=== PATIENT | female | born 1950 | race Caucasian/White ===

== ENCOUNTER 2019-05-18 07:56 | Outpatient (CLI) | payer BC, SELFPAY ==
--- NOTE | ~2019-05-18 | MM_ITS ---
EXAMINATION: MM screening [facility] BI w henrietta HISTORY: Screening mammogram TECHNIQUE: Craniocaudal and mediolateral oblique 3-D tomosynthesis images were obtained and synthetic 2-D images were generated. CAD analysis was submitted and interpreted. COMPARISON: 05/15/2018, 03/30/1917, 04/02/2016, 04/12/2015 BREAST PARENCHYMAL COMPOSITION: There are scattered areas of fibroglandular density. FINDINGS: There are stable changes of excisional biopsy in the middle third of the central left breas t. There is no evidence of suspicious mass, calcification, or architectural distortion to suggest mal ignancy in either breast. There has been no suspicious interval change. IMPRESSION: 1. No mammographic evidence of malignancy. 2. Recommend routine screening mammography in one year. BI-RADS Category 2: Benign finding(s). Reviewed, dictated and finalized at location A.
--- NOTE | ~2019-05-18 | DEXA_ITS ---
Bone Density Report Name: Mira Arguello Age: 68 Sex: Female Ethnicity: White Date of : 1950 Indication: postmenopausal; height loss; cancer; Referring Provider: Daksha Goldstein Study: Bone densitometry was performed. Exam Date: May 18, 2019 Accession number: [id number] Bone Density: Region BMD T-score Z-score Classification AP Spine (L1, L4) 1.222 1.7 3.8 Normal Femoral Neck (Left) 1.009 1.4 3.3 Normal Total Hip (Left) 1.140 1.6 3.1 Normal Total Hip Bilateral Avg 1.122 1.5 2.9 Normal Femoral Neck (Right) 1.022 1.6 3.4 Normal Total Hip (Right) 1.102 1.3 2.8 Normal World Health Organization criteria for BMD impression classify patients as: Normal (T-score at or above -1.0), Osteopenia (T-score between -1.0 and -2.5), or Osteoporosis (T-score at or below -2.5). 10-year Fracture Risk: FRAX not reported because: All T-scores for Spine Total, Hip Total, Femoral Neck at or above -1.0 Clinical Information Provided by Patient: Has the following medical conditions: Cancer Patient maximum height was 66 Menopause Age: 48 Drinks caffeinated beverages Onset of menses at age 12 Number of children 3 Impression: The patient has normal bone mass. Discussion: LOW RISK OF FRACTURE; BONE DENSITY IS WELL ABOVE THE MINIMUM DESIRABLE LEVEL AND ABOVE AVERAGE FOR AGE AND SEX AT ALL SKELETAL SITES TESTED. This person's bone density is above expected limits for age and sex. This is rarely clinically significant, but should be pursued if there are significant musculoskeletal complaints. The patient should follow a healthful lifestyle (good nutrition with adequate calcium and vitamin D, and appropriate weight-bearing exercise). Follow-Up: Consider repeating this study in 5 years or sooner if there is some new clinical indication. Reported by: [facility] on 05/18/2019 8:25:00 AM. Reviewed, dictated and finalized at location [facility]
== END 2019-05-18 07:57 | disposition home or self-care (01) ==
PROVIDERS: PCP Family Medicine; Visit Provider Family Medicine
DX: Z12.31 Encounter for screening mammogram for malignant neoplasm of breast (principal); Z78.0 Asymptomatic menopausal state
CPT/HCPCS: 77063; 77067; 77080

== ENCOUNTER 2020-05-01 15:13 | Emergency (ER) | payer MEDICARE, SELFPAY ==
--- NOTE | 2020-05-01 15:21 | ED.FEMALEGU ---
HPI - Female Genitourinary General Chief complaint: Urogenital-Female Stated complaint: uti Time Seen by Provider: 05/01/20 15:21 Source: patient, RN notes reviewed and old records reviewed History of Present Illness HPI Narrative: 69-year-old female presents to [facility] with complaints of I have a UTI. Suprapubic pressure, burning, frequency, urgency. Denies any back pain or abdominal pain. Denies fevers. No nausea vomiting or diarrhea. Related Data Home Medications Medication Instructions Recorded Confirmed aspirin 81 mg PO DAILY 02/16/19 05/01/20 Allergies Allergy/AdvReac Type Severity Reaction Status Date / Time No Known Allergies Allergy Verified 07/27/19 10:38 Review of Systems Review of Systems: Narrative: CONSTITUTIONAL: Denies fever, chills, or sweats. CARDIOVASCULAR: Denies chest pain, palpitations, or edema. RESPIRATORY: Denies cough or dyspnea. GASTROINTESTINAL: Denies abdominal pain, nausea, vomiting, or diarrhea. GENITOURINARY: Reports dysuria or hematuria. SKIN: Denies rash or itching. MUSCULOSKELETAL: Denies back pain, joint pain, or myalgia. NEUROLOGIC: Denies headache or weakness PSYCHIATRIC: Denies anxiety or depression. All other systems reviewed are negative, except as documented in HPI. [facility]LY [facility] Family History Family History Mother Family history of heart disease in male family member before age 55 Patient's mother is Social History Social History Smoking status: Never smoker Alcohol intake: current Gender identity (if verbalized by the patient): Female Comments At the time of my signature, I reviewed and agree with the nursing past medical, surgical, social, and family history. There is no relevant family history pertinent to the patient complaint. Exam Narrative: Exam Narrative: GENERAL: This is a well-nourished, well-developed patient, in no apparent distress. HEAD: normocephalic, atraumatic. EYES: PERRL. Sclera clear/white. NECK: Neck supple, non-tender without lymphadenopathy. CARDIOVASCULAR: Regular rate and rhythm without murmurs, gallops, or rubs. RESPIRATORY: Clear to auscultation. Breath sounds equal bilaterally. No wheezes, rales, or rhonchi. GASTROINTESTINAL: Abdomen soft, non-tender, nondistended. SKIN: warm, intact with no suspicious lesions or rash, good texture and turgor. NEURO: awake, alert, and oriented to person, place and time. There were no obvious focal neurologic abnormalities. EXTREMITIES: No clubbing, cyanosis, or edema. BACK: Nontender without deformity or crepitance. No flank tenderness. Course Vital Signs Vital signs: Vital Signs Temperature 98 F 05/01/20 15:25 Pulse Rate 81 05/01/20 15:25 Respiratory Rate 05/01/20 15:25 Blood Pressure 150/74 H 05/01/20 15:25 Temperature 98 F 05/01/20 15:25 Pulse Rate 81 05/01/20 15:25 Respiratory Rate 05/01/20 15:25 Blood Pressure 150/74 H 05/01/20 15:25 Reviewed, discussed blood pressure and the importance of following up with primary care for evaluation. MDM - Female Genitourinary MDM Narrative Medical decision making narrative: Discharge instructions reviewed with patient, as well as provided in writing per nursing staff. The instructions also include specific and strict return/GO TO THE ER as well as f/u information. All questions have been answered, and the patient deny any further questions with discharge and discharge plan. Differential Diagnosis Differential diagnosis: Likely urinary tract infection and bacterial vaginosis Lab Data Labs: Urine Glucose Negative Reference Range: Negative Urine Bilirubin Negative Reference Range: Negative Urine Ketone Negative
[2020-05-01 15:25] VITALS: BP 150/74; PULSE 81; RESP 20; TEMP 36.6
== END 2020-05-01 15:39 | disposition home or self-care (01) ==
PROVIDERS: Emergency Provider Nurse Practitioner; PCP Family Medicine
DX: N30.01 Acute cystitis with hematuria (principal); E78.00 Pure hypercholesterolemia, unspecified; Z85.038 Personal history of other malignant neoplasm of large intestine
CPT/HCPCS: 81003; 87086; 87088; 99213; G0463

== ENCOUNTER → 2020-06-27 13:11 | Outpatient (CLI) | payer MEDICARE, SELFPAY ==
--- NOTE | ~2020-06-27 | MM_ITS ---
EXAMINATION: MM screening [facility] BI w henrietta HISTORY: Screening mammogram TECHNIQUE: Craniocaudal and mediolateral oblique 3-D tomosynthesis images were obtained and synthetic 2-D images were generated. CAD analysis was submitted and interpreted. COMPARISON: 05/28/2019, 05/15/2018, 04/08/2017 BREAST PARENCHYMAL COMPOSITION: The breasts are heterogeneously dense, which may obscure small masses . FINDINGS: Again noted are stable changes of excisional biopsy in the middle third of the central left breast. There is no evidence of suspicious mass, calcification, or architectural distortion to sugge st malignancy in either breast. There has been no suspicious interval change. IMPRESSION: 1. No mammographic evidence of malignancy. 2. Recommend routine screening mammography in one year. BI-RADS Category 2: Benign finding(s). Reviewed, dictated and finalized at location A.
== END ==
PROVIDERS: PCP Family Medicine; Visit Provider Physician Assistant Medical
DX: Z12.31 Encounter for screening mammogram for malignant neoplasm of breast (principal)
CPT/HCPCS: 77063; 77067

== ENCOUNTER 2021-02-15 01:29 | Day surgery (SDC) | payer MEDICARE, SELFPAY ==
[2021-01-30 14:52] VITALS: BMI 29.4
--- NOTE | 2021-02-14 15:18 | PM.HPGS ---
History of Present Illness History of Present Illness Consent: Risks, benefits, and alternatives have been discussed and questions answered. Patient agrees to proceed with procedure. Chief complaint: hx of colon ca Narrative: Mira Magana is a 70 year old female with a history of colon cancer 7 years ago. Her last colonoscopy was 3 years ago Review of Systems Review of Systems: All systems reviewed & are unremarkable except as noted in HPI and below PMFSH Past Medical History Medical History BMI 30.0-30.9,adult Screening for malignant neoplasm of colon performed Family History Family History Mother Family history of heart disease in male family member before age 55 Patient's mother is Heart disease Tobacco abuse Father Alzheimer's disease Sibling No problems noted. 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 Gender identity (if verbalized by the patient): Female Sexual Orientation (if Verbalized by the Patient): Straight or Heterosexual Spiritual care concerns: No Agree to blood products: Yes Meds Home Medications and Allergies Home Medications Medication Instructions Recorded Confirmed Type aspirin 81 mg PO DAILY 02/16/19 02/15/21 History alprazolam 0.25 mg tablet 0.25 mg PO QHS PRN #30 tablet 11/15/20 02/15/21 Rx hydrocortisone 2.5 % topical cream 1 applic RECTAL DAILY PRN #30 g 12/13/20 02/15/21 Rx with perineal applicator rosuvastatin 10 mg PO DAILY 01/30/21 02/15/21 History vit C-vit V-zrzxut-vnli-lutein 1 cap PO DAILY 01/30/21 02/15/21 History [PreserVision Lutein] Allergies Allergy/AdvReac Type Severity Reaction Status Date / Time No Known Allergies Allergy Verified 02/15/21 10:15 Exam Resp: Auscultation: clear to auscultation bilaterally Cardio: Rate: regular rate Rhythm: regular rhythm GI: GI Palp: Yes Soft to palpation and No Tenderness to palpation present (GI) Assessment and Plan Assessment and plan (1) Colon cancer screening: Code(s): Z12.11 - Encounter for screening for malignant neoplasm of colon Status: Acute Assessment and Plan: Colonoscopy with possible biopsy or polypectomy or cautery or injection of substances.
[2021-02-15 10:05] VITALS: BP 168/74; PULSE 82; RESP 18; TEMP 37; O2SAT 100; BMI 29.5
[2021-02-15] MEDS: LACTATED RINGERS 1,000 ML 150 ML IV CONT (10:29)
--- NOTE | 2021-02-15 11:18 | P.PNAN_ITS ---
Anes - Initial Pre Proc Eval Procedure: Operation Date: 02/15/21 11:30 Proposed Procedures p Screening Colonoscopy - Jack Russell MD Date/Time: 02/15/21 11:18 Surgeon: Jack Russell MD Pre Op Diagnosis: hx of colon ca Patient Data Age: 70 Gender: F Height: 1.68 m Weight: 82.9 kg Last Vital Signs Temp 98.6 F 02/15/21 10:05 Pulse 82 02/15/21 10:05 Resp 18 02/15/21 10:05 BP 168/74 H 02/15/21 10:05 Pulse Ox 100 02/15/21 10:05 Allergies Allergy/AdvReac Type Severity Reaction Status Date / Time No Known Allergies Allergy Verified 02/15/21 10:15 Home Medications Medication Instructions Recorded Confirmed Type aspirin 81 mg PO DAILY 02/16/19 02/15/21 History alprazolam 0.25 mg tablet 0.25 mg PO QHS PRN #30 tablet 11/15/20 02/15/21 Rx hydrocortisone 2.5 % topical cream 1 applic RECTAL DAILY PRN #30 g 12/13/20 02/15/21 Rx with perineal applicator rosuvastatin 10 mg PO DAILY 01/30/21 02/15/21 History vit C-vit L-anogjo-cgcm-lutein 1 cap PO DAILY 01/30/21 02/15/21 History [PreserVision Lutein] Patient hx anesthesia problems: none Family hx anesthesia problems: none Results Review: All pre-operative results and documents have been reviewed as part of the pre-operative evaluation. [facility] Past Medical History Medical History BMI 30.0-30.9,adult Screening for malignant neoplasm of colon performed Family History Family History Mother Family history of heart disease in male family member before age 55 Patient's mother is Heart disease Tobacco abuse Father Alzheimer's disease Sibling No problems noted. 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 Gender identity (if verbalized by the patient): Female Sexual Orientation (if Verbalized by the Patient): Straight or Heterosexual Spiritual care concerns: No Agree to blood products: Yes Anes - Eval Final PreProcedure Day of Procedure 02/15/21 11:18 Patient weight: obese Heart: regular rate and rhythm Lungs: clear to auscultation Airway: Mallampati scale class II Neurological: alert and oriented Last oral intake: >/= 8 hours ASA classification: II Emergent: no Anesthetic plan: proceed Anesthesia type and monitoring: general GIVS and standard monitoring Results Review: All pre-operative results and documents have been reviewed as part of the pre-operative evaluation. Informed Consent: The patient's anesthetic plan and its attendant risks and benefits were discussed with the patient/family/POA. Questions were solicited and answers provided to the satisfaction of the patient/family/POA.
[2021-02-15] MEDS: SIMETHICONE ORAL SUSPENSION 20 MG/0.3 ML 30 ML BOTTLE 0.6 ML IRRIGATION (11:28)
[2021-02-15 11:38] VITALS: BP 101/60; PULSE 75; RESP 17; O2SAT 96
[2021-02-15 11:48] VITALS: BP 114/65; PULSE 68; RESP 20; O2SAT 99
[2021-02-15 11:58] VITALS: BP 113/63; PULSE 61; RESP 16; O2SAT 99
== END 2021-02-15 12:09 | disposition home or self-care (01) ==
PROVIDERS: PCP Family Medicine; Visit Provider Internal Medicine Gastroenterology
PROC: 0DJD8ZZ Inspection of Lower Intestinal Tract, Via Natural or Artificial Opening Endoscopic (ICD-10-PCS; CPT 45378; principal; 2021-02-15 11:30)
DX: Z12.11 Encounter for screening for malignant neoplasm of colon (principal); K64.8 Other hemorrhoids; K57.30 Diverticulosis of large intestine without perforation or abscess without bleeding; Z98.0 Intestinal bypass and anastomosis status; Z90.49 Acquired absence of other specified parts of digestive tract; Z85.038 Personal history of other malignant neoplasm of large intestine; Z79.82 Long term (current) use of aspirin; E66.9 Obesity, unspecified; Z68.29 Body mass index [BMI] 29.0-29.9, adult
CPT/HCPCS: G0105; J2704; J7120

== ENCOUNTER 2021-04-02 12:05 | Emergency (ER) | payer MEDICARE, SELFPAY ==
[2021-04-02 12:25] VITALS: BP 146/75; PULSE 83; RESP 18; TEMP 36.8; O2SAT 97
--- NOTE | 2021-04-02 12:27 | ED.FEMALEGU ---
HPI - Female Genitourinary General Chief complaint: Urogenital-Female Stated complaint: uti complaints Time Seen by Provider: 04/02/21 12:30 Source: patient Limitations: no limitations History of Present Illness HPI Narrative: 70-year-old female presented for complaint of dysuria, and cloudy urine with a foul odor, onset yesterday. She denies nausea, vomiting, diarrhea, constipation, flank pain, hematuria, fever or chills. Endorses approximately 3 UTIs last year. She has been drinking cranberry juice daily. Related Data Home Medications Medication Instructions Recorded Confirmed aspirin 81 mg PO DAILY 02/16/19 02/15/21 PreserVision Lutein 1 cap PO DAILY 01/30/21 02/15/21 rosuvastatin 10 mg PO DAILY 01/30/21 02/15/21 Allergies Allergy/AdvReac Type Severity Reaction Status Date / Time No Known Allergies Allergy Verified 04/02/21 12:25 Review of Systems Review of Systems: CONSTITUTIONAL: Denies body aches, fever, chills, or sweats. CARDIOVASCULAR: Denies chest pain, palpitations, or edema. RESPIRATORY: Denies cough or dyspnea. GASTROINTESTINAL: Denies abdominal pain, nausea, vomiting, or diarrhea. GENITOURINARY: Reports dysuria, frequency Denies urgency, hematuria, flank pain SKIN: Denies rash, itching, or wounds. MUSCULOSKELETAL: Denies back pain or myalgia. [facility] Past Medical History Medical History BMI 30.0-30.9,adult Screening for malignant neoplasm of colon performed Family History Family History Mother Family history of heart disease in male family member before age 55 Patient's mother is Heart disease Tobacco abuse Father Alzheimer's disease Sibling No problems noted. 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 Please see nursing chart for further information. There is no relevant family history pertinent to the presenting complaint Exam Narrative: GENERAL: Well-appearing and in no acute distress. HEAD: Normocephalic EYES: EOMI. No redness or drainage. ENT: Mucous membranes pink and moist. NECK: Normal AROM. Supple. CHEST: No respiratory distress. Clear to auscultation. HEART: Regular rate and rhythm. ABDOMEN: Soft, nontender, nondistended, normal active bowel sounds. No CVA tenderness MUSCULOSKELETAL: No bony tenderness. SKIN: Warm, dry, no rash. NEURO: No focal deficits. Alert and oriented x3. Gait steady. PSYCH: Normal affect. No signs of depression or anxiety. Course Course Emergency Course: urine Pos leuk, nitrite, blood pro; abx sent Patient is aware of diagnosis, understands and agrees to treatment plan. Anticipatory guidance given. Patient agrees to follow-up as directed and is aware of reasons to seek care at the emergency department. Portions of this record may have been created with voice recognition software Level of Care: Express Care Visit Vital Signs Vital signs: Vital Signs Temperature 98.2 F 04/02/21 12:25 Pulse Rate 83 04/02/21 12:25 Respiratory Rate 18 04/02/21 12:25 Blood Pressure 146/75 H 04/02/21 12:25 Pulse Oximetry 97 04/02/21 12:25 Temperature 98.2 F 04/02/21 12:25 Pulse Rate 83 04/02/21 12:25 Respiratory
== END 2021-04-02 12:51 | disposition home or self-care (01) ==
PROVIDERS: Emergency Provider Nurse Practitioner Family; PCP Family Medicine
DX: N39.0 Urinary tract infection, site not specified (principal); Z79.82 Long term (current) use of aspirin
CPT/HCPCS: 81003; 87077; 87086; 87186; 99213; G0463

== ENCOUNTER → 2021-09-14 10:14 | Outpatient (CLI) | payer MEDICARE, SELFPAY ==
--- NOTE | ~2021-09-14 | MM_ITS ---
EXAMINATION: MM screening [facility] BI w henrietta HISTORY: Screening TECHNIQUE: Craniocaudal and mediolateral oblique 3-D tomosynthesis images were obtained and synthetic 2-D images were generated. CAD analysis was submitted and interpreted. COMPARISON: Comparison to multiple prior studies sequentially, with oldest reviewed study dated 04/02. BREAST PARENCHYMAL COMPOSITION: Breast composed of scattered areas of fibroglandular density FINDINGS: Stable architectural distortion in the left breast from previous biopsies. There is no evid ence of suspicious mass, calcification, or architectural distortion to suggest malignancy in either b reast. There has been no suspicious interval change. IMPRESSION: 1. No mammographic evidence of malignancy. 2. Recommend routine screening mammography in one year. BI-RADS Category 1: Negative Reviewed, dictated and finalized at location A.
== END ==
PROVIDERS: PCP Family Medicine; Visit Provider Family Medicine
DX: Z12.31 Encounter for screening mammogram for malignant neoplasm of breast (principal)
CPT/HCPCS: 77063; 77067

== ENCOUNTER 2021-12-22 08:45 | Outpatient (CLI) | payer MEDICARE, SELFPAY ==
[2021-12-22 09:05] LABS: Basophils Percent Auto 0.3 % (0.2-1.2); Eosinophils Absolute Auto 0.1 K/mm3 (0-0.3); Eosinophils Percent Auto 2.5 % (0-4.4); Hematocrit 42.7 % (37.0-47.0); Hemoglobin 14.1 g/dL (12.0-15.0); Lymphocytes Absolute Auto 1.05 K/mm3 (0.9-3.2); Lymphocytes Percent Auto 33.1 % (18.3-44.2); Mean Corpuscular Hemoglobin 32.4 pg (26-34); Mean Corpuscular Volume 98.2 fl (80-100); Mean Platelet Volume 11.1 fl (7.4-10.4); Monocytes Absolute Auto 0.3 K/mm3 (0.1-0.6); Monocytes Percent Auto 8.8 % (2.6-8.5); Neutrophils Absolute Auto 1.8 K/mm3 (1.3-6.7); Neutrophils Percent Auto 55.3 % (45.5-73.1); Platelet Count Result 150 k/mm3 (150-375); Red Blood Count 4.35 M/mm3 (4.2-5.4); Red Cell Distribution Width 12.3 % (11.5-14.5); White Blood Count 3.2 K/mm3 (4.5-10.0)
[2021-12-22 14:18] LABS: Alanine Aminotransferase 30 U/L (6-35); Albumin Level 4.3 g/dL (3.5-5.1); Alkaline Phosphatase 51 U/L (38-126); Anion Gap 6 mmol/L (8-16); Aspartate Amino Transferase 36 U/L (14-36); Bilirubin,Total 0.7 mg/dL (0.2-1.3); Blood Urea Nitrogen 12 mg/dL (7-17); Calcium 9.6 mg/dL (8.4-10.2); Carbon Dioxide 29 mmol/L (22-30); Chloride 103 mmol/L (98-107); Estimated Glomerular Filt Rate > 60; Glucose 121 mg/dL (65-110); Potassium 4.3 mmol/L (3.4-5.0); Sodium 138 mmol/L (137-145)
[2021-12-22 14:41] LABS: Carcinoembryonic Antigen 7.9 ng/mL (0.0-3.0)
== END 2021-12-22 08:46 | disposition home or self-care (01) ==
PROVIDERS: PCP Family Medicine; Visit Provider Internal Medicine Hematology & Oncology
DX: C18.9 Malignant neoplasm of colon, unspecified (principal)
CPT/HCPCS: 36415; 80053; 82378; 85025

== ENCOUNTER 2022-01-04 00:53 | Day surgery (SDC) | payer MEDICARE, SELFPAY ==
[2021-12-19 13:38] VITALS: BMI 29.5
--- NOTE | 2022-01-04 06:54 | PM.HPGS ---
History of Present Illness History of Present Illness Consent: Risks, benefits, and alternatives have been discussed and questions answered. Patient agrees to proceed with procedure. Chief complaint: dysphagia Narrative: Mira Magana is a 71 year old female With difficulty swallowing for the past year. Solid food is difficult to get down. He will feel as though the food is hitting an air pocket and does not want to pass until she burps. Review of Systems Review of Systems: All systems reviewed & are unremarkable except as noted in HPI and below PMFSH Past Medical History Medical History BMI 29.0-29.9,adult BMI 30.0-30.9,adult Screening for malignant neoplasm of colon performed Family History Family History Mother Family history of heart disease in male family member before age 55 Patient's mother is Heart disease Tobacco abuse CHF (congestive heart failure) Father Alzheimer's disease Sibling No problems noted. 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 Gender identity (if verbalized by the patient): Female Sexual Orientation (if Verbalized by the Patient): Straight or Heterosexual Spiritual care concerns: No Agree to blood products: Yes Meds Home Medications and Allergies Home Medications Medication Instructions Recorded Confirmed Type aspirin 81 mg chewable tablet 81 mg PO DAILY 02/16/19 12/19/21 History vit C 226 mg-vit E 90 mg-copper 1 cap PO DAILY 01/30/21 12/19/21 History 0.8 mg-zinc oxide-lutein 5 mg capsule (PreserVision Lutein) alprazolam 0.25 mg tablet 0.25 mg PO QHS PRN sleep #30 tabs 10/02/21 12/19/21 Rx rosuvastatin 10 mg tablet 10 mg PO DAILY #90 tabs 11/27/21 12/19/21 Rx omeprazole 40 mg capsule,delayed See Rx Instructions .Route 10/10/22 10/11/22 Rx release .COMPLEX #90 caps Allergies Allergy/AdvReac Type Severity Reaction Status Date / Time No Known Allergies Allergy Verified 01/04/22 08:49 Exam Const: General: alert Orientation/consciousness: patient oriented x3 Resp: Auscultation: clear to auscultation bilaterally Cardio: Rhythm: regular rhythm GI: GI Palp: Yes Soft to palpation and No Tenderness to palpation present (GI) Neuro: General: patient oriented x3 Assessment and Plan Assessment and plan (1) Dysphagia: Qualifiers: Dysphagia type: pharyngoesophageal phase Qualified Code(s): R13.14 - Dysphagia, pharyngoesophageal phase Code(s): R13.10 - Dysphagia, unspecified Status: Acute Assessment and Plan: EGD with possible biopsy or dilatation or cautery.
[2022-01-04 08:50] VITALS: BP 152/77; PULSE 69; RESP 18; TEMP 35.9; O2SAT 99
[2022-01-04] MEDS: LACTATED RINGERS 1,000 ML 150 ML IV CONT (08:57)
--- NOTE | 2022-01-04 09:06 | WPDANESEPPF ---
Anes - Initial Pre Proc Eval Procedure: Operation Date: 01/04/22 10:00 Proposed Procedures p Esophagogastroduodenoscopy - Jack Russell MD Date/Time: 01/04/22 09:06 Surgeon: Jack Russell MD Pre Op Diagnosis: dysphagia Patient Data Age: 71 Gender: F Height: 1.68 m Weight: 84.4 kg Last Vital Signs Temp 96.7 F L 01/04/22 08:50 Pulse 69 01/04/22 08:50 Resp 18 01/04/22 08:50 BP 152/77 H 01/04/22 08:50 Pulse Ox 99 01/04/22 08:50 O2 Del Method Room Air 01/04/22 08:50 Allergies Allergy/AdvReac Type Severity Reaction Status Date / Time No Known Allergies Allergy Verified 01/04/22 08:49 Home Medications Medication Instructions Recorded Confirmed Type aspirin 81 mg chewable tablet 81 mg PO DAILY 02/16/19 12/19/21 History vit C 226 mg-vit E 90 mg-copper 1 cap PO DAILY 01/30/21 12/19/21 History 0.8 mg-zinc oxide-lutein 5 mg capsule (PreserVision Lutein) alprazolam 0.25 mg tablet 0.25 mg PO QHS PRN sleep #30 tabs 10/02/21 12/19/21 Rx rosuvastatin 10 mg tablet 10 mg PO DAILY #90 tabs 11/27/21 12/19/21 Rx omeprazole 40 mg capsule,delayed See Rx Instructions .Route 12/18/21 12/19/21 Rx release .COMPLEX #90 caps Patient hx anesthesia problems: none Family hx anesthesia problems: none Results Review: All pre-operative results and documents have been reviewed as part of the pre-operative evaluation. [facility] Past Medical History Medical History BMI 29.0-29.9,adult BMI 30.0-30.9,adult Screening for malignant neoplasm of colon performed Family History Family History Mother Family history of heart disease in male family member before age 55 Patient's mother is Heart disease Tobacco abuse CHF (congestive heart failure) Father Alzheimer's disease Sibling No problems noted. 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 Gender identity (if verbalized by the patient): Female Sexual Orientation (if Verbalized by the Patient): Straight or Heterosexual Spiritual care concerns: No Agree to blood products: Yes Anes - Eval Final PreProcedure Day of Procedure 01/04/22 09:06 Patient weight: obese Heart: regular rate and rhythm Lungs: clear to auscultation Airway: Mallampati scale class II Neurological: alert and oriented Last oral intake: >/= 8 hours ASA classification: III Emergent: no Anesthetic plan: proceed Anesthesia type and monitoring: general GIVS and standard monitoring Results Review: All pre-operative results and documents have been reviewed as part of the pre-operative evaluation. Informed Consent: The patient's anesthetic plan and its attendant risks and benefits were discussed with the patient/family/POA. Questions were solicited and answers provided to the satisfaction of the patient/family/POA.
[2022-01-04 09:51] VITALS: BP 115/64; PULSE 74; RESP 25; O2SAT 99
[2022-01-04 10:01] VITALS: BP 105/63; PULSE 59; RESP 18; O2SAT 98
[2022-01-04 10:11] VITALS: BP 113/64; PULSE 60; RESP 21; O2SAT 99
== END 2022-01-04 10:19 | disposition home or self-care (01) ==
PROVIDERS: PCP Family Medicine; Visit Provider Internal Medicine Gastroenterology
PROC: 0DJ08ZZ Inspection of Upper Intestinal Tract, Via Natural or Artificial Opening Endoscopic (ICD-10-PCS; CPT 43235; principal; 2022-01-04 10:00)
DX: K22.2 Esophageal obstruction (principal); Z79.82 Long term (current) use of aspirin; E66.9 Obesity, unspecified; Z68.30 Body mass index [BMI] 30.0-30.9, adult
CPT/HCPCS: 43249; 88305; C1726; J2704; J7120

== ENCOUNTER 2022-05-11 10:44 | Outpatient (CLI) | payer MEDICARE, SELFPAY ==
[2022-05-11 11:53] LABS: Carcinoembryonic Antigen 7.5 ng/mL (0.0-3.0)
== END 2022-05-11 10:45 | disposition home or self-care (01) ==
LOC: ANHLAB 10:50
PROVIDERS: PCP Family Medicine; Visit Provider Internal Medicine Hematology & Oncology
DX: C18.9 Malignant neoplasm of colon, unspecified (principal)
CPT/HCPCS: 36415; 82378

== ENCOUNTER 2022-06-26 08:39 | Outpatient (CLI) | payer MEDICARE, SELFPAY ==
--- NOTE | ~2022-06-26 | XR_ITS ---
Supine and upright views of the abdomen Clinical history: Left renal stone Findings: Bowel gas pattern is nonspecific. No evidence for obstruction or free air. Multiple scatter ed surgical clips are present in the abdomen/pelvis. No abnormal mass lesion or calcification is seen . Osseous structures are intact. Impression: No definite renal stone identified. Consider CT to better evaluate for stones. Reviewed, dictated and finalized at [facility]. Impression: No definite renal stone identified. Consider CT to better evaluate for stones.
== END 2022-06-26 08:40 | disposition home or self-care (01) ==
LOC: ANHIMG 08:43
PROVIDERS: PCP Family Medicine; Visit Provider Urology
DX: N20.0 Calculus of kidney (principal)
CPT/HCPCS: 74018

== ENCOUNTER → 2022-12-11 12:33 | Outpatient (CLI) | payer MEDICARE, SELFPAY ==
--- NOTE | ~2022-12-11 | MM_ITS ---
EXAMINATION: MM screening daniel BI w henrietta HISTORY: Screening mammogram, history of left breast excisional biopsy TECHNIQUE: Craniocaudal and mediolateral oblique 3-D tomosynthesis images were obtained and synthetic 2-D images were generated. CAD analysis was submitted and interpreted. COMPARISON: 09/14/2021, 06/27/2020, 05/18/2019 BREAST PARENCHYMAL COMPOSITION: The breasts are heterogeneously dense, which may obscure small masses . FINDINGS: There are stable changes of excisional biopsy in the middle third of the central left breas t. No suspicious mass, calcification, or architectural distortion are identified in either breast to suggest malignancy. There has been no suspicious interval change. IMPRESSION: 1. No mammographic evidence of malignancy. 2. Recommend routine screening mammography in one year. BI-RADS Category 2: Benign finding(s). Reviewed, dictated and finalized at location A.
== END ==
PROVIDERS: PCP Physician Assistant Medical; Visit Provider Physician Assistant Medical
DX: Z12.31 Encounter for screening mammogram for malignant neoplasm of breast (principal)
CPT/HCPCS: 77063; 77067

== ENCOUNTER 2022-12-27 11:32 | Outpatient (CLI) | payer MEDICARE, SELFPAY ==
[2022-12-27 11:48] LABS: Basophils Percent Auto 0.3 % (0.2-1.2); Eosinophils Percent Auto 1.2 % (0-4.4); Hemoglobin 13.2 g/dL (12.0-15.0); Immature Granulocyte Absolute 0.02 K/mm3 (0.00-0.031); Immature Granulocyte Percent A 0.6 % (0-0.5); Lymphocytes Absolute Auto 1.13 K/mm3 (0.9-3.2); Mean Corpuscular Hemoglobin 32.9 pg (26-34); Mean Corpuscular Volume 99.8 fl (80-100); Mean Platelet Volume 10.9 fl (7.4-10.4); Monocytes Absolute Auto 0.3 K/mm3 (0.1-0.6); Monocytes Percent Auto 9.9 % (2.6-8.5); Neutrophils Absolute Auto 1.9 K/mm3 (1.3-6.7); Platelet Count Result 138 k/mm3 (150-375); Red Blood Count 4.01 M/mm3 (4.2-5.4); Red Cell Distribution Width 13.5 % (11.5-14.5); White Blood Count 3.4 K/mm3 (4.5-10.0)
[2022-12-27 12:25] LABS: Alanine Aminotransferase 42 U/L (6-35); Albumin Level 4.2 g/dL (3.5-5.1); Alkaline Phosphatase 54 U/L (38-126); Anion Gap 2 mmol/L (8-16); Aspartate Amino Transferase 56 U/L (14-36); Bilirubin,Total 0.8 mg/dL (0.2-1.3); Blood Urea Nitrogen 10 mg/dL (7-17); Calcium 8.6 mg/dL (8.4-10.2); Carbon Dioxide 29 mmol/L (22-30); Chloride 105 mmol/L (98-107); Estimated Glomerular Filt Rate > 60; Glucose 131 mg/dL (65-110); Potassium 4.1 mmol/L (3.4-5.0); Sodium 136 mmol/L (137-145)
== END 2022-12-27 11:33 | disposition home or self-care (01) ==
LOC: ANHLAB 11:34
PROVIDERS: PCP Physician Assistant Medical; Visit Provider Internal Medicine Hematology & Oncology
DX: C18.9 Malignant neoplasm of colon, unspecified (principal)
CPT/HCPCS: 36415; 80053; 82378; 85025

== ENCOUNTER → 2023-01-01 10:15 | Outpatient (CLI) | payer MEDICARE, SELFPAY ==
--- NOTE | ~2023-01-01 | CT_ITS ---
Clinical Indication: Colon cancer CT Scan of the Chest, Abdomen, and Pelvis with Contrast: Technique: Contiguous sections were acquired throughout the chest, abdomen, and pelvis after intraven ous administration of 100 cc of Omnipaque 350. Dose reduction technique was used on this scan by uti lizing automated exposure control and iterative reconstruction technique. The dose-length product (DL P) was 1293.15 mGy-cm. Findings: There is no evidence of any significant mediastinal, hilar or axillary lymphadenopathy. The mediastin al soft tissues and vascular structures appear normal. There is no evidence of pleural or pericardial effusion. 5 mm right lower lobe pulmonary nodule noted the right lung base (axial image 78). 3 mm left lower lo be pulmonary nodule noted peripherally (axial image 59). Probable diffuse fatty infiltration of the liver noted. Gallbladder is absent. The spleen, pancreas, adrenals and kidneys are within normal limits. There are atherosclerotic calcifications of the aorta. No lymphadenopathy. No bowel obstruction or bowel wall thickening. Prior partial right colectomy noted. Urinary bladder is unremarkable. No adnexal mass seen. No ascites. Impression: 2 subcentimeter pulmonary nodules, as noted above, indeterminate. Comparison with any prior outside c hest CTs would be useful to assess for chronicity of these nodules. Otherwise, small metastatic lesio ns cannot be completely excluded given history. Follow-up exam in 3 months recommended to reassess th lyndsey nodules. No evidence for active malignancy or metastatic disease in the abdomen/pelvis. Prior partial right co lectomy. Diffuse fatty infiltration of liver. Reviewed, dictated and finalized at location . Impression: 2 subcentimeter pulmonary nodules, as noted above, indeterminate. Comparison wi th any prior outside chest CTs would be useful to assess for chronicity of thes e nodules. Otherwise, small metastatic lesions cannot be completely excluded gi jayce history. Follow-up exam in 3 months recommended to reassess these nodules. No evidence for active malignancy or metastatic disease in the abdomen/pelvis. Prior partial right colectomy. Diffuse fatty infiltration of liver.
== END ==
PROVIDERS: PCP Internal Medicine Hematology & Oncology; Visit Provider Internal Medicine Hematology & Oncology
DX: C18.9 Malignant neoplasm of colon, unspecified (principal); R91.8 Other nonspecific abnormal finding of lung field; K76.0 Fatty (change of) liver, not elsewhere classified
CPT/HCPCS: 71260; 74177; Q9967

== ENCOUNTER 2023-04-11 08:54 | Outpatient (CLI) | payer MEDICARE, SELFPAY ==
--- NOTE | ~2023-04-11 | CT_ITS ---
Clinical Indication: Colon cancer CT Scan of the Chest with Contrast: Technique: Contiguous sections were acquired throughout the chest after intravenous administration of 75 cc of Omnipaque 350. Dose reduction technique was used on this scan by utilizing automated exposu re control and iterative reconstruction technique. The dose-length product (DLP) was 164.97 mGy-cm. COMPARISON: 01/01/2023 Findings: There is no evidence of any significant mediastinal, hilar or axillary lymphadenopathy. There is no f illing defect in the pulmonary arterial tree to suggest pulmonary embolus. There is no evidence of ao rtic dissection or aneurysm. There is no evidence of pleural or pericardial effusion. Stable 5 mm right basilar pulmonary nodule. Stable 3 mm left lower lobe pulmonary nodule peripherally . Images through the upper abdomen reveal no abnormalities. Impression: Stable subcentimeter pulmonary nodules, as above. Reviewed, dictated and finalized at [facility]. [facility] [employer] Impression: Stable subcentimeter pulmonary nodules, as above.
[2023-04-11 09:22] LABS: Estimated Glomerular Filt Rate > 60
== END 2023-04-11 08:55 | disposition home or self-care (01) ==
LOC: ANHIMG 08:56
PROVIDERS: PCP Family Medicine; Visit Provider Internal Medicine Hematology & Oncology
DX: C18.9 Malignant neoplasm of colon, unspecified (principal); R91.8 Other nonspecific abnormal finding of lung field
CPT/HCPCS: 71260; Q9967

== ENCOUNTER 2023-05-11 08:03 | Emergency (ER) | payer MEDICARE, SELFPAY ==
--- NOTE | 2023-05-11 08:17 | ED.FEMALEGU ---
HPI - Female Genitourinary General Chief complaint: Urogenital-Female Stated complaint: uti symptoms Time Seen by Provider: 05/11/23 08:17 Source: patient Mode of arrival: ambulatory Limitations: no limitations History of Present Illness HPI Narrative: Mira is a 72-year-old female patient presenting to the clinic today with complaints of possible urinary tract infection x1 day. She reports she started having some bladder discomfort and urinary frequency yesterday. Does have history of recurrent UTIs. Related Data Home Medications Medication Instructions Recorded Confirmed aspirin 81 mg chewable tablet 81 mg PO DAILY 02/16/19 05/11/23 vit C 226 mg-vit E 90 mg-copper 1 cap PO DAILY 01/30/21 05/11/23 0.8 mg-zinc oxide-lutein 5 mg capsule (PreserVision Lutein) alprazolam 0.25 mg tablet 0.25 mg PO QHS sleep 05/11/23 05/11/23 Allergies Allergy/AdvReac Type Severity Reaction Status Date / Time No Known Allergies Allergy Verified 05/11/23 08:33 Review of Systems Review of Systems: Pertinent positives per HPI. Patient denies any fever, chills, rash, headache, visual changes, dizziness, cough, runny nose, sore throat, shortness of breath, chest pain, palpitations, nausea, vomiting, diarrhea, constipation, abdominal pain. [facility] Past Medical History Medical History BMI 29.0-29.9,adult BMI 30.0-30.9,adult BMI 32.0-32.9,adult Screening for malignant neoplasm of colon performed Family History Family History Mother Family history of heart disease in male family member before age 55 Patient's mother is Heart disease Tobacco abuse CHF (congestive heart failure) Father Alzheimer's disease Sibling No problems noted. 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 There is no relevant family history pertinent to the patient complaint. Exam Narrative: General: Well-developed, well nourished, in no apparent distress. Head: Normocephalic, atraumatic. Cardio: Regular rate and rhythm, s1 and s2 normal, no murmur appreciated. Resp: Clear to auscultation bilaterally, no rhonchi, rales, wheezing or rubs. Abdomen: Soft, pliable, bowel sounds present in all quadrants, mild suprapubic tender to palpation, no organomegly, no CVAT tenderness. Course Course Emergency Course: Portions of this record may have been created with voice recognition software. Level of Care: Express Care Visit Vital Signs Vital signs: Vital signs reviewed MDM - Female Genitourinary MDM Narrative Medical decision making narrative: At the time of visit patient is resting comfortably on the exam table. Patient appears to be nontoxic. Labs: UA positive for 3+ leukocytes 1+ blood. We will send urine for culture. Plan: I reviewed patient's lab
[2023-05-11 08:28] VITALS: BP 136/70; PULSE 86; RESP 18; TEMP 36.4; O2SAT 99
== END 2023-05-11 08:49 | disposition home or self-care (01) ==
PROVIDERS: Emergency Provider Nurse Practitioner Family; PCP Family Medicine
DX: N30.01 Acute cystitis with hematuria (principal); B96.20 Unspecified Escherichia coli [E. coli] as the cause of diseases classified elsewhere; B96.1 Klebsiella pneumoniae [K. pneumoniae] as the cause of diseases classified elsewhere; Z79.82 Long term (current) use of aspirin
CPT/HCPCS: 81003; 87077; 87086; 87088; 87186; 99213; G0463

== ENCOUNTER 2023-07-09 09:02 | Outpatient (CLI) | payer MEDICARE, SELFPAY ==
[2023-07-09 09:16] LABS: Basophils Percent Auto 0.3 % (0.2-1.2); Eosinophils Percent Auto 0.9 % (0-4.4); Hematocrit 43.2 % (37.0-47.0); Hemoglobin 13.9 g/dL (12.0-15.0); Immature Granulocyte Absolute 0.01 K/mm3 (0.00-0.031); Immature Granulocyte Percent A 0.3 % (0-0.5); Lymphocytes Percent Auto 34.2 % (18.3-44.2); Mean Corpuscular HGB Conc 32.2 g/dl (32-36); Mean Corpuscular Hemoglobin 31.8 pg (26-34); Mean Corpuscular Volume 98.9 fl (80-100); Mean Platelet Volume 10.7 fl (7.4-10.4); Monocytes Absolute Auto 0.4 K/mm3 (0.1-0.6); Monocytes Percent Auto 10.8 % (2.6-8.5); Neutrophils Absolute Auto 1.9 K/mm3 (1.3-6.7); Neutrophils Percent Auto 53.5 % (45.5-73.1); Platelet Count Result 162 k/mm3 (150-375); Red Blood Count 4.37 M/mm3 (4.2-5.4); Red Cell Distribution Width 13.5 % (11.5-14.5); White Blood Count 3.5 K/mm3 (4.5-10.0)
[2023-07-09 10:39] LABS: Alanine Aminotransferase 27 U/L (6-35); Albumin Level 4.4 g/dL (3.5-5.1); Alkaline Phosphatase 54 U/L (38-126); Anion Gap 6 mmol/L (4-12); Aspartate Amino Transferase 29 U/L (14-36); Bilirubin,Total 0.9 mg/dL (0.2-1.3); Blood Urea Nitrogen 10 mg/dL (7-17); Calcium 9.3 mg/dL (8.4-10.2); Carbon Dioxide 27 mmol/L (22-30); Chloride 106 mmol/L (98-107); Estimated Glomerular Filt Rate > 60; Glucose 115 mg/dL (65-110); Potassium 4.3 mmol/L (3.4-5.0); Sodium 139 mmol/L (137-145)
[2023-07-09 11:07] LABS: Carcinoembryonic Antigen 9.5 ng/mL (0.0-3.0)
== END 2023-07-09 09:03 | disposition home or self-care (01) ==
LOC: ANHLAB 09:04
PROVIDERS: PCP Family Medicine; Visit Provider Internal Medicine Hematology & Oncology
DX: C18.9 Malignant neoplasm of colon, unspecified (principal)
CPT/HCPCS: 36415; 80053; 82378; 85025

== ENCOUNTER 2023-07-23 13:24 | Outpatient (CLI) | payer MEDICARE, SELFPAY ==
--- NOTE | ~2023-07-23 | PE_ITS ---
EXAMINATION: PET skull to mid thigh DATE: 07/23/2023 15:24 INDICATION: Malignant neoplasm of colon. TECHNIQUE: Blood glucose level was 103 mg/dL. 11.534 mCi of 18-fluorodeoxyglucose (18-FDG) was admini stered i.v. Low dose computed tomography (CT) images were acquired from the base of the brain to the proximal thighs for attenuation correction and anatomic localization. Automated exposure control was employed. Dose-length product (DLP) was 1090 mGy-cm. Positron emission tomography (PET) images were a cquired in the same distribution. COMPARISON: Chest CT 04/11/2023, CT chest, abdomen, and pelvis 01/01/2023 FINDINGS: Head/neck: There are no pathologically enlarged lymph nodes. Chest: There is mild scarring at the lung apices. No pleural effusion. Calcified left hilar and media stinal lymph nodes are consistent with old granulomatous disease. The heart size is normal. No perica rdial effusion. There is a 14 x 12 mm left paraspinal mass at T7-T8 with maximum SUV of 4.3. Abdomen/pelvis/proximal thighs: There is diffuse hepatic steatosis. Calcifications in the spleen are consistent with old granulomatous disease. The gallbladder is absent. The pancreas, adrenal glands, a nd right kidney are normal. There is a 4 mm stone in left kidney. There is an anastomosis in the sigm oid colon. There are changes of right hemicolectomy. There are no dilated loops of bowel. There are n o pathologically enlarged lymph nodes. There is no free intraperitoneal fluid. There is no osseous ma lignancy. IMPRESSION: 1. 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 Reviewed, dictated and finalized at location A. IMPRESSION: 1. 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
[2023-07-23 13:53] LABS: Glucose Point of Care 103 mg/dl (65-105)
== END 2023-07-23 13:25 | disposition home or self-care (01) ==
PROVIDERS: PCP Family Medicine; Visit Provider Internal Medicine Hematology & Oncology
DX: C18.9 Malignant neoplasm of colon, unspecified (principal)
CPT/HCPCS: 78815; A9552

== ENCOUNTER 2023-09-02 09:47 | Outpatient (CLI) | payer MEDICARE, SELFPAY ==
--- NOTE | 2023-09-02 10:34 | ECG_ITS ---
Test Date: 2023-09-02 10:57:32 Measurements Intervals Crozier Rate: 71 P: 30 NJ: 183 QRS: -14 QRSD: 83 T: 35 QT: 376 QTc: 409 Interpretive Statements POOR QUALITY ECG WITH BASELINE ARTIFACT SINUS RHYTHM LOW QRS VOLTAGE IN PRECORDIAL LEADS [QRS DEFLECTION < 1.0 mV IN CHEST LEADS] POOR R-WAVE PROGRESSION ABNORMAL ECG WARNING: DATA QUALITY MAY AFFECT INTERPRETATION No previous ECG available for comparison Electronically Signed On 09-02-2023 15:57:59 CDT by Dainele Cabezas M.D.
[2023-09-02 11:12] LABS: Basophils Percent Auto 0.3 % (0.2-1.2); Hematocrit 41.4 % (37.0-47.0); Hemoglobin 13.5 g/dL (12.0-15.0); Immature Granulocyte Absolute 0.02 K/mm3 (0.00-0.031); Immature Granulocyte Percent A 0.6 % (0-0.5); Lymphocytes Percent Auto 32.3 % (18.3-44.2); Mean Corpuscular HGB Conc 32.6 g/dl (32-36); Mean Corpuscular Hemoglobin 32.5 pg (26-34); Mean Corpuscular Volume 99.5 fl (80-100); Mean Platelet Volume 11.2 fl (7.4-10.4); Monocytes Absolute Auto 0.4 K/mm3 (0.1-0.6); Monocytes Percent Auto 11.9 % (2.6-8.5); Neutrophils Absolute Auto 1.7 K/mm3 (1.3-6.7); Neutrophils Percent Auto 53.9 % (45.5-73.1); Platelet Count Result 138 k/mm3 (150-375); Red Blood Count 4.16 M/mm3 (4.2-5.4); Red Cell Distribution Width 13.7 % (11.5-14.5); White Blood Count 3.1 K/mm3 (4.5-10.0)
[2023-09-02 11:23] LABS: Hemoglobin A1C 5.5 % (<5.7); Urine Cotinine NEGATIVE
== END 2023-09-02 09:48 | disposition home or self-care (01) ==
LOC: ANHSURGERY 09:51
PROVIDERS: PCP Family Medicine; Visit Provider Orthopaedic Surgery
DX: M17.11 Unilateral primary osteoarthritis, right knee (principal); E78.5 Hyperlipidemia, unspecified; Z01.818 Encounter for other preprocedural examination
CPT/HCPCS: 80307; 83036; 85025; 85055; 86850; 86900; 86901; 93005

== ENCOUNTER 2023-09-09 01:06 | Day surgery (SDC) | payer MEDICARE, SELFPAY ==
[2023-09-02 09:57] VITALS: BMI 33.3
--- NOTE | 2023-09-02 10:19 | PC.NURSE ---
Report to the Outpatient Waiting Room, entrance under the green pavilion located off [facility], at time __6:00 AM on date ___09/09/23____. Planned Procedure Time: _7:30 AM . Time changes happen often and if your time is changed the preop area will call you the afternoon before. - You and your visitor will be asked to self-screen and do not enter if you have any COVID symptoms. - A mask is optional within the hospital at this time. Patients may have clear liquids (water, carbonated beverages, clear teas, apple juice) until 3 hours prior to surgery ( 4:30 AM)with a maximum of 20 ounces. - No food from midnight until time of surgery - Infants may have breast milk until 4 hours before surgery, infant formula 6 hours prior to surgery. - Children will be allowed to drink immediately following surgery. If applicable, please bring a bottle or sippy cup to assist with drinking. Juice, water, soda, and popsicles are readily available. For infants on formula, please bring formula the day of surgery. Pacifiers are allowed. Take the following medications with a SIP of water the morning of surgery: ___NONE DO NOT STOP ANY OF YOUR OTHER PRESCRIPTION MEDICATIONS PRIOR TO SURGERY ?EXCEPT THE FOLLOWING Medications to discontinue per physician __ASPIRIN AND IBUPROFEN PER DR GRANT. HOLD ALL VITAMINS AND SUPPLEMENTS 3 DAYS PRE OP .LAST DOSE 09/05/23 Please no make-up, nail sinhala, hairspray, perfume, deodorant, or body powder the day of surgery. No jewelry (including any body piercings) or valuables the day of surgery, leave them at home. Please take a shower or bath the night before, or the morning of, surgery with an antibacterial soap. Wear comfortable, loose fitting clothing. Children are encouraged to wear pajamas. - Jewelry must be removed prior to entering the operating room. Rings and piercings that are not removed may be cut off. - The hospital will not accept responsibility for valuables. - Please leave all valuables, including medications, at home the day of surgery. If you are going home after surgery, a licensed sprinkler truck driver must drive you home. - NO public transportation without another adult if you receive anesthesia. - We recommend that an adult stay with you for 24 hours following discharge. - We also recommend that you do not drive, make important decision, drink alcoholic beverages, or take any drugs that were not prescribed by your health care provider for at least 24 hours after your discharge time. Follow any additional instructions given to you from your surgeon. If you or anyone in your household have experienced Covid symptoms in the past week, please notify your surgeon or the nurse liaison at the phone number below for possible testing. VERBAL AND WRITTEN instructions given to __PATIENT AND SPOUSE DAN and asked if any additional questions and then verbalized understanding. Patient advised to call surgeon office or pre surgery nurse liaison [phone] if any additional questions.
[2023-09-02 10:32] VITALS: BP 135/76; PULSE 73; RESP 18; TEMP 36.6; O2SAT 97
--- NOTE | 2023-09-04 06:13 | PM.IMHP ---
H&P: HPI History of Present Illness Date/Time: 09/04/23 06:13 Chief Complaint: Right knee Osteoarthritis Review of Systems Musculoskeletal: Musculoskeletal: Reports arthralgias, Reports joint swelling and Reports stiffness PMFSH Past Medical History Medical History Elevated cholesterol Hx of malignant neoplasm of colon Screening for malignant neoplasm of colon performed Surgical History Surgical History H/O partial resection of colon History of cholecystectomy Family History Family History Mother Family history of heart disease in male family member before age 55 Patient's mother is Heart disease Tobacco abuse CHF (congestive heart failure) Father Alzheimer's disease Sibling No problems noted. Social History Social History Smoking status: Never smoker Second hand tobacco smoke exposure: Yes Additional smoking assessment comments: DENIES ANY FORM OF TOBACCO USE Alcohol intake: current Drinks per week: 10 Substance use: never Substance use type: does not use Do You Feel Safe in your Home?: Yes Lack of Transportation: No Lack of Food: Never True Current Housing: I Have Housing Concerned About Future Housing: No Difficulty Paying Gas/Electric Bills: No Difficulty Paying for Meds: No Currently Unemployed: No Education: Bachelor's Degree Difficulty w/ Childcare or Family Care: No Living arrangements: with family Additional living arrangements comments: Occupation/Education: retired Additional occupation/education comments: [employer] Gender identity (if verbalized by the patient): Female Sexual Orientation (if Verbalized by the Patient): Straight or Heterosexual Spiritual care concerns: No Agree to blood products: Yes Meds Home Medications and Allergies Home Medications Medication Instructions Recorded Confirmed Type aspirin 81 mg chewable tablet 81 mg PO DAILY 02/16/19 09/02/23 History vit C 226 mg-vit E 90 mg-copper 1 cap PO DAILY 01/30/21 09/02/23 History 0.8 mg-zinc oxide-lutein 5 mg capsule (PreserVision Lutein) alprazolam 0.25 mg tablet 0.25 mg PO QHS PRN sleep #30 tabs 06/03/23 09/02/23 Rx omeprazole 40 mg capsule,delayed See Rx Instructions .Route 08/26/23 09/02/23 Rx release .COMPLEX #90 caps rosuvastatin 10 mg tablet 10 mg PO DAILY #90 tabs 08/26/23 09/02/23 Rx acetaminophen 650 mg 1,300 mg PO Q12H PRN Pain 09/02/23 09/02/23 History tablet,extended release (Tylenol Arthritis Pain) ibuprofen 400 mg tablet 400 mg PO Q6H PRN Pain 09/02/23 09/02/23 History Allergies Allergy/AdvReac Type Severity Reaction Status Date / Time hydromorphone [From Dilaudid] AdvReac Hallucinating Verified 09/02/23 10:06 AND NAUSEA AND VOMITING Exam Narrative: Patient has painful Right knee motion from 5-100. She has varus deformity. She walks with an antalgiic gait. Eyes: General: appearance normal, both eyes and all related structures Neck: Neck: supple Resp: Effort & Inspection: normal respiratory effort Cardio: Rate: regular rate Rhythm: regular rhythm Assessment and Plan Assessment and plan (1) Osteoarthritis of right knee: Code(s): M17.11 - Unilateral primary osteoarthritis, right knee Status: Acute Assessment and Plan: Patient has painful RIGHT knee osteoarthritis. She has failed conservative treatment. She would like to proceed with Total Knee Arthroplasty. Discussed risks,benefits, limitations and alternatives is detail. Will proceed per her request.
[2023-09-09] VITALS (15 sets, daily range): BP systolic 108–153; BP diastolic 58–76; PULSE 75–86; RESP 12–20; TEMP 35.6–36.6; O2SAT 94–100; BMI 33.0
--- NOTE | ~2023-09-09 | XR_ITS ---
EXAMINATION: [id number] DATE: 09/09/2023 09:56 INDICATION: Total right knee arthroplasty. Postop. TECHNIQUE: 2 views of right knee were obtained. COMPARISON: None. FINDINGS: There is a total right knee arthroplasty with patellar resurfacing in near-anatomic alignme nt. No fracture. No periprosthetic lucency to suggest loosening or infection. There is gas in the kne e joint and soft tissues, consistent with recent surgery. Anterior skin nan are noted. IMPRESSION: 1. Total right knee arthroplasty in near-anatomic alignment. Reviewed, dictated and finalized at location A.
[2023-09-09] MEDS: ACETAMINOPHEN 500 MG TABLET 1000 MG PO (06:34)
[2023-09-09] MEDS: VANCOMYCIN 1,250 MG/NS 250 ML BAG 166.67 MG IVPB (06:36)
--- NOTE | 2023-09-09 06:53 | WPDHPUPDATE1 ---
History and Physical Update Update Date/Time: 09/09/23 06:53 History and Physical has been reviewed, including an updated exam of the patient. There are NO changes in the patient's condition. Risks, benefits, and alternatives have been discussed and questions answered. Patient agrees to proceed with procedure.
--- NOTE | 2023-09-09 07:02 | WPDANESEPPF ---
Anes - Initial Pre Proc Eval Procedure: Operation Date: 09/09/23 07:30 Proposed Procedures p Right Total Knee Arthroplasty - Kole Carlos MD Date/Time: 09/09/23 07:02 Surgeon: Kole Carlos MD Pre Op Diagnosis: oa right knee Patient Data Age: 72 Gender: F Height: 1.65 m Weight: 90.15 kg Last Vital Signs Temp 36.6 C 09/09/23 06:53 Pulse 79 09/09/23 06:53 Resp 16 09/09/23 06:53 BP 152/76 H 09/09/23 06:53 Pulse Ox 97 09/09/23 06:53 O2 Del Method Room Air 09/02/23 10:32 Allergies Allergy/AdvReac Type Severity Reaction Status Date / Time hydromorphone [From Dilaudid] AdvReac Hallucinating Verified 09/09/23 06:07 AND NAUSEA AND VOMITING Home Medications Medication Instructions Recorded Confirmed Type aspirin 81 mg chewable tablet 81 mg PO DAILY 02/16/19 09/09/23 History vit C 226 mg-vit E 90 mg-copper 1 cap PO DAILY 01/30/21 09/02/23 History 0.8 mg-zinc oxide-lutein 5 mg capsule (PreserVision Lutein) alprazolam 0.25 mg tablet 0.25 mg PO QHS PRN sleep #30 tabs 06/03/23 09/02/23 Rx omeprazole 40 mg capsule,delayed See Rx Instructions .Route 08/26/23 09/02/23 Rx release .COMPLEX #90 caps rosuvastatin 10 mg tablet 10 mg PO DAILY #90 tabs 08/26/23 09/02/23 Rx acetaminophen 650 mg 1,300 mg PO Q12H PRN Pain 09/02/23 09/02/23 History tablet,extended release (Tylenol Arthritis Pain) ibuprofen 400 mg tablet 400 mg PO Q6H PRN Pain 09/02/23 09/02/23 History rivaroxaban 10 mg tablet (Xarelto) 10 mg PO DAILY PE prophylaxis s/p 09/05/23 Rx joint replacement 10 days #10 tabs Patient hx anesthesia problems: none Family hx anesthesia problems: none Results Review: All pre-operative results and documents have been reviewed as part of the pre-operative evaluation. [facility] Past Medical History Medical History Elevated cholesterol Hx of malignant neoplasm of colon Screening for malignant neoplasm of colon performed Surgical History Surgical History H/O partial resection of colon History of cholecystectomy Family History Family History Mother Family history of heart disease in male family member before age 55 Patient's mother is Heart disease Tobacco abuse CHF (congestive heart failure) Father Alzheimer's disease Sibling No problems noted. Social History Social History Smoking status: Never smoker Second hand tobacco smoke exposure: Yes Additional smoking assessment comments: DENIES ANY FORM OF TOBACCO USE Alcohol intake: current Drinks per week: 10 Substance use: never Substance use type: does not use Do You Feel Safe in your Home?: Yes Lack of Transportation: No Lack of Food: Never True Current Housing: I Have Housing Concerned About Future Housing: No Difficulty Paying Gas/Electric Bills: No Difficulty Paying for Meds: No Currently Unemployed: No Education: Bachelor's Degree Difficulty w/ Childcare or Family Care: No Living arrangements: with family Additional living arrangements comments: 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/Education: 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
[2023-09-09] MEDS: TRANEXAMIC ACID 1,000MG/ISO100 1,000 MG/100 ML BAG 200 MG IVPB (07:03)
[2023-09-09] MEDS: LACTATED RINGERS 1,000 ML 30 ML IV CONT ×2 (07:06→09:40)
[2023-09-09] MEDS: ceFAZolin 2 GM/D5W 50 ML 2 GM/50 ML BAG IVPB ×3 (07:30→23:00)
[2023-09-09] MEDS: SODIUM CHLORIDE 0.9% IV 38.7 ML, ROPivacaine HCL 1% 200 MG, KETOROLAC INJ (*BKC) 15 MG,... INFILTRATE (08:06)
--- NOTE | 2023-09-09 09:04 | P.OP_ITS ---
Procedure Note - Detailed Date of Procedure 09/09/23 Pre-op Diagnosis Osteoarthritis Right knee Post-op Diagnosis Same Procedure Performed RIGHT total knee arthroplasty Surgeon Kole Carlos MD Anesthesia General Indications Pain and Arthritis Findings Arthritis, deformity Description of Procedure The patient was brought to operating room #8. A general anesthetic was administered. Placed on the operating table and sterilely prepped and draped in usual manner. A longitudinal incision was made. Tourniquet inflated to 300 mmHg for a total of 45 minutes. Dissection was carried down to the fascia. Medial parapatellar incision was made and the patella subluxated laterally. Patella cut from 23 to 15 mm and sized for a 34 mm button. The tibia was cut perpendicular to the long axis and femur cut in 6 degrees of valgus. A 62.6 femur trialed. 63 tibia was felt to fit the best. The soft tissues balanced, hemostasis obtained. All [address], 63 tibia, 62.5 femur, 34 mm patella, and 10 mm poly. Motion was 0-125 degrees with good stability in both flexion and extension. The wound was closed with #2 Vicryl, 2- 0 Vicryl and nan. Implants [employer] Estimated Blood Loss 200 Drains No Packing No Pathology None sent Complications No immediate complications Condition Stable Disposition PACU [facility] Billing Surgery - Charge Forward: Surgery Billing (Total Knee [id number])
[2023-09-09] MEDS: ONDANSETRON INJ 4 MG/2 ML VIAL IV PUSH (10:11)
[2023-09-09] MEDS: fentaNYL CITRATE INJ (*CRX) 100 MCG/2 ML VIAL 25 MCG IV PUSH ×2 (10:42→10:55)
--- NOTE | 2023-09-09 11:37 | ADMGEN ---
This patient, Mira Magana, was admitted to 3 [facility] Surg Room 312-01. Patient/family oriented to hospital policies and general routines including ID bracelet, bed and alarms, visiting hours, pain management, procedures, bathroom and other care routines, personal items, smoking policy, room service/diet, and visiting hours. Information on how to activate the Rapid Response Team has been discussed. Patient/Family are encouraged to report perceived risks to care and to ask questions if they do not understand what they are told or what they should do.
[2023-09-09] MEDS: IBUPROFEN IV 800 MG/200 ML 800 MG/200 ML BAG 400 MG IVPB (11:47)
--- NOTE | 2023-09-09 12:38 | WPDCN ---
Assessment and Plan Assessment and plan (1) Osteoarthritis of right knee: Code(s): M17.11 - Unilateral primary osteoarthritis, right knee Status: Acute Assessment and Plan: Postoperative day 0 status post right total knee arthroplasty. Wound care, pain control, and DVT prophylaxis deferred to Dr. Carlos. (2) Hyperlipidemia: Qualifiers: Hyperlipidemia type: unspecified Qualified Code(s): E78.5 - Hyperlipidemia, unspecified Code(s): E78.5 - Hyperlipidemia, unspecified Status: Acute Assessment and Plan: Continue rosuvastatin and check LFTs. (3) Gastroesophageal reflux: Code(s): K21.9 - Gastro-esophageal reflux disease without esophagitis Status: Acute Assessment and Plan: Continue omeprazole. Plan Thank you for allowing us to participate in this patient's care. Please do not hesitate to contact us with any questions. HPI Data of Consult Date/Time: 09/09/23 12:45 Requesting Physician: Kole Carlos MD Consult Narrative Reason for consult: Medical management. Narrative: This is a pleasant 72-year-old female with osteoarthritis, hyperlipidemia, gastroesophageal reflux disease, and colon cancer status post partial colectomy whom the hospitalist service has been consulted for help managing her medical conditions postoperatively. She presented today for elective right total knee arthroplasty due to ongoing pain despite conservative outpatient treatment. Her surgery was performed under general anesthesia with no immediate complications documented an estimated blood loss of 200 mL. Postoperatively she has done quite well and her pain is well controlled, currently rated 4/10. She did have an episode where she felt nauseated and a bit lightheaded after receiving tramadol but that has passed. She had not yet had anything to eat and thinks it may have caused her nausea as she took it on an empty stomach. She is now eating without issue. She denies fever, chills, sweats, vomiting, chest pain, and shortness of breath. She also denies paresthesias, skin color, and temperature changes distal to the surgical site. Regarding her chronic conditions, she quite healthy and is treated for hyperlipidemia and GERD. These are well controlled on medication per patient report. No personal or family history of venous thromboembolism. Review of Systems Review of Systems: 12 systems were reviewed and are negative except for as per HPI. [facility] Past Medical History Medical History Basal cell carcinoma of skin Colon cancer Diverticulitis Gastroesophageal reflux Hyperlipidemia Osteoarthritis Surgical History Surgical History History of arthroplasty of right knee (09/09/23) History of arthroscopy of right knee (2010) History of basal cell carcinoma excision Nose. History of bilateral cataract extraction History of cholecystectomy History of partial colectomy For colon cancer. Family History Family History Mother Family history of heart disease in male family member before age 55 Patient's mother is Heart disease Tobacco abuse CHF (congestive heart failure) Father Alzheimer's disease Sibling No problems noted. Social History Social History Social History: Surrogate medical decision maker: Jay Magana, spouse. Code status: Full code. Smoking status: Never smoker Second hand tobacco smoke exposure: Yes Alcohol intake: current Drinks per week: 5 Substance use: never Substance use type: does not use Do You Feel Safe in your Home?: Yes Lack of Transportation: No Lack of Food: Never True Current Housing: I Have Housing Concerned About Future Housin
[2023-09-09] MEDS: traMADol HCL (*CRX) 50 MG TABLET PO (15:20)
[2023-09-09] MEDS: CELECOXIB 200 MG CAPSULE PO (17:15)
[2023-09-10 04:00] VITALS: BP 142/69; PULSE 81; RESP 17; TEMP 36.2; O2SAT 100
[2023-09-10] MEDS: traMADol HCL (*CRX) 50 MG TABLET PO ×2 (04:15→09:27)
[2023-09-10] MEDS: ONDANSETRON INJ 4 MG/2 ML VIAL IV PUSH ×3 (04:16→14:40)
[2023-09-10 06:37] LABS: Hematocrit 32.6 % (37.0-47.0); Hemoglobin 10.5 g/dL (12.0-15.0); Immature Granulocyte Absolute 0.02 K/mm3 (0.00-0.031); Immature Granulocyte Percent A 0.3 % (0-0.5); Immature Platelet Fraction Pct 8.6 % (0.9-11.2); Lymphocytes Absolute Auto 0.68 K/mm3 (0.9-3.2); Lymphocytes Percent Auto 10.9 % (18.3-44.2); Mean Corpuscular HGB Conc 32.2 g/dl (32-36); Mean Corpuscular Hemoglobin 32.4 pg (26-34); Mean Corpuscular Volume 100.6 fl (80-100); Mean Platelet Volume 11.5 fl (7.4-10.4); Monocytes Absolute Auto 0.9 K/mm3 (0.1-0.6); Monocytes Percent Auto 14.1 % (2.6-8.5); Neutrophils Absolute Auto 4.7 K/mm3 (1.3-6.7); Neutrophils Percent Auto 74.7 % (45.5-73.1); Platelet Count Result 107 k/mm3 (150-375); Red Blood Count 3.24 M/mm3 (4.2-5.4); Red Cell Distribution Width 13.8 % (11.5-14.5); White Blood Count 6.3 K/mm3 (4.5-10.0)
--- NOTE | 2023-09-10 06:43 | PM.PNORT ---
Progress Note: A&P Assessment and Plan (1) Osteoarthritis of right knee: Code(s): M17.11 - Unilateral primary osteoarthritis, right knee Status: Acute Assessment and Plan: Patient underwent total knee arthroplasty for osteoarthritis of the right knee. She is following a typical course doing well. Will see we can ambulate her today and hopefully discharge her this afternoon discussed. (2) History of knee replacement procedure of right knee: Code(s): Z96.651 - Presence of right artificial knee joint Status: Acute Subjective Subjective Date/Time Seen: 09/10/23 06:43 Post Op day: 1 Principal diagnosis: Status post of right total knee arthroplasty Review of Systems Review of Systems: 12 systems were reviewed and are negative except for as per HPI. Exam Narrative: Dressing is intact. Patient wiggles toes. Complaining of moderate pain. Objective Data Vital Signs Vital Signs: Vital Signs - 24 hr 09/09/23 06:53 09/09/23 09:40 09/09/23 09:55 Temperature 97.9 F 97.1 F L Pulse Rate 79 77 76 Respiratory Rate 16 14 12 Blood Pressure 152/76 H 153/75 H 133/62 Pulse Oximetry 97 100 100 Oxygen Delivery Simple Face Mask Simple Face Mask Oxygen Flow Rate 8 8 09/09/23 10:10 09/09/23 10:25 09/09/23 10:40 Temperature Pulse Rate 79 79 80 Respiratory Rate 12 16 12 Blood Pressure 149/72 H 149/70 H 141/72 H Pulse Oximetry 94 94 96 Oxygen Delivery Room Air Room Air Room Air Oxygen Flow Rate 09/09/23 10:55 09/09/23 11:05 09/09/23 11:30 Temperature 96.1 F L Pulse Rate 80 83 75 Respiratory Rate 16 12 20 Blood Pressure 152/70 H 130/73 145/63 H Pulse Oximetry 94 95 97 Oxygen Delivery Room Air Room Air Oxygen Flow Rate 09/09/23 11:45 09/09/23 12:15 09/09/23 13:31 Temperature 96.1 F L 96.5 F L Pulse Rate 85 75 Respiratory Rate 20 18 Blood Pressure 135/67 133/58 L Pulse Oximetry 96 98 Oxygen Delivery Room Air Oxygen Flow Rate 09/09/23 13:15 09/09/23 16:15 09/09/23 20:00 Temperature 96.4 F L 96.5 F L 97.6 F Pulse Rate 82 86 83 Respiratory Rate 16 16 15 Blood Pressure 129/59 L 134/64 108/60 Pulse Oximetry 97 98 95 Oxygen Delivery Oxygen Flow Rate 09/09/23 20:00 09/09/23 23:58 09/10/23 04:00 Temperature 97.1 F L 97.2 F L Pulse Rate 78 81 Respiratory Rate 16 17 Blood Pressure 115/59 L 142/69 H Pulse Oximetry 96 100 Oxygen Delivery Room Air Oxygen Flow Rate Intake/Output Intake/Output: Intake & Output 09/07/23 09/08/23 09/09/23 09/10/23 23:59 23:59 23:59 23:59 Intake Total 2160 100 Balance 2160 100 Meds/Results Medications: Active Medications Generic Name Dose Route Start Last Admin Trade Name Freq PRN Reason Stop Dose Admin Hydrocodone Bitart/Acetaminophen 1 tab 09/09/23 11:09 Hydrocodone/Acetaminophen (*Crx) 5-325 Mg Tablet PO Q4H PRN Pain Rated 4-6 Hydrocodone Bitart/Acetaminophen 1 tab 09/09/23 11:09 Hydrocodone/Acetaminophen (*Crx) 7.5-325 Mg Tablet PO Q4H PRN Pain Rated 7-10 Aspirin 81 mg 09/10/23 09:00 Aspirin 81 Mg Chewable Tablet PO DAILY LA NENA Celecoxib 200 mg 09/09/23 17:00 09/09/23 17:15 Celecoxib 200 Mg Capsule PO 200 mg BIDWM LA NENA Administration Diphenhydramine HCl 25 mg 09/09/23 11:09 Diphenhydramine Hcl Inj 50 Mg/Ml Vial IV PUSH Q6H PRN Itching Hydromorphone HCl 1 mg 09/09/23 11:09 Hydromorphone Hcl Inj (*Crx) 1 Mg/Ml Syr IV PUSH Q2H PRN Breakthrough Pain Rated 7-10 or NPO Hydromorphone HCl 0.5 mg 09/09/23 11:09 Hydromorphone Hcl Inj (*Crx) 1 Mg/Ml Syr IV PUSH Q2H PRN Breakthrough Pain Rated 4-6 or NPO Cefazolin Sodium 2 gm in 50 mls @ 100 mls/hr 09/09/23 15:30 09/10/23 00:03 Ancef 2 Gm/D5w 50 Ml IVPB 09/10/23 07:59 Infused Q8H LA NENA Infusion Ibuprofen 800 mg in 200 mls @ 400 mls/hr 09/09/23 11:09 09/09/23 14:16 Caldolor 800 Mg/200 Ml IVPB Infused
[2023-09-10 06:44] LABS: Alanine Aminotransferase 35 U/L (6-35); Albumin Level 3.5 g/dL (3.5-5.1); Alkaline Phosphatase 43 U/L (38-126); Anion Gap 3 mmol/L (4-12); Aspartate Amino Transferase 33 U/L (14-36); Bilirubin,Total 0.7 mg/dL (0.2-1.3); Blood Urea Nitrogen 8 mg/dL (7-17); Calcium 8.6 mg/dL (8.4-10.2); Carbon Dioxide 28 mmol/L (22-30); Chloride 106 mmol/L (98-107); Estimated CRCL calculation 80 ml/min; Estimated Glomerular Filt Rate > 60; Glucose 148 mg/dL (65-110); Magnesium 2.1 mg/dL (1.6-2.3); Potassium 4.2 mmol/L (3.4-5.0); Sodium 137 mmol/L (137-145)
--- NOTE | 2023-09-10 06:45 | PM.DS ---
DS: Admitting Diagnosis Discharge Date 09/15/2023 Admitting Diagnosis Right knee osteoarthritis DS: Discharge Diagnosis Discharge Diagnosis (1) History of knee replacement procedure of right knee: Code(s): Z96.651 - Presence of right artificial knee joint Status: Acute Assessment and Plan: Patient underwent right total knee arthroplasty for osteoarthritis. (2) Osteoarthritis of right knee: Code(s): M17.11 - Unilateral primary osteoarthritis, right knee Status: Acute DS: Summary Hospital Course Hospital Course: Patient underwent a right total knee arthroplasty for osteoarthritis. She is following the typical course. Will ambulate today and tent on discharge is afternoon. If she has any changes or problems she will call discussed. Time Spent with Patient Time attestation: Total time spent providing and/or coordinating discharge services: Exam Narrative: Patient wiggles toes. Neurologically she appears to grossly intact. Dressing is intact. Resp: Effort & Inspection: normal respiratory effort Cardio: Rate: regular rate Rhythm: regular rhythm DS: Data Data Completed and Pending Labs on day of discharge: Labs from last 24 hours 09/10/23 06:07 WBC Pending RBC Pending Hgb Pending Hct Pending MCV Pending MCH Pending MCHC Pending RDW Pending Plt Count Pending MPV Pending Immature Gran % (Auto) Pending Neut % (Auto) Pending Lymph % (Auto) Pending [place] % (Auto) Pending Eos % (Auto) Pending Baso % (Auto) Pending Lymph # (Auto) Pending [place] # (Auto) Pending Eos # (Auto) Pending Baso # (Auto) Pending Abs Immat Gran (auto) Pending Absolute Neuts (auto) Pending Absolute Nucleated RBC Pending Nucleated RBC % Pending Sodium 137 Potassium 4.2 Chloride 106 Carbon Dioxide 28 Anion Gap 3 L BUN 8 Creatinine 0.60 L Estim Creat Clear Calc 80 Estimated GFR > 60 Glucose 148 H Calcium 8.6 Magnesium 2.1 Total Bilirubin 0.7 Direct Bilirubin 0.0 AST 33 ALT 35 Alkaline Phosphatase 43 Total Protein 6.0 L Albumin 3.5 Discharge Plan Discharge Patient Disposition: Home, Self-Care Discharge Instructions: Dr. Kole Carlos M.D [address] [place] [id number] POST-OPERATIVE DISCHARGE INSTRUCTIONS TOTAL KNEE ARTHROPLASTY 1. When resting, do not rest in the chair.When resting, lie on your back, with back flat on the couch or bed, with leg elevated above heart to minimize swelling. You may put a pillow under your head. . Significant swelling could indicate a blood clot and if this occurs call the office (or go to the ER) to have a venous ultrasound. Therefore, do not rest in a chair. 2. At least five times a day spend several minutes stretching your knee into flexion while sitting in the chair and also stretching your knee out straight The abilities to bend your knee fulling and straighten your knee fully are two most important knee functions to focus on during your recovery. 3. It is ok to sit in chair to eat, use the toilet and receive a guest and to do your stretching exercises, but, sitting in a chair will cause your leg to swell. Therefore, avoid additional time sitting in the chair. and don't rest in the chair. 4. Wound Care: Nursing will give you an additional Mepilex dressing at the time of discharge. Patient to remove the dressing and apply a new Mepilex dressing at home 7 days after surgery and leave the dressing on until seen in office. 5. May shower with a Mepilex dressing in place.The water will run off the dressing. 6. Unless you are told otherwise, you may put full weight on your operated leg. Use a walker for balance and practice walking as normally as you can, ideally for a few minutes every hour while you are awake. 7. I would advise against putting ice packs on your knee incision. Ice constricts blood flow which can impar healing of the knee incision. IMPORTANT: Keila
[2023-09-10 08:00] VITALS: BP 114/54; PULSE 79; RESP 17; TEMP 36.3; O2SAT 98
--- NOTE | 2023-09-10 08:02 | WPDANESPN ---
Anes - Prog Note Post-Op Date/Time: 09/10/23 08:02 Cardiovascular status: normal Respiratory status: normal Airway patency: baseline Mental status: baseline Post-Op hydration status: normal Vital Signs: Last Vital Signs Temp 36.2 C L 09/10/23 04:00 Pulse 81 09/10/23 04:00 Resp 17 09/10/23 04:00 BP 142/69 H 09/10/23 04:00 Pulse Ox 100 09/10/23 04:00 O2 Del Method Room Air 09/09/23 20:00 O2 Flow Rate 8 09/09/23 09:55 Pain Score (VAS): 05/18 I/O: Intake & Output 09/09/23 09/10/23 09/10/23 23:59 07:59 15:59 Intake Total 610 100 Balance 610 100 Laboratory Tests 09/10/23 06:07 09/10/23 06:07 09/10/23 06:07 WBC 6.3 RBC 3.24 L Hgb 10.5 L D Hct 32.6 L MCV 100.6 H MCH 32.4 MCHC 32.2 RDW 13.8 Plt Count 107 L MPV 11.5 H Immature Gran % (Auto) 0.3 Neut % (Auto) 74.7 H Lymph % (Auto) 10.9 L [place] % (Auto) 14.1 H Eos % (Auto) 0.0 Baso % (Auto) 0.0 L Lymph # (Auto) 0.68 L [place] # (Auto) 0.9 H Eos # (Auto) 0.0 Baso # (Auto) 0.0 Abs Immat Gran (auto) 0.02 Absolute Neuts (auto) 4.7 Absolute Nucleated RBC 0.000 Nucleated RBC % 0.0 % Immature Plt Fraction 8.6 Sodium 137 Potassium 4.2 Chloride 106 Carbon Dioxide 28 Anion Gap 3 L BUN 8 Creatinine 0.60 L Estim Creat Clear Calc 80 Estimated GFR > 60 Glucose 148 H Calcium 8.6 Magnesium 2.1 Total Bilirubin 0.7 Direct Bilirubin 0.0 AST 33 ALT 35 Alkaline Phosphatase 43 Total Protein 6.0 L Albumin 3.5 Post-procedural complaints: none Patient Feedback: Patient satisfied with anesthetic care.
[2023-09-10] MEDS: ASPIRIN 81 MG CHEWABLE TABLET PO (08:20)
[2023-09-10] MEDS: CELECOXIB 200 MG CAPSULE PO (08:20)
[2023-09-10] MEDS: ROSUVASTATIN 10 MG TABLET PO (08:20)
[2023-09-10] MEDS: ceFAZolin 2 GM/D5W 50 ML 2 GM/50 ML BAG IVPB (08:21)
[2023-09-10] MEDS: PANTOPRAZOLE 40 MG TABLET PO (08:21)
[2023-09-10 11:53] VITALS: BP 122/56; PULSE 71; RESP 17; TEMP 36.3; O2SAT 99
== END 2023-09-10 15:00 | disposition home or self-care (01) ==
LOC: ANHSURGERY 07:29 → ANH3MEDSUR 11:11
PROVIDERS: Physician Assistant; PCP Family Medicine; Visit Provider Orthopaedic Surgery
PROC: (CPT 27447; principal; 2023-09-09 07:30)
DX: M17.11 Unilateral primary osteoarthritis, right knee (principal); E78.5 Hyperlipidemia, unspecified; K21.9 Gastro-esophageal reflux disease without esophagitis; Z85.038 Personal history of other malignant neoplasm of large intestine
CPT/HCPCS: 27447; 36415; 73560; 80048; 80076; 80307; 83036; 83735; 85025; 85055; 86850; 86900; 86901; 93005; 97110; 97116; 97161; 97165; 97530; 97535; A9270; C1713; C1776; J0171; J0690; J1100; J1170; J1741; J1885; J2250; J2405; J2704; J2795; J3010; J3370; J7120

== ENCOUNTER 2023-11-12 08:56 | Outpatient (CLI) | payer MEDICARE, SELFPAY ==
[2023-11-12 09:29] LABS: Basophils Percent Auto 0.2 % (0.2-1.2); Eosinophils Percent Auto 0.3 % (0-4.4); Hematocrit 41.7 % (37.0-47.0); Hemoglobin 13.1 g/dL (12.0-15.0); Immature Granulocyte Absolute 0.01 K/mm3 (0.00-0.031); Immature Granulocyte Percent A 0.2 % (0-0.5); Immature Platelet Fraction Pct 6.1 % (0.9-11.2); Lymphocytes Absolute Auto 0.98 K/mm3 (0.9-3.2); Lymphocytes Percent Auto 16.6 % (18.3-44.2); Mean Corpuscular HGB Conc 31.4 g/dl (32-36); Mean Corpuscular Hemoglobin 31.1 pg (26-34); Mean Platelet Volume 10.8 fl (7.4-10.4); Monocytes Absolute Auto 0.6 K/mm3 (0.1-0.6); Monocytes Percent Auto 9.7 % (2.6-8.5); Neutrophils Absolute Auto 4.3 K/mm3 (1.3-6.7); Platelet Count Result 142 k/mm3 (150-375); Red Blood Count 4.21 M/mm3 (4.2-5.4); Red Cell Distribution Width 14.1 % (11.5-14.5); White Blood Count 5.9 K/mm3 (4.5-10.0)
[2023-11-12 16:41] LABS: Cholesterol 173 mg/dL (0-200); HDL Direct 54 mg/dL; Triglycerides 141 mg/dL (<150)
[2023-11-12 16:48] LABS: Alanine Aminotransferase 23 U/L (6-35); Albumin Level 4.3 g/dL (3.5-5.1); Alkaline Phosphatase 71 U/L (38-126); Anion Gap 10 mmol/L (4-12); Aspartate Amino Transferase 29 U/L (14-36); Bilirubin,Total 0.9 mg/dL (0.2-1.3); Blood Urea Nitrogen 6 mg/dL (7-17); Carbon Dioxide 29 mmol/L (22-30); Chloride 99 mmol/L (98-107); Estimated Glomerular Filt Rate > 60; Glucose 108 mg/dL (65-110); Sodium 138 mmol/L (137-145)
[2023-11-12 16:51] LABS: LDL Cholesterol Direct 86 mg/dL
[2023-11-12 17:14] LABS: Carcinoembryonic Antigen 9.7 ng/mL (0.0-3.0)
== END 2023-11-12 08:57 | disposition home or self-care (01) ==
PROVIDERS: Physician Assistant Medical; PCP Family Medicine; Visit Provider Internal Medicine Hematology & Oncology
DX: E78.5 Hyperlipidemia, unspecified (principal); D72.9 Disorder of white blood cells, unspecified; G47.00 Insomnia, unspecified; C18.9 Malignant neoplasm of colon, unspecified
CPT/HCPCS: 36415; 80053; 80061; 82378; 85025; 85055

== ENCOUNTER 2023-11-18 10:00 | Outpatient (RCR) | payer MEDICARE, SELFPAY ==
--- NOTE | 2023-09-17 13:36 | OPREHPOC ---
Outpatient Therapy Plan of Care This is a Multidisciplinary Plan of Care that may contain components documented by all disciplines (PT, OT, and ST.) PT Problem 1 PT Problem #1 Knowledge Deficit PT Goal 1 Goal 1* indep with HEP 2* correct gait pattern with cane Target Visit 10 PT Problem 2 PT Problem #2 Pain PT Goal 1 Goal 1* pain rating at worst of 3/10 with increased activity 2* self assessment LE functional scale of 46% limitation in activity 3* pt report with sleeping, awaken 1x/night due to pain Target Visit 10 PT Problem 3 PT Problem #3 Impaired Range of Motion PT Goal 1 Goal increase R knee ROM to improve transfer sit/stand, gait and stair ability sitting active ROM 1* extension 0' 2* flexion 110' Target Visit 10 PT Problem 4 PT Problem #4 Impaired Functional Mobility PT Goal 1 Goal 1* 2 minute walking test distance of 325' 2* 5 reps sit/stand time of 15 seconds 3* sit/stand without use of UE's 4* 4 steps with one hand railing and alternate step pattern Target Visit 10
--- NOTE | 2023-09-17 13:36 | PTOPEVAL1 ---
Assessment and note entered by Tuyet Grissom, PT Evaluation Information Assessment Status Evaluation Diagnosis s/p R TKR Other ICD-10 Condition Codes ( Z96.650 PT) Onset 09-09-23 Subjective Information is walking around the house every hour with the wheeled walker; has done well with getting a shower, using the shower seat; doing the exercises 2x/day--20 reps of each one; have 2 entry steps into home- did OK with them today; Activity: retired, prior to surgery, did not use an assistive device, active; Reported Pain Level Pain Score Self Report Additional Pain Score Comments pain range in the past few days 0-5/10; increase pain after up on it a few minutes; decrease pain with elevation, rest, over the counter med & muscle relaxer; sleeping--awaken due to pain 2-3 x/night Assessment PT Clinical Summary Mira had R TKR on 09-09-23. She reports she is doing well getting around with the wheeled walker in her home and doing the HEP. present during eval. Prior to surgery, she was active, but reports has poor balance and walks unsteady. Also has history of bilateral ankle strain, injuries. With the evaluation: decreased strength of bilateral hips and ankles, with R knee decrease ROM and strength; use of wheeled walker for gait and stairs with bilateral hand rails and single step pattern; 2 minute walking test distance of 225'. R knee active ROM in sittin (-10') to 95', with passive stretch to 100'. Skilled PT services are indicated for post op TKR rehab and education for HEP and progression to lesser assistive device for gait. Plan of Care Interventions Electrical Stimulation,Gait Training,Hot Pack/Cold Pack,Intermittent Compression,Manual Therapy, Neuro Re-education,Patient/Caregiver Education, Therapeutic Activities,Therapeutic Exercise,Other Other Interventions taping PT Services Indicated Yes
--- NOTE | 2023-10-14 14:14 | OPREHPOC ---
Outpatient Therapy Plan of Care This is a Multidisciplinary Plan of Care that may contain components documented by all disciplines (PT, OT, and ST.) PT Problem 1 PT Problem #1 Knowledge Deficit PT Goal 1 Goal 1* indep with HEP 2* correct gait pattern with cane Target Visit 10 Progress Met PT Problem 2 PT Problem #2 Pain PT Goal 1 Goal 1* pain rating at worst of 3/10 with increased activity 2* self assessment LE functional scale of 46% limitation in activity 3* pt report with sleeping, awaken 1x/night due to pain Target Visit 10 Progress Met PT Problem 3 PT Problem #3 Impaired Range of Motion PT Goal 1 Goal increase R knee ROM to improve transfer sit/stand, gait and stair ability sitting active ROM 1* extension 0' 2* flexion 110' Target Visit 18 Progress Partially Met Comment Lacking extension PT Problem 4 PT Problem #4 Impaired Functional Mobil PT Goal 1 Goal 1* 2 minute walking test distance of 325' 2* 5 reps sit/stand time of 15 seconds 3* sit/stand without use of UE's 4* 4 steps with one hand railing and alternate step pattern Target Visit 18 Progress Partially Met Comment Continue
--- NOTE | 2023-10-14 14:14 | PTOPPROG ---
Assessment and note entered by Wilbur Tran, PT Evaluation Information Assessment Status Progress Diagnosis s/p R TKR Other ICD-10 Condition Codes ( Z96.650 PT) Onset 09-09-23 Subjective Information Patient reports that overall she is doing better after surgery. She still has been using walker for long distances as she does not trust her knees to not buckle which she has had issues with for a long time. Would like to continue with therapy. Assessment PT Clinical Summary Patient has made progress with therapy at this point. Knee flexion and gait are steadily improving but she continues to lack terminal knee motion which affects terminal stance and stability on knee, keeping her reliant on wheeled walker for distance. Will continue to benefit from skilled therapy. Plan of Care Interventions Electrical Stimulation,Gait Training,Hot Pack/Cold Pack,Intermittent Compression,Manual Therapy, Neuro Re-education,Patient/Caregiver Educati, Therapeutic Activities,Therapeutic Exercise,Other Other Interventions taping PT Services Indicated Yes Treatment Frequency and 1-2x/week for 8 visits Duration These treatments will address the objective and functional deficits as defined above. The patient will be advanced safely and appropriately in order for the patient to progress towards his/her prior level of function. Additional exercises will be introduced and as well as a comprehensive home exercise program upon discharge, if needed, ?to ensure carryover of functional gains achieved in the clinic. This treatment plan has been reviewed and agreement upon by the patient.
--- NOTE | 2023-11-18 10:47 | PTOPDC ---
Assessment and note entered by Tuyet Grissom, PT Discharge Report Assessment Status Discharge Diagnosis s/p R TKR Other ICD-10 Condition Codes ( Z96.650 PT) Onset 09-09-23 Subjective Information doing better, not using the cane, have been walking at the [facility] about 1 mile; want to get more endurance with walking [place]; have been doing all the exercises also; ready to be finished with therapy; Reported Pain Level Pain Score 0: Self Report Additional Pain Score Comments no pain or swelling in her knee; no problems with sleeping; Assessment PT Clinical Summary Mira has received a total of 15 PT sessions. Compared to the last progress report/initial eval: pain decreased; ROM active in sitting (-3') to 120'; indep with gait and stairs-- one hand railing and alternate step pattern; increase strength of L knee and hip; 2 minute walking test distance from 225' to 375' without device; 5 reps sit/stand from 22 to 19 seconds, without use of UE's; education completed for HEP. The goals were achieved, except knee extension 0'. Discharge PT services; to continue with HEP and progression of walking and activity level as tolerated. Plan of Care PT Services Indicated No
== END 2023-11-19 09:01 | disposition home or self-care (01) ==
LOC: ANHPT 10:00
PROVIDERS: PCP Family Medicine; Visit Provider Orthopaedic Surgery
DX: Z47.1 Aftercare following joint replacement surgery (principal); Z96.651 Presence of right artificial knee joint
CPT/HCPCS: 97014; 97016; 97110; 97116; 97140; 97161; 97530; G0283

== ENCOUNTER 2024-01-01 06:09 | Day surgery (SDC) | payer MEDICARE, SELFPAY ==
[2023-11-15 08:45] VITALS: BMI 32.0
[2023-12-10 13:54] VITALS: BMI 29.2
[2024-01-01 06:46] VITALS: BP 167/76; PULSE 83; RESP 15; TEMP 36.8; O2SAT 98
--- NOTE | 2024-01-01 06:49 | WPDANESEPPF ---
Anes - Initial Pre Proc Eval Procedure: Operation Date: 01/01/24 08:15 Proposed Procedures p Diagnostic Colonoscopy - Huber Jeffrey MD Date/Time: 01/01/24 06:49 Surgeon: Huber Jeffrey MD Pre Op Diagnosis: History of Colon Cancer Patient Data Age: 73 Gender: F Height: 1.68 m Weight: 86 kg Last Vital Signs Temp 36.8 C 01/01/24 06:46 Pulse 83 01/01/24 06:46 Resp 15 01/01/24 06:46 BP 167/76 H 01/01/24 06:46 Pulse Ox 98 01/01/24 06:46 O2 Del Method Room Air 01/01/24 06:46 Allergies Allergy/AdvReac Type Severity Reaction Status Date / Time hydromorphone [From Dilaudid] AdvReac Hallucinating Verified 01/01/24 06:45 AND NAUSEA AND VOMITING Home Medications Medication Instructions Recorded Confirmed Type aspirin 81 mg chewable tablet 81 mg PO DAILY 02/16/19 01/01/24 History vit C 226 mg-vit E 90 mg-copper 1 cap PO DAILY 01/30/21 01/01/24 History 0.8 mg-zinc oxide-lutein 5 mg capsule (PreserVision Lutein) rosuvastatin 10 mg tablet 10 mg PO DAILY #90 tabs 08/26/23 01/01/24 Rx acetaminophen 650 mg 1,300 mg PO Q12H PRN Pain 09/02/23 01/01/24 History tablet,extended release (Tylenol Arthritis Pain) alprazolam 0.25 mg tablet 0.25 mg PO QHS PRN sleep #30 tabs 10/07/23 01/01/24 Rx omeprazole 40 mg capsule,delayed 40 mg PO DAILY 12/10/23 01/01/24 History release Patient hx anesthesia problems: none Family hx anesthesia problems: none Results Review: All pre-operative results and documents have been reviewed as part of the pre-operative evaluation. [facility] Past Medical History Medical History Basal cell carcinoma of skin Colon cancer Diverticulitis Gastroesophageal reflux Hyperlipidemia Osteoarthritis Surgical History Surgical History History of arthroplasty of right knee (09/09/23) History of arthroscopy of right knee (2010) History of basal cell carcinoma excision Nose. History of bilateral cataract extraction History of cholecystectomy History of partial colectomy For colon cancer. Family History Family History Mother Family history of heart disease in male family member before age 55 Patient's mother is Heart disease Tobacco abuse CHF (congestive heart failure) Father Alzheimer's disease Sibling No problems noted. Social History Social History (Updated 01/01/24 @ 07:07 by Kushal Nam, DO) Social History: Surrogate medical decision maker: Jay Mckeonashvin, spouse. Code status: Full code. Smoking status: Never smoker Second hand tobacco smoke exposure: Yes Alcohol intake: current Alcohol use details: 2 drinks/day Substance use: never Substance use type: does not use Current Housing: Decline to Answer Concerned About Future Housing: Decline to Answer Difficulty Paying Gas/Electric Bills: Decline to Answer Difficulty Paying for Meds: Decline to Answer Currently Unemployed: Decline to Answer Education: Decline to Answer Difficulty w/ Childcare or Family Care: Decline to Answer Living arrangements: with family Additional living arrangements comments: Lives with in [place]. 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
[2024-01-01] MEDS: LACTATED RINGERS 1,000 ML 150 ML IV CONT (06:59)
[2024-01-01] MEDS: AMPICILLIN 2 GM/NS 100 ML 2 GM/100 ML BAG IVPB (07:00)
--- NOTE | 2024-01-01 07:22 | PM.HPGS ---
History of Present Illness History of Present Illness Consent: Risks, benefits, and alternatives have been discussed and questions answered. Patient agrees to proceed with procedure. Chief complaint: History of Colon Cancer Narrative: Mira Magana is a 73 year old female referred for colonoscopy. Patient has a history of colon cancer diagnosed in 2013. Subsequently had a resection is felt to be free of disease. Prior to that in 2005 had a partial colon resection because of diverticulitis. Patient's most recent colonoscopy in 2020 revealed no evidence for colon polyps and well-healed anastomosis. Patient reports that her current weight appetite and bowel movements are normal. She denies abdominal pain. Family history is noncontributory. Review of Systems Review of Systems: All systems reviewed & are unremarkable except as noted in HPI and below PMFSH Past Medical History Medical History Basal cell carcinoma of skin Colon cancer Diverticulitis Gastroesophageal reflux Hyperlipidemia Osteoarthritis Surgical History Surgical History History of arthroplasty of right knee (09/09/23) History of arthroscopy of right knee (2010) History of basal cell carcinoma excision Nose. History of bilateral cataract extraction History of cholecystectomy History of partial colectomy For colon cancer. Family History Family History Mother Family history of heart disease in male family member before age 55 Patient's mother is Heart disease Tobacco abuse CHF (congestive heart failure) Father Alzheimer's disease Sibling No problems noted. Social History Social History (Updated 01/01/24 @ 07:07 by Kushal Nam DO) Social History: Surrogate medical decision maker: Jay Magana, spouse. Code status: Full code. Smoking status: Never smoker Second hand tobacco smoke exposure: Yes Alcohol intake: current Alcohol use details: 2 drinks/day Substance use: never Substance use type: does not use Current Housing: Decline to Answer Concerned About Future Housing: Decline to Answer Difficulty Paying Gas/Electric Bills: Decline to Answer Difficulty Paying for Meds: Decline to Answer Currently Unemployed: Decline to Answer Education: Decline to Answer Difficulty w/ Childcare or Family Care: Decline to Answer Living arrangements: with family Additional living arrangements comments: Lives with in [place]. 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[employer] Spiritual care concerns: No Agree to blood products: Yes Meds Home Medications and Allergies Home Medications Medication Instructions Recorded Confirmed Type aspirin 81 mg chewable tablet 81 mg PO DAILY 02/16/19 01/01/24 History vit C 226 mg-vit E 90 mg-copper 1 cap PO DAILY 01/30/21 01/01/24 History 0.8 mg-zinc oxide-lutein 5 mg capsule (PreserVision Lutein) rosuvastatin 10 mg tablet 10 mg PO DAILY #90 tabs 08/26/23 01/01/24 Rx acetaminophen 650 mg 1,300 mg PO Q12H PRN Pain 09/02/23 01/01/24 History tablet,extended release (Tylenol Arthritis Pain) alprazolam 0.25 mg tablet 0.25 mg PO QHS PRN sleep #30 tabs 10/07/23 01/01/24 Rx omeprazole 40 mg capsule,delayed 40 mg PO DAILY 12/10/23 01/01/24 History release Allergies Allergy/AdvReac Type Severity Reaction Status Date / Time hydromorphone [From Dilaudid] AdvReac Hallucinating Verified 01/01/24 06:45 AND NAUSEA AND VOMITING Vital Signs Vital Signs - 24 hr 01/01/24 06:46 Temperature 98.2 F Pulse Rate 83 Respiratory Rate 15 Blood Pressure 167/76 H Pulse Oximetry 98 Oxygen Delivery Room Air Exam Narrative: Physical exam reveals patient to be alert. Signs stable. HEENT exam is unremarkable. Jaimie
[2024-01-01] MEDS: SIMETHICONE ORAL SUSPENSION 20 MG/0.3 ML 30 ML BOTTLE 0.6 ML IRRIGATION (08:13)
[2024-01-01 08:24] VITALS: BP 90/58; PULSE 71; RESP 15; O2SAT 98
[2024-01-01 08:34] VITALS: BP 111/61; PULSE 66; RESP 16; O2SAT 99
[2024-01-01 08:44] VITALS: BP 123/74; PULSE 70; RESP 18; O2SAT 99
--- NOTE | 2024-01-01 12:00 | WPDANESPN ---
Anes - Prog Note Post-Op Date/Time: 01/01/24 12:00 Cardiovascular status: normal Respiratory status: normal Airway patency: baseline Mental status: baseline Post-Op hydration status: normal Vital Signs: Last Vital Signs Temp 36.8 C 01/01/24 06:46 Pulse 70 01/01/24 08:44 Resp 18 01/01/24 08:44 BP 123/74 01/01/24 08:44 Pulse Ox 99 01/01/24 08:44 O2 Del Method Room Air 01/01/24 08:44 Pain Score (VAS): 0 I/O: Intake & Output 12/31/23 01/01/24 01/01/24 23:59 07:59 15:59 Intake Total 700 Balance 700 Post-procedural complaints: none Patient Feedback: Patient satisfied with anesthetic care. Other Findings: Patient vital signs back to baseline. Patient denies nausea and vomiting. Patient's pain under control. Patient OK for discharge.
== END 2024-01-01 09:00 | disposition home or self-care (01) ==
PROVIDERS: PCP Family Medicine; Visit Provider Internal Medicine Gastroenterology
PROC: 0DJD8ZZ Inspection of Lower Intestinal Tract, Via Natural or Artificial Opening Endoscopic (ICD-10-PCS; CPT 45378; principal; 2024-01-01 08:15)
DX: Z85.038 Personal history of other malignant neoplasm of large intestine (principal); Z12.11 Encounter for screening for malignant neoplasm of colon; D12.5 Benign neoplasm of sigmoid colon; K57.30 Diverticulosis of large intestine without perforation or abscess without bleeding; K63.89 Other specified diseases of intestine
CPT/HCPCS: 45378

== ENCOUNTER 2024-01-01 07:00 | Outpatient (NON) | payer MEDICARE, SELFPAY | END 2024-01-01 07:01 | disposition home or self-care (01) | LOC: ANHLAB 01-02 07:34 | PROVIDERS: PCP Family Medicine; Visit Provider Internal Medicine Gastroenterology | DX: Z12.11 Encounter for screening for malignant neoplasm of colon (principal) | CPT/HCPCS: 88305 ==

== ENCOUNTER 2024-01-28 10:24 | Emergency (ER) | payer MEDICARE, SELFPAY ==
--- NOTE | 2024-01-28 10:26 | ED.EAR ---
HPI - Ear Problem General Chief complaint: Ear Stated complaint: ear pain Time Seen by Provider: 01/28/24 10:26 Source: patient Mode of arrival: ambulatory Limitations: no limitations History of Present Illness HPI Narrative: Mira is a 73-year-old female patient presenting to the clinic today with complaints of left ear itching and discomfort. She reports she was seen by her primary care doctor on January 07 and prescribed 10 days of cefdinir for pain in her infection. She finished those medications but has now developed some itching and discomfort in the external ear canal with a clearish white discharge. No fever or chills. States the area is very itchy. Is not aware otorrhea is malodorous Related Data Home Medications Medication Instructions Recorded Confirmed aspirin 81 mg chewable tablet 81 mg PO DAILY 02/16/19 01/28/24 vit C 226 mg-vit E 90 mg-copper 1 cap PO DAILY 01/30/21 01/28/24 0.8 mg-zinc oxide-lutein 5 mg capsule (PreserVision Lutein) acetaminophen 650 mg 1,300 mg PO Q12H PRN Pain 09/02/23 01/28/24 tablet,extended release (Tylenol Arthritis Pain) omeprazole 40 mg capsule,delayed 40 mg PO DAILY 12/10/23 01/28/24 release Allergies Allergy/AdvReac Type Severity Reaction Status Date / Time hydromorphone [From Dilaudid] AdvReac Intermediate Hallucinating Verified 01/28/24 10:29 AND NAUSEA AND VOMITING Review of Systems Review of Systems: Pertinent positives per HPI. Patient denies any fever, chills, rash, headache, visual changes, dizziness, cough, runny nose, sore throat, shortness of breath, chest pain, palpitations, nausea, vomiting, diarrhea, constipation, abdominal pain, or any urinary issues. [facility] Past Medical History Medical History Basal cell carcinoma of skin Colon cancer Diverticulitis Gastroesophageal reflux Hyperlipidemia Osteoarthritis Surgical History Surgical History History of arthroplasty of right knee (09/09/23) History of arthroscopy of right knee (2010) History of basal cell carcinoma excision Nose. History of bilateral cataract extraction History of cholecystectomy History of partial colectomy For colon cancer. Family History Family History Mother Family history of heart disease in male family member before age 55 Patient's mother is Heart disease Tobacco abuse CHF (congestive heart failure) Father Alzheimer's disease Sibling No problems noted. Social History Social History Social History: Surrogate medical decision maker: Jay Magana, spouse. Code status: Full code. Smoking status: Never smoker Second hand tobacco smoke exposure: Yes Alcohol intake: current Alcohol use details: 2 drinks/day Substance use: never Substance use type: does not use Current Housing: Decline to Answer Concerned About Future Housing: Decline to Answer Difficulty Paying Gas/Electric Bills: Decline to Answer Difficulty Paying for Meds: Decline to Answer Currently Unemployed: Decline to Answer Education: Decline to Answer Difficulty w/ Childcare or Family Care: Decline to Answer Living arrangements: with family Additional living arrangements comments: Lives with in [place]. Additional occupation/education comments: Retired [employer] care concerns: No Agree to blood products: Yes Comments At the time of my signature, I reviewed and agree with the nursing past medical, surgical, social, and family history. There is no relevant family history pertinent to the patient complaint. Exam Narrative: General: Well-developed, well nourished, in no apparent distress Head: Normocephalic, atraumatic Eyes: Pupils equally round and reactive to light bilaterally, EOM intact, sclera and conjunctive clear, no discharge, lids normal Ears: TMs intact and clear, left inner ear infection resolving, right ear canals clear, left ear canal beefy red appearing extending to the outer ear with clear/white exudate, itching, tenderness to palpation over the tragus and pulling of the pinna, grossly hearing normal. Nose: Nares patent, no discharge, no inflammation, no sinus tenderness. Mouth: Oropharynx without lesions or masses, good dentition, MMM. Neck: Supple, trachea midline, no enlargement of anterior or posterior cervical nodes, no thyroid masses or goiter palpable. Cardio: Regular rate and rhythm, s1 and s2 normal, no murmur appreciated. Resp: Clear to auscultation bilaterally anteriorly and posteriorly, no rhonchi, rales, wheezing or rubs Course Course Emergency Course: Portions of this record may have been created with voice recognition software. Level of Care: Express Care Visit Vital Signs Vital signs: Vital signs reviewed Medical Decision Making MDM Narrative Medical decision making narrative: At the time of visit patient is resting comfortably on the exam table. Patient appears to be nontoxic. Plan: I suspect patient has a fungal otitis externa of the left ear canal. Prescription for ascetic acid was sent to the pharmacy. Supportive measures were discussed with the patient and they voiced understanding discharge instructions and agrees to treatment plan. Return precautions reviewed Differential Diagnosis Differential Diagnosis: Otitis media, otitis externa, eustachian tube dysfunction, otalgia, cerumen impaction, upper respiratory infection, serous otitis Discharge Plan Discharge Clinical Impression: Acute fungal otitis externa Patient Disposition: Home, Self-Care Condition: Stable Instructions: Antibiotic Form, Swimmer's Ear (ED) Additional Instructions: I suspect you have a fungal infection in the left external ear canal. Instill 4 drops of ascetic acid ear drops into the left ear 3 times daily x7 days Keep ear clean and dry as much as possible Tylenol/motrin as needed for pain May use heating pad to alleviate pain If you get recurrent ear infections it may be warranted to follow up with ENT. Follow up with your PCP in 3-5 days if symptoms persist. Prescriptions: New acetic acid 2 % solution 4 drp LEFT EAR TID 7 Days Qty: 15 0RF No Action aspirin 81 mg Tablet,Chewable 81 mg PO DAILY ketoconazole 2 % shampoo 1 applic topical 3XW Qty: 120 0RF acetaminophen [Tylenol Arthritis Pain] 650 mg Tablet Extended Release 1,300 mg PO Q12H PRN (Reason: Pain) PreserVision Lutein 226 mg-200 unit -5 mg-0.8 mg Capsule 1 cap PO DAILY rosuvastatin 10 mg tablet 10 mg PO DAILY Qty: 90 1RF Rx Instructions: TAKE 1 TABLET DAILY alprazolam 0.25 mg tablet 0.25 mg PO QHS PRN (Reason: sleep) Qty: 30 0RF omeprazole 40 mg capsule,delayed release(DR/EC) 40 mg PO DAILY Rx Instructions: TAKE 1 CAPSULE BY MOUTH DAILY Follow-up/Referrals: Víctor Steinberg MD [Primary Care Provider] - Time of Disposition: 10:40 Quality NIHSS Nursing Documentation ED NIHSS nursing documentation: reviewed/agree
[2024-01-28 10:32] VITALS: BP 145/63; PULSE 77; RESP 16; TEMP 36.3; O2SAT 97
== END 2024-01-28 10:44 | disposition home or self-care (01) ==
PROVIDERS: Emergency Provider Nurse Practitioner Family; PCP Family Medicine
DX: B36.9 Superficial mycosis, unspecified (principal); H62.42 Otitis externa in other diseases classified elsewhere, left ear; E78.5 Hyperlipidemia, unspecified; M19.90 Unspecified osteoarthritis, unspecified site; K21.9 Gastro-esophageal reflux disease without esophagitis; Z85.828 Personal history of other malignant neoplasm of skin; Z85.038 Personal history of other malignant neoplasm of large intestine; Z96.651 Presence of right artificial knee joint; Z98.42 Cataract extraction status, left eye; Z98.41 Cataract extraction status, right eye; Z79.82 Long term (current) use of aspirin
CPT/HCPCS: 99213; G0463

== ENCOUNTER 2024-03-01 11:06 | Emergency (ER) | payer MEDICARE, SELFPAY ==
[2024-03-01 11:17] VITALS: BP 150/68; PULSE 80; RESP 18; TEMP 36.4; O2SAT 99
--- NOTE | 2024-03-01 11:59 | ED_ITS ---
HPI - Female Genitourinary General Chief complaint: Urogenital-Female Stated complaint: uti Time Seen by Provider: 03/01/24 11:59 Source: patient, RN notes reviewed and old records reviewed Mode of arrival: ambulatory Limitations: no limitations History of Present Illness HPI Narrative: 73 yrar old female who presents to express care with complaint of urinary burning, frequency and urgency which began this morning with urine noted to be clougy in appearance. Patient reports that she has history of urinary tract infections in past with similar symptoms. Patient reports that she had RX from her PCP where she would take medication for 3 days at any onset of symptoms but has ran out of medication, Patient reports that she has seen urologist in past but has been about 1.5 years ago. Patient reports no CVA tenderness, no fever or any nausea or vomiting MD elicited complaint: UTI Pertinent past history: recurrent UTIs Onset (ago): day(s) (this morning) Location of symptoms: urethra Severity: moderate Quality of pain: burning Vaginal discharge: none Vaginal bleeding: none Related Data Home Medications ?Medication ?Instructions ?Recorded ?Confirmed ?Last Taken ?Type aspirin 81 mg chewable tablet 81 mg PO DAILY 02/16/19 02/10/24 09/04/23 History omeprazole 40 mg capsule,delayed 40 mg PO DAILY 12/10/23 02/10/24 Unknown History release prevagen 03/01/24 Unknown History Allergies Allergy/AdvReac Type Severity Reaction Status Date / Time hydromorphone (From Dilaudid) AdvReac Intermediate Hallucinating Verified 03/01/24 11:39 AND NAUSEA AND VOMITING Review of Systems Review of Systems: CONSTITUTIONAL: Denies fever, chills, or sweats. CARDIOVASCULAR: Denies chest pain, palpitations, or edema. RESPIRATORY: Denies cough or dyspnea. GASTROINTESTINAL: Denies abdominal pain, nausea, vomiting, or diarrhea. GENITOURINARY: Reports dysuria, frequency, urgency. Denies flank pain or hematuria. SKIN: Denies rash or itching. MUSCULOSKELETAL: Denies back pain or myalgia. Denies CVA tenderness NEUROLOGIC: Denies headache All systems reviewed & are unremarkable except as noted in HPI and below PMFSH Past Medical History Medical History Gastroesophageal reflux Osteoarthritis Basal cell carcinoma of skin Diverticulitis Colon cancer Hyperlipidemia Surgical History Surgical History History of basal cell carcinoma excision Nose. History of bilateral cataract extraction History of arthroscopy of right knee (2010) History of arthroplasty of right knee (09/09/23) History of partial colectomy For colon cancer. History of cholecystectomy Family History Family History Mother Family history of heart disease in male family member before age 55 Patient's mother is Heart disease Tobacco abuse CHF (congestive heart failure) Father Alzheimer's disease Sibling No problems noted. Social History Social History Social History: Surrogate medical decision maker: Jay Magana, spouse. Code status: Full code. Smoking status: Never smoker Second hand tobacco smoke exposure: Yes Alcohol intake: current Alcohol use details: 2 drinks/day Substance use: never Substance use type: does not use Current Housing: Decline to Answer Concerned About Future Housing: Decline to Answer Difficulty Paying Gas/Electric Bills: Decline to Answer Difficulty Paying for Meds: Decline to Answer Currently Unemployed: Decline to Answer Education: Decline to Answer Difficulty w/ Childcare or Family Care: Decline to Answer Living arrangements: with family Additional living arrangements comments: Lives with in [place]. Additional occupation/education comments: Retired [employer] Spiritual care concerns: No Agree to blood products: Yes Comments At time of signature, agree with nursing past medical, surgical, social and family history. There is no relevant family history pertinent to the presenting complaint Exam Narrative: GENERAL: Well-appearing, well-nourished, and in no acute distress. HEAD: Normocephalic, atraumatic. NECK: Supple. CHEST: Clear to auscultation. No respiratory distress.SAO2 99% on room air HEART: Regular rate and rhythm. No murmur heard. Normal peripheral pulses. ABDOMEN: Soft, nontender, nondistended, normal active bowel sounds. No CVA tenderness, reports burning frequency and urgency of urination EXTREMITIES: Normal range of motion. No edema. SKIN: Warm, dry, no rash. NEURO: No focal deficits. Alert and oriented x3. Course Course Emergency Course: Patient is aware of diagnosis, understands and agrees to treatment plan.? Anticipatory guidance given.? Patient agrees to follow-up as directed and is aware of reasons to seek care at the emergency department. Portions of this record may have been created with voice recognition software Level of Care: Express Care Visit Vital Signs Vital signs: Vital Signs Temperature 36.4 C 03/01/24 11:17 Pulse Rate 80 03/01/24 11:17 Respiratory Rate 18 03/01/24 11:17 Blood Pressure 150/68 H 03/01/24 11:17 Pulse Oximetry 99 03/01/24 11:17 Oxygen Delivery Room Air 03/01/24 11:17 Temperature 36.4 C 03/01/24 11:17 Pulse Rate 80 03/01/24 11:17 Respiratory Rate 18 03/01/24 11:17 Blood Pressure 150/68 H 03/01/24 11:17 Pulse Oximetry 99 03/01/24 11:17 Oxygen Delivery Room Air 03/01/24 11:17 MDM - Female Genitourinary MDM Narrative Medical decision making narrative: Exam findings and UA show no acute concerns or changes; patient is non-toxic appearing and is in no distress.? Patient is appropriate for outpatient treatment and follow-up. Differential Diagnosis Differential diagnosis: Likely urinary tract infection, cystitis and other (dysuria) Lab Data Attestation: I reviewed the patient's lab results. Lab results narrative: urine dip glucose negative, bilirubin negative, ketone negative, specific gravity greater than or equal to 1.030, blood 3+, pH 5.5, protein 3+, urobilinogen 0.2 nitrate positive, leukocyte 3+ Labs: Lab Results 03/01/24 Range/Units 12:00 POC Urine Color Yellow POC Urine Clarity Cloudy POC Urine pH 5.5 POC Ur Specif [place] 1.030 POC Urine Protein 3+ (Negative) POC Ur Glucose (UA) Negative (Negative) POC Urine Ketones Negative (Negative) POC Urine Blood 3+ (Negative) POC Urine Nitrite Positive (Negative) POC Urine Bilirubin Negative (Negative) POC Urine Urobilinogen 0.2 POC U Leukocyte Esteras 3+ (Negative) Critical Care Time Critical Care Time Critical Care Time: No Discharge Plan Discharge Clinical Impression: Urinary tract infection Qualifiers: Urinary tract infection type: site unspecified Hematuria presence: with hematuria Qualified Code(s): N39.0 - Urinary tract infection, site not specified ; R31.9 - Hematuria, unspecified Patient Disposition: Home, Self-Care Condition: Stable Instructions: Antibiotic Form, Urinary Tract Infection in Women (ED) Additional Instructions: Increase fluids especially cranberry juice and water Avoid caffeine and carbonated beverages Antibiotic as directed Take all doses Tylenol/ibuprofen for pain or fever Follow-up with her primary care provider if further problems or concerns Recheck if you have fever over 101, nausea and vomiting. If your symptoms persist, change or worsen significantly before you can contact your personal physician then please, without delay, go to the emergency department for further evaluation. Follow-up with PCP in 7-10 days or sooner if needed Follow up with PCP soon in regards to your blood pressure which is elevated above threshold for referral. Blood pressure above 120/80 may indicate pre- hypertension. 150/68 Take probiotic or eat Activa yogurt while taking oral anitbiotic Patient Language: Luxembourgish Prescriptions: New amoxicillin-pot clavulanate 875-125 mg tablet 1 tablet PO Q12H Qty: 20 0RF No Action aspirin 81 mg Tablet,Chewable 81 mg PO DAILY prevagen rosuvastatin 10 mg tablet 10 mg PO DAILY Qty: 90 1RF Rx Instructions: TAKE 1 TABLET DAILY omeprazole 40 mg capsule,delayed release(DR/EC) 40 mg PO DAILY Rx Instructions: TAKE 1 CAPSULE BY MOUTH DAILY Follow-up/Referrals: Víctor Steinberg MD [Primary Care Provider] - Time of Disposition: 12:06 Quality [place] Coma Scale Eyes: Open Verbal: Oriented and Alert Motor: Follows Commands [place] Coma Total Score: 15
[2024-03-01 12:03] LABS: EDUAAPPEAR Cloudy; EDUABILI Negative (Negative); EDUABLOOD 3+ (Negative); EDUACOLOR1 Yellow; EDUAGLUCOSE Negative (Negative); EDUAKETONE Negative (Negative); EDUALEUKO 3+ (Negative); EDUANITRATE Positive (Negative); EDUAPH 5.5; EDUAPROTEIN 3+ (Negative); EDUAUROBILI 0.2
--- OUTSIDE RECORDS SUMMARY | 2024-03-08 14:52 | XMS_ITS | Encounter Summary ---
Author Organization [facility] Address [address] [place] [address] Phone Care Team Providers Care Mental Health Tech Name Role Phone Rodolfo Zuleta MD Primary Care Provider [phone] Leanne Pike MD Unavailable Encounter Details Date Type Department Care Team (Late st Contact Info) Description 11/24/2021 Telephone [facility] Oncology [facility] 7th [place] [address] [place] [id number] Dominique Jalloh, RN Social History Tobacco Use Types Packs/Day Years Used Date Smoking Tobacco: Never Smokeless Tobacco: Never Alcohol Use Standard Drinks/Week Comments Yes 7 (1 standard drink = 0.6 oz pur e alcohol) Comments No Sex and Gender Information Value Date Recorded Sex Assigned at Not on file 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 documented in this encounter Plan of Treatment Not on file documented as of this encounter Visit Diagnoses Not on filedocumented in this encounter Care Teams Mental Health Tech Relationship Specialty Start Date End Date Rodolfo Zuleta MD [address] [place] [id number] PCP - General 09/24/17 Leanne Pike MD [address] [place] [id number] Medical Oncologist/Bicycle Assembler Medical Oncology 11/18/19 documented as of this encounter
--- OUTSIDE RECORDS SUMMARY | 2024-03-08 14:52 | XMS_ITS | Encounter Summary ---
Author Organization [facility] Address [address] [place] [address] Phone Care Team Providers Care Distillery Miller Name Role Phone Rodolfo Zuleta MD Primary Care Provider [phone] Leanne Pike MD Unavailable Encounter Details Date Type Department Care Team (Late st Contact Info) Description 03/16/2021 Telephone 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 From team portal, Eleazarselwynaaron has left her 2 s to schedule this mobile draw since 01/30/21 but has not heard back. Left office number for call back. M TRAP MAN documented in this encounter Plan of Treatment Not on file documented as of this encounter Visit Diagnoses Not on filedocumented in this encounter Care Teams Distillery Miller Relationship Specialty Start Date End Date Rodolfo Zuleta MD [address] [place] [id number] PCP - General 09/24/17 Leanne Pike MD [address] [place] [id number] Medical Oncologist/Sales And Marketing Associate Medical Oncology 11/18/19 documented as of this encounter
--- OUTSIDE RECORDS SUMMARY | 2024-03-08 14:52 | XMS_ITS | Referral Summary ---
Author Organization [facility] Address [address] [place] [address] Care Team Providers Care Senior Windows Engineer Name Role Phone Rodolfo Zuleta MD Primary Care Provider [phone] Leanne Pike MD Unavailable [phone] Allergies No known active allergies Medications aspirin 81 mg tablet Take 81 mg by mouth daily. Active vit A/C/E ac/ZnOx/cupric oxide (EYE VITAMIN AND MINERALS ORAL) Take by mouth. Active PREVIDENT 5000 PLUS 1.1 % cream BRUSH TEETH WITH PASTE BID 3 08/28/2017 Active ALPRAZolam (XANAX) 0.25 mg tablet 04/14/2018 Active rosuvastatin (CRESTOR) 10 mg tablet 04/14/2018 Active Active Problems Problem Noted Date Diagnosed Date Elevated CEA 11/19/2019 History of malignant neoplasm of colon 5 Social History Tobacco Use Types Packs/Day Years Used Date Smoking Tobacco: Never Smokeless Tobacco: Never Tobacco Cessation:Counseling Given: No Alcohol Use Standard Drinks/Week Comments Yes 7 (1 standard drink = 0.6 oz pur e alcohol) Personal Safety Answer Date Recorded Getting School Help Needed Not on file 05/04 Comments No Sex and Gender Information Value Date Recorded Sex Assigned at Not on file Legal Sex Female 6:59 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 TECHNICIAN Gender Identity Not on file Sexual Orientation Not on file Last Filed Vital Signs Vital Sign Reading Time Taken Comments Blood Pressure 158/84 11/30/2020 10:50 AM CDT Pulse 65 11/30/2020 10:50 AM CDT Temperature 36.4 ??C (97.5 ??F) 11/30/2020 10:50 AM C DT Respiratory Rate 16 11/30/2020 10:50 AM CDT Oxygen Saturation 98% 11/30/2020 10:50 AM CDT Inhaled Oxygen Concentration - - Weight 85.3 kg (188 lb) 11/30/2020 10:50 AM CDT Height 167 cm (5' 5.75 ) 11/30/2020 10:50 AM CDT Body Mass Index 30.58 11/30/2020 10:50 AM CDT Plan of Treatment Not on file Insurance [facility] MEDICARE Address: [address] [address] [place] [address] MEDICARE ANTHEM ACCESS Advance Directives For more information, please contact: [phone] * Full Code (Latest Code Status on File) Date Activated Date Inactivated Comments 09/24/2017 11:59 AM 09/24/2017 4:41 PM Care Teams Senior Windows Engineer Relationship Specialty Start Date End Date Rodolfo Zuleta MD [address] [place] [address] PCP - General 09/24/17 Leanne Pike MD [address] [place] [address] Medical Oncologist/Business Partner Medical Oncology 11/18/19
--- OUTSIDE RECORDS SUMMARY | 2024-03-08 14:52 | XMS_ITS | Encounter Summary ---
Author Organization [facility] Address [address] [place] [address] Phone Care Team Providers Care Video Surveillance Technician Name Role Phone Rodolfo Zuleta MD Primary Care Provider [phone] Leanne Pike MD Unavailable Encounter Details Date Type Department Care Team (Late st Contact Info) Description 01/24/2021 Documentation [facility] Oncology [address] [facility] 7th [place] [address] [place] [address] Dominique Jalloh, RN Social History Tobacco Use Types Packs/Day Years Used Date Smoking Tobacco: Never Smokeless Tobacco: Never Alcohol Use Standard Drinks/Week Comments Yes 7 (1 standard drink = 0.6 oz pur e alcohol) Comments No Sex and Gender Information Value Date Recorded Sex Assigned at Not on file Legal Sex Female 6:59 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 RMATION TECHNOLOGY MANAGER documented in this encounter Plan of Treatment Not on file documented as of this encounter Visit Diagnoses Not on filedocumented in this encounter Care Teams Video Surveillance Technician Relationship Specialty Start Date End Date Rodolfo Zuleta MD [address] [place] [address] PCP - General 09/24/17 Leanne Pike MD [address] [place] [address] Medical Oncologist/Vegetable Cook Medical Oncology 11/18/19 documented as of this encounter
--- OUTSIDE RECORDS SUMMARY | 2024-03-08 14:52 | XMS_ITS | Clinical Summary ---
Author Organization [facility] Address [address] [place] [address] Care Team Providers Care Pier Worker Name Role Phone Rodolfo Zuleta MD Primary Care Provider [phone] Leanne Pike MD Unavailable Allergies No known active allergies Medications aspirin [...] History of malignant neoplasm of colon 5 Surgical History Surgery Date Site/Laterality Comments CHOLECYSTECTOMY COLECTOMY Medical History Medical History Date Comments PONV (postoperative nausea and vomiting) Macular degeneration Colon cancer (CMS/HCC) (HCC) Diverticulosis Family History Medical History Relation Name Comments No Known Problems Father No Known Problems Mother Relation Name Status Comments Father Mother Social History Tobacco Use Types Packs/Day Years [...] on file Legal Sex Female 6:59 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 Gender Identity Not on file Sexual Orientation Not on file Obstetrics History Last Filed Vital Signs Vital Sign Reading [...] of Treatment Not on file Insurance MEDICARE [facility] HMO REF MEDICARE [facility] ACCESS Advance Directives For more information, please contact: [phone] * Full Code (Latest Code Status on File) Date Activated Date Inactivated Comments 09/24/2017 11:59 AM 09/24/2017 4:41 PM Care Teams Pier Worker Relationship Specialty Start Date End Date Rodolfo Zuleta MD [address] [place] [address] PCP - General 09/24/17 Leanne Pike MD [address] [place] [address] Medical Oncologist/Suede Cleaner Medical Oncology 11/18/19
--- OUTSIDE RECORDS SUMMARY | 2024-03-08 14:52 | XMS_ITS | Encounter Summary ---
Author Organization [facility] Address [address] [place] [address] Phone Care Team Providers Care Spiral Winding Machine Helper Name Role Phone Rodolfo Zuleta MD Primary Care Provider [phone] Leanne Pike MD Unavailable Encounter Details Date Type Department Care Team (Late st Contact Info) Description 04/24/2021 Documentation [facility] Oncology [address] [facility] 7th [place] [address] [place] [address] Dominique Jalloh, RN Social History Tobacco Use Types Packs/Day Years Used Date Smoking Tobacco: Never Smokeless Tobacco: Never Alcohol Use Standard Drinks/Week Comments Yes 7 (1 standard drink = 0.6 oz pur e alcohol) Comments No Sex and Gender Information Value Date Recorded Sex Assigned at Not on file Legal Sex Female 6:59 AM MATERIAL HANDLER FLOORPERSON Gender Identity Not on file Sexual Orientation Not on file documented as of this encounter Nursing Notes * Dominique Jalloh, RN - 04/24/2021 10:03 AM CST Spoke with Sandrita with [facility] who confirmed she will contact patient regarding questions about [facility] testing. If federico would like to proceed, she will schedule patient with mobile phlebotomydraw, as she does not see Dr. Pike until 11/2021. RIAL HANDLER FLOORPERSON documented in this encounter Plan of Treatment Not on file documented as of this encounter Visit Diagnoses Not on filedocumented in this encounter Care Teams Spiral Winding Machine Helper Relationship Specialty Start Date End Date Rodolfo Zuleta MD [address] [place] [address] PCP - General 09/24/17 Leanne Pike MD [address] [place] [address] Medical Oncologist/Maint Mechanic Medical Oncology 11/18/19 documented as of this encounter
--- OUTSIDE RECORDS SUMMARY | 2024-03-08 14:52 | XMS_ITS | Encounter Summary ---
Author Organization [facility] Address [address] [place] [address] Phone Care Team Providers Care Bean Viner Name Role Phone Rodolfo Zuleta MD Primary Care Provider [phone] Leanne Pike MD Unavailable Encounter Details Date Type Department Care Team (Latest Contact Info) Description 05/31/2021 Orders Only [facility] Scanning, Provider Social History Tobacco Use Types Packs/Day Years Used Date Smoking Tobacco: Never Smokeless Tobacco: Never Alcohol Use Standard Drinks/Week Comments Yes 7 (1 standard drink = 0.6 oz pur e alcohol) Comments No Sex and Gender Information Value Date Recorded Sex Assigned at Not on file Legal Sex Female 6:59 AM ERP DEVELOPER Gender Identity Not on file Sexual Orientation Not on file documented as of this encounter Plan of Treatment Not on file documented as of this encounter Procedures Procedure Name Priority Date/Time Associated Diagnosis Comments SCAN - PATHOLOGY 05/31/2021 1:26 PM CDT documented in this encounter Results * SCAN - PATHOLOGY (05/31/2021 1:26 PM CDT) us Provider Scanning Final Result documented in this encounter Visit Diagnoses Not on filedocumented in this encounter Care Teams Bean Viner Relationship Specialty Start Date End Date Rodolfo Zuleta MD [address] [place] [address] PCP - General 09/24/17 Leanne Pike MD [address] [place] [address] Medical Oncologist/Pediatric Genetic Counselor Medical Oncology 11/18/19 documented as of this encounter
--- OUTSIDE RECORDS SUMMARY | 2024-03-08 14:53 | XMS_ITS | Encounter Summary ---
Author Organization [facility] Address [address] [place] [address] Phone Care Team Providers Care Sugar Chipper Machine Operator Name Role Phone Rodolfo Zuleta MD Primary Care Provider [phone] Leanne Pike MD Unavailable Encounter Details Date Type Department Care Team (Late st Contact Info) Description 12/04/[address] [facility] Oncology [address] [facility] 7th [place] [address] [place] [address] Dominique Jalloh, NAIN History of malignant neoplasm of colon (Primary Dx) Social History Tobacco Use Types Packs/Day Years Used Date Smoking Tobacco: Never Smokeless Tobacco: Never Alcohol Use Standard Drinks/Week Comments Yes 7 (1 standard drink = 0.6 oz pur e alcohol) Comments No Sex and Gender Information Value Date Recorded Sex Assigned at Not on file Legal Sex Female 6:59 AM FOOD AND BEVERAGE DIRECTOR Gender Identity Not on file Sexual Orientation Not on file documented as of this encounter Plan of Treatment Not on file documented as of this encounter Results * (ABNORMAL) CEA (11/30/2020 10:05 AM CDT) CEA 8.2(H) <=5.0 ng/mL [facility] Comment: Interpretive Data: Reference Range: Non-Smokers: 0.0 ? 5.0 ng/mL Smokers: 0.0 ? 6.5 ng/mL Current interpretive data was last revised 2020. Blood 11/30/2020 10:0 5 AM CDT 11/30/2020 11:05 AM CDT Leanne Pike MD LAB BLOOD ORDERABLES Final Result [facility] Department [place] [address] * (ABNORMAL) Comprehensive metabolic panel (11/30/2020 10:05 AM CDT) Sodium 140 135 - 145 mmol/L [facility]ARRIS Comment:Testing performed by : [facility], [address] [place] [phone] Potassium, pl 4.7 3.3 - 4.9 mmol/L ADOLFO FARRIS Comment:Testing performed by : [facility], [address] [place] [phone] Chloride 103 97 - 110 mmol/L ADOLFO FARRIS Comment:Testing performed by : [facility], [address] [place] [phone] CO2 29 22 - 32 mmol/L ADOLFO FARRIS Comment:Testing performed by : [facility], [address] [place] [phone] Anion gap 8 2 - 15 mmol/L ADOLFO FARRIS Comment:Testing performed by : [address] [address] BUN 8 8 - 25 mg/dL ADOLFO FARRIS Comment:Testing performed by : [facility], [address] [place] [phone] Creatinine 0.47(L) 0.60 - 1.10 mg/dL ADOLFO FARRIS Comment:Testing performed by : [facility], [address] [place] [phone] Glucose 118 70 - 199 mg/dL ADOLFO FARRIS Comment: Interpretive Data Fasting glucose >/= 126 mg/dl is diagnostic for diabetes. ?? Fasting is defined as no caloric intake for at least 8 hours. Fasting glucose between 100 mg/dl to 125 mg/dl is diagnostic of prediabetes. In a patient with classic symptoms of hyperglycemia or hyperglycemic crisis, a random glucose >/= 200 mg/dl is diagnostic for diabetes. In the absence of unequivocal hyperglycemia, results should be confirmed by repeat testing. The classification and Diagnosis of Diabetes Diabetes Care 2017;40 (Suppl. 1):S11. Current interpretive data was last revised 2017. Testing performed by: [facility], [address] [place] [phone] Calcium 9.7 8.5 - 10.3 mg/dL [facility] Comment:Testing performed by : [facility], [address] [place] [phone] Bilirubin, total 0.7 0.1 - 1.2 mg/dL [facility] Comment:Testing performed by : [address] [phone] Protein, pl 7.2 6.5 - 8.5 g/dL [facility] Comment:Testing performed by : [address] [address] Albumin 4.5 3.5 - 5.0 g/dL [facility] Comment:Testing performed by : [facility], [address] [place] [phone] Alk phos 60 40 - 130 Units/L [facility] Comment:Testing performed by : [address] [phone] ALT 39 7 - 45 Units/L [facility] Comment:Testing performed by : [address] [phone] AST 39 10 - 45 Units/L [facility] Comment:Testing performed by : [facility], [address] [place] [phone] Blood 11/30/2020 10:0 5 AM CDT 11/30/2020 10:14 AM CDT us Leanne Pike MD LAB BLOOD ORDERABLES Final Result [facility] [place] [address] * (ABNORMAL) CBC with auto differential (11/30/2020 10:05 AM CDT) [facility] WBC 4.3 3.8 - 9.8 K/cumm [facility] Comment:Testing performed by : [facility], [address] [place] [address] Hgb 14.4 12.1 - 15.1 g/dL [facility] Comment:Testing performed by : [place] [address] Hct 42.6 36.1 - 44.3 % [facility] Comment:Testing performed by : [facility], [address] [place] [address] Plt 130(L) 140 - 440 K/cumm [facility] Comment:Testing performed by : [place] [address] MPV 9.3 6.8 - 10.4 fL [facility] Comment:Testing performed by : [place] [address] RBC 4.37 3.90 - 5.00 M/cumm [facility] Comment:Testing performed by : [place] [address] MCV 97.5 80.0 - 97.6 fL [facility] Comment:Testing performed by : [place] [address] MCH 33.0 26.7 - 33.7 pg [facility] Comment:Testing performed by : [place] [address] MCHC 33.9 32.7 - 35.5 g/dL [facility] Comment:Testing performed by : [place] [address] RDW CV 13.9 11.8 - 14.6 % [facility] Comment:Testing performed by : [place] [address] NRBC abs 0.00 0.00 - 0.01 K/cumm [facility] Comment:Testing performed by : [place] [address] Blood 11/30/2020 10:0 5 AM CDT 11/30/2020 10:14 AM CDT Leanne Pike MD LAB BLOOD ORDERABLES Final Result ADOL[facility] [place] [address] documented in this encounter Visit Diagnoses Diagnosis History of malignant neoplasm of colon- Primary documented in this encounter Orders Appointment Requests Count Last Ordered Date Fi rst Ordered Date [facility] CLINIC APPOINTMENT REQUEST 1 021 [facility] LAB APPOINTMENT 1 11/30/2020 documented in this encounter Care Teams Sugar Chipper Machine Operator Relationship Specialty Start Date End Date Rodolfo Zuleta MD [address] [place] [address] PCP - General 09/24/17 Leanne Pike MD [address] [place] [address] Medical Oncologist/Appliance Technician Medical Oncology 11/18/19 documented as of this encounter
--- OUTSIDE RECORDS SUMMARY | 2024-03-08 14:53 | XMS_ITS | Encounter Summary ---
Author Organization [facility] Address [address] [place] [address] Phone Care Team Providers Care Automotive Buyer Name Role Phone Rodolfo Zuleta MD Primary Care Provider [phone] Leanne Pike MD Unavailable Encounter Details Date Type Department Care Team (Late st Contact Info) Description 01/19/2020 Telephone [facility] Oncology [address] [facility] 7th [place] [address] [place] [address] Cindy Sanders Social History Tobacco Use Types Packs/Day Years Used Date Smoking Tobacco: Never Smokeless Tobacco: Never Alcohol Use Standard Drinks/Week Comments Yes 7 (1 standard drink = 0.6 oz pur e alcohol) Comments No Sex and Gender Information Value Date Recorded Sex Assigned at Not on file Legal Sex Female 6:59 AM 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 Contacted [facility] Billing for patient at ph [phone] and reviewed above information with quality control representative there. Team Sports Sales Associate requests patient call their billing department to review this information with a sales representative sales manager. Called patient back and reviewed aboveinformation with her. She states she will call the billing department at above phone # provided. Encouraged patient to call back to our office if she needs further assist. Patient verbalizing understanding and agreement with plan. E REPAIRER AIR documented in this encounter Plan of Treatment Not on file documented as of this encounter Visit Diagnoses Not on filedocumented in this encounter Care Teams Automotive Buyer Relationship Specialty Start Date End Date Rodolfo Zuleta MD [address] [place] [address] PCP - General 09/24/17 Leanne Pike MD [address] [place] [address] Medical Oncologist/Tag And Label Cutter Medical Oncology 11/18/19 documented as of this encounter
--- OUTSIDE RECORDS SUMMARY | 2024-03-08 14:53 | XMS_ITS | Encounter Summary ---
Author Organization [facility] Address [address] [place] [address] Care Team Providers Care Sweat Band Sewer Name Role Phone Rodolfo Zuleta MD Primary Care Provider [phone] Leanne Pike MD Unavailable [phone] Reason for Referral * MRI/CAT/PET Scan (Routine) - Closed Specialty Diagnoses / Procedures Referred By eJnnifer lock Referred To Contact Radiology Diagnoses History of malignant neoplasm of colon Procedures CT Chest Abdomen Pelvis W Contrast CT chest abdomen pelvis with & without contrast Leanne Pike MD [address] [place] [address] Phone: tel: fax: [address] [phone] Referral ID Status Reason Start Date Expiration Date Visits Re quested Visits Authorized [id number] Closed 11/24/2019 12/23/2019 1 1 Reason for Visit * MRI/CAT/PET Scan (Routine) - Closed Specialty Diagnoses / Procedures Referred By Contviviane lock Referred To Contact Radiology Diagnoses History of malignant neoplasm of colon Procedures CT Chest Abdomen Pelvis W Contrast CT chest abdomen pelvis with & without contrast Leanne Pike MD [address] [place] [address] Phone: tel: fax: [address] [phone] Referral ID Status Reason Start Date Expiration Date Visits Re quested Visits Authorized [id number] Closed 11/24/2019 12/23/2019 1 1 Encounter Details Date Type Department Care Team (Latest Contact Info) Description 11/30/2019 12:16 PM CDT - 11/30/2019 11:59 PM CDT Hospital Encounter [facility] [address] [place] [address] Leanne Pike MD [address] [id number] [place] [address] History of malignant neoplasm of colon Discharge Disposition: Discharge to home or self care Social History Tobacco Use Types Packs/Day Years Used Date Smoking Tobacco: Never Smokeless Tobacco: Never Alcohol Use Standard Drinks/Week Comments Yes 7 (1 standard drink = 0.6 oz pur e alcohol) Comments No Sex and Gender Information Value Date Recorded Sex Assigned at Not on file 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 PREVIDENT 5000 PLUS 1.1 % cream BRUSH TEETH WITH PASTE BID 3 08/28/2017 rosuvastatin (CRESTOR) 10 mg tablet 04/14/2018 vit A/C/E ac/ZnOx/cupric oxide (EYE VITAMIN AND MINERALS ORAL) Take by mouth. documented as of this encounter Discharge Disposition Disposition Code Departure Means Destination Discharge to home or self care documented in this encounter Plan of Treatment Not on file documented as of this encounter Procedures Procedure Name Priority Date/Time Associated Diagnosis Comments CT CHEST ABDOMEN PELVIS W CONTRAST Schedule Routine, Read Routine (OP Routine) 11/30/2019 12:47 PM CDT History of malignant neoplasm of colon documented in this encounter Results * CT Chest Abdomen Pelvis W Contrast (11/30/2019 12:47 PM CDT) Anatomical Region Laterality Modality Body N/A Computed Tomogra phy 11/30/2019 1:11 PM CDT Impressions 11/30/2019 1:11 PM CDT Stable indeterminate pulmonary nodules. ??No evidence of recurrent or metastatic disease. Electronically signed by: Brady Carter M.D. Narrative 11/30/2019 1:11 PM CDT EXAMINATION: ??Computed tomography of the chest, abdomen and pelvis with intravenous contrast HISTORY: Colon cancer status post partial colectomy TECHNIQUE: ??Transaxial computed tomographic images of the chest, abdomen and pelvis were obtained with intravenous contrast according to the standard protocol after the uneventful administration of 100 mL Opti-Ray 350 intravenous contrast. COMPARISON: 10/28/2018 FINDINGS: ?? Pleural-parenchymal scarring lung apices. ??A 2 mm lower lobe nodule (-459) is stable. ??No new suspicious pulmonary nodules. ??No edema, effusion or pneumothorax. ??Heart size normal. ??No pericardial effusion. ??Thoracic aorta is normal in caliber. ??There is no thoracic adenopathy. ??There is no large central pulmonary embolism. ??The thyroid is normal in appearance. The liver enhances normally. ??No focal hepatic lesion. ??Gallbladder is absent. ??No biliary ductal dilatation. ??Fatty atrophy of the pancreas which is otherwise normal. ??The spleen is normal. ??Adrenals normal. ??Stomach normal. ??Kidneys enhance symmetrically. ??No hydronephrosis. ??During bladder is normal. ??The uterus is normal. ??No adnexal mass. ??A high density nodule along the left aspect of the sigmoid colon adjacent to the left ovary is almost certainly a diverticulum. ??There are changes of colorectal anastomosis. ??Large bowel resection and anastomosis at the level of hepatic flexure is present as well. ??There is no inflammation or obstruction of large or small bowel. ??There is minimal fat stranding associated with the right colon anastomosis anterior the kidney without discrete or suspicious lesion. ??No abdominal or pelvic adenopathy. ??No free fluid or free air in the abdomen or pelvis. There are no suspicious or aggressive osseous lesions. Procedure Note Brady Carter MD - 11/30/2019 EXAMINATION: Computed tomography of the chest, abdomen and pelvis with intravenous contrast HISTORY: Colon cancer status post partial colectomy TECHNIQUE: Transaxial computed tomographic images of the chest, abdomen and pelvis were obtained with intravenous contrast according to the standard protocol after the uneventful administration of 100 mL Opti-Ray 350 intravenous contrast. COMPARISON: 10/28/2018 FINDINGS: Pleural-parenchymal scarring lung apices. A 2 mm lower lobe nodule (-459) is stable. No new suspicious pulmonary nodules. No edema, effusion or pneumothorax. Heart size normal. No pericardial effusion. Thoracic aorta is normal in caliber. There is no thoracic adenopathy. There is no large central pulmonary embolism. The thyroid is normal in appearance. The liver enhances normally. No focal hepatic lesion. Gallbladder is absent. No biliary ductal dilatation. Fatty atrophy of the pancreas which is otherwise normal. The spleen is normal. Adrenals normal. Stomach normal. Kidneys enhance symmetrically. No hydronephrosis. During bladder is normal. The uterus is normal. No adnexal mass. A high density nodule along the left aspect of the sigmoid colon adjacent to the left ovary is almost certainly a diverticulum. There are changes of colorectal anastomosis. Large bowel resection and anastomosis at the level of hepatic flexure is present as well. There is no inflammation or obstruction of large or small bowel. There is minimal fat stranding associated with the right colon anastomosis anterior the kidney without discrete or suspicious lesion. No abdominal or pelvic adenopathy. No free fluid or free air in the abdomen or pelvis. There are no suspicious or aggressive osseous lesions. IMPRESSION: Stable indeterminate pulmonary nodules. No evidence of recurrent or metastatic disease. Electronically signed by: Brady Carter M.D. Leanne Pike MD IM CT PROCEDURES Fin al Result documented in this encounter Visit Diagnoses Diagnosis History of malignant neoplasm of colon documented in this encounter Administered Medications Inactive Administered Medications - up to 3 most recent administrations Medication Order MAR Action Action Date Dose Rate Site ioversoL (OPTIRAY 350) syringe syringe 100 mL 100 mL, intravenous, Once in imaging, contrast, Starting on 11/30/19 at 1237, For 1 dose Given 11/30/2019 12:37 PM CDT 100 mL documented in this encounter Orders Medications Ordered That Mg ht Not Have Been Administered Count Last Ordered Date First Ordered Date ioversoL (OPTIRAY 350) syrin ge syringe 100 mL 1 11/30/2019 documented in this encounter Care Teams Sweat Band Sewer Relationship Specialty Start Date End Date Rodolfo Zuleta MD [address] [place] [address] PCP - General 09/24/17 Leanne Pike MD [address] [place] [address] Medical Oncologist/Medical Scientific Liaison Medical Oncology 11/18/19 documented as of this encounter
--- OUTSIDE RECORDS SUMMARY | 2024-03-08 14:53 | XMS_ITS | Encounter Summary ---
Author Organization [facility] Address [address] [place] [address] Phone Care Team Providers Care Dairy Manager Name Role Phone Rodolfo Zuleta MD Primary Care Provider [phone] Leanne Pike MD Unavailable Encounter Details Date Type Department Care Team (Late st Contact Info) Description 11/19/2019 Documentation [facility] Oncology [address] [facility] 7th [place] [address] [place] [phone] Nery Blevins CMA Social History Tobacco Use Types Packs/Day Years Used Date Smoking Tobacco: Never Smokeless Tobacco: Never Alcohol Use Standard Drinks/Week Comments Yes 7 (1 standard drink = 0.6 oz pur e alcohol) Comments No Sex and Gender Information Value Date Recorded Sex Assigned at Not on file Legal Sex Female 6:59 AM RN SURGICAL PCU Gender Identity Not on file Sexual Orientation Not on file documented as of this encounter Progress Notes * Nery Blevins CMA - 11/19/2019 10:54 AM CDT Left vm for pt concerning tele-health visit on 12/02 between - with . Ask her to call her NC with any questions or concerns. documented in this encounter Plan of Treatment Not on file documented as of this encounter Visit Diagnoses Not on filedocumented in this encounter Care Teams Dairy Manager Relationship Specialty Start Date End Date Rodolfo Zuleta MD [address] [place] [address] PCP - General 09/24/17 Leanne Pike MD [address] [place] [address] Medical Oncologist/Chemist Internship Medical Oncology 11/18/19 documented as of this encounter
--- OUTSIDE RECORDS SUMMARY | 2024-03-08 14:53 | XMS_ITS | Encounter Summary ---
Author Organization [facility] Address [address] [place] [address] Phone Care Team Providers Care Chief Information Security Officer Name Role Phone Rodolfo Zuleta MD Primary Care Provider [phone] Leanne Pike MD Unavailable Encounter Details Date Type Department Care Team (Late st Contact Info) Description 11/30/2020 10:30 AM CDT Lab [facility] Oncology [address] [facility] 7th [place] [address] [place] [phone] Leanne Pike MD [address] [phone] [place] [address] History of malignant neoplasm of colon Discharge [...] on file Legal Sex Female 6:59 AM 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 Gender Identity Not on file Sexual Orientation Not on file documented as of this encounter Discharge Disposition Disposition Code Departure Means Destination Discharge to home or self care documented in this encounter Plan of Treatment Not on file documented as of this encounter Procedures Procedure Name Priority Date/Time Associated Diagnosis Comments EGFR Routine 11/30/2020 10:05 AM CDT History of malignant neoplasm of colon DIFFERENTIAL AUTO Routine 11/30/2020 10: 05 AM CDT History of malignant neoplasm of colon CBC WITH AUTO DIFFERENTIAL Routine 11/30/2020 10:05 AM CDT History of malignant neoplasm of colon CEA Routine 11/30/2020 10:05 AM CDT History of malignant neoplasm of colon COMPREHENSIVE METABOLIC PANEL Routine 11/30/2020 10:05 AM CDT History of malignant neoplasm of colon documented in this encounter Results * eGFR (11/30/2020 10:05 AM CDT) eGFR >90 90 - 130 mL/min/1.7 3 m2 [facility] Comment: Interpretive Data Reference Interval Normal ?>/= 90 mL/min/1.73m2 Mildly decreased* ? 60 - 89 mL/min/1.73m2 Mildly to moderately decreased ?45 - 59 mL/min/1.73m2 Moderately to severely decreased ??30 - 44 mL/min/1.73m2 Severely decreased ?15 - 29 mL/min/1.73m2 Kidney Failure ?< 15 ??mL/min/1.73m2 *Relative to young adult level Estimated glomerular filtration rate is determined by the CKD-EPI equation recommended by the National Kidney Foundation (KDIGO 2012 Clinical Practice Guideline for the Evaluation and Management of Chronic Kidney Disease. Kidney Intnl Suppl Mar 2012;3:1). The CKD-EPI equation should not be used for patients with unstable renal function and has not been validated in children and those over 70. Current interpretive data was last reviewed 2020 Testing performed by: [facility], [address] [place] [phone] Blood 11/30/2020 10:0 5 AM CDT 11/30/2020 10:14 AM CDT us Leanne Pike MD LAB BLOOD ORDERABLES Final Result [facility] [place] [address] * Differential, auto (11/30/2020 10:05 AM CDT) Neutrophil abs 2.5 1.8 - 6.6 K/cumm [facility] Comment:Testing performed by : [facility], [address] [place] [phone] Lymphocyte abs 1.2 1.2 - 3.3 K/cumm [facility] Comment:Testing performed by : [facility], [address] [place] [phone] Monocyte abs 0.3 0.2 - 1.2 K/cumm [facility] Comment:Testing performed by : [facility], [address] [place] [phone] Eosinophil abs 0.2 0.0 - 0.5 K/cumm [facility] Comment:Testing performed by : [facility], [address] [place] [phone] Basophil abs 0.0 0.0 - 0.2 K/cumm [facility] Comment:Testing performed by : [facility], [address] [place] [phone] Neutrophil pct 58.8 % [facility] Comment: Interpretive Data Percent cell count reference ranges are not reported, since discordance with absolute values may lead to misinterpretation of CBC data. Current Interpretive Data was last revised on 2017. Testing performed by: [facility], [address] [place] [phone] Lymphocyte pct 28.2 % [facility] Comment: Interpretive Data Percent cell count reference ranges are not reported, since discordance with absolute values may lead to misinterpretation of CBC data. Current Interpretive Data was last revised on 2017. Testing performed by: [facility], [address] [place] [phone] Monocyte pct 7.9 % [facility] Comment:Testing performed by : [facility], [address] [place] [phone] Eosinophil pct 4.4 % [facility] Comment:Testing performed by : [facility], [address] [place] [phone] Basophil pct 0.7 % [facility] Comment:Testing performed by : [facility], [address] [place] [phone] Blood 11/30/2020 10:0 5 AM CDT 11/30/2020 10:14 AM CDT us Leanne Pike MD LAB BLOOD ORDERABLES Final Result [facility] Department [place] [address] * (ABNORMAL) CBC with auto differential (11/30/2020 10:05 AM CDT) WBC 4.3 3.8 - 9.8 K/cumm [facility] Comment:Testing performed by : [facility], [address] [place] [phone] Hgb 14.4 12.1 - 15.1 g/dL [facility] Comment:Testing performed by : [facility], [address] [place] [phone] Hct 42.6 36.1 - 44.3 % [facility] Comment:Testing performed by : [facility], [address] [place] [phone] Plt 130(L) 140 - 440 K/cumm [facility] Comment:Testing performed by : [address] [phone] MPV 9.3 6.8 - 10.4 fL [facility] Comment:Testing performed by : [address] [phone] RBC 4.37 3.90 - 5.00 M/cumm [facility] Comment:Testing performed by : [facility], [address] [place] [phone] MCV 97.5 80.0 - 97.6 fL [facility] Comment:Testing performed by : [facility], [address] [place] [phone] MCH 33.0 26.7 - 33.7 pg [facility] Comment:Testing performed by : [facility], [address] [place] [phone] MCHC 33.9 32.7 - 35.5 g/dL [facility] Comment:Testing performed by : [facility], [address] [place] [phone] RDW CV 13.9 11.8 - 14.6 % [facility] Comment:Testing performed by : [facility], [address] [place] [phone] NRBC abs 0.00 0.00 - 0.01 K/cumm [facility] Comment:Testing performed by : [facility], [address] [place] [phone] Blood 11/30/2020 10:0 5 AM CDT 11/30/2020 10:14 AM CDT Leanne Pike MD LAB BLOOD ORDERABLES Final Result [facility] Department [place] [address] * (ABNORMAL) Comprehensive metabolic panel (11/30/2020 10:05 AM CDT) Sodium 140 135 - 145 mmol/L [facility] Comment:Testing performed by : [facility], [address] [place] [phone] Potassium, pl 4.7 3.3 - 4.9 mmol/L [facility] Comment:Testing performed by : [facility], [address] [place] [phone] Chloride 103 97 - 110 mmol/L [facility] Comment:Testing performed by : [facility], [address] [place] [phone] CO2 29 22 - 32 mmol/L [facility] Comment:Testing performed by : [facility], [address] [place] [phone] Anion gap 8 2 - 15 mmol/L [facility] Comment:Testing performed by : [facility], [address] [place] [phone] BUN 8 8 - 25 mg/dL [facility] Comment:Testing performed by : [facility], [address] [place] [phone] Creatinine 0.47(L) 0.60 - 1.10 mg/dL [facility] Comment:Testing performed by : [facility], [address] [place] [phone] Glucose 118 70 - 199 mg/dL [facility] Comment: Interpretive Data Fasting glucose >/= 126 [...] was last revised 2017. Testing performed by: [facility], [address] [place] [phone] Calcium 9.7 8.5 - 10.3 mg/dL [facility] Comment:Testing performed by : [facility], [address] [place] [phone] Bilirubin, total 0.7 0.1 - 1.2 mg/dL [facility] Comment:Testing performed by : [facility], [address] [place] [phone] Protein, pl 7.2 6.5 - 8.5 g/dL [facility] Comment:Testing performed by : [facility], [address] [place] [phone] Albumin 4.5 3.5 - 5.0 g/dL [facility] Comment:Testing performed by : [facility], [address] [place] [phone] Alk phos 60 40 - 130 Units/L [facility] Comment:Testing performed by : [facility], [facility] [phone] ALT 39 7 - 45 Units/L [facility] Comment:Testing performed by : [facility], [facility] [phone] AST 39 10 - 45 Units/L [facility] Comment:Testing performed by : [facility], [address] [place] [phone] Blood 11/30/2020 10:0 5 AM CDT 11/30/2020 10:14 AM CDT Result [facility] Leanne Pike MD LAB BLOOD ORDERABLES Final Result Performing Organization Address [facility] [place] [address] * (ABNORMAL) CEA (11/30/2020 10:05 AM CDT) CEA 8.2(H) <=5.0 ng/mL [facility] Comment: Interpretive Data: Reference Range: Non-Smokers: 0.0 ? 5.0 ng/mL Smokers: 0.0 ? 6.5 ng/mL Current interpretive data was last revised 2020. Blood 11/30/2020 10:0 5 AM CDT 11/30/2020 11:05 AM CDT Leanne Pike MD LAB BLOOD ORDERABLES Final Result Performing Organization Address [facility] [place] [address] documented in this encounter Visit Diagnoses Diagnosis History of malignant neoplasm of colon documented in this encounter Orders Appointment Requests Count Last Ordered Date Fi rst Ordered Date ONCBCN LAB APPOINTMENT 1 11/30/2020 documented in this encounter Care Teams Chief Information Security Officer Relationship Specialty Start Date End Date Rodolfo Zuleta MD [address] [place], [place] [id number] PCP - General 09/24/17 Leanne Pike MD [address] [place] [address] Medical Oncologist/Clinical Administrator Medical Oncology 11/18/19 documented as of this encounter
--- OUTSIDE RECORDS SUMMARY | 2024-03-08 14:53 | XMS_ITS | Encounter Summary ---
Author Organization [facility] Address [address] [place] [address] Phone Care Team Providers Care Box Office Agent Name Role Phone Rodolfo Zuleta MD Primary Care Provider [phone] Leanne Pike MD Unavailable Reason for Referral * MRI/CAT/PET Scan (Routine) - Closed Specialty Diagnoses / Procedures Referred By Contac t Referred To Contact Radiology Diagnoses History of malignant neoplasm of colon Procedures CT Chest Abdomen Pelvis W Contrast CT chest abdomen pelvis with & without contrast Leanne Pike MD [address] [place] [address] Phone: tel: fax: [address] [phone] Referral ID Status Reason Start Date Expiration Date Visits Re quested Visits Authorized [id number] Closed 11/24/2019 12/23/2019 1 1 Encounter Details Date Type Department Care Team (Late st Contact Info) Description 11/18/2019 Orders Only [facility] Oncology [address] [facility] 7th [place] [address] [place] [address] Vladimir Sarah RN [address] [place] [address] History of malignant neoplasm of colon (Primary Dx) Social History Tobacco Use Types Packs/Day Years Used Date Smoking Tobacco: Never Smokeless Tobacco: Never Alcohol Use Standard Drinks/Week Comments Yes 7 (1 standard drink = 0.6 oz pur e alcohol) Comments No Sex and Gender Information Value Date Recorded Sex Assigned at Not on file Legal Sex Female 6:59 AM 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 Leanne Pike MD IMG CT PROCEDURES Fin al Result documented in this encounter Visit Diagnoses Diagnosis History of malignant neoplasm of colon- Primary History of malignant neoplasm of colon documented in this encounter Care Teams Box Office Agent Relationship Specialty Start Date End Date Rodolfo Zuleta MD [address] [place] [address] PCP - General 09/24/17 Leanne Pike MD [address] [place] [address] Medical Oncologist/Piece Hand Medical Oncology 11/18/19 documented as of this encounter
--- OUTSIDE RECORDS SUMMARY | 2024-03-08 14:53 | XMS_ITS | Encounter Summary ---
Author Organization [facility] Address [address] [place] [address] Phone Care Team Providers Care Packing Attendant Name Role Phone Rodolfo Zuleta MD Primary Care Provider [phone] Leanne Pike MD Unavailable Encounter Details Date Type Department Care Team (Late st Contact Info) Description 11/18/2019 10:30 AM CDT Office Visit [facility] Oncology [address] [facility] 7th [place] [address] [place] [address] Leanne Pike MD [address] [phone] [place] [address] Elevated CEA (Primary Dx); History of malignant neoplasm of colon Social History Tobacco Use Types Packs/Day Years Used Date Smoking Tobacco: Never Smokeless Tobacco: Never Alcohol Use Standard Drinks/Week Comments Yes 7 (1 standard drink = 0.6 oz pur e alcohol) Comments No Sex and Gender Information Value Date Recorded Sex Assigned at Not on file Legal Sex Female 6:59 AM DEVELOPMENT ENG Gender Identity Not on file Sexual Orientation Not on file documented as of this encounter Last Filed Vital Signs Vital Sign Reading Time Taken Comments Blood Pressure 157/84 11/18/2019 10:43 AM CDT notified team Pulse 71 11/18/2019 10:43 AM CDT Temperature 36.8 ??C (98.2 ??F) 11/18/2019 1 0:43 AM CDT Respiratory Rate 16 11/18/2019 10:4 3 AM CDT Oxygen Saturation 99% 11/18/2019 10: 43 AM CDT Inhaled Oxygen Concentration - - Weight 85 kg (187 lb 6.4 oz) 11/18/2019 10:45 AM CDT Height - - Body Mass Index 30.33 04/16/2018 8:42 AM DEVELOPMENT ENG documented in this encounter Progress Notes * Jeri Yanez NP - 11/18/2019 10:30 AM CDT Mira Magana : 1950 DATE OF VISIT: 11/18/2019. Oncology History Overview Note Stage II colon cancer (T3N0) diagnosed November 2013, received no adjuvant chemotherapy. History of malignant neoplasm of colon 01/14/2015 Initial Diagnosis History of malignant neoplasm of colon Active Treatment & Therapy Plans for Mira Magana Mary does not have any active plans of the following types: Oncology Chemotherapy Treatment, Oncology Treatment (2), Oncology Treatment (3), Oncology Supportive Care, Specialty Infusion Treatment, Blood Products, BMT, Hematology INTERVAL HISTORY Ms. Mira Magana is a 68 y.o. Non- female with a history of stage II colon cancer who presents for follow-up routine oncologic care. She is 6years s/p surgical resection. Overall, she is feeling well. She is feeling very well. She notes good energy. She notes good appetite. She is maintaining weight. She denies any changes in her bowel habits, blood in stools, or new pain. She had most recent colonoscopy in September 2017 with no malignant finding with recommendation to repeat September 2020. She notes 2 UTI's in the early Spring. Otherwise, She denies any skin rashes, fever, chills, night sweats, shortness of breath, cough, chest pain, nausea, vomiting, constipation, diarrhea, neuropathy, edema, jaundice, ascites, bleeding, urinary symptoms, or pain. PAST MEDICAL HISTORY: Past Medical History: Diagnosis Date ??? Colon cancer (CMS/HCC) ??? Diverticulosis ??? Macular degeneration ??? PONV (postoperative nausea and vomiting) PAST SURGICAL HISTORY: Past Surgical History: Procedure Laterality Date ??? CHOLECYSTECTOMY ??? COLECTOMY ALLERGIES: No Known Allergies CURRENT MEDICATIONS: Current Outpatient Medications: ??? ALPRAZolam (XANAX) 0.25 mg tablet, , Disp: , Rfl: ??? aspirin 81 mg tablet, Take 81 mg by mouth daily., Disp: , Rfl: ??? PREVIDENT 5000 PLUS 1.1 % cream, BRUSH TEETH WITH PASTE BID, Disp: , Rfl: 3 ??? rosuvastatin (CRESTOR) 10 mg tablet, , Disp: , Rfl: ??? vit A/C/E ac/ZnOx/cupric oxide (EYE VITAMIN AND MINERALS ORAL), Take by mouth., Disp: , Rfl: REVIEW OF SYSTEMS: All other systems negative. PHYSICAL EXAMINATION: Performance Status: ECOG 0 Vital signs: Vitals BP 157/84 (BP Location: Left arm) Pulse 71 Temp 36.8 ??C (98.2 ??F) (Oral) Resp 16 Wt 85 kg (187 lb 6.4 oz) SpO2 99% BMI 30.33 kg/m?? General: She is a 68 y.o. female and is in no acute distress. Mental Status: Awake, alert, and oriented. Answers questions appropriately and is cooperative. Doesnot appear anxious. No slurred speech. HEENT: Normocephalic, atraumatic, and symmetric. EOMI. Sclera anicteric. Moist mucous membranes. Nomucositis or thrush. Neck: Supple. Trachea midline. Lymphatics: No palpable cervical, supraclavicular, or inguinal lymphadenopathy. Lungs: Chest expansion symmetrical. Respirations even and unlabored. Clear to auscultation bilaterally. Heart: S1, S2 heard well. Regular rate and rhythm. No murmurs, rubs, or gallops. Abdomen: Soft, nontender, nondistended. Normoactive bowel sounds. No organomegaly or masses palpated. Extremities: No clubbing, cyanosis, or edema. Skin: No rashes or lesions. No nail changes. Neurological: No focal neurological deficits. LABORATORY: Hematology Lab History Some values may be hidden. Unless noted otherwise, only the newest values recorded on each date aredisplayed. Labs - Hematology Latest Ref Range 11/18/19 WBC 3.8 - 9.8 K/cumm 4.1 Total Hb, POC 12.1 - 15.1 g/dL 14.4 Hct 36.1 - 44.3 % 43.2 Plt 140 - 440 K/cumm 143 Neutrophil abs 1.8 - 6.6 K/cumm 2.6 Lymphocytes, abs 1.2 - 3.3 K/cumm 1.0 (A) (A) Abnormal value Comments are available for some flowsheets but are not being displayed. Chem/LFT Lab History Some values may be hidden. Unless noted otherwise, only the newest values recorded on each date aredisplayed. Labs-Chem/LFT Latest Ref Range 11/18/19 Sodium 135 - 145 mmol/L 140 Creatinine 0.60 - 1.10 mg/dL 0.62 Bilirubin, total 0.1 - 1.2 mg/dL 0.7 AST 10 - 45 Units/L 45 ALT 7 - 45 Units/L 47 (A) CrCl- Actual Body Weight (Cockcroft-Gault) 113.3 (A) Abnormal value Comments are available for some flowsheets but are not being displayed. Tumor Marker History Some values may be hidden. Unless noted otherwise, only the newest values recorded on each date aredisplayed. Tumor Markers Latest Ref Range 11/18/19 CEA <=5.0 ng/mL 8.3 (A) (A) Abnormal value Comments are available for some flowsheets but are not being displayed. IMAGES None from today IMPRESSION AND PLAN: 1. History of stage II colon cancer. 2. Elevated CEA. Ms. Mira Magana is a 68 y.o. Non- female with history of stage II colon cancer who presents for routine oncologic care. She is 6 years s/p resection. She is feeling very well, is clinically stable, and she has no clinical evidence of recurrent or metastatic disease. CEA remains mildly elevated at 8.3, and has slightly increased from 7.6 last year.As such, we will plan to continue surveillance, but will plan to obtain CT C/A/P secondary to slight increase in CEA to r/o recurrent or metastatic disease. She will be due for colonoscopy in September 2020. As such, we will arrange CT C/A/P in the next 1-2 weeks along with telephone visit to review results and treatment planning. Further surveillance appointments to be arranged based on imaging. She is interested in transferring to [facility] in [place] to be closer to home after imaging if feasible. All of her questions were answered. She understands and was in agreement with the plan of care. She knows to call the office in the interim with any symptoms, questions, or concerns. Jeri Yanez, RN, MSN, [facility]- In collaboration with Leanne Pike MD Cosigned by Leanne Pike MD at 11/19/2019 3:04 PM CDT documented in this encounter Plan of Treatment Not on file documented as of this encounter Visit Diagnoses Diagnosis Elevated CEA- Primary Elevated carcinoembryonic antigen [CEA] History of malignant neoplasm of colon documented in this encounter Orders Appointment Requests Count Last Ordered Date Fi rst Ordered Date ONCBCN CLINIC APPOINTMENT REQUEST 1 020 documented in this encounter Care Teams Packing Attendant Relationship Specialty Start Date End Date Rodolfo Zuleta MD [address] [place] [id number] PCP - General 09/24/17 Leanne Pike MD [address] [place] [id number] Medical Oncologist/Unit Clerk Medical Oncology 11/18/19 documented as of this encounter
--- OUTSIDE RECORDS SUMMARY | 2024-03-08 14:53 | XMS_ITS | Encounter Summary ---
Author Organization [facility] Address [address] [place] [address] Phone Care Team Providers Care Commercial Door Installer Name Role Phone Rodolfo Zuleta MD Primary Care Provider [phone] Leanne Pike MD Unavailable Encounter Details Date Type Department Care Team (Late st Contact Info) Description 11/18/2019 Documentation [facility] Oncology [address] [facility] 7th [place] [address] [place] [address] Nery Blevins CMA Social History Tobacco Use Types Packs/Day Years Used Date Smoking Tobacco: Never Smokeless Tobacco: Never Alcohol Use Standard Drinks/Week Comments Yes 7 (1 standard drink = 0.6 oz pur e alcohol) Comments No Sex and Gender Information Value Date Recorded Sex Assigned at Not on file 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 Called pt and gave her the new date/time. documented in this encounter Plan of Treatment Not on file documented as of this encounter Visit Diagnoses Not on filedocumented in this encounter Care Teams Commercial Door Installer Relationship Specialty Start Date End Date Rodolfo Zuleta MD [address] [place] [address] PCP - General 09/24/17 Leanne Pike MD [address] [place] [address] Medical Oncologist/Relations Liaison Medical Oncology 11/18/19 documented as of this encounter
--- OUTSIDE RECORDS SUMMARY | 2024-03-08 14:53 | XMS_ITS | Encounter Summary ---
Author Organization [facility] Address [address] [place] [address] Phone Care Team Providers Care Grease Buffer Name Role Phone Rodolfo Zuleta MD Primary Care Provider [phone]- [phone] Leanne Pike MD Unavailable [phone] Encounter Details Date Type Department Care Team (Late st Contact Info) Description 12/23/[address] 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 # is [id number]. documented in this encounter Plan of Treatment Not on file documented as of this encounter Visit Diagnoses Not on filedocumented in this encounter Care Teams Grease Buffer Relationship Specialty Start Date End Date Rodolfo Zuleta MD [address] [place] [address] PCP - General 09/24/17 Leanne Pike MD [address] [address] Medical Oncologist/Chargemaster Specialist Medical Oncology 11/18/19 documented as of this encounter
--- OUTSIDE RECORDS SUMMARY | 2024-03-08 14:53 | XMS_ITS | Encounter Summary ---
Author Organization [facility] Address [address] [place] [address] Phone Care Team Providers Care Cartridge Belt Puncher Name Role Phone Rodolfo Zuleta MD Primary Care Provider [phone]- [phone] Leanne Pike MD Unavailable [phone] Reason for Visit * Oncology (Routine) - Closed Specialty Diagnoses / Procedures Referred By Contac t Referred To Contact Oncology Diagnoses History of malignant neoplasm of colon Leanne Pike MD [address] [place] [address] Phone: tel: fax: Leanne Pike MD [address] [phone] [place] [address] Phone: tel: fax: Referral ID Status Reason Start Date Expiration Date V isits Requested Visits Authorized [id number] Closed Specialty Services Required 11/25/2020 12/25/2020 12 12 Encounter Details Date Type Department Care Team (Late st Contact Info) Description 11/30/2020 11:15 AM CDT Office Visit [facility] Oncology [address] [facility] 7th [place] [address] [place] [address] Leanne Pike MD [address] [phone] [place] [address] History of malignant neoplasm of colon Social History Tobacco Use Types Packs/Day Years Used Date Smoking Tobacco: Never Smokeless Tobacco: Never Alcohol Use Standard Drinks/Week Comments Yes 7 (1 standard drink = 0.6 oz pur e alcohol) Comments No Sex and Gender Information Value Date Recorded Sex Assigned at Not on file 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 Oncology History Overview Note Stage II colon cancer (T3N0) diagnosed November 2013, received no adjuvant chemotherapy. History of malignant neoplasm of colon 01/14/2015 Initial Diagnosis History of malignant neoplasm of colon INTERVAL HISTORY Ms. Magana is a 69 y.o. female who returns to clinic accompanied by spouse for routine oncologic care for her resected colon cancer. She is 7 years s/p EOT. She is feeling well. Energy and appetite are good. Maintaining weight. Bowel movements and urination regular. Denies BRBPR. Colonoscopy due 12/2020. She plans to arrange local. Otherwise, she denies mucositis, skin rashes, fever, chills, night sweats, shortness of breath, cough, chest pain, nausea, vomiting, constipation, diarrhea, neuropathy, edema, jaundice, ascites, bleeding, pain, or urinary symptoms. ECOG PERFORMANCE STATUS 0 - Asymptomatic REVIEW OF SYSTEMS All other systems are reviewed and negative except as noted in the Interval History. PAST MEDICAL & SURGICAL HISTORY Past Medical History: Diagnosis Date ??? Colon cancer (CMS/HCC) (HCC) ??? Diverticulosis ??? Macular degeneration ??? PONV (postoperative nausea and vomiting) Past Surgical History: Procedure Laterality Date ??? CHOLECYSTECTOMY ??? COLECTOMY SOCIAL HISTORY Social History Socioeconomic History ??? Marital status: Spouse name: Not on file ??? Number of children: Not on file ??? Years of education: Not on file ??? Highest education level: Not on file Occupational History ??? Not on file Tobacco Use ??? Smoking status: Never Smoker ??? Smokeless tobacco: Never Used Substance and Sexual Activity ??? Alcohol use: Yes Alcohol/week: 7.0 standard drinks Types: 7 Glasses of wine per week ??? Drug use: No ??? Sexual activity: Not on file Other Topics Concern ??? Not on file Social History Narrative ??? Not on file Social Determinants of Health Financial Resource Strain: ??? Difficulty of Paying Living Expenses: Not on file Food Insecurity: ??? Worried About Running Out of Food in the Last Year: Not on file ??? Ran Out of Food in the Last Year: Not on file Transportation Needs: ??? Lack of Transportation (Medical): Not on file ??? Lack of Transportation (Non-Medical): Not on file Physical Activity: ??? Days of Exercise per Week: Not on file ??? Minutes of Exercise per Session: Not on file Stress: ??? Feeling of Stress : Not on file Social Connections: ??? Frequency of Communication with Friends and Family: Not on file ??? Frequency of Social Gatherings with Friends and Family: Not on file ??? Attends Scientologist Services: Not on file ??? Active Member of Clubs or Organizations: Not on file ??? Attends Club or Organization Meetings: Not on file ??? Marital Status: Not on file Intimate Partner Violence: ??? Fear of Current or Ex-Partner: Not on file ??? Emotionally Abused: Not on file ??? Physically Abused: Not on file ??? Sexually Abused: Not on file FAMILY HISTORY Family History Problem Relation Age of Onset ??? No Known Problems Mother ??? No Known Problems Father MEDICATIONS Current Outpatient Medications: ??? aspirin 81 mg tablet, Take 81 mg by mouth daily., Disp: , Rfl: ??? PREVIDENT 5000 PLUS 1.1 % cream, BRUSH TEETH WITH PASTE BID, Disp: , Rfl: 3 ??? rosuvastatin (CRESTOR) 10 mg tablet, , Disp: , Rfl: ??? vit A/C/E ac/ZnOx/cupric oxide (EYE VITAMIN AND MINERALS ORAL), Take by mouth., Disp: , Rfl: ??? ALPRAZolam (XANAX) 0.25 mg tablet, , Disp: , Rfl: PHYSICAL EXAM Blood pressure 158/84, pulse 65, temperature 36.4 ??C (97.5 ??F), temperature source Temporal, resp. rate 16, height 167 cm (5' 5.75 ), weight 85.3 kg (188 lb), SpO2 98 %. General: Awake, alert, and oriented x3. Mental Status: Awake, alert, and oriented. Answers [...] nail changes. Neurological: No focal neurological deficits. LABS Tumor Marker History Some values may be hidden. Unless noted otherwise, only the newest values recorded on each date aredisplayed. Tumor Markers Latest Ref Range 11/30/20 CEA <=5.0 ng/mL 8.2 (A) (A) Abnormal value Comments are available for some flowsheets but are not being displayed. Chem/LFT Lab History Some values may be hidden. Unless noted otherwise, only the newest values recorded on each date aredisplayed. Labs-Chem/LFT Latest Ref Range 11/30/20 Sodium 135 - 145 mmol/L 140 Creatinine 0.60 - 1.10 mg/dL 0.47 (A) Bilirubin, total 0.1 - 1.2 mg/dL 0.7 AST 10 - 45 Units/L 39 ALT 7 - 45 Units/L 39 CrCl- Actual Body Weight (Cockcroft-Gault) 147.8 (A) Abnormal value Comments are available for some flowsheets but are not being displayed. Hematology Lab History Some values may be hidden. Unless noted otherwise, only the newest values recorded on each date aredisplayed. Labs - Hematology Latest Ref Range 11/30/20 WBC 3.8 - 9.8 K/cumm 4.3 Total Hb, POC 12.1 - 15.1 g/dL 14.4 Hct 36.1 - 44.3 % 42.6 Plt 140 - 440 K/cumm 130 (A) Neutrophil abs 1.8 - 6.6 K/cumm 2.5 Lymphocytes, abs 1.2 - 3.3 K/cumm 1.2 (A) Abnormal value Comments are available for some flowsheets but are not being displayed. Reviewed lab work with patient. IMAGES Ct Chest Abdomen Pelvis W Contrast Result Date: 11/30/2019 Stable indeterminate pulmonary nodules. No evidence of recurrent or metastatic disease. Electronically signed by: Brady Carter M.D. ASSESSMENT 1. History of malignant neoplasm of colon PLAN Ms. Magana returns to clinic accompanied by spouse for routine oncologic care while on surveillance for resected stage II colon cancer. She is 7 years s/p EOT. She is feeling well, is clinically stable, and lab counts adequate. CEA remains elevated yet stableat 8.2 (8.3 prior). It is still unclear etiology of chronic elevated CEA but low suspicion of malignant etiology with suspicion for chronic benign inflammatory etiology. Prior imaging in 11/2019 with stable indeterminate pulmonary nodules & no recurrent/metastatic disease. Discussed consideration of Signatera to identify ctDNA to detect MRD. Was agreeable & will send. She will arrange colonoscopy local in 12/2020. We will tentatively see back in 12 months with lab work including CEA & physical exam pending Signatera result. All questions answered. She understands and was in agreement with plan of care. Sheknows to call in the interim with symptoms, questions, concerns. Jeri Yanez, RN, MSN, [facility] In collaboration with Leanne Pike MD Cosigned by Leanne Pike MD at 12/02/2020 3:55 PM CDT documented in this encounter Plan of Treatment Not on file documented as of this encounter Visit Diagnoses Diagnosis History of malignant neoplasm of colon documented in this encounter Orders Outpatient Referral Count Last Ordered Date Fir st Ordered Date AMB REFERRAL TO ONCOLOGY 1 11/30/2020 Appointment Requests Count Last Ordered Date Fi rst Ordered Date ONCBCN CLINIC APPOINTMENT REQUEST 1 021 documented in this encounter Care Teams Cartridge Belt Puncher Relationship Specialty Start Date End Date Rodolfo Zuleta MD [address] [place] [address] PCP - General 09/24/17 Leanne Pike MD [address] [place] [address] Medical Oncologist/Refrigerated Company Driver Medical Oncology 11/18/19 documented as of this encounter
--- OUTSIDE RECORDS SUMMARY | 2024-03-08 14:53 | XMS_ITS | Encounter Summary ---
Author Organization [facility] Address [address] [place] [address] Phone Care Team Providers Care Flat Surfacer Jewel Name Role Phone Rodolfo Zuleta MD Primary Care Provider [phone] Leanne Pike MD Unavailable Encounter Details Date Type Department Care Team (Late st Contact Info) Description 12/01/2020 Documentation [facility] Oncology [address] [facility] 7th [place] [address] [place] [phone] Dominique Jalloh, RN Social History Tobacco Use Types Packs/Day Years Used Date Smoking Tobacco: Never Smokeless Tobacco: Never Alcohol Use Standard Drinks/Week Comments Yes 7 (1 standard drink = 0.6 oz pur e alcohol) Comments No Sex and Gender Information Value Date Recorded Sex Assigned at Not on file 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 She states her insurance only covers the test once every 3 years; reviewed that I will submit the requisition and [facility] will be contacting her to use a third [facility] lab to get a mobile phlebotomy draw. Reviewed test results take approx 6-8 weeks pending the timing of retrieval of surgical pathology. Will call her with results and determine follow up plan from there. documented in this encounter Plan of Treatment Not on file documented as of this encounter Visit Diagnoses Not on filedocumented in this encounter Care Teams Flat Surfacer Jewel Relationship Specialty Start Date End Date Rodolfo Zuleta MD [address] [place] [address] PCP - General 09/24/17 Leanne Pike MD [address] [place] [address] Medical Oncologist/Major Case Detective Medical Oncology 11/18/19 documented as of this encounter
--- OUTSIDE RECORDS SUMMARY | 2024-03-08 14:53 | XMS_ITS | Encounter Summary ---
Author Organization [facility] Address [address] [place] [address] Phone Care Team Providers Care Jump Iron Machine Presser Name Role Phone Rodolfo Zuleta MD Primary Care Provider [phone] Leanne Pike MD Unavailable Encounter Details Date Type Department Care Team (Late st Contact Info) Description 12/03/2019 10:00 AM CDT Telemedicine [facility] Oncology [address] [facility] 7th [place] [address] [place] [phone] Leanne Pike MD [address] [phone] [place] [address] Elevated CEA (Primary Dx); History of malignant neoplasm of colon Social History Tobacco Use Types Packs/Day Years Used Date Smoking Tobacco: Never Smokeless Tobacco: Never Alcohol Use Standard Drinks/Week Comments Yes 7 (1 standard drink = 0.6 oz pur e alcohol) Comments No Sex and Gender Information Value Date Recorded Sex Assigned at Not on file 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 ONCOLOGY TELEHEALTH PROGRESS NOTE PATIENT NAME: Mira Magana DATE OF : 1950 Cancer Staging No matching staging information was found for the patient. Oncology History Overview Note Stage II colon cancer (T3N0) diagnosed November 2013, received no adjuvant chemotherapy. History of malignant neoplasm of colon 01/14/2015 Initial Diagnosis History of malignant neoplasm of colon INTERVAL HISTORY Ms. Magana is a 68 y.o. female who undergoes telehealth evaluation of symptoms and review of recent scans due to rising CEA. She notes that she has had some diarrhea after eating fatty meals for breakfast or lunch ever since undergoing cholecystectomy in 1983. There has not been any significant changes from that pattern more recently. She denies any pulmonary symptoms including cough or shortness of breath. She has been having lactose intolerance in more recent years as well as arthritic painin 1 of her knees. She currently denies nausea, vomiting, constipation, diarrhea, fevers, chills, abdominal pain, chest pain, rashes, mucositis, or peripheral neuropathy. ECOG PERFORMANCE STATUS 0 - Asymptomatic REVIEW [...] file Occupational History ??? Not on file Social Needs ??? Financial resource strain: Not on file ??? Food insecurity Worry: Not on file Inability: Not on file ??? Transportation needs Medical: Not on file Non-medical: Not on file Tobacco Use ??? Smoking status: Never Smoker ??? Smokeless tobacco: Never Used Substance and Sexual Activity ??? Alcohol use: Yes Alcohol/week: 7.0 standard drinks Types: 7 Glasses of wine per week ??? Drug use: No ??? Sexual activity: Not on file Lifestyle ??? Physical activity Days per week: Not on file Minutes per session: Not on file ??? Stress: Not on file Relationships ??? Social connections Talks on phone: Not on file Gets together: Not on file Attends mandaen service: Not on file Active member of club or organization: Not on file Attends meetings of clubs or organizations: Not on file Relationship status: Not on file ??? Intimate partner violence Fear of current or ex partner: Not on file Emotionally abused: Not on file Physically abused: Not on file Forced sexual activity: Not on file Other Topics Concern ??? Not on file Social History Narrative ??? Not on file FAMILY HISTORY Family History Problem Relation Age of Onset ??? No Known Problems Mother ??? No Known Problems Father MEDICATIONS Current Outpatient Medications: ??? ALPRAZolam (XANAX) 0.25 [...] ORAL), Take by mouth., Disp: , Rfl: PHYSICAL EXAM There were no vitals taken for this visit. General: Awake, alert, and oriented x3. No physical exam due to telehealth encounter. LABS No results found for this or any previous visit (from the past 128 hour(s)). IMAGES Ct Chest Abdomen Pelvis W Contrast Result Date: 11/30/2019 Stable indeterminate pulmonary nodules. No evidence of recurrent or metastatic disease. Electronically signed by: Brady Carter M.D. ASSESSMENT 1. Elevated CEA 2. History of malignant neoplasm of colon PLAN Ms. Magana is doing well overall. Upon the patient's history today and my personal review of labsand scans, there is no clinical or radiographic evidence of disease recurrence at this time. It is unclear what is driving her chronic slow elevation of her CEA, though I do have a low suspicion thatit is malignant in general as we have been watching the slow creeping rise over least 3 years. The median for biochemical recurrence prior to radiographic recurrence is 9 months, and we are well beyond that. I do suspect a potentially more chronic benign inflammatory etiology that is confounding this result. She does have any obvious bowel inflammation, though some of form more recent dietary intolerance is could potentially cause a low level to be seen. Additionally, the chronic pulmonary scarring could contribute, though usually pulmonary etiologies are more for pneumonitis, Letcher lobe it was disease, or acute infections, of which she has none of these. Though I suspect this is benign, I do recommend that we continue to follow this until we have a more direct explanation. As she is asymp tomatic from a pulmonary perspective, I do not think that any specific referral to pulmonology is indicated at this time, though if we see any changes we will of course do so. She should continue dietary avoidance of lactose. We will see back in 12 months with labs including CEA. She agrees with the plan. -- This was a telemedicine visit with Mira ann which took place via Telephone. During the visit, I was located in the office and the patient was located at home. The patient visit started at 11:57 and ended at 12:05. Total encounter time was 20 minutes, which includes time spent today on pre charting, the patient encounter, and post charting. The patient has been informed that the visit may not be secure and acknowledged the information. I have explained the option of participating in a telephone or video visit during the [facility] [place] [address] emergency to the patient. After being given an opportunity to ask questions about and discuss this type of visit, the patient verbally consented to proceeding with the telephone/video visit.The patient understands that this service replaces an office visit and they may be billed and/or responsible for any applicable copayments. Leanne Pike MD documented in this encounter Plan of Treatment Not on file documented as of this encounter Visit Diagnoses Diagnosis Elevated CEA- Primary Elevated carcinoembryonic antigen [CEA] History of malignant neoplasm of colon documented in this encounter Care Teams Jump Iron Machine Presser Relationship Specialty Start Date End Date Rodolfo Zuleta MD [address] [place] [address] PCP - General 09/24/17 Leanne Pike MD [address] [place] [id number] Medical Oncologist/Arm Maker Medical Oncology 11/18/19 documented as of this encounter
--- OUTSIDE RECORDS SUMMARY | 2024-03-08 14:53 | XMS_ITS | Encounter Summary ---
Author Organization [facility] Address [address] [place] [address] Phone Care Team Providers Care Trash Collector Supervisor Name Role Phone Rodolfo Zuleta MD Primary Care Provider [phone] Leanne Pike MD Unavailable Encounter Details Date Type Department Care Team (Late st Contact Info) Description 01/20/2021 Documentation [facility] Oncology [address] [facility] 7th [place] [address] [place] [phone] Dominique Jalloh, RN Social History Tobacco Use Types Packs/Day Years Used Date Smoking Tobacco: Never Smokeless Tobacco: Never Alcohol Use Standard Drinks/Week Comments Yes 7 (1 standard drink = 0.6 oz pur e alcohol) Comments No Sex and Gender Information Value Date Recorded Sex Assigned at Not on file 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 Order was submitted 12/06 but no results are in. Left office number for call back. OFF BLOCKER documented in this encounter Plan of Treatment Not on file documented as of this encounter Visit Diagnoses Not on filedocumented in this encounter Care Teams Trash Collector Supervisor Relationship Specialty Start Date End Date Rodolfo Zuleta MD [address] [place] [id number] PCP - General 09/24/17 Leanne Pike MD [address] [place] [address] Medical Oncologist/Database Specialist Medical Oncology 11/18/19 documented as of this encounter
--- OUTSIDE RECORDS SUMMARY | 2024-03-08 14:54 | XMS_ITS | Encounter Summary ---
Author Organization [facility] Address [address] [facility] [address] [place] [address] Phone Care Team Providers Care Longwall Shearer Operator Name Role Phone Rodolfo Zuleta MD Primary Care Provider [phone] Reason for Visit * Oncology (Routine) - Closed Specialty Diagnoses / Procedures Referred By Contac t Referred To Contact Lab Diagnoses #C,,,,PER NEETU PT TO SEE REED FIXER Procedures ARM DRAW Leanne Pike MD Phone: tel: fax: [facility] Oncology [facility] 7th [place] [address] [place] [address] Phone: tel: Referral ID Status Reason Start Date Expiration Date Visits Re quested Visits Authorized [id number] Closed 04/11/2018 03/10/2019 99 99 Encounter Details Date Type Department Care Team (Latest Contact Info) Description 11/05/2018 9:30 AM CDT Clinical Support [facility] Oncology [facility] 7th [place] [address] [place] [address] Leanne Pike MD [address] [phone] [place] [address] Personal history of colon cancer Discharge Disposition: Discharge to home or self care Social History Tobacco Use Types Packs/Day Years Used Date Smoking Tobacco: Never Smokeless Tobacco: Never Alcohol Use Standard Drinks/Week Comments Yes 7 (1 standard drink = 0.6 oz pur e alcohol) Comments No Sex and Gender Information Value Date Recorded Sex Assigned at Not on file 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 Gender Identity Not on file Sexual Orientation Not on file documented as of this encounter Discharge Disposition Disposition Code Departure Means Destination Discharge to home or self care documented in this encounter Plan of Treatment Not on file documented as of this encounter Procedures Procedure Name Priority Date/Time Associated Diagnosis Comments DIFFERENTIAL AUTO STAT 11/05/2018 9:2 5 AM CDT Personal history of colon cancer CBC WITH AUTO DIFFERENTIAL STAT 11/05/2018 9:25 AM CDT Personal history of colon cancer CEA STAT 11/05/2018 9:20 AM CDT Personal history of colon cancer COMPREHENSIVE METABOLIC PANEL STAT 11/05/2018 9:20 AM CDT Personal history of colon cancer documented in this encounter Results * Differential, auto (11/05/2018 9:25 AM CDT) Neutrophil abs 2.8 1.8 - 6.6 K/cumm C[facility] Comment:Testing performed by : [facility], [address] [place] [phone] Lymphocyte abs 1.2 1.2 - 3.3 K/cumm CERNER [facility]J Comment:Testing performed by : [facility], [address] [place] [phone] Monocyte abs 0.4 0.2 - 1.2 K/cumm [facility] Comment:Testing performed by : [facility], [address] [place] [phone] Eosinophil abs 0.1 0.0 - 0.5 K/cumm CERNER [facility] Comment:Testing performed by : [facility], [address] [place] [phone] Basophil abs 0.0 0.0 - 0.2 K/cumm [facility] Comment:Testing performed by : [facility], [address] [place] [phone] Neutrophil pct 60.7 % [facility] Comment: Interpretive Data Percent cell count reference ranges are not reported, since discordance with absolute values may lead to misinterpretation of CBC data. Current Interpretive Data was last revised on 2017. Testing performed by: [address] [phone] Lymphocyte pct 26.7 % AD[facility]FO [facility] Comment: Interpretive Data Percent cell count reference ranges are not reported, since discordance with absolute values may lead to misinterpretation of CBC data. Current Interpretive Data was last revised on 2017. Testing performed by: [facility], [address] [place] [phone] Monocyte pct 8.9 % AODLFO FARRIS Comment:Testing performed by : [facility], [address] [place] [phone] Eosinophil pct 2.8 % [facility] Comment:Testing performed by : [address] [phone] Basophil pct 0.9 % [facility] Comment:Testing performed by : [facility], [address] [place] [phone] Blood specimen (specimen) 11/05/2018 9:25 AM CDT 11/05/2018 9:26 AM CDT Leanne Pike MD LAB BLOOD ORDERABLES Final Result [facility] Department [place] [address] * CBC with auto differential (11/05/2018 9:25 AM CDT) WBC 4.5 3.8 - 9.8 K/cumm ADOLFO [facility]IS Comment:Testing performed by : [facility], [address] [place] [phone] Hgb 14.1 12.1 - 15.1 g/dL [facility]FO [facility] Comment:Testing performed by : [address] [phone] Hct 41.7 36.1 - 44.3 % ADOLFO [facility]ARRIS Comment:Testing performed by : [facility], [address] [place], [place] [phone] Plt 156 140 - 440 K/cumm CERBOOKER BJ Comment:Testing performed by : [facility], [address] [place], [place] [phone] MPV 9.4 6.8 - 10.4 fL [facility] Comment:Testing performed by : [facility], [address] [place] [address] RBC 4.33 3.90 - 5.00 M/cumm CERBOOKER BJ Comment:Testing performed by : [facility], [address] [place], [place] [phone] MCV 96.3 80.0 - 97.6 fL [facility]ERBOOKER [facility] Comment:Testing performed by : [facility], [address] [place], [place] [phone] MCH 32.5 26.7 - 33.7 pg CERBOOKER BJ Comment:Testing performed by : [place] [phone] MCHC 33.8 32.7 - 35.5 g/dL [facility]ERB[facility] Comment:Testing performed by : [facility], [address] [place], [place] [phone] RDW CV 13.9 11.8 - 14.6 % CERBOOKER [facility] Comment:Testing performed by : [facility], [address] [place], [place] [phone] NRBC abs 0.00 0.00 - 0.01 K/cumm CERBOOKER [facility] Comment:Testing performed by : [facility], [address] [place], [place] [phone] Blood specimen (specimen) 11/05/2018 9:25 AM CDT 11/05/2018 9:26 AM CDT us Leanne Pike MD LAB BLOOD ORDERABLES Final Result ADOLFO [facility] Department [place] [address] * Comprehensive metabolic panel (11/05/2018 9:20 AM CDT) Sodium 138 135 - 145 mmol/L [facility] Potassium, pl 4.5 3.3 - 4.9 mmol/L [facility] Chloride 105 97 - 110 mmol/L [facility] CO2 27 22 - 32 mmol/L [facility] Anion gap 6 2 - 15 mmol/L [facility] BUN 11 8 - 25 mg/dL [facility] Creatinine 0.73 0.60 - 1.10 mg/dL [facility] Glucose 101 70 - 199 mg/dL [facility] Comment: Interpretive Data Fasting glucose >/= 126 [...] Current interpretive data was last revised 2017. Calcium 9.1 8.5 - 10.3 mg/dL [facility] Bilirubin, total 0.7 0.1 - 1.2 mg/dL [facility] Protein, pl 7.0 6.5 - 8.5 g/dL [facility] Albumin 4.3 3.5 - 5.0 g/dL [facility] Alk phos 64 40 - 130 Units/L [facility] ALT 34 7 - 45 Units/L [facility] AST 30 10 - 45 Units/L [facility] Blood specimen (specimen) 11/05/2018 9:20 AM CDT 11/05/2018 9:36 AM CDT us Leanne Pike MD LAB BLOOD ORDERABLES Final Result [facility] Department [place] [address] * (ABNORMAL) CEA (11/05/2018 9:20 AM CDT) Pathologist [facility] CEA 7.6(H) <=5.0 ng/mL ADOLFO FARRIS Comment: Interpretative Data: Reference Range: Non-Smokers: 0.0 - 5.0 ng/mL Smokers: 0.0 ? 6.5 ng/mL This test was developed and its performance characteristics determined by the [facility] in a manner consistent with CLIA requirements. This test has not been cleared or approved by the U.S. Food and Drug Administration. Current interpretive data was last revised 2018. Blood specimen (specimen) 11/05/2018 9:20 AM CDT 11/05/2018 9:36 AM CDT us Leanne Pike MD LAB BLOOD ORDERABLES Final Result [facility] [place] [address] documented in this encounter Visit Diagnoses Diagnosis Personal history of colon cancer Personal history of malignant neoplasm of large intestine documented in this encounter Orders Appointment Requests Count Last Ordered Date Fi rst Ordered Date ONCBCN LAB APPOINTMENT 1 11/05/2018 documented in this encounter Care Teams Longwall Shearer Operator Relationship Specialty Start Date End Date Rodolfo Zuleta MD [address] [place] [address] PCP - General 09/24/17 documented as of this encounter
--- OUTSIDE RECORDS SUMMARY | 2024-03-08 14:54 | XMS_ITS | Encounter Summary ---
Author Organization [facility] Address [address] [facility] [address] [place] [address] Phone Care Team Providers Care Electrician Assistant Name Role Phone Rodolfo Zuleta MD Primary Care Provider [phone] Reason for Visit * Oncology (Routine) - Closed Specialty Diagnoses / Procedures Referred By Contac t Referred To Contact Medical Oncology / Oncology Diagnoses PER NEETU PT TO SEE POCKET CREASER Procedures RETURN Referral, Self Leanne Pike MD Phone: tel: fax: Referral ID Status Reason Start Date Expiration Date Visits Re quested Visits Authorized [id number] Closed 04/11/2018 03/10/2019 99 [phone] Encounter Details Date Type Department Care Team (Late st Contact Info) Description 11/05/2018 10:30 AM CDT Office Visit [facility] Oncology [address] [facility] 7th [place] [address] [place] [address] Leanne Pike MD [address] [phone] [place] [address] History of malignant neoplasm of colon (Primary Dx); Personal history of colon cancer Social History Tobacco Use Types Packs/Day Years Used Date Smoking Tobacco: Never Smokeless Tobacco: Never Alcohol Use Standard Drinks/Week Comments Yes 7 (1 standard drink = 0.6 oz pur e alcohol) Comments No Sex and Gender Information Value Date Recorded Sex Assigned at Not on file Legal Sex 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 Gender Identity Not on file Sexual Orientation Not on file documented as of this encounter Last Filed Vital Signs Vital Sign Reading Time Taken Comments Blood Pressure 146/73 11/05/2018 10:24 AM CDT Pulse 71 11/05/2018 10:24 AM CDT Temperature 36.6 ??C (97.9 ??F) 11/05/2018 10:24 AM C DT Respiratory Rate 18 11/05/2018 10:24 AM CDT Oxygen Saturation 100% 11/05/2018 10:24 AM CDT Inhaled Oxygen Concentration - - Weight 83.7 kg (184 lb 9.6 oz) 11/05/2018 10:24 AM CDT Height - - Body Mass Index 29.88 04/16/2018 8:42 AM COIL BINDER documented in this encounter Progress Notes * Jeri Yanez NP - 11/05/2018 10:30 AM CDT Images from the original note were not included. Mira Magana : 1950 DATE OF VISIT: 11/05/2018. Oncology History Stage II colon cancer (T3N0) diagnosed November [...] INTERVAL HISTORY Ms. Mira Magana is a 67 y.o. Non- female with a history of stage II colon cancer who presents for follow-up routine oncologic care. She is almost 5 years s/p surgical resection. Overall, she is feeling well. She just returned from a safari in [place]. She is feeling very well. She notes good energy. She notes good appetite. She is maintaining weight. She had some constipationupon return from [place] but this resolved. She denies any changes in her bowel habits, blood in stools, or new pain. She had most recent colonoscopy in September 2017 with no malignant finding with recommendation to repeat September 2020. Otherwise, She denies any skin rashes, fever, [...] Status: ECOG 0 Vital signs: Vitals BP 146/73 (BP Location: Right arm) Pulse 71 Temp 36.6 ??C (97.9 ??F) (Oral) Resp 18 Wt 83.7 kg (184 lb 9.6 oz) SpO2 100% BMI 29.88 kg/m?? General: She is a 67 y.o. female and is in no acute [...] aredisplayed. Labs - Hematology Latest Ref Range 04/16/18 11/05/18 WBC 3.8 - 9.8 K/cumm 6.3 4.5 Total Hb, POC 12.1 - 15.1 g/dL 14.6 14.1 Hct 36.1 - 44.3 % 43.0 41.7 Plt 140 - 440 K/cumm 145 156 Neutrophil abs 1.8 - 6.6 K/cumm 4.4 2.8 Comments are available for some flowsheets but are not being displayed. Chem/LFT Lab History Some values may be hidden. Unless noted otherwise, only the newest values recorded on each date aredisplayed. Labs-Chem/LFT Latest Ref Range 04/16/18 11/05/18 Sodium 135 - 145 mmol/L 141 138 Creatinine 0.60 - 1.10 mg/dL 0.70 0.73 Bilirubin, total 0.1 - 1.2 mg/dL 0.8 0.7 AST 10 - 45 Units/L 29 30 ALT 7 - 45 Units/L 36 34 CrCl- Actual Body Weight (Cockcroft-Gault) 100 96.1 Some values recorded on this date have been omitted. Tumor Marker History Some values may be hidden. Unless noted otherwise, only the newest values recorded on each date aredisplayed. Tumor Markers Latest Ref Range 04/16/18 11/05/18 CEA <=5.0 ng/mL 7.6 (A) 7.6 (A) (A) Abnormal value Comments are available for some flowsheets but are not being displayed. IMAGES CT C/A/P 11/05/18: IMPRESSION: 1. Stable tiny pulmonary nodules. 2. Otherwise no evidence of metastatic disease ?? IMPRESSION AND PLAN: 1. History of stage II colon cancer. Ms. Mira Magana is a 67 y.o. Non- female with history of stage II colon cancer who presents for routine oncologic care. She will be 5 years s/p resection in November. She is feeling very well, is clinically stable, and she has no clinical evidence of recurrent or metastatic disease. CEA remains mildly elevated at 7.6, but has been stable over the last year. CT from today reveals stable tiny pulmonary nodules approximately 3-4 mm in size with no evidence of recurrent or metastatic disease. These pulmonary nodules have been present on imaging dating back to 10/27/2013 noted on OSH report from [facility]. As such, we will continue surveillance. In collaboration with Dr. Pike, as she is 5 years from surgical resection, we will space out her appointment intervals to annually with lab work only. Imaging will only be ordered if symptomsor clinical exam warrant otherwise. She will be due for colonoscopy in September 2020. As such, she willreturn in one year with lab work and physical exam. After that visit she may want to transfer her care to an oncologist closer to home in [place]. We will discuss at that visit. All of her questionswere answered. She understands and was in agreement with the plan of care. She knows to call the office in the interim with any symptoms, questions, or concerns. eJri Yanez RN, MSN, AGPCNP- In collaboration with Leanne Pike MD Cosigned by Leanne Pike MD at 11/13/2018 5:54 PM CDT documented in this encounter Plan of Treatment Not on file documented as of this encounter Results * (ABNORMAL) Comprehensive metabolic panel (11/18/2019 9:11 AM CDT) Sodium 140 135 - 145 mmol/L [facility] Comment:Testing performed by : [facility], [address] [place] [phone] Potassium, pl 4.6 3.3 - 4.9 mmol/L [facility] Comment:Testing performed by : [facility], [address] [place] [phone] Chloride 102 97 - 110 mmol/L [facility] Comment:Testing performed by : [facility], [address] [place] [phone] CO2 28 22 - 32 mmol/L [facility] Comment:Testing performed by : [facility], [address] [place] [phone] Anion gap 11 2 - 15 mmol/L [facility] Comment:Testing performed by : [facility], [address] [place] [phone] BUN 8 8 - 25 mg/dL [facility]J Comment:Testing performed by : [facility], [address] [place] [phone] Creatinine 0.62 0.60 - 1.10 mg/dL [facility]J Comment:Testing performed by : [facility], [address] [place] [phone] Glucose 121 70 - 199 mg/dL [facility]ER [facility]J Comment: Interpretive Data Fasting glucose >/= 126 [...] was last revised 2017. Testing performed by: [facility], [address] [place] [phone] Calcium 9.4 8.5 - 10.3 mg/dL [facility]J Comment:Testing performed by : [facility], [address] [place] [phone] Bilirubin, total 0.7 0.1 - 1.2 mg/dL [facility]J Comment:Testing performed by : [facility], [address] [place] [phone] Protein, pl 7.0 6.5 - 8.5 g/dL [facility]J Comment:Testing performed by : [facility], [address] [place] [phone] Albumin 4.6 3.5 - 5.0 g/dL [facility]J Comment:Testing performed by : [facility], [address] [place] [phone] Alk phos 57 40 - 130 Units/L [facility]J Comment:Testing performed by : [facility], [address] [place] [phone] ALT 47(H) 7 - 45 Units/L [facility] Comment:Testing performed by : [facility], [address] [place] [phone] AST 45 10 - 45 Units/L [facility] Comment:Testing performed by : [facility], [address] [place] [phone] Blood specimen (specimen) 11/18/2019 9:11 AM CDT 11/18/2019 9:19 AM CDT us Leanne Pike MD LAB BLOOD ORDERABLES Final Result [facility] Department [place] [address] * (ABNORMAL) CBC with auto differential (11/18/2019 9:11 AM CDT) WBC 4.1 3.8 - 9.8 K/cumm [facility] Comment:Testing performed by : [facility], [address] [place] [phone] Hgb 14.4 12.1 - 15.1 g/dL [facility] Comment:Testing performed by : [facility], [address] [place] [phone] Hct 43.2 36.1 - 44.3 % [facility] Comment:Testing performed by : [facility], [address] [place] [phone] Plt 143 140 - 440 K/cumm [facility] Comment:Testing performed by : [facility], [address] [place] [phone] MPV 9.5 6.8 - 10.4 fL [facility] Comment:Testing performed by : [address] [phone] RBC 4.41 3.90 - 5.00 M/cumm [facility] Comment:Testing performed by : [facility], [address] [place] [phone] MCV 97.8(H) 80.0 - 97.6 fL [facility] Comment:Testing performed by : [facility], [address] [place] [phone] MCH 32.7 26.7 - 33.7 pg [facility] Comment:Testing performed by : [facility], [address] [place] [phone] MCHC 33.4 32.7 - 35.5 g/dL [facility] Comment:Testing performed by : [facility], [address] [place] [phone] RDW CV 13.7 11.8 - 14.6 % [facility] Comment:Testing performed by : [facility], [address] [place] [phone] NRBC abs 0.01 0.00 - 0.01 K/cumm [facility] Comment:Testing performed by : [facility], [address] [place] [phone] Blood specimen (specimen) 11/18/2019 9:11 AM CDT 11/18/2019 9:19 AM CDT us Leanne Pike MD LAB BLOOD ORDERABLES Final Result [facility] Department [place] [address] * (ABNORMAL) CEA (11/18/2019 9:10 AM CDT) CEA 8.3(H) <=5.0 ng/mL [facility] Comment: Interpretative Data: Reference Range: Non-Smokers: 0.0 - 5.0 ng/mL Smokers: 0.0 ? 6.5 ng/mL This test was developed and its performance characteristics determined by the Laboratory in a manner consistent with CLIA requirements. This test has not been cleared or approved by the U.S. Food and Drug Administration. Current interpretive data was last revised 2018. Blood specimen (specimen) 11/18/2019 9:10 AM CDT 11/18/2019 9:30 AM CDT Leanne Pike MD LAB BLOOD ORDERABLES Final Result Performing Organization Address City/State/[facility] Co de Phone Number [facility] Department [place] [address] documented in this encounter Visit Diagnoses Diagnosis History of malignant neoplasm of colon- Primary Personal history of colon cancer Personal history of malignant neoplasm of large intestine documented in this encounter Orders Appointment Requests Count Last Ordered Date Fi rst Ordered Date ONCBCN CLINIC APPOINTMENT REQUEST 2 020 11/05/2018 ONCBCN LAB APPOINTMENT 1 11/18/2019 documented in this encounter Care Teams Electrician Assistant Relationship Specialty Start Date End Date Rodolfo Zuleta MD [address] [place] [address] PCP - General 09/24/17 documented as of this encounter
--- OUTSIDE RECORDS SUMMARY | 2024-03-08 14:54 | XMS_ITS | Encounter Summary ---
Author Organization [facility] Address [address] [place] [address] Phone Care Team Providers Care Keel Press Operator Name Role Phone Rodolfo Zuleta MD Primary Care Provider [phone] Leanne Pike MD Unavailable Encounter Details Date Type Department Care Team (Late st Contact Info) Description 11/18/2019 9:15 AM CDT Lab [facility] Oncology [address] 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 Gender Identity Not on file Sexual Orientation Not on file documented as of this encounter Discharge Disposition Disposition Code Departure Means Destination Discharge to home or self care documented in this encounter Plan of Treatment Not on file documented as of this encounter Procedures Procedure Name Priority Date/Time Associated Diagnosis Comments DIFFERENTIAL AUTO STAT 11/18/2019 9:1 1 AM CDT History of malignant neoplasm of colon CBC WITH AUTO DIFFERENTIAL STAT 11/18/2019 9:11 AM CDT History of malignant neoplasm of colon COMPREHENSIVE METABOLIC PANEL STAT 11/18/2019 9:11 AM CDT History of malignant neoplasm of colon CEA STAT 11/18/2019 9:10 AM CDT History of malignant neoplasm of colon documented in this encounter Results * (ABNORMAL) Differential, auto (11/18/2019 9:11 AM CDT) Neutrophil abs 2.6 1.8 - 6.6 K/cumm [facility] Comment:Testing performed by : [facility], [address] [place] [phone] Lymphocyte abs 1.0(L) 1.2 - 3.3 K/cumm [facility] Comment:Testing performed by : [facility], [address] [place] [phone] Monocyte abs 0.4 0.2 - 1.2 K/cumm [facility] Comment:Testing performed by : [facility], [address] [place] [phone] Eosinophil abs 0.2 0.0 - 0.5 K/cumm [facility] Comment:Testing performed by : [facility], [address] [place] [phone] Basophil abs 0.0 0.0 - 0.2 K/cumm [facility] Comment:Testing performed by : [facility], [address] [place] [phone] Neutrophil pct 62.9 % [facility] Comment: Interpretive Data Percent cell count reference ranges are not reported, since discordance with absolute values may lead to misinterpretation of CBC data. Current Interpretive Data was last revised on 2017. Testing performed by: [facility], [address] [place] [phone] Lymphocyte pct 24.0 % [facility] Comment: Interpretive Data Percent cell count reference ranges are not reported, since discordance with absolute values may lead to misinterpretation of CBC data. Current Interpretive Data was last revised on 2017. Testing performed by: [facility], [address] [place] [phone] Monocyte pct 8.7 % [facility] Comment:Testing performed by : [facility], [address] [place] [phone] Eosinophil pct 4.0 % [facility] Comment:Testing performed by : [facility], [address] [place] [phone] Basophil pct 0.4 % [facility]J Comment:Testing performed by : [facility], [address] [place] [phone] Blood specimen (specimen) 11/18/2019 9:11 AM CDT 11/18/2019 9:19 AM CDT us Leanne Pike MD LAB BLOOD ORDERABLES Final Result [facility] [place] [address] * (ABNORMAL) CBC with auto differential (11/18/2019 9:11 AM CDT) WBC 4.1 3.8 - 9.8 K/cumm [facility] Comment:Testing performed by : [facility], [address] [place] [phone] Hgb 14.4 12.1 - 15.1 g/dL [facility] Comment:Testing performed by : [facility], [address] [place] [phone] Hct 43.2 36.1 - 44.3 % [facility] Comment:Testing performed by : [facility], [address] [place] [phone] Plt 143 140 - 440 K/cumm [facility] Comment:Testing performed by : [address] [phone] MPV 9.5 6.8 - 10.4 fL [facility] Comment:Testing performed by : [address] [phone] RBC 4.41 3.90 - 5.00 M/cumm [facility] Comment:Testing performed by : [facility], [address] [place] [phone] MCV 97.8(H) 80.0 - 97.6 fL [facility] Comment:Testing performed by : [facility], [address] [place] [phone] MCH 32.7 26.7 - 33.7 pg [facility] Comment:Testing performed by : [facility], [address] [place] [address] MCHC 33.4 32.7 - 35.5 g/dL [facility] Comment:Testing performed by : [facility], [address] [place] [phone] RDW CV 13.7 11.8 - 14.6 % [facility] Comment:Testing performed by : [address] [address] NRBC abs 0.01 0.00 - 0.01 K/cumm [facility] Comment:Testing performed by : [facility], [address] [place] [phone] Blood specimen (specimen) 11/18/2019 9:11 AM CDT 11/18/2019 9:19 AM CDT Leanne Pike MD LAB BLOOD ORDERABLES Final Result [facility] [place] [address] * (ABNORMAL) Comprehensive metabolic panel (11/18/2019 9:11 AM CDT) Sodium 140 135 - 145 mmol/L [facility] Comment:Testing performed by : [address] [phone] Potassium, pl 4.6 3.3 - 4.9 mmol/L [facility] Comment:Testing performed by : [address] [address] Chloride 102 97 - 110 mmol/L [facility] Comment:Testing performed by : [facility], [address] [place] [phone] CO2 28 22 - 32 mmol/L [facility] Comment:Testing performed by : [facility], [address] [place] [phone] Anion gap 11 2 - 15 mmol/L [facility] Comment:Testing performed by : [facility], [address] [place] [phone] BUN 8 8 - 25 mg/dL [facility] Comment:Testing performed by : [facility], [address] [place] [phone] Creatinine 0.62 0.60 - 1.10 mg/dL [facility]J Comment:Testing performed by : [facility], [address] [place] [phone] Glucose 121 70 - 199 mg/dL CERNER [...] was last revised 2017. Testing performed by: [facility], [address] [place] [phone] Calcium 9.4 8.5 - 10.3 mg/dL [facility]J Comment:Testing performed by : [facility], [address] [place] [phone] Bilirubin, total 0.7 0.1 - 1.2 mg/dL [facility]J Comment:Testing performed by : [facility], [address] [place] [phone] Protein, pl 7.0 6.5 - 8.5 g/dL [facility] Comment:Testing performed by : [facility], [address] [place] [phone] Albumin 4.6 3.5 - 5.0 g/dL [facility] Comment:Testing performed by : [facility], [address] [place] [phone] Alk phos 57 40 - 130 Units/L [facility] Comment:Testing performed by : [facility], [address] [place] [phone] ALT 47(H) 7 - 45 Units/L [facility] Comment:Testing performed by : [facility], [address] [place] [phone] AST 45 10 - 45 Units/L [facility] Comment:Testing performed by : [facility], [address] [place] [phone] Blood specimen (specimen) 11/18/2019 9:11 AM CDT 11/18/2019 9:19 AM CDT Result [facility] Leanne Pike MD LAB BLOOD ORDERABLES Final Result Performing Organization Address [facility] de Phone Number [facility] [place] [employer] [place] [address] * (ABNORMAL) CEA (11/18/2019 9:10 AM CDT) CEA 8.3(H) <=5.0 ng/mL [facility] Comment: Interpretative Data: Reference Range: Non-Smokers: 0.0 - 5.0 ng/mL Smokers: 0.0 ? 6.5 ng/mL This test was developed and its performance characteristics determined by the [facility] in a manner consistent with CLIA requirements. This test has not been cleared or approved by the U.S. Food and Drug Administration. Current interpretive data was last revised 2018. Blood specimen (specimen) 11/18/2019 9:10 AM CDT 11/18/2019 9:30 AM CDT Leanne Pike MD LAB BLOOD ORDERABLES Final Result Performing Organization Address [facility] de Phone Number [facility] [place] [address] documented in this encounter Visit Diagnoses Diagnosis History of malignant neoplasm of colon documented in this encounter Orders Appointment Requests Count Last Ordered Date Fi rst Ordered Date ONCBCN LAB APPOINTMENT 1 11/18/2019 documented in this encounter Care Teams Keel Press Operator Relationship Specialty Start Date End Date Rodolfo Zuleta MD [address] [place] [address] PCP - General 09/24/17 Leanne Pike MD [address] [place] [address] Medical Oncologist/Earth Science Technical Officer Medical Oncology 11/18/19 documented as of this encounter
--- OUTSIDE RECORDS SUMMARY | 2024-03-08 14:54 | XMS_ITS | Encounter Summary ---
Author Organization [facility] Address [address] [place] [address] Phone Care Team Providers Care Artificial Breeding Ranch Supervisor Name Role Phone Rodolfo Zuleta MD Primary Care Provider [phone] Reason for Visit * Reason Onset Date Comments Request to Move appointments 10/30/2019 Encounter Details Date Type Department Care Team (Late st Contact Info) Description 10/30/2019 Telephone [facility] Oncology [address] [facility] 7th [place] [address] [place] [address] Yael Malave NP [address] [place] [address] Request to Move appointments Social History Tobacco Use Types Packs/Day Years Used Date Smoking Tobacco: Never Smokeless Tobacco: Never Alcohol Use Standard Drinks/Week Comments Yes 7 (1 standard drink = 0.6 oz pur e alcohol) Comments No Sex and Gender Information Value Date Recorded Sex Assigned at Not on file 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 Magana to see if she would be willing to move her appointment to November 17. She is amenable to this. We will move her lab amy to 9:30 and ROV to 10:15 AM. documented in this encounter Plan of Treatment Not on file documented as of this encounter Visit Diagnoses Not on filedocumented in this encounter Care Teams Artificial Breeding Ranch Supervisor Relationship Specialty Start Date End Date Rodolfo Zuleta MD [address] [place] [address] PCP - General 09/24/17 documented as of this encounter
--- OUTSIDE RECORDS SUMMARY | 2024-03-08 14:55 | XMS_ITS | Encounter Summary ---
Author Organization [facility] Address [address] [place] [address] Phone Care Team Providers Care Afterschool Babysitter Name Role Phone Rodolfo Zuleta MD Primary Care Provider [phone] Encounter Details Date Type Department Care Team (Late st Contact Info) Description 09/06/2017 Orders Only [facility] Oncology [address] [place] [address] Advanced Medicine 7th [place] [address] [place] [id number] Leanne Pike MD [address] [phone] [place] [address] History of malignant neoplasm of colon (Primary Dx) Social History Tobacco Use Types Packs/Day Years Used Date Smoking Tobacco: Never Comments Unknown Sex and Gender Information Value Date Recorded Sex Assigned at Not on file 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 Gender Identity Not on file Sexual Orientation Not on file documented as of this encounter Plan of Treatment Not on file documented as of this encounter Results * (ABNORMAL) CBC with auto differential (10/02/2017 9:02 AM CDT) WBC 4.6 3.8 - 9.8 K/cumm ADOLFO FARRIS Comment:Testing performed by : [facility], [address] [place] [phone] Hgb 14.6 12.1 - 15.1 g/dL ADOLFO FARRIS Comment:Testing performed by : [facility], [address] [place] [phone] Hct 43.5 36.1 - 44.3 % ADOLFO FARRIS Comment:Testing performed by : [facility], [address] [place] [address] Plt 158 140 - 440 K/cumm ADOLFO FARRIS Comment:Testing performed by : [facility], [address] [place] [address] MPV 9.1 6.8 - 10.4 fL ADOLFO FARRIS Comment:Testing performed by : [facility], [address] [place] [address] RBC 4.44 3.90 - 5.00 M/cumm ADOLFO FARRIS Comment:Testing performed by : [place] [address] MCV 98.0(H) 80.0 - 97.6 fL ADOLFO FARRIS Comment:Testing performed by : [place] [address] MCH 32.8 26.7 - 33.7 pg ADOLFO FARRIS Comment:Testing performed by : [facility], [address] [place] [address] MCHC 33.5 32.7 - 35.5 g/dL ADOLFO FARRIS Comment:Testing performed by : [place] [address] RDW CV 13.3 11.8 - 14.6 % ADOLFO FARRIS Comment:Testing performed by : [place] [address] NRBC abs 0.00 0.00 - 0.01 K/cumm ADOLFO FARRIS Comment:Testing performed by : [facility], [address] [place] [address] Blood specimen (specimen) 10/02/2017 9:02 AM CDT 10/02/2017 9:04 AM CDT Narrative ADOLFO LENNON - 10/02/2017 9:08 AM CDT us Leanne Pike MD LAB BLOOD ORDERABLES Final Result ADOLFO FARRIS [facility] Department [place] [address] * (ABNORMAL) Comprehensive metabolic panel (10/02/2017 8:55 AM CDT) Sodium 140 135 - 145 mmol/L [facility] Potassium, pl 4.7 3.3 - 4.9 mmol/L [facility] Chloride 104 97 - 110 mmol/L [facility] CO2 29 22 - 32 mmol/L [facility] Anion gap 7 2 - 15 mmol/L [facility] BUN 8 8 - 25 mg/dL [facility] Creatinine 0.76 0.60 - 1.10 mg/dL [facility] Glucose 108 70 - 199 mg/dL [facility] Comment: Interpretive Data Fasting glucose >/= [...] interpretive data was last revised 2017. Calcium 9.2 8.5 - 10.3 mg/dL [facility] Bilirubin, total 0.7 0.1 - 1.2 mg/dL [facility] Protein, pl 7.0 6.5 - 8.5 g/dL [facility] Albumin 4.1 3.5 - 5.0 g/dL [facility] Alk phos 74 40 - 130 Units/L [facility] ALT 51(H) 7 - 45 Units/L [facility] AST 34 10 - 45 Units/L [facility] Blood specimen (specimen) 10/02/2017 8:55 AM CDT 10/02/2017 9:11 AM CDT Narrative [facility] - 10/02/2017 10:06 AM CDT us Leanne Pike MD LAB BLOOD ORDERABLES Final Result [facility] Department [place] [address] * (ABNORMAL) CEA (10/02/2017 8:55 AM CDT) CEA 7.7(H) 0.1 - 5.0 ng/mL [facility] Comment: Interpretive Data: Reference Range: ? Non-Smokers: ??0.1 - 5.0 ng/mL ? Smokers: ?0.1 - 6.5 ng/mL ?? This test was developed and its performance characteristics determined by the [facility] in a manner consistent with CLIA requirements. This test has not been cleared or approved by the U.S. Food and Drug Administration. Current interpretive data was last revised 2015. Blood specimen (specimen) 10/02/2017 8:55 AM CDT 10/02/2017 9:11 AM CDT Narrative [facility] - 10/02/2017 9:54 AM CDT Leanne Pike MD LAB BLOOD ORDERABLES Final Result Performing Organization Address [facility] Co de Phone Number [facility] Department [place] [address] documented in this encounter Visit Diagnoses Diagnosis History of malignant neoplasm of colon- Primary History of malignant neoplasm of colon documented in this encounter Care Teams Afterschool Babysitter Relationship Specialty Start Date End Date Rodolfo Zuleta MD [address] [place] [address] PCP - General 05/23/16 09/23/17 documented as of this encounter
--- OUTSIDE RECORDS SUMMARY | 2024-03-08 14:55 | XMS_ITS | Encounter Summary ---
Author Organization [facility] Care Team Providers Care Senior Director Of Strategy Name Role Phone Unavailable Primary Care Provider Unavailabl e Encounter Details Date Type Department Care Team (Late st Contact Info) Description 05/26/2015 - 08/24/2015 11:59 PM CDT Hospital Encounter [facility] Rodolfo Portillo MD [address] [place] [address] Malignant neoplasm of colon (CMS/HCC) Social History Tobacco Use Types Packs/Day Years Used Date Smoking Tobacco: Never Assessed Comments Unknown Sex and Gender Information Value Date Recorded Sex Assigned at Not on file 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 Gender Identity Not on file Sexual Orientation Not on file documented as of this encounter Plan of Treatment Not on file documented as of this encounter Procedures Procedure Name Priority Date/Time Associated Diagnosis Comments PLASMA CARCINOEMBRYONIC AG (CEA) Routine 08/24/2015 7:11 AM CDT BLOOD CELL COUNT Routine 08/24/2015 7:09 AM CDT PLASMA COMPREHENSIVE METABOLIC PANEL Routine 08/24/2015 7:00 AM CDT PLASMA CARCINOEMBRYONIC AG (CEA), NEW Routine 08/24/2015 2:11 AM CDT documented in this encounter Results * (ABNORMAL) Plasma carcinoembryonic ag (CEA) (08/24/2015 7:11 AM CDT) CEA 4.0(H) 0.0 - 2.5 ng/ml HISTORICAL RESULTS Comment: Interpretive Data Reference Range: ? Non-Smokers: ??0 - 2.5 ng/mL ? Smokers: ?0 - 5.0 ng/mL ?? This test was developed and its performance characterisitics determined by the [facility] in a manner consistent with CLIA requirements. This test has not been cleared or approved by the U.s. Food and Drug Administration. Current interpretive data was last revised 2011. Plasma 08/24/2015 7:11 AM CDT us Rodolfo Moe Zuleta MD LAB BLOOD ORDERABLES Final R esult HISTORICAL RESULTS * Blood cell count [CBC] panel, 7 CAM (08/24/2015 7:09 AM CDT) WBC 5.1 3.8 - 9.8 K/cumm HISTORICAL RESULTS RBC 4.35 3.90 - 5.00 M/cumm HISTORICAL RESULTS Hgb 14.2 12.1 - 15.1 g/dl HISTORICAL RESULTS Hct 42.0 36.1 - 44.3 % HISTORICAL RESULTS MCV 96.6 80.0 - 97.6 fl HISTORICAL RESULTS MCH 32.7 26.7 - 33.7 pg HISTORICAL RESULTS MCHC 33.8 32.7 - 35.5 g/dl HISTORICAL RESULTS Rdw 13.5 11.8 - 14.6 % HISTORICAL RESULTS Platelets 142 140 - 440 K/cumm HISTORICAL RESULTS MPV 9.0 6.8 - 10.4 fl HISTORICAL RESULTS Neutrophils 53.9 38.7 - 74.5 % HISTORICAL RESULTS Lymphocytes 30.7 20.0 - 54.3 % HISTORICAL RESULTS Monos 10.5 4.3 - 13.5 % HISTORICAL RESULTS Eosinophils 4.3 0.0 - 6.0 % HISTORICAL RESULTS Basophils 0.6 0.0 - 3.0 % HISTORICAL RESULTS Neutrophils, abs 2.7 1.8 - 6.6 K/cumm HISTORICAL RESULTS Lymphocytes, abs 1.6 1.2 - 3.3 K/cumm HISTORICAL RESULTS Monocytes, absolute 0.5 0.2 - 1.2 K/cumm HISTORICAL RESULTS Eosinophils, abs 0.2 0.0 - 0.5 K/cumm HISTORICAL RESULTS Basophils, abs 0.0 0.0 - 0.2 K/cumm HISTORICAL RESULTS Blood specimen (specimen) 08/24/2015 7:09 AM CDT Rodolfo Zuleta MD LAB BLOOD ORDERABLES Final R [facility] Performing Organization Address [facility] de Phone Number HISTORICAL RESULTS * (ABNORMAL) Plasma comprehensive metabolic panel (08/24/2015 7:00 AM CDT) Sodium 141 135 - 145 mmol/L HISTORICAL RESULTS K, pl 5.3(H) 3.3 - 4.9 mmol/L HISTORICAL RESULTS Chloride 106 97 - 110 mmol/L HISTORICAL RESULTS CO2 29 22 - 32 mmol/L HISTORICAL RESULTS A. gap 6 2 - 15 mmol/L HISTORICAL RESULTS Glucose 115 70 - 199 mg/dl HISTORICAL RESULTS BUN 10 8 - 25 mg/dl HISTORICAL RESULTS Creatinine 0.68 0.60 - 1.10 mg/dl HISTORICAL RESULTS Calcium 9.4 8.5 - 10.3 mg/dl HISTORICAL RESULTS Protein, pl 7.0 6.5 - 8.5 g/dl HISTORICAL RESULTS Alb 4.2 3.5 - 5.0 g/dl HISTORICAL RESULTS Bilirubin 0.4 0.1 - 1.2 mg/dl HISTORICAL RESULTS Alk phos 69 40 - 130 Units/L HISTORICAL RESULTS AST 41 10 - 45 Units/L HISTORICAL RESULTS ALT 66(H) 7 - 45 Units/L HISTORICAL RESULTS Plasma 08/24/2015 7:00 AM CDT Rodolfo Zuleta MD LAB BLOOD ORDERABLES Final R [facility] Performing Organization Address [facility] de Phone Number HISTORICAL RESULTS * (ABNORMAL) Plasma carcinoembryonic ag (CEA), new (08/24/2015 2:11 AM CDT) CEA 6.7(H) 0.1 - 5.0 ng/ml HISTORICAL RESULTS Plasma 08/24/2015 2:11 AM CDT Narrative HISTORICAL RESULTS - 08/24/2015 3:27 AM CDT The method for this assay was changed on June 14, 2015. For a period of six months the new assay result will be reported alongside results from the old assay method. For patients being monitored, the new results should be interpreted in the context of any changes in the old results. If you have questions please call the chemistry laboratory at [phone] ??or the lab medicine resident diamond finishing supervisor [phone]. Option #2 [facility] Moe Zuleta MD LAB BLOOD ORDERABLES Final R esult HISTORICAL RESULTS documented in this encounter Visit Diagnoses Diagnosis Malignant neoplasm of colon (HCC) Malignant neoplasm of colon, unspecified site documented in this encounter
--- OUTSIDE RECORDS SUMMARY | 2024-03-08 14:55 | XMS_ITS | Encounter Summary ---
Author Organization [facility] Address [address] [place] [address] Care Team Providers Care Cover Maker Name Role Phone Rodolfo Zuleta MD Primary Care Provider [phone] Encounter Details Date Type Department Care Team (Late st Contact Info) Description 09/24/2017 1:43 PM CDT Anesthesia Event [facility] [address] [place] [address] Kirti Zaragoza MD PhD [address] [place] [address] Inez Fish MD [address] [place] [address] Anesthesia Record Procedure Summary Procedure Name Responsible Anesthesiologist Anesthesia Start Time Anesthesia Stop Time COLON BIOPSY Kirti Zaragoza MD PhD 09/24/17 1343 09/24/17 1409 Events Date Time Event Comment 09/24/2017 1342 In Room 1343 An Start 1343 An Start Data 1344 Start Supplemental O2 1345 Patient Positioned Laterally 1346 An Induction The patient was reevaluated immediately before moderate or deep sedation use and before anesthesia induction. 1348 Anesthesia Ready 1400 Proc Fin 1400 Out of Room 1408 an stop data 1409 Handoff to RN I completed my handoff to the receiving nurse during which we: 1. Patient identified 2. Responsible provider identified 3. Pertinent medical history reviewed 4. Procedure type and surgical course discussed 5. Intraoperative anesthetic management and any significant issues discussed 6. Expectations and concerns for postop period discussed 7. Questions solicited from receiving nurse 8. Patient disposition at the time of handoff: PACU 1409 An Stop 1430 Release from care Meds Name Total midazolam PF 2 mg lidocaine 1 % PF 60 mg propofol 70 mg fentaNYL 50 mcg sodium chloride 0.9% infusion 500 mL * Agents Name O2% N2O O2 * Blood No blood administrations on file. Lines, Drains, and Airways No LDAs on file. 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 Gender Identity Not on file Sexual Orientation Not on file documented as of this encounter OR Notes * Anesthesia Postprocedure Evaluation - Inez Fish MD - 09/24/2017 2:29 PM CDT Patient: Mira Magana Procedure Summary Date: 09/24/17 Room / Location: [facility]OM 3 / [facility] Anesthesia Start: 1343 Anesthesia Stop: 1409 Procedure: COLON BIOPSY (N/A ) Diagnosis: History of colon cancer (HISTORY OF COLON CANCER ) Provider: Juan Luis Villagomez MD PhD Responsible Provider: Kirti Zaragoza MD PhD Anesthesia Type: MAC ASA Status: 2 Anesthesia Type: MAC Last vitals BP 120/67 (09/24/17 1418) Temp 36.2 ??C (97.2 ??F) (09/24/17 1408) Pulse 66 (09/24/17 1418) Resp 18 (09/24/17 1418) SpO2 96 % (09/24/17 1418) Anesthesia Post Evaluation Patient location during evaluation: PACU Patient participation: complete - patient participated Level of consciousness: fully awake Pain score: 0 Pain management: adequate Airway patency: adequate Evidence of recall: no Anesthetic complications: no Cardiovascular status: acceptable Respiratory status: acceptable Hydration status: acceptable Pt is: normothermic Nausea/Vomiting status: none * Anesthesia Preprocedure Evaluation - Inez Fish MD - 09/24/2017 12:21 PM CDT Anesthesia Evaluation Mira Magana is a 66 y.o. female Procedure(s): Colonoscopy OPEN ACCESS Patient Active Problem List Diagnosis ??? History of malignant neoplasm of colon Past Medical History: Diagnosis Date ??? Colon cancer (CMS/HCC) ??? Diverticulosis ??? Macular degeneration ??? PONV (postoperative nausea and vomiting) Past Surgical History: Procedure Laterality Date ??? CHOLECYSTECTOMY ??? COLECTOMY OB History No data available No Known Allergies HOME MEDICATIONS : aspirin 81 mg tablet vit A/C/E ac/ZnOx/cupric oxide (EYE VITAMIN AND MINERALS ORAL) Current Facility-Administered Medications: ??? sodium chloride 0.9% flush 0.5-20 mL, 0.5-20 mL, intra-catheter, Q8H LA NENA ??? sodium chloride 0.9% flush 0.5-20 mL, 0.5-20 mL, intra-catheter, PRN ??? sodium chloride 0.9% infusion, 30 mL/hr, intravenous, Continuous, Last Rate: 30 mL/hr at 09/24/17 1212, 30 mL/hr at 09/24/17 1212 Social History Smoking Status ??? Never Smoker Smokeless Tobacco ??? Never Used Alcohol Use ??? 4.2 oz/week ??? 7 Glasses of wine per week Drug Use No History reviewed. No pertinent family history. PAT Physical Exam Airway Exam: Mallampati: II Cervical ROM: FROM TM distance: normal Jaw ROM: full Cardiovascular Exam: Rate: regular Rhythm: regular Pulmonary Exam: LCTA, bilat EENT Exam: trachea midline Dental Exam: Appears intact Skin Exam: Skin is warm. Abdominal exam: Abdomen is soft. Current state: Patient's current state is cooperative. Vitals: 09/24/17 1209 BP: 159/68 Pulse: 69 Resp: 16 Temp: 36.4 ??C (97.5 ??F) SpO2: 98% PT: No results found for requested labs within last 720 hours. INR: No results found for requested labs within last 720 hours. APTT: No results found for requested labs within last 720 hours. Hgb A1C: No results found for requested labs within last 720 hours. CBC RBC: No results found for requested labs within last 720 hours. RDW: No results found for requested labs within last 720 hours. MCHC: No results found for requested labs within last 720 hours. MCH: No results found for requested labs within last 720 hours. MCV: No results found for requested labs within last 720 hours. Hct: No results found for requested labs within last 720 hours. Hgb: No results found for requested labs within last 720 hours. WBC: No results found for requested labs within last 720 hours. MPV: No results found for requested labs within last 720 hours. Platelets: No results found for requested labs within last 720 hours. RDW CV: No results found for requested labs within last 720 hours. RDW Sd: No results found for requested labs within last 720 hours. BMP Glucose: No results found for requested labs within last 720 hours. Calcium: No results found for requested labs within last 720 hours. Sodium: No results found for requested labs within last 720 hours. Potassium: No results found for requested labs within last 720 hours. CO2: No results found for requested labs within last 720 hours. Chloride: No results found for requested labs within last 720 hours. BUN: No results found for requested labs within last 720 hours. Creatinine: No results found for requested labs within last 720 hours. DOS Physical Exam Medical history, medications, and allergies reviewed. Attestation: This PAT evaluation 09/24/2017. Airway Exam: Mallampati: II Cervical ROM: FROM TM distance: normal Jaw ROM: full Cardiovascular Exam: Rate: regular Rhythm: regular Pulmonary Exam: LCTA, bilat EENT Exam: trachea midline Dental Exam: Appears intact Skin Exam: Skin is warm. Abdominal Exam: Abdomen is soft. Current state: Patient's current state is cooperative. Anesthesia Plan ASA 2 Planned anesthesia: MAC Induction: Induction: intravenous. Postoperative Plan: No plan for postoperative opioid use. Patient's planned disposition post procedure is Outpatient. Informed Consent: Discussed plan with ATHLETIC AGENT. Anesthesia plan and risks discussed with patient. Consent and Attending signature: I and/or my designee have discussed the anesthesia plan, benefits, possible alternatives, parental presence at time of induction (if indicated), and clinically relevant risks that may include dental injury, unintentional awareness, and/or other complications. The patient and/or parent/legal guardian understand, and agree to proceed. All questions answered. documented in this encounter Plan of Treatment Not on file documented as of this encounter Visit Diagnoses Not on filedocumented in this encounter Administered Medications Inactive Administered Medications - up to 3 most recent administrations Medication Order MAR Action Action Date Dose Rate Site fentaNYL (SUBLIMAZE) preservative free injection intravenous, As needed, Starting on Sat09/24/17 at 1346, Anesthesia Intra-op Given 09/24/2017 1:46 PM CDT 50 mcg lidocaine PF (XYLOCAINE) 10 mg/mL (1 %) preservative free injection As needed, Starting on Sat09/24/17 at 1346, Anesthesia Intra-op Given 09/24/2017 1:46 PM CDT 60 mg midazolam (VERSED) preservative free injection intravenous, As needed, Starting on Sat09/24/17 at 1346, Anesthesia Intra-op Given 09/24/2017 1:46 PM CDT 2 mg propofol (DIPRIVAN) IV intravenous, As needed, Starting on Sat09/24/17 at 1346, Anesthesia Intra-op Given 09/24/2017 1:50 PM CDT 30 mg Given 09/24/2017 1:46 PM CDT 40 mg documented in this encounter Care Teams Cover Maker Relationship Specialty Start Date End Date Rodolfo Zuleta MD [address] [place] [address] PCP - General 09/24/17 documented as of this encounter
--- OUTSIDE RECORDS SUMMARY | 2024-03-08 14:55 | XMS_ITS | Encounter Summary ---
Author Organization [facility] Healthcare Address [address] [place] [address] Care Team Providers Care Territory Manager General Sales Name Role Phone Unavailable Primary Care Provider Unavailabl e Encounter Details Date Type Department Care Team (Latest Contact Info) Description 02/17/2016 8:59 AM STERILE SUPPLY TECHNICIAN - 02/22/2016 11:59 PM STERILE SUPPLY TECHNICIAN Hospital Encounter [facility] [phone] Leanne Pike MD [address] [facility] [phone] [place] [address] Discharge Disposition: Discharge to home or self care Social History Tobacco Use Types Packs/Day Years Used Date Smoking Tobacco: Never Assessed Comments Unknown Sex and Gender Information Value Date Recorded Sex Assigned at Not on file 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
--- OUTSIDE RECORDS SUMMARY | 2024-03-08 14:55 | XMS_ITS | Encounter Summary ---
Author Organization [facility] Address [address] [place] [address] Phone Care Team Providers Care Aircraft Charter Dispatcher Name Role Phone Rodolfo Zuleta MD Primary Care Provider [phone] Encounter Details Date Type Department Care Team (Late st Contact Info) Description 04/08/2018 Orders Only [facility] Oncology [address] [place] [address] Marcela Kwok, NAIN Personal history of colon cancer (Primary Dx) Social History Tobacco Use Types Packs/Day Years Used Date Smoking Tobacco: Never Smokeless Tobacco: Never Alcohol Use Standard Drinks/Week Comments Yes 7 (1 standard drink = 0.6 oz pur e alcohol) Comments No Sex and Gender Information Value Date Recorded Sex Assigned at Not on file Legal Sex Female 6:59 AM CHILD CARE DIRECTOR Gender Identity Not on file Sexual Orientation Not on file documented as of this encounter Plan of Treatment Not on file documented as of this encounter Results * CBC with auto differential (04/16/2018 8:20 AM CHILD CARE DIRECTOR) WBC 6.3 3.8 - 9.8 K/cumm [facility] Comment:Testing performed by : [facility], [address] [place] [phone] Hgb 14.6 12.1 - 15.1 g/dL ADOLFO FARRIS Comment:Testing performed by : [facility], [address] [place] [phone] Hct 43.0 36.1 - 44.3 % ADOLFO FARRIS Comment:Testing performed by : [facility], [address] [place], [place] [id number] Plt 145 140 - 440 K/cumm ADOLFO FARRIS Comment:Testing performed by : [facility], [address] [place], [place] [id number] MPV 9.4 6.8 - 10.4 fL ADOLFO FARRIS Comment:Testing performed by : [place] [id number] RBC 4.51 3.90 - 5.00 M/cumm ADOLFO FARRIS Comment:Testing performed by : [facility], [address] [place], [place] [id number] MCV 95.5 80.0 - 97.6 fL ADOLFO FARRIS Comment:Testing performed by : [facility], [address] [place], [place] [id number] MCH 32.3 26.7 - 33.7 pg ADOLFO FARRIS Comment:Testing performed by : [place] [id number] MCHC 33.8 32.7 - 35.5 g/dL ADOLFO FARRIS Comment:Testing performed by : [facility], [address] [place], [place] [id number] RDW CV 13.1 11.8 - 14.6 % [facility] Comment:Testing performed by : [facility], [address] [place], [place] [id number] NRBC abs 0.00 0.00 - 0.01 K/cumm ADOLFO FARRIS Comment:Testing performed by : [facility], [address] [place], [place] [id number] Blood specimen (specimen) 04/16/2018 8:20 AM CHILD CARE DIRECTOR 04/16/2018 8:23 AM CHILD CARE DIRECTOR Narrative AD[facility]FO FARRIS - 04/16/2018 8:29 AM CHILD CARE DIRECTOR us Jeri Yanez NP LAB BLOOD ORDERABLES Cari l Result [facility] Department [place] [address] * (ABNORMAL) CEA (04/16/2018 8:15 AM CHILD CARE DIRECTOR) Pathologist [facility] CEA 7.6(H) <=5.0 ng/mL [facility] Comment: Interpretative Data: Reference Range: Non-Smokers: 0.0 - 5.0 ng/mL Smokers: 0.0 ? 6.5 ng/mL This test was developed and its performance characteristics determined by the [facility] in a manner consistent with CLIA requirements. This test has not been cleared or approved by the U.S. Food and Drug Administration. Current interpretive data was last revised 2018. Blood specimen (specimen) 04/16/2018 8:15 AM CHILD CARE DIRECTOR 04/16/2018 8:30 AM CHILD CARE DIRECTOR Narrative [facility] - 04/16/2018 9:12 AM CHILD CARE DIRECTOR Jeri Yanez NP LAB BLOOD ORDERABLES Cari l Result [facility] Department [place] [address] * (ABNORMAL) Comprehensive metabolic panel (04/16/2018 8:15 AM CHILD CARE DIRECTOR) [facility] Sodium 141 135 - 145 mmol/L [facility] Potassium, pl 4.0 3.3 - 4.9 mmol/L [facility] Chloride 106 97 - 110 mmol/L [facility] CO2 31 22 - 32 mmol/L [facility] Anion gap 4 2 - 15 mmol/L [facility] BUN 7(L) 8 - 25 mg/dL [facility] Creatinine 0.70 0.60 - 1.10 mg/dL [facility] Glucose 116 70 - 199 mg/dL [facility] Comment: Interpretive Data Fasting glucose >/= [...] interpretive data was last revised 2017. Calcium 9.7 8.5 - 10.3 mg/dL [facility] Bilirubin, total 0.8 0.1 - 1.2 mg/dL [facility] Protein, pl 7.2 6.5 - 8.5 g/dL [facility] Albumin 4.5 3.5 - 5.0 g/dL [facility] Alk phos 66 40 - 130 Units/L [facility] ALT 36 7 - 45 Units/L [facility] AST 29 10 - 45 Units/L [facility] Blood specimen (specimen) 04/16/2018 8:15 AM CHILD CARE DIRECTOR 04/16/2018 8:30 AM CHILD CARE DIRECTOR Narrative [facility] - 04/16/2018 9:12 AM CHILD CARE DIRECTOR Jeri Yanez IMPLEMENTATION ADVISOR LAB BLOOD ORDERABLES Cari l Result [facility] Department [place] [address] documented in this encounter Visit Diagnoses Diagnosis Personal history of colon cancer- Primary Personal history of malignant neoplasm of large intestine Personal history of colon cancer Personal history of malignant neoplasm of large intestine documented in this encounter Care Teams Aircraft Charter Dispatcher Relationship Specialty Start Date End Date Rodolfo Zuleta MD [address] [place] [id number] PCP - General 09/24/17 documented as of this encounter
--- OUTSIDE RECORDS SUMMARY | 2024-03-08 14:55 | XMS_ITS | Encounter Summary ---
Author Organization [facility] Address [address] [place] [address] Phone Care Team Providers Care Gizzard Skin Remover Name Role Phone Rodolfo Zuleta MD Primary Care Provider [phone] Encounter Details Date Type Department Care Team (Late st Contact Info) Description 10/02/2017 Orders Only [facility] On[facility] [address] [facility] 7th [place] [address] Leanne Pike MD [id number] [place] [address] Social History Tobacco Use Types Packs/Day Years Used Date Smoking Tobacco: Never Smokeless Tobacco: Never Alcohol Use Standard Drinks/Week Comments Yes 7 (1 standard drink = 0.6 oz pur e alcohol) Comments No Sex and Gender Information Value Date Recorded Sex Assigned at Not on file Legal Sex Female 6:59 AM TRANSLATION DIRECTOR Gender Identity Not on file Sexual Orientation Not on file documented as of this encounter Plan of Treatment Not on file documented as of this encounter Visit Diagnoses Not on filedocumented in this encounter Care Teams Gizzard Skin Remover Relationship Specialty Start Date End Date Rodolfo Zuleta MD [address] [place] [id number] PCP - General 09/24/17 documented as of this encounter
--- OUTSIDE RECORDS SUMMARY | 2024-03-08 14:55 | XMS_ITS | Encounter Summary ---
Author Organization [facility] Healthcare Address [address] [place] [address] Care Team Providers Care Shipping And Receiving Associate Name Role Phone Rodolfo Zuleta MD Primary Care Provider [phone] Encounter Details Date Type Department Care Team (Late st Contact Info) Description 09/24/2017 11:55 AM CDT - 09/24/2017 12:40 PM CDT Surgery [facility] Digestive [facility] [place] [address] [facility] [address] [place] [address] Juan Luis Villagomez MD PhD [address] [place], [place] [id number] COLON BIOPSY Surgery Details Date/Time Status Location OR Service Patient Class Case Class Case Type Trauma Case? 09/24/2017 11:55 AM Posted [facility] GI 03 Gastroenterology Outpatient Elective Panel 1 Procedure LRB Anes Op Region Wound Class Comments COLON BIOPSY N/A Choice Class II - Clean Contaminated Surgeon Surgeon Role Service Panel Juan Luis Villagomez MD PhD Primary Gastroenterology 1 documented in this encounter Social History Tobacco Use Types Packs/Day Years Used Date Smoking Tobacco: Never Smokeless Tobacco: Never Alcohol Use Standard Drinks/Week Comments Yes 7 (1 standard drink = 0.6 oz pur e alcohol) Comments No Sex and Gender Information Value Date Recorded Sex Assigned at Not on file 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 Gender Identity Not on file Sexual Orientation Not on file documented as of this encounter Last Filed Vital Signs Vital Sign Reading Time Taken Comments Blood Pressure 159/68 09/24/2017 12:09 PM CDT Pulse 69 09/24/2017 12:09 PM CDT Temperature 36.4 ??C (97.5 ??F) 09/24/2017 12:09 PM C DT Respiratory Rate 16 09/24/2017 12:09 PM CDT Oxygen Saturation 98% 09/24/2017 12:09 PM CDT Inhaled Oxygen Concentration - - Weight 82.6 kg (182 lb) 09/24/2017 12:09 PM CDT Height 167.6 cm (5' 6 ) 09/24/2017 12:09 PM CDT Body Mass Index 29.38 09/24/2017 12:09 PM CDT documented in this encounter Discharge Instructions * Discharge Instructions* Juan Luis Villagomez MD PhD - 09/24/2017 2:06 PM CDT Please refer to your procedure report and instructions for specific guidance on management of your diet and medications. Specifically, if you are on a blood thinning medication (like coumadin, Plavix, Eliquis, Xarelto, etc) your endoscopy report will include instructions on what to do with these medications in the days after the endoscopy. If you have any questions about your medication regimen, please discuss them with your prescribing physician. documented in this encounter Medications at Time of Discharge aspirin 81 mg tablet Take 81 mg by mouth daily. PREVIDENT 5000 PLUS 1.1 % cream BRUSH TEETH WITH PASTE BID 3 08/28/2017 vit A/C/E ac/ZnOx/cupric oxide (EYE VITAMIN AND MINERALS ORAL) Take by mouth. polyethylene glycol (COLYTE) 240-22.72-6.72 -5.84 gram solution FOLLOW INSTRUCTIONS IN PREP PACKET 0 08/02/2017 9 polyethylene glycol-electroly jarret (NULYTELY) 420 gram solutionIndicati ons:Bowel Evacuation Follow instructions in prep packet 08/02/2017 9 documented as of this encounter Discharge Disposition Disposition Code Departure Means Destination Discharge to home or self care documented in this encounter H&P Notes * Juan Luis Villagomez MD PhD - 09/24/2017 1:14 PM CDT Pre Endoscopy History and Physical Mira Oviedo is a 66 y.o. female who is here for Procedure(s): Colonoscopy OPEN ACCESS The indication(s) for the procedure(s): personal history of colon cancer. surveillance colonoscopy. Past Medical History: Diagnosis Date ??? Colon cancer (CMS/HCC) ??? Diverticulosis ??? Macular degeneration ??? PONV (postoperative nausea and vomiting) Past Surgical History: Procedure Laterality Date ??? CHOLECYSTECTOMY ??? COLECTOMY Social History Substance Use Topics ??? Smoking status: Never Smoker ??? Smokeless tobacco: Never Used ??? Alcohol use 4.2 oz/week 7 Glasses of wine per week History reviewed. No pertinent family history. Patient has no known allergies. Prior to Admission medications Medication Sig Start Date End Date Taking? Authorizing Provider aspirin 81 mg tablet Take 81 mg by mouth daily. Yes Historical Provider, vit A/C/E ac/ZnOx/cupric oxide (EYE VITAMIN AND MINERALS ORAL) Take by mouth. Yes Historical Provider, Review of Systems A pertinent, focused review of systems was completed and negative, except as noted above. OBJECTIVE: Vitals: Vitals: 09/24/17 1209 BP: 159/68 Pulse: 69 Resp: 16 Temp: 36.4 ??C (97.5 ??F) TempSrc: Temporal SpO2: 98% Weight: 82.6 kg (182 lb) Height: 167.6 cm (5' 6 ) Physical Exam: Airway: No significant abnormality. Cardiac: No significant abnormality. Pulmonary: No significant abnormality. Neurological: No significant abnormality. Gastrointestinal: No significant abnormality. ASA Score: per Anesthesia Sedation/Anesthesia Plan: per Anesthesia The risks and complications of the procedure have been explained to the patient. Informed consent was signed. Impression and plan: Will proceed with the planned procedure for the reasons stated above. documented in this encounter Procedure Notes * Juan Luis Villagomez MD PhD - 09/24/2017 1:46 PM CDTAssociated Order(s): COLONOSCOPY GI [facility]OSCOPY [facility] Patient Name: Mira Oviedo Procedure Date: 09/24/2017 1:46 PM Date of : 1950 Admit Type: Outpatient Age: 66 Gender: Female Attending MD: Juan Luis Villagomez MD, PHD Room: [facility] ROOM 3 Note Status: Finalized Procedure: Colonoscopy Indications: High risk colon cancer surveillance: Personal history of colon cancer, Last colonoscopy: date unknown (unable to locate last colonoscopy report) Referring MD: Leanne Pike M.D. Providers: Juan Luis Villagomez MD, PHD Medicines: Monitored Anesthesia Care Complications: No immediate complications. Estimated Blood Loss: Estimated blood loss: none. Procedure: Pre-Anesthesia Assessment: - Immediately prior to administration of medications, the patient was re-assessed for adequacy to receive sedatives. The benefits, risks and alternatives of the procedure and sedation were discussed and informed consent was obtained. All questions were answered. Please refer to the signed informed consent document in the medical record. The scope was passed under direct vision. The [id number] endoscope was introduced through the anus and advanced to the the ileocolonic anastomosis. The colonoscopy was performed without difficulty. The patient tolerated the procedure well. The quality of the bowel preparation was excellent. The quality of the bowel preparation was evaluated using the BBPS ([place] Bowel Preparation Scale) with scores of: Right Colon = 3, Transverse Colon = 3 and Left Colon = 3 (entire mucosa seen well with no residual staining, small fragments of stool or opaque liquid). The total BBPS score equals 9. The bowel preparation used was NuLytely. Bowel prep was administered using a split dose. Findings: The digital rectal exam findings include non-thrombosed external hemorrhoids. There was evidence of a prior end-to-side ileo-colonic anastomosis in the ascending colon. This was patent. Two Alaina classification IIa (superficial, elevated) polyps were found in the descending colon and transverse colon. The polyps were 2 to 4 mm in size. These polyps were removed with a cold biopsy forceps. Resection and retrieval were complete. Scattered small-mouthed diverticula were found from descending colon to sigmoid colon. There was evidence of a prior end-to-side colo-colonic anastomosis in the rectum. This was patent. The anastomosis was traversed. External hemorrhoids were found during retroflexion. Impression: - Patent end-to-side ileo-colonic anastomosis. - Two 2 to 4 mm polyps in the descending colon and in the transverse colon, removed with a cold biopsy forceps. Resected and retrieved. - Diverticulosis from descending to sigmoid colon. - Patent end-to-side colo-colonic anastomosis. - External hemorrhoids. Recommendation: - Await pathology results. - Repeat colonoscopy in 3 years for surveillance based on pathology results. Attending Participation: I personally performed the entire procedure. Electronically signed by Juan Luis Villagomez MD. Juan Luis Villagomez MD, PHD 09/24/2017 2:05:51 PM Number of Addenda: 0 Note Initiated On: 09/24/2017 1:46 PM Recognized by the [place] [employer] for promoting quality in endoscopy documented in this encounter Plan of Treatment Not on file documented as of this encounter Procedures Procedure Name Priority Date/Time Associated Diagnosis Comments SURGICAL PATHOLOGY Routine 09/24/2017 1: 55 PM CDT History of colon cancer COLONOSCOPY 09/24/2017 1:46 PM CDT COLON BIOPSY 09/24/2017 1:42 PM CDT History of colon cancer documented in this encounter Results * Surgical pathology (09/24/2017 1:55 PM CDT) Tissue (Polyp(s), colon/colorectal, esophageal, gastric) 09/24/2017 1:55 PM CDT Tissue (Polyp(s), colon/colorectal, esophageal, gastric) 09/24/2017 1:57 PM CDT Narrative PATHOLOGY [facility] - 09/25/2017 5:01 PM CDT EPIC results best viewed via link to PDF [facility] [place] [address] SURGICAL PATHOLOGY REPORT FINAL Patient Name: ?? MIRA OVIEDO Gender: ??F : ??1950 (Age: 66) Address: ??[facility] [address] [place], [place] ??[address] Hospital #: ??[id number] Taken:09/24/2017 Received:09/24/2017 Reported: 09/25/2017 Patient Type: HEALTH SYSTEM ?? Service: Gastro Location: [facility] Physician(s): ??Juan Luis Villagomez M.D. Diagnosis: A. Colon, transverse, polyp, polypectomy ? - Colonic mucosa with no histopathologic abnormality B. Colon, descending, polyp, polypectomy ? - Tubular adenoma dc/09/25/2017 17:01 By this signature, I attest that the above diagnosis is based upon my personal examination of the slides(and/or other material indicated in the diagnosis). Cornelia Salas M.D. Report Electronically Reviewed and Signed Out By ??Cornelia Salas M.D. 09/25/2017 17:01:02 Microscopic Description and Comment: Microscopic examination substantiates the above cited diagnosis. History: The patient is a 58-year-old woman who presents with a history of colon cancer. ??Operative procedure: Colonoscopy. Specimen(s) Received: A: Transverse polyp B: Descending polyp Gross Description: The specimen is received in two formalin filled containers each labeled with the patient's name. The first container is labeled transverse polyp x1 and contains a 0.4 x 0.2 x 0.1 cm llanos-pink soft tissue fragment. ??Wrapped. ??Labeled A1. ??Jar 0. The second container is labeled descending polyp x1 and contains a 0.3 x 0.1 x 0.1 cm llanos-pink soft tissue fragment. ??Wrapped. ??Labeled B1. ??Jar 0. and/09/24/2017 15:16 A. Francesco Garcia. By this signature, I attest that the above diagnosis is based upon my personal examination of the slides(and/or other material). The performance characteristics of some immunohistochemical stains, fluorescence in-situ hybridization tests and immunophenotyping by flow cytometry cited in this report (if any) were determined by the Surgical Pathology Department at [facility] as part of an ongoing vice president quality improvement program and in compliance with federally mandated regulations drawn from the Clinical Laboratory Improvement Act of 1988 (CLIA '88). ??Some of these tests rely on the use of analyte specific reagents and are subject to specific labeling requirements by the US Food and Drug Administration. ??Such diagnostic tests may only be performed in a facility that is certified by the Department of Health and Human Services as a high complexity laboratory under CLIA '88. ??The FDA has determined that such clearance or approval is not necessary. ??This test is used for clinical purposes. ??It should not be regarded as investigational or for research. ??Nevertheless, federal rules concerning the medical use of analyte specific reagents require that the following disclaimer be attached to the report: This test was developed and its performance characteristics determined by the Surgical Pathology Department of [facility]. ??It has not been cleared or approved by the U. S. Food and Drug Administration. IMAGES AND SCANNED DOCUMENTS, IF INCLUDED, ONLY VIEWABLE IN PDF VERSION OF REPORT us Juan Luis Villagomez MD PhD LAB PATHOLOGY ORDERABLES Final Result PATHOLOGY [facility] [address] Floor [place], [place] [phone] * COLONOSCOPY (09/24/2017 1:46 PM CDT) Anatomical Region Laterality Modality Other Narrative Procedure Note Juan Luis Villagomez MD PhD - 09/24/2017 1:46 PM CDT GI ENDOSCOPY [facility] Patient Name: Mira Oviedo Procedure Date: 09/24/2017 1:46 PM Date of : 1950 Admit Type: Outpatient Age: 66 Gender: Female Attending MD: Juan Luis Villagomez MD,PHD Room: [facility] ROOM 3 Note Status: Finalized Procedure: Colonoscopy Indications: High risk colon cancer surveillance: Personalhistory of colon cancer, Last colonoscopy: date unknown(unable to locate last colonoscopy report) Referring MD: Leanne Pike M.D. Providers: Juan Luis Villagomez MD, PHD Medicines: Monitored Anesthesia Care Complications: No immediate complications. Estimated Blood Loss: Estimated blood loss: none. Procedure: Pre-Anesthesia Assessment: - Immediately prior to administration ofmedications, the patient was re-assessed for adequacy to receive sedatives. The benefits, risks and alternatives of theprocedure and sedation were discussed and informed consent was obtained. All questions were answered. Please referto the signed informed consent document in the medical record. The scope was passed under direct vision.The CF [id number] endoscope was introduced throughthe anus and advanced to the the ileocolonicanastomosis. The colonoscopy was performed without difficulty.The patient tolerated the procedure well. The quality of the bowel preparation was excellent. The quality ofthe bowel preparation was evaluated using the BBPS([place] Bowel Preparation Scale) with scores of: Right Colon= 3, Transverse Colon = 3 and Left Colon = 3 (entire mucosa seen well with no residual staining, small fragments of stool or opaque liquid). The total BBPS score equals 9. The bowel preparation used was NuLytely. Bowel prep was administered using a split dose. Findings: The digital rectal exam findings include non-thrombosed external hemorrhoids. There was evidence of a prior end-to-side ileo-colonic anastomosis in the ascending colon. This was patent. Two Alaina classification IIa (superficial, elevated) polyps werefound in the descending colon and transverse colon. The polyps were 2 to 4mm in size. These polyps were removed with a cold biopsy forceps.Resection and retrieval were complete. Scattered small-mouthed diverticula were found from descending colonto sigmoid colon. There was evidence of a prior end-to-side colo-colonic anastomosis in the rectum. This was patent. The anastomosis was traversed. External hemorrhoids were found during retroflexion. Impression: - Patent end-to-side ileo-colonic anastomosis. - Two 2 to 4 mm polyps in the descending colon andin the transverse colon, removed with a cold biopsy forceps. Resected and retrieved. - Diverticulosis from descending to sigmoid colon. - Patent end-to-side colo-colonic anastomosis. - External hemorrhoids. Recommendation: - Await pathology results. - Repeat colonoscopy in 3 years for surveillancebased on pathology results. Attending Participation: I personally performed the entire procedure. Electronically signed by Juan Luis Villagomez MD. Juan Luis Villagomez MD, PHD 09/24/2017 2:05:51 PM Number of Addenda: 0 Note Initiated On: 09/24/2017 1:46 PM Recognized by the [place] [employer] for promoting quality in endoscopy us Juan Luis Villagomez MD PhD ENDOSCOPY PROCEDURES Cari harrison Result documented in this encounter Visit Diagnoses Diagnosis History of colon cancer Personal history of malignant neoplasm of large intestine History of colon cancer Personal history of malignant neoplasm of large intestine documented in this encounter Administered Medications Inactive Administered Medications - up to 3 most recent administrations Medication Order MAR Action Action Date Dose Rate Site sodium chloride 0.9% flush 0.5-20 mL 0.5-20 mL, intra-catheter, Every 8 hours scheduled, First dose on Sat09/24/17 at 1400, Pre-Procedure (GI), Flush volume based on line type and size. , Indications: FlushingIndications:Flushing sodium chloride 0.9% flush 0.5-20 mL 0.5-20 mL, intra-catheter, As needed, line care, Starting on Sat09/24/17 at 1159, Pre-Procedure (GI), Flush volume based on line type and size. Flush before and after each use. , Indications: FlushingIndications:Flushing sodium chloride 0.9% infusion 30 mL/hr, intravenous, Continuous, Starting on Sat09/24/17 at 1230, Pre-Procedure (GI) New Bag 09/24/2017 12:12 PM CDT 30 mL/hr 30 mL/hr documented in this encounter Historical Medications * This list may reflect changes made after this encounter. vit A/C/E ac/ZnOx/cupric oxide (EYE VITAMIN AND MINERALS ORAL) Take by mouth. aspirin 81 mg tablet Take 81 mg by mouth daily. added in this encounter Active and Recently Administered Medications Times are shown in CDT. Scheduled Medication Order 09/22/2017 09/23/2017 09/24/2017 sodium chloride 0.9% flush 0.5-20 mL 0.5-20 mL, intra-catheter, Every 8 hours scheduled, First dose on Sat09/24/17 at 1400, Pre-Procedure (GI), Flush volume based on line type and size. , Indications: Flushing 1400 (Due) Continuous Medication Order 09/22/2017 09/23/2017 09/24/2017 sodium chloride 0.9% infusion 30 mL/hr, intravenous, Continuous, Starting on Sat09/24/17 at 1230, Pre-Procedure (GI) 1212 (New Bag - Prov ider: Aletha Garduno, NAIN)[phone] (Stopped - Provider: India Mcdermott CRNA) sodium chloride 0.9% infusion 125 mL/hr, intravenous, Continuous, Starting on Sat09/24/17 at 1445, Recovery (GI), Until discharge PRN Medication Order 09/22/2017 09/23/2017 09/24/2017 sodium chloride 0.9% flush 0.5-20 mL 0.5-20 mL, intra-catheter, As needed, line care, Starting on Sat09/24/17 at 1159, Pre-Procedure (GI), Flush volume based on line type and size. Flush before and after each use. , Indications: Flushing documented in this encounter Orders Medications Ordered That Mg ht Not Have Been Administered Count Last Ordered Date First Ordered Date sodium chloride 0.9% flush 0.5-20 mL 2 09/08 sodium chloride 0.9% infusion 1 09/24/2017 documented in this encounter Care Teams Shipping And Receiving Associate Relationship Specialty Start Date End Date Rodolfo Zuleta MD [address] [place] [id number] PCP - General 09/24/17 documented as of this encounter
--- OUTSIDE RECORDS SUMMARY | 2024-03-08 14:55 | XMS_ITS | Encounter Summary ---
Author Organization [facility] Address [address] [facility] [address] [place] [address] Phone Care Team Providers Care Radio Message Router Name Role Phone Rodolfo Zuleta MD Primary Care Provider [phone] Reason for Referral * Diagnostic Imaging (Routine) - Closed Specialty Diagnoses / Procedures Referred By Contac t Referred To Contact Radiology Diagnoses Encounter for follow-up surveillance of colon cancer Procedures CT Chest Abdomen Pelvis W Contrast Mira Dunham MD Phone: tel: fax: [address] [address] Referral ID Status Reason Start Date Expiration Date Visits Re quested Visits Authorized [id number] Closed 10/02/2017 04/13/2019 1 1 Encounter Details Date Type Department Care Team (Late st Contact Info) Description 10/02/2017 10:15 AM CDT Office Visit [facility] Oncology [address] [facility] 7th [place] [address] [place] [address] Leanne Pike MD [id number] [place] [address] Encounter for follow-up surveillance of colon cancer (Primary Dx) Social History Tobacco Use Types Packs/Day Years Used Date Smoking Tobacco: Never Smokeless Tobacco: Never Alcohol Use Standard Drinks/Week Comments Yes 7 (1 standard drink = 0.6 oz pur e alcohol) Comments No Sex and Gender Information Value Date Recorded Sex Assigned at Not on file 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 Gender Identity Not on file Sexual Orientation Not on file documented as of this encounter Last Filed Vital Signs Vital Sign Reading Time Taken Comments Blood Pressure 133/81 10/02/2017 9:50 AM CDT Pulse 76 10/02/2017 9:50 AM CDT Temperature 36.6 ??C (97.9 ??F) 10/02/2017 9:50 AM CD T Respiratory Rate 16 10/02/2017 9:50 AM CDT Oxygen Saturation 99% 10/02/2017 9:50 AM CDT Inhaled Oxygen Concentration - - Weight 84.9 kg (187 lb 3.2 oz) 10/02/2017 9:50 A M CDT Height - - Body Mass Index 30.21 09/24/2017 12:09 PM CDT documented in this encounter Progress Notes * Mira Dunham MD - 10/02/2017 10:15 AM CDT ONCOLOGY PROGRESS NOTE ENCOUNTER DATE: October 02, 2017 PATIENT NAME: Mira Magana DATE OF : 1950 Cancer Staging No matching staging information was found for the patient. Oncology History Stage II colon cancer (T3N0) diagnosed November 2013, received no adjuvant chemotherapy. History of malignant neoplasm of colon 01/14/2015 Initial Diagnosis History of malignant neoplasm of colon INTERVAL HISTORY Ms. Magana is a 66 y.o. female who returns to clinic for follow up of her history of stage II colon cancer. She notes feeling well recently. She had a colonoscopy 09/24/17, had two 2-4 mm polyps, path showed tubular adenomas, as well as diverticulosis. She denies recent abdominal pain, blood in stool, nausea, vomiting, constipation, diarrhea, fevers, chills, chest pain. She notes recent weight gain. She has been traveling frequently with her , and has plans to go to [place] in November. ECOG PERFORMANCE STATUS 0 - Asymptomatic REVIEW OF SYSTEMS All other systems are reviewed and negative except as noted in the Interval History. PAST MEDICAL & SURGICAL HISTORY Past Medical History: Diagnosis Date ??? Colon cancer (CMS/HCC) ??? Diverticulosis ??? Macular degeneration ??? PONV (postoperative nausea and vomiting) MEDICATIONS Current Outpatient Prescriptions: ??? aspirin 81 mg tablet, Take 81 mg by mouth daily., Disp: , Rfl: ??? polyethylene glycol (COLYTE) 240-22.72-6.72 -5.84 gram solution, FOLLOW INSTRUCTIONS IN PREP PACKET, Disp: , Rfl: 0 ??? polyethylene glycol-electrolytes (NULYTELY) 420 gram solution, Follow instructions in prep packet, Disp: , Rfl: ??? PREVIDENT 5000 PLUS 1.1 % cream, BRUSH TEETH WITH PASTE BID, Disp: , Rfl: 3 ??? vit A/C/E ac/ZnOx/cupric oxide (EYE VITAMIN AND MINERALS ORAL), Take by mouth., Disp: , Rfl: PHYSICAL EXAM Blood pressure 133/81, pulse 76, temperature 36.6 ??C (97.9 ??F), temperature source Oral, resp. rate 16, weight 84.9 kg (187 lb 3.2 oz), SpO2 99 %. General: Awake, alert, and oriented x3. In no acute distress. Non diaphoretic. HEENT: Normocephalic. No scleral icterus. No conjunctival injection. Moist mucous membranes. No epistaxis. Normal oropharynx. Skin: Nondiaphoretic. No rashes noted. No nevi of concerning appearance. No jaundice. Lymphatic: No palpable cervical, supraclavicular, or inguinal lymphadenopathy. Heart: Regular rate and rhythm with no murmurs, rubs, or gallops appreciated. Lungs: Clear to auscultation bilaterally. Abdomen: Soft, nontender, nondistended. Normal bowel sounds in all four quadrants. No hepatosplenomegaly. Extremities: No cyanosis. No peripheral edema. Neuromuscular: Strength and gait normal. LABS Recent Results (from the past 128 hour(s)) CEA Collection Time: 10/02/17 8:55 AM Result Value Ref Range CEA 7.7 (H) 0.1 - 5.0 ng/mL Comprehensive metabolic panel Collection Time: 10/02/17 8:55 AM Result Value Ref Range Sodium 140 135 - 145 mmol/L Potassium, pl 4.7 3.3 - 4.9 mmol/L Chloride 104 97 - 110 mmol/L CO2 29 22 - 32 mmol/L Anion Gap 7 2 - 15 mmol/L BUN 8 8 - 25 mg/dL Creatinine 0.76 0.60 - 1.10 mg/dL Glucose 108 70 - 199 mg/dL Calcium 9.2 8.5 - 10.3 mg/dL Bilirubin, total 0.7 0.1 - 1.2 mg/dL Protein, pl 7.0 6.5 - 8.5 g/dL Albumin 4.1 3.5 - 5.0 g/dL Alk phos 74 40 - 130 Units/L ALT 51 (H) 7 - 45 Units/L AST 34 10 - 45 Units/L CBC with auto differential Collection Time: 10/02/17 9:02 AM Result Value Ref Range WBC 4.6 3.8 - 9.8 K/cumm Hgb 14.6 12.1 - 15.1 g/dL Hct 43.5 36.1 - 44.3 % Plt 158 140 - 440 K/cumm MPV 9.1 6.8 - 10.4 fL RBC 4.44 3.90 - 5.00 M/cumm MCV 98.0 (H) 80.0 - 97.6 fL MCH 32.8 26.7 - 33.7 pg MCHC 33.5 32.7 - 35.5 g/dL RDW CV 13.3 11.8 - 14.6 % NRBC Abs 0.00 0.00 - 0.01 K/cumm Differential, auto Collection Time: 10/02/17 9:02 AM Result Value Ref Range Neutrophil absolute 2.7 1.8 - 6.6 K/cumm Lymphocytes absolute 1.2 1.2 - 3.3 K/cumm Monocyte absolute 0.5 0.2 - 1.2 K/cumm Eosinophils absolute 0.2 0.0 - 0.5 K/cumm Basophils, abs 0.0 0.0 - 0.2 K/cumm Neutrophils 58.4 % Lymphocytes 25.9 % Monocytes 11.0 % Eosinophils 4.0 % Basophils 0.7 % IMAGES No results found. ASSESSMENT 1. Encounter for follow-up surveillance of colon cancer PLAN Ms. Magana is a 66 y.o. female who returns to clinic for follow up of her history of stage II colon cancer. Her last scans were 03/27/17 which did not show any evidence of recurrence. She had a colonoscopy 09/24/17 without evidence of disease. Her CEA has been modestly uptrending, today it is 7.7 from 6.6 at last visit. Given the uptrend in CEA, we will repeat her CT chest, abdomen, and pelvis with contrast today. She is willing to receive her scan results by phone. Patient seen and discussed with Dr. Pike. SIGNATURE Juan Dunham M.D. Hematology and Oncology Fellow [phone] CC: MD Shahzad Hines Katrina Sophi* Cosigned by Leanne Pike MD at 10/05/2017 5:12 PM CDT Associated attestation - Leanne Pike MD - 10/05/2017 5:12 PM CDT I have seen and examined the patient. I agree with the findings and plan of care as documented in the resident's note.. documented in this encounter Plan of Treatment Not on file documented as of this encounter Results * CT Chest Abdomen Pelvis W Contrast (10/02/2017 12:51 PM CDT) Anatomical Region Laterality Modality Body N/A Computed Tomogra phy 10/02/2017 1:12 PM CDT Impressions 10/02/2017 1:12 PM CDT 1. ??Stable tiny pulmonary nodules. 2. ??Otherwise no evidence of metastatic disease Electronically signed by: Kevin Joseph M.D. Narrative 10/02/2017 1:12 PM CDT EXAMINATION: ??Computed tomography of the chest, abdomen and pelvis with intravenous contrast HISTORY: Colon cancer status post partial colectomy TECHNIQUE: ??Transaxial computed tomographic images of the chest, abdomen and pelvis were obtained with intravenous contrast according to the standard protocol after the uneventful administration of 100 mL Opti-Ray 350 intravenous contrast. COMPARISON: Computed tomography examination of the chest abdomen and pelvis 03/27/2017 FINDINGS: CHEST: Again noted are a few tiny pulmonary nodules. ??The previously referenced 3 mm left lower lobe nodule is present currently on Celexa -216. ??A stable 4 mm right lower lobe nodule present on slice -242. No new nodules have developed. ??There are no confluent pulmonary infiltrates or pleural effusions. ??There is no axillary nor mediastinal lymphadenopathy. ??The heart size is normal. Abdomen/Pelvis: The liver, spleen, pancreas, both adrenal glands, and both kidneys appear normal. The bowel gas pattern is normal. ??Surgical changes noted compatible with partial colectomy. ??The urinary bladder and adnexal structures appear normal. ??There is no free pelvic fluid. No abdominal or pelvic lymph. Images obtained with bone window settings demonstrate no suspicious osseous abnormality. Procedure Note Kevin Joseph MD - 10/02/2017 EXAMINATION: Computed tomography of the chest, abdomen and pelvis with intravenous contrast HISTORY: Colon cancer status post partial colectomy TECHNIQUE: Transaxial computed tomographic images of the chest, abdomen and pelvis were obtained with intravenous contrast according to the standard protocol after the uneventful administration of 100 mL Opti-Ray 350 intravenous contrast. COMPARISON: Computed tomography examination of the chest abdomen and pelvis 03/27/2017 FINDINGS: CHEST: Again noted are a few tiny pulmonary nodules. The previously referenced 3 mm left lower lobe nodule is present currently on Celexa -216. A stable 4 mm right lower lobe nodule present on slice -242. No new nodules have developed. There are no confluent pulmonary infiltrates or pleural effusions. There is no axillary nor mediastinal lymphadenopathy. The heart size is normal. Abdomen/Pelvis: The liver, spleen, pancreas, both adrenal glands, and both kidneys appear normal. The bowel gas pattern is normal. Surgical changes noted compatible with partial colectomy. The urinary bladder and adnexal structures appear normal. There is no free pelvic fluid. No abdominal or pelvic lymph. Images obtained with bone window settings demonstrate no suspicious osseous abnormality. IMPRESSION: 1. Stable tiny pulmonary nodules. 2. Otherwise no evidence of metastatic disease Electronically signed by: Kevin Joseph M.D. Mira Dunham MD IMG CT PROCEDURES Final Result documented in this encounter Visit Diagnoses Diagnosis Encounter for follow-up surveillance of colon cancer- Primary Encounter for follow-up surveillance of colon cancer documented in this encounter Historical Medications * This list may reflect changes made after this encounter. PREVIDENT 5000 PLUS 1.1 % cream BRUSH TEETH WITH PASTE BID 3 08/28/2017 polyethylene glycol (COLYTE) 240-22.72-6.72 -5.84 gram solution FOLLOW INSTRUCTIONS IN PREP PACKET 0 08/02/2017 9 polyethylene glycol-electroly jarret (NULYTELY) 420 gram solutionIndicati ons:Bowel Evacuation Follow instructions in prep packet 08/02/2017 9 added in this encounter Care Teams Radio Message Router Relationship Specialty Start Date End Date Rodolfo Zuleta MD [address] [place] [address] PCP - General 09/24/17 documented as of this encounter
--- OUTSIDE RECORDS SUMMARY | 2024-03-08 14:55 | XMS_ITS | Encounter Summary ---
Author Organization [facility] Address [address] [place] [address] Phone Care Team Providers Care Chainstitch Felled Seam Operator Name Role Phone Rodolfo Zuleta MD Primary Care Provider [phone] Reason for Referral * Diagnostic Imaging (Routine) - Closed Specialty Diagnoses / Procedures Referred By Contac t Referred To Contact Radiology Diagnoses Personal history of colon cancer Procedures CT Chest Abdomen Pelvis W Contrast Leanne Pike MD Phone: tel: fax: [address] [address] Referral ID Status Reason Start Date Expiration Date Visits Re quested Visits Authorized Closed 10/31/2018 01/31/2019 1 1 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 Encounter Details Date Type Department Care Team (Late st Contact Info) Description 04/16/2018 Orders Only [facility] Oncology [address] [facility] 7th [place] [address] Marcela Kwok RN Personal history of colon cancer (Primary Dx) Social History Tobacco Use Types Packs/Day Years Used Date Smoking Tobacco: Never Smokeless Tobacco: Never Alcohol Use Standard Drinks/Week Comments Yes 7 (1 standard drink = 0.6 oz pur e alcohol) Comments No Sex and Gender Information Value Date Recorded Sex Assigned at Not on file 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, [address] [place], [place] [id number] Hgb 14.1 12.1 - 15.1 g/dL [facility] Comment:Testing performed by : [facility], [address] [place], [place] [id number] Hct 41.7 36.1 - 44.3 % [facility] Comment:Testing performed by : [place] [id number] Plt 156 140 - 440 K/cumm [facility] Comment:Testing performed by : [place] [id number] MPV 9.4 6.8 - 10.4 fL [facility] Comment:Testing performed by : [facility], [address] [place], [place] [id number] RBC 4.33 3.90 - 5.00 M/cumm [facility] Comment:Testing performed by : [place] [id number] MCV 96.3 80.0 - 97.6 fL [facility] Comment:Testing performed by : [place] [id number] MCH 32.5 26.7 - 33.7 pg [facility] Comment:Testing performed by : [facility], [address] [place], [place] [id number] MCHC 33.8 32.7 - 35.5 g/dL [facility] Comment:Testing performed by : [place] [id number] RDW CV 13.9 11.8 - 14.6 % [facility] Comment:Testing performed by : [address] [phone] NRBC abs 0.00 0.00 - 0.01 K/cumm [facility] Comment:Testing performed by : [facility], [address] [place] [phone] Blood specimen (specimen) 11/05/2018 9:25 AM CDT 11/05/2018 9:26 AM CDT Leanne Pike MD LAB BLOOD ORDERABLES Final Result Performing Organization Address [facility] de Phone Number [facility] [place] [address] * (ABNORMAL) CEA (11/05/2018 9:20 AM CDT) Pathologist [facility] CEA 7.6(H) <=5.0 ng/mL [facility] Comment: Interpretative Data: Reference Range: Non-Smokers: [...] 9:20 AM CDT 11/05/2018 9:36 AM CDT Leanne Pike MD LAB BLOOD ORDERABLES Final Result Performing Organization Address City/[facility] Co de Phone Number [facility] [place] [address] * Comprehensive metabolic panel (11/05/2018 9:20 AM CDT) Sodium 138 135 - 145 mmol/L [facility] Potassium, pl 4.5 3.3 - 4.9 mmol/L [facility] Chloride 105 97 - 110 mmol/L [facility] CO2 27 22 - 32 mmol/L [facility] Anion gap 6 2 - 15 mmol/L [facility] BUN 11 8 - 25 mg/dL [facility] Creatinine 0.73 0.60 - 1.10 mg/dL [facility] Glucose 101 70 - 199 mg/dL [facility] Comment: Interpretive Data Fasting glucose >/= 126 [...] 2017. Calcium 9.1 8.5 - 10.3 mg/dL [facility] Bilirubin, total 0.7 0.1 - 1.2 mg/dL [facility] Protein, pl 7.0 6.5 - 8.5 g/dL [facility] Albumin 4.3 3.5 - 5.0 g/dL [facility] Alk phos 64 40 - 130 Units/L [facility] ALT 34 7 - 45 Units/L [facility] AST 30 10 - 45 Units/L [facility] Blood specimen (specimen) 11/05/2018 9:20 AM CDT 11/05/2018 9:36 AM CDT Leanne Pike MD LAB BLOOD ORDERABLES Final Result Performing Organization Address City/State/[facility] Co de Phone Number [facility] [place] [address] * CT Chest Abdomen Pelvis W Contrast (11/05/2018 9:01 AM CDT) Anatomical Region Laterality Modality Body N/A Computed Tomogra phy 11/05/2018 9:28 AM CDT Impressions 11/05/2018 10:33 AM CDT 1. ??Stable tiny pulmonary nodules. 2. ??Otherwise no evidence of metastatic disease Dictated by: Itzel Garcia M.D. The radiology attending physician has personally reviewed this study, and had reviewed and/or edited this written report and agrees with it. Electronically signed by: Daniele Garcia M.D. Narrative 11/05/2018 10:33 AM CDT EXAMINATION: ??Computed tomography of the chest, abdomen and pelvis with intravenous contrast HISTORY: 67-year-old woman with history of colon cancer status post partial colectomy TECHNIQUE: ??Transaxial computed tomographic images of the chest, abdomen and pelvis were obtained with intravenous contrast according to the standard protocol after the uneventful administration of 125 mL Opti-Ray 350 intravenous contrast. COMPARISON: Computed tomography examination of the chest abdomen and pelvis 10/02/2017 FINDINGS: CHEST: Again noted are a few tiny pulmonary nodules. ??The previously referenced 3 mm left lower lobe nodule is unchanged (slice position -220). ??A stable 4 mm right lower lobe nodule (slice position, -252). No new nodules have developed. ??There are no confluent pulmonary infiltrates or pleural effusions. ??The heart size is normal. Mild atherosclerotic calcification of the thoracic aorta. No central pulmonary embolism. No suspicious supraclavicular, axillary mediastinal or hilar lymphadenopathy. Abdomen/Pelvis: There is mild diffuse hepatic steatosis. No focal hepatic lesion. Portal vein is patent. No biliary ductal dilatation. Gallbladder is surgically absent. The spleen, pancreas, both adrenal glands, and both kidneys enhance normally. Tiny nonobstructing stones in the inferior left renal pole. 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 Postsurgical changes of partial descending colectomy and rectosigmoid colectomy with anastomosis is noted. The bowel gas pattern is normal. The urinary bladder and adnexal structures appear normal. ??There is no free pelvic fluid. No abdominal or pelvic lymphadenopathy. Images obtained with bone window settings demonstrate no suspicious osseous abnormality. Procedure Note Daniele Garcia MD - 11/05/2018 EXAMINATION: Computed tomography of the chest, abdomen and pelvis with intravenous contrast HISTORY: 67-year-old woman with history of colon cancer status post partial colectomy TECHNIQUE: Transaxial computed tomographic images of the chest, abdomen and pelvis were obtained with intravenous contrast according to the standard protocol after the uneventful administration of 125 mL Opti-Ray 350 intravenous contrast. COMPARISON: Computed tomography examination of the chest abdomen and pelvis 10/02/2017 FINDINGS: CHEST: Again noted are a few tiny pulmonary nodules. The previously referenced 3 mm left lower lobe nodule is unchanged (slice position -220). A stable 4 mm right lower lobe nodule (slice position, -252). No new nodules have developed. There are no confluent pulmonary infiltrates or pleural effusions. The heart size is normal. Mild atherosclerotic calcification of the thoracic aorta. No central pulmonary embolism. No suspicious supraclavicular, axillary mediastinal or hilar lymphadenopathy. Abdomen/Pelvis: There is mild diffuse hepatic steatosis. No focal hepatic lesion. Portal vein is patent. No biliary ductal dilatation. Gallbladder is surgically absent. The spleen, pancreas, both adrenal glands, and both kidneys enhance normally. Tiny nonobstructing stones in the inferior left renal pole. 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 Postsurgical changes of partial descending colectomy and rectosigmoid colectomy with anastomosis is noted. The bowel gas pattern is normal. The urinary bladder and adnexal structures appear normal. There is no free pelvic fluid. No abdominal or pelvic lymphadenopathy. Images obtained with bone window settings demonstrate no suspicious osseous abnormality. IMPRESSION: 1. Stable tiny pulmonary nodules. 2. Otherwise no evidence of metastatic disease Dictated by: Itzel Garcia M.D. The radiology attending physician has personally reviewed this study, and had reviewed and/or edited this written report and agrees with it. Electronically signed by: Daniele Garcia M.D. Leanne Pike MD IMG CT PROCEDURES [...] Ordered Date ON[facility]N CLINIC APPOINTMENT REQUEST 1 019 ON[facility] LAB APPOINTMENT 1 11/05/2018 documented in this encounter Care Teams Chainstitch Felled Seam Operator Relationship Specialty Start Date End Date Rodolfo Zuleta MD [address] [place] [id number] PCP - General 09/24/17 documented as of this encounter
--- OUTSIDE RECORDS SUMMARY | 2024-03-08 14:55 | XMS_ITS | Encounter Summary ---
Author Organization [facility] Healthcare Address [address] [place] [address] Care Team Providers Care Assistant Analyst Name Role Phone Rodolfo Zuleta MD Primary Care Provider [phone] Encounter Details Date Type Department Care Team (Latest Contact Info) Description 09/24/2017 10:55 AM CDT - 09/24/2017 2:41 PM CDT Hospital Encounter [facility] [place] [address] 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 The CF [id number] endoscope was introduced through the anus and advanced to the the ileocolonic anastomosis. The colonoscopy was performed without difficulty. The patient tolerated the procedure well. The quality of the bowel preparation was excellent. The quality of the bowel preparation was evaluated using the BBPS ([place] Bowel Preparation Scale) with scores of: Right [...] On: 09/24/2017 1:46 PM Recognized by the [employer] for promoting quality [...] gastric) 09/24/2017 1:57 PM CDT Narrative PATHOLOGY [facility] - 09/25/2017 5:01 PM CDT EPIC results best viewed via link to PDF [facility] [place] [address] SURGICAL PATHOLOGY REPORT FINAL Patient Name: ?? MIRA OVIEDO Gender: ??F : ??1950 (Age: 66) Address: ??[facility] [place], [place] ??[address] Hospital #: ??[id number] Taken:09/24/2017 Received:09/24/2017 Reported: 09/25/2017 Patient Type: [facility] ?? Service: Gastro Location: [facility] Physician(s): ??Juan Luis Villagomez M.D. Diagnosis: A. [...] ??Wrapped. ??Labeled B1. ??Jar 0. and/09/24/2017 15:16 Jose Alfredo. Francesco Garcia. By this signature, I attest that the above diagnosis is based upon my personal examination of the slides(and/or other material). The performance characteristics of some immunohistochemical stains, fluorescence in-situ hybridization tests and immunophenotyping by flow cytometry cited in this report (if any) were determined by the Surgical Pathology Department at [facility] as part of an ongoing quality intern program and in compliance with federally mandated [...] determined by the Surgical Pathology Department of [facility]. ??It has not been cleared or approved by the U. S. Food and Drug Administration. IMAGES AND SCANNED DOCUMENTS, IF INCLUDED, ONLY VIEWABLE IN PDF VERSION OF REPORT us Juan Luis Villagomez MD PhD LAB PATHOLOGY ORDERABLES Final Result PATHOLOGY [facility] 3rd Floor [place], [place] [phone] * COLONOSCOPY (09/24/2017 1:46 PM CDT) Anatomical Region Laterality Modality Other Narrative Procedure Note Juan Luis Villagomez MD PhD - 09/24/2017 1:46 PM CDT GI ENDOSCOPY [facility] Patient Name: Mira Oviedo Procedure Date: 09/24/2017 1:46 PM Date of : 1950 Admit Type: Outpatient Age: 66 Gender: Female Attending MD: Juan Luis Villagomez MD,PHD Room: [facility] ENDOSCOPY ROOM 3 Note Status: Finalized Procedure: [...] The scope was passed under direct vision.The [id number] endoscope was introduced throughthe anus and advanced to the the ileocolonicanastomosis. The colonoscopy was performed without difficulty.The patient tolerated the procedure well. The quality of the bowel preparation was excellent. The quality ofthe bowel preparation was evaluated using the BBPS([place] Bowel Preparation Scale) with scores of: Right [...] On: 09/24/2017 1:46 PM Recognized by the [employer] for promoting quality in endoscopy Juan Luis Villagomez MD PhD ENDOSCOPY PROCEDURES Cari l Result documented in this encounter Visit Diagnoses [...] 1212 (New Bag - Prov ider: Aletha Garduno RN)1355 (Stopped - Provider: India Mcdermott CRNA) sodium [...] 09/24/2017 documented in this encounter Care Teams Assistant Analyst Relationship Specialty Start Date End Date Rodolfo Zuleta MD [address] [place] [id number] PCP - General 09/24/17 documented as of this encounter
--- OUTSIDE RECORDS SUMMARY | 2024-03-08 14:55 | XMS_ITS | Encounter Summary ---
Author Organization [facility] Healthcare Address [address] [place] [address] Care Team Providers Care Wind Turbine Blade Repair Technician Name Role Phone Rodolfo Zuleta MD Primary Care Provider [phone] Encounter Details Date Type Department Care Team (Latest Contact Info) Description 03/27/2017 7:28 AM HYDROGEN POWER PLANT ENGINEER - 03/27/2017 11:59 PM HYDROGEN POWER PLANT ENGINEER Hospital Encounter [facility] OP INTERIM [phone] Carol Ann Dee MD [address] [facility] [phone] [place] [address] Discharge Disposition: Discharge to home or self care Social History Tobacco Use Types Packs/Day Years Used Date Smoking Tobacco: Never Comments Unknown Sex and Gender Information Value Date Recorded Sex Assigned at Not on file 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 Gender Identity Not on file Sexual Orientation Not on file documented as of this encounter Discharge Disposition Disposition Code Departure Means Destination Discharge to home or self care documented in this encounter Plan of Treatment Not on file documented as of this encounter Procedures Procedure Name Priority Date/Time Associated Diagnosis Comments CT ABDOMEN PELVIS W CONTRAST Routine 03/27/2017 2:28 PM HYDROGEN POWER PLANT ENGINEER CT CHEST W CONTRAST Routine 03/27/2017 2:28 PM HYDROGEN POWER PLANT ENGINEER POCT CREATININE FOR CONTRAST EVALUATION Routine Gen Lab 03/27/2017 8:16 AM HYDROGEN POWER PLANT ENGINEER documented in this encounter Results * CT Abdomen Pelvis W Contrast (03/27/2017 2:28 PM HYDROGEN POWER PLANT ENGINEER) Anatomical Region Laterality Modality Body N/A Computed Tomogra phy 03/27/2017 2:28 PM HYDROGEN POWER PLANT ENGINEER Narrative 03/27/2017 3:15 PM HYDROGEN POWER PLANT ENGINEER MICHAEL BELTRAN M.D. ASHISH NAQVI M.D. FINAL REPORT The radiology attending physician has personally reviewed this study, and has reviewed and/or edited this written report and agrees with it. ACC# ??Date Time ??Exam [id number] Mar 27, 2017 08:28:[address] Chest with contrast [id number] Mar 27, 2017 08:28:[address] Abd & ??Pelvis with cont EXAMINATION: ??Computed tomography of the chest, abdomen and pelvis with intravenous contrast HISTORY: Colon cancer status post resection in November 2013. TECHNIQUE: ??Transaxial computed tomographic images of the chest, abdomen and pelvis were obtained with intravenous contrast according to the standard protocol after the uneventful administration of 93 mL Opti-Ray 350 intravenous contrast. COMPARISON: CT of the chest, abdomen and pelvis dated 02/22/2016. FINDINGS: ?? There are multiple unchanged sub-5 mm pulmonary nodules. For reference, there is an unchanged 3 mm pulmonary nodule in the left lower lobe (slice -84.1). ??No suspicious pulmonary nodules. No focal consolidation. ??No pleural effusion or pneumothorax. The heart size is normal. ??No pericardial effusion. ??No central pulmonary embolus. No supraclavicular, axillary, mediastinal, or hilar lymphadenopathy. The liver is normal without focal lesion. ??There are postsurgical changes of cholecystectomy. ??There is mild extrahepatic biliary ductal dilatation, likely due to postcholecystectomy changes. ??No intrahepatic biliary ductal dilatation. ??There are punctate calcifications within the spleen, likely sequela of old granulomatous disease. ??The pancreas and adrenal glands are normal. ??The kidneys enhance symmetrically without focal lesion. There is a 3 mm nonobstructing stone in the lower pole of the left kidney. No hydronephrosis. ??The bladder is normal. ??The uterus is normal. ??No adnexal masses. There are postsurgical changes of left hemicolectomy and pelvic lymph node dissection. ??There is mild colonic diverticulosis without evidence of diverticulitis. ??The small bowel and colon are normal in caliber without evidence of obstruction. ??There is a small hiatal hernia. No mesenteric, retroperitoneal or pelvic lymphadenopathy. ??No free intraperitoneal fluid or air. ??There is minimal atherosclerotic disease of the abdominal aorta which is normal in caliber. On bone windows, no suspicious lytic or blastic osseous lesions. IMPRESSION: ??No evidence of recurrent or metastatic disease in the chest, abdomen or pelvis. Electronically signed by: Michael Beltran M.D. Requested By: CAROL ANN DEE M.D. Dictated By: ?? ASHISH NAQVI M.D. ??on Mar 27 2017 ??9:04A This document has been electronically signed by: MICHAEL BELTRAN M.D. on Mar 27 2017 ??9:12A [id number] OWEN M.D. FINAL REPORT The radiology attending physician has personally reviewed this study, and has reviewed and/or edited this written report and agrees with it. Attending: ??LEILA, ??CAROL ANN Requesting: ??LEILA, ??CAROL ANN Requesting Fax: ?? Attending Fax: ?? Attending ID: ??[id number] Requesting ID: ??[id number] Report To 1 ID: ??[id number] ? Report To 1 Name: ??, ?? Report To 1 FAX: ?? NextGen Order #: ?? Procedure Note Miscellaneous, Not In File - 03/27/2017 Jane OWEN M.D. FINAL REPORT The radiology attending physician has personally reviewed this study, and has reviewed and/or edited this written report and agrees with it. ACC# Date Time Exam [id number] Mar 27, 2017 08:28:[address] Chest with contrast [id number] Mar 27, 2017 08:28:[address] Abd & Pelvis with cont EXAMINATION: Computed tomography of the chest, abdomen and pelvis with intravenous contrast HISTORY: Colon cancer status post resection in November 2013. TECHNIQUE: Transaxial computed tomographic images of the chest, abdomen and pelvis were obtained with intravenous contrast according to the standard protocol after the uneventful administration of 93 mL Opti-Ray 350 intravenous contrast. COMPARISON: CT of the chest, abdomen and pelvis dated 02/22/2016. FINDINGS: There are multiple unchanged sub-5 mm pulmonary nodules. For reference, there is an unchanged 3 mm pulmonary nodule in the left lower lobe (slice -84.1). No suspicious pulmonary nodules. No focal consolidation. No pleural effusion or pneumothorax. The heart size is normal. No pericardial effusion. No central pulmonary embolus. No supraclavicular, axillary, mediastinal, or hilar lymphadenopathy. The liver is normal without focal lesion. There are postsurgical changes of cholecystectomy. There is mild extrahepatic biliary ductal dilatation, likely due to postcholecystectomy changes. No intrahepatic biliary ductal dilatation. There are punctate calcifications within the spleen, likely sequela of old granulomatous disease. The pancreas and adrenal glands are normal. The kidneys enhance symmetrically without focal lesion. There is a 3 mm nonobstructing stone in the lower pole of the left kidney. No hydronephrosis. The bladder is normal. The uterus is normal. No adnexal masses. There are postsurgical changes of left hemicolectomy and pelvic lymph node dissection. There is mild colonic diverticulosis without evidence of diverticulitis. The small bowel and colon are normal in caliber without evidence of obstruction. There is a small hiatal hernia. No mesenteric, retroperitoneal or pelvic lymphadenopathy. No free intraperitoneal fluid or air. There is minimal atherosclerotic disease of the abdominal aorta which is normal in caliber. On bone windows, no suspicious lytic or blastic osseous lesions. IMPRESSION: No evidence of recurrent or metastatic disease in the chest, abdomen or pelvis. Electronically signed by: Michael Beltran M.D. Requested By: CAROL ANN DEE M.D. Dictated By: ASHISH NAQVI M.D. on Mar 27 2017 9:04A This document has been electronically signed by: MICHAEL BELTRAN M.D. on Mar 27 2017 9:12A [id number] OWEN M.D. FINAL REPORT The radiology attending physician has personally reviewed this study, and has reviewed and/or edited this written report and agrees with it. Attending: CAROL ANN DEE Requesting: CAROL ANN DEE Requesting Fax: Attending Fax: Attending ID: [id number] Requesting ID: [id number] Report To 1 ID: [id number] Report To 1 Name: , Report To 1 FAX: NextGen Order #: Carol Ann Chery Dee MD IMG CT PROCEDURES Fin al Result * CT Chest W Contrast (03/27/2017 2:28 PM HYDROGEN POWER PLANT ENGINEER) Anatomical Region Laterality Modality Body N/A Computed Tomogra phy 03/27/2017 2:28 PM HYDROGEN POWER PLANT ENGINEER Narrative 03/27/2017 3:15 PM HYDROGEN POWER PLANT ENGINEER MICHAEL BELTRAN M.D. ASHISH NAQVI M.D. FINAL REPORT The radiology attending physician has personally reviewed this study, and has reviewed and/or edited this written report and agrees with it. ACC# ??Date Time ??Exam [id number] Mar 27, 2017 08:28:[address] Chest with contrast [id number] Mar 27, 2017 08:28:[address] Abd & ??Pelvis with cont EXAMINATION: ??Computed tomography of the chest, abdomen and pelvis with intravenous contrast HISTORY: Colon cancer status post resection in November 2013. TECHNIQUE: ??Transaxial computed tomographic images of the chest, abdomen and pelvis were obtained with intravenous contrast according to the standard protocol after the uneventful administration of 93 mL Opti-Ray 350 intravenous contrast. COMPARISON: CT of the chest, abdomen and pelvis dated 02/22/2016. FINDINGS: ?? There are multiple unchanged sub-5 mm pulmonary nodules. For reference, there is an unchanged 3 mm pulmonary nodule in the left lower lobe (slice -84.1). ??No suspicious pulmonary nodules. No focal consolidation. ??No pleural effusion or pneumothorax. The heart size is normal. ??No pericardial effusion. ??No central pulmonary embolus. No supraclavicular, axillary, mediastinal, or hilar lymphadenopathy. The liver is normal without focal lesion. ??There are postsurgical changes of cholecystectomy. ??There is mild extrahepatic biliary ductal dilatation, likely due to postcholecystectomy changes. ??No intrahepatic biliary ductal dilatation. ??There are punctate calcifications within the spleen, likely sequela of old granulomatous disease. ??The pancreas and adrenal glands are normal. ??The kidneys enhance symmetrically without focal lesion. There is a 3 mm nonobstructing stone in the lower pole of the left kidney. No hydronephrosis. ??The bladder is normal. ??The uterus is normal. ??No adnexal masses. There are postsurgical changes of left hemicolectomy and pelvic lymph node dissection. ??There is mild colonic diverticulosis without evidence of diverticulitis. ??The small bowel and colon are normal in caliber without evidence of obstruction. ??There is a small hiatal hernia. No mesenteric, retroperitoneal or pelvic lymphadenopathy. ??No free intraperitoneal fluid or air. ??There is minimal atherosclerotic disease of the abdominal aorta which is normal in caliber. On bone windows, no suspicious lytic or blastic osseous lesions. IMPRESSION: ??No evidence of recurrent or metastatic disease in the chest, abdomen or pelvis. Electronically signed by: Michael Beltran M.D. Requested By: CAROL ANN DEE M.D. Dictated By: ?? ASHISH NAQVI M.D. ??on Mar 27 2017 ??9:04A This document has been electronically signed by: MICHAEL BELTRAN M.D. on Mar 27 2017 ??9:12A [id number] OWEN M.D. FINAL REPORT The radiology attending physician has personally reviewed this study, and has reviewed and/or edited this written report and agrees with it. Attending: ??LEILA, ??CAROL ANN Requesting: ??LEILA, ??CAROL ANN Requesting Fax: ?? Attending Fax: ?? Attending ID: ??[id number] Requesting ID: ??[id number] Report To 1 ID: ??[id number] ? Report To 1 Name: ??, ?? Report To 1 FAX: ?? NextGen Order #: ?? Procedure Note Miscellaneous, Not In File - 03/27/2017 Jane OWEN M.D. FINAL REPORT The radiology attending physician has personally reviewed this study, and has reviewed and/or edited this written report and agrees with it. ACC# Date Time Exam [id number] Mar 27, 2017 08:28:[address] Chest with contrast [id number] Mar 27, 2017 08:28:[address] Abd & Pelvis with cont EXAMINATION: Computed tomography of the chest, abdomen and pelvis with intravenous contrast HISTORY: Colon cancer status post resection in November 2013. TECHNIQUE: Transaxial computed tomographic images of the chest, abdomen and pelvis were obtained with intravenous contrast according to the standard protocol after the uneventful administration of 93 mL Opti-Ray 350 intravenous contrast. COMPARISON: CT of the chest, abdomen and pelvis dated 02/22/2016. FINDINGS: There are multiple unchanged sub-5 mm pulmonary nodules. For reference, there is an unchanged 3 mm pulmonary nodule in the left lower lobe (slice -84.1). No suspicious pulmonary nodules. No focal consolidation. No pleural effusion or pneumothorax. The heart size is normal. No pericardial effusion. No central pulmonary embolus. No supraclavicular, axillary, mediastinal, or hilar lymphadenopathy. The liver is normal without focal lesion. There are postsurgical changes of cholecystectomy. There is mild extrahepatic biliary ductal dilatation, likely due to postcholecystectomy changes. No intrahepatic biliary ductal dilatation. There are punctate calcifications within the spleen, likely sequela of old granulomatous disease. The pancreas and adrenal glands are normal. The kidneys enhance symmetrically without focal lesion. There is a 3 mm nonobstructing stone in the lower pole of the left kidney. No hydronephrosis. The bladder is normal. The uterus is normal. No adnexal masses. There are postsurgical changes of left hemicolectomy and pelvic lymph node dissection. There is mild colonic diverticulosis without evidence of diverticulitis. The small bowel and colon are normal in caliber without evidence of obstruction. There is a small hiatal hernia. No mesenteric, retroperitoneal or pelvic lymphadenopathy. No free intraperitoneal fluid or air. There is minimal atherosclerotic disease of the abdominal aorta which is normal in caliber. On bone windows, no suspicious lytic or blastic osseous lesions. IMPRESSION: No evidence of recurrent or metastatic disease in the chest, abdomen or pelvis. Electronically signed by: Michael Beltran M.D. Requested By: CAROL ANN DEE M.D. Dictated By: ASHISH NAQVI M.D. on Mar 27 2017 9:04A This document has been electronically signed by: MICHAEL BELTRAN M.D. on Mar 27 2017 9:12A [id number] OWEN M.D. FINAL REPORT The radiology attending physician has personally reviewed this study, and has reviewed and/or edited this written report and agrees with it. Attending: CAROL ANN DEE Requesting: CAROL ANN DEE Requesting Fax: Attending Fax: Attending ID: [id number] Requesting ID: [id number] Report To 1 ID: [id number] Report To 1 Name: , Report To 1 FAX: NextGen Order #: Carol Ann Dee MD IMG CT PROCEDURES Fin al Result * POCT creatinine (03/27/2017 8:16 AM HYDROGEN POWER PLANT ENGINEER) Creatinine POC 0.7 0.6 - 1.1 mg/dL [facility] Blood specimen (specimen) 03/27/2017 8:16 AM HYDROGEN POWER PLANT ENGINEER 03/27/2017 8:16 AM HYDROGEN POWER PLANT ENGINEER Narrative [facility] - 03/27/2017 8:36 AM HYDROGEN POWER PLANT ENGINEER Carol Ann Dee MD POINT OF CARE TEST OR DERABLES Final Result [facility] Department [place] [address] documented in this encounter Visit Diagnoses Not on filedocumented in this encounter Care Teams Wind Turbine Blade Repair Technician Relationship Specialty Start Date End Date Rodolfo Zuleta MD [address] [place] [id number] PCP - General 05/23/16 09/23/17 documented as of this encounter
--- OUTSIDE RECORDS SUMMARY | 2024-03-08 14:55 | XMS_ITS | Encounter Summary ---
Author Organization [facility] Healthcare Address [address] [place] [address] Care Team Providers Care Recording Engineer Name Role Phone Rodolfo Zuleta MD Primary Care Provider [phone] Encounter Details Date Type Department Care Team (Latest Contact Info) Description 03/21/2017 2:02 PM RECREATIONAL THERAPY AIDE - 03/27/2017 11:59 PM RECREATIONAL THERAPY AIDE Hospital Encounter [facility] [phone] Leanne Pike MD [address] [facility] [phone] [place] [address] Discharge Disposition: Discharge to home or self care Social History Tobacco Use Types Packs/Day Years Used Date Smoking Tobacco: Never Comments Unknown Sex and Gender Information Value Date Recorded Sex Assigned at Not on file Legal Sex Female 6:59 AM RECREATIONAL THERAPY AIDE Gender Identity Not on file Sexual Orientation Not on file documented as of this encounter Discharge Disposition Disposition Code Departure Means Destination Discharge to home or self care documented in this encounter Plan of Treatment Not on file documented as of this encounter Procedures Procedure Name Priority Date/Time Associated Diagnosis Comments CBC WITH AUTO DIFFERENTIAL Routine Gen Lab 03/27/2017 9:03 AM RECREATIONAL THERAPY AIDE LACTATE DEHYDROGENASE Routine Gen Lab 03/27/2017 9:00 AM RECREATIONAL THERAPY AIDE CEA Routine Gen Lab 03/27/2017 9:00 AM RECREATIONAL THERAPY AIDE COMPREHENSIVE METABOLIC PANEL Routine Gen Lab 03/27/2017 9:00 AM RECREATIONAL THERAPY AIDE DISCHARGE LABORATORY CUMULATIVE REPORT 03/21/2017 12:00 AM RECREATIONAL THERAPY AIDE documented in this encounter Results * (ABNORMAL) CBC with auto differential (03/27/2017 9:03 AM RECREATIONAL THERAPY AIDE) [facility] Signature WBC 4.8 3.8 - 9.8 K/cumm [facility] RBC 4.48 3.90 - 5.00 M/cumm [facility] Hgb 14.7 12.1 - 15.1 g/dL [facility] Hct 43.8 36.1 - 44.3 % [facility] Mean Cellular Volume - CAM 97.7(H) 80.0 - 97.6 fL [facility] Mean Cellular Hemoglobin - CAM 32.7 26.7 - 33.7 pg [facility] Mean Cellular Hemoglobin Concentration - CAM 33.5 32.7 - 35.5 g/dL [facility] Rdw 13.5 11.8 - 14.6 % [facility] Plt 152 140 - 440 K/cumm [facility] Mean Platelet Volume - CAM 9.6 6.8 - 10.4 fL [facility] Neutrophil pct 61.7 38.7 - 74.5 % [facility] Lymphocyte pct 23.7 20.0 - 54.3 % [facility] Monos 8.8 4.3 - 13.5 % [facility] Eosinophil pct 5.1 0.0 - 6.0 % [facility] Basophil pct 0.7 0.0 - 3.0 % [facility] Neutrophil abs 3.0 1.8 - 6.6 K/cumm [facility] Lymphocyte abs 1.1(L) 1.2 - 3.3 K/cumm [facility] Monocyte abs 0.4 0.2 - 1.2 K/cumm [facility] Eosinophils, abs 0.2 0.0 - 0.5 K/cumm [facility] Basophil abs 0.0 0.0 - 0.2 K/cumm [facility] NRBC 0.0 0.0 - 0.2 % [facility] NRBC abs 0.00 0.00 - 0.01 K/cumm [facility] Blood specimen (specimen) 03/27/2017 9:03 AM RECREATIONAL THERAPY AIDE 03/27/2017 9:07 AM RECREATIONAL THERAPY AIDE Narrative [facility] - 03/27/2017 9:12 AM RECREATIONAL THERAPY AIDE Leanne Pike MD LAB BLOOD ORDERABLES Final Result Performing Organization Address [facility] de Phone Number [facility] Department [place] [address] * (ABNORMAL) CEA (03/27/2017 9:00 AM RECREATIONAL THERAPY AIDE) Pathologist [facility] CEA 6.6(H) 0.1 - 5.0 ng/mL [facility] Comment: Interpretive Data: Reference Range: ? Non-Smokers: ??0.1 - 5.0 ng/mL ? Smokers: ?0.1 - 6.5 ng/mL ?? This test was developed and its performance characteristics determined by the [facility] in a manner consistent with CLIA requirements. This test has not been cleared or approved by the U.S. Food and Drug Administration. Current interpretive data was last revised 2015. Blood specimen (specimen) 03/27/2017 9:00 AM RECREATIONAL THERAPY AIDE 03/27/2017 11:10 AM RECREATIONAL THERAPY AIDE Narrative [facility] - 03/27/2017 11:54 AM RECREATIONAL THERAPY AIDE Leanne Pike MD LAB BLOOD ORDERABLES Final Result Performing Organization Address [facility] de Phone Number [facility] Department [place] [address] * (ABNORMAL) Comprehensive metabolic panel (03/27/2017 9:00 AM [facility]) Pathologist [facility] Sodium 137 135 - 145 mmol/L [facility] Potassium, pl 4.5 3.3 - 4.9 mmol/L [facility] CO2 27 22 - 32 mmol/L [facility] BUN 10 8 - 25 mg/dL [facility] Glucose 121 70 - 199 mg/dL [facility] [...] Current interpretive data was last revised 2017. Creatinine 0.67 0.60 - 1.10 mg/dL [facility] Calcium 8.8 8.5 - 10.3 mg/dL [facility] Chloride 102 97 - 110 mmol/L [facility] Albumin 4.1 3.5 - 5.0 g/dL [facility] AST 42 10 - 45 Units/L [facility] ALT 58(H) 7 - 45 Units/L [facility] Alk phos 71 40 - 130 Units/L [facility] Bilirubin, total 0.6 0.1 - 1.2 mg/dL [facility] Protein, pl 7.0 6.5 - 8.5 g/dL [facility] Anion gap 8 2 - 15 mmol/L [facility] Blood specimen (specimen) 03/27/2017 9:00 AM RECREATIONAL THERAPY AIDE 03/27/2017 9:14 AM [facility] Narrative [facility] - 03/27/2017 9:40 AM RECREATIONAL THERAPY AIDE Leanne Pike MD LAB BLOOD ORDERABLES Final Result [facility] Department [place] [address] * Lactate dehydrogenase (LD) (03/27/2017 9:00 AM RECREATIONAL THERAPY AIDE) Lactate dehydrogenase (LDH) 240 100 - 250 Units/L [facility] Blood specimen (specimen) 03/27/2017 9:00 AM RECREATIONAL THERAPY AIDE 03/27/2017 9:14 AM RECREATIONAL THERAPY AIDE Narrative [facility] - 03/27/2017 9:40 AM RECREATIONAL THERAPY AIDE us Leanne Pike MD LAB BLOOD ORDERABLES Final Result [facility] Department [place] [address] * DISCHARGE LABORATORY CUMULATIVE REPORT (03/21/2017 12:00 AM RECREATIONAL THERAPY AIDE) Narrative 03/21/2017 12:00 AM RECREATIONAL THERAPY AIDE Ordered by an unspecified provider. us Historical Provider LAB BLOOD ORDERABLES Cari l Result documented in this encounter Visit Diagnoses Not on filedocumented in this encounter Care Teams Recording Engineer Relationship Specialty Start Date End Date Rodolfo Zuleta MD [address] [place] [id number] PCP - General 05/23/16 09/23/17 documented as of this encounter
--- OUTSIDE RECORDS SUMMARY | 2024-03-08 14:55 | XMS_ITS | Encounter Summary ---
Author Organization [facility] Facility Care Team Providers Care Generating Station Mechanic Name Role Phone Unavailable Primary Care Provider Unavailabl e Encounter Details Date Type Department Care Team (Late st Contact Info) Description 02/15/2015 - 02/15/2015 11:59 PM RECREATION FACILITIES SUPERVISOR Hospital Encounter [facility] Rodolfo Portillo MD [address] [place] [phone] Malignant neoplasm of colon (CMS/HCC); Acquired absence of other specified parts of digestive tract Social History Tobacco Use Types Packs/Day Years Used Date Smoking Tobacco: Never Assessed Comments Unknown Sex and Gender Information Value Date Recorded Sex Assigned at Not on file Legal Sex Female 6:59 AM RECREATION FACILITIES SUPERVISOR Gender Identity Not on file Sexual Orientation Not on file documented as of this encounter Plan of Treatment Not on file documented as of this encounter Procedures Procedure Name Priority Date/Time Associated Diagnosis Comments CT ABDOMEN PELVIS W CONTRAST Routine 02/15/2015 8:45 AM RECREATION FACILITIES SUPERVISOR CT ABDOMEN PELVIS W CONTRAST Routine 02/15/2015 8:39 AM RECREATION FACILITIES SUPERVISOR documented in this encounter Results * CT Abdomen Pelvis W Contrast (02/15/2015 8:45 AM RECREATION FACILITIES SUPERVISOR) Anatomical Region Laterality Modality Body N/A Computed Tomogra phy 02/15/2015 8:45 AM RECREATION FACILITIES SUPERVISOR Narrative 02/23/2015 8:27 AM RECREATION FACILITIES SUPERVISOR GIAN ONTIVEROS M.D. FINAL REPORT ACC# ??Date Time ??Exam [id number] Feb 15, 2015 08:45:[id number] Abd & Pelvis with cont EXAMINATION: ? CT of the abdomen and pelvis with contrast This revised report has been generated to correct the examination ordering attending(s); the report has not been altered from the previous version. HISTORY: ? Colon cancer status post right hemicolectomy. TECHNIQUE: CT of the abdomen and pelvis was obtained according to standard protocol after the uneventful administration of 94 mL of Optiray-350 intravenous contrast. FINDINGS: Comparison is made to a prior CT from outside facility dated 08/26/2014. The liver appears normal, with no focal hepatic lesions. There is no intra or extrahepatic biliary ductal dilatation. The gallbladder is surgically absent. The pancreas appears normal. 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 The adrenal glands and right kidney appear normal. There is a nonobstructing stone in the left kidney lower pole measuring approximately 4 mm. There is no hydronephrosis. The bowel is normal in caliber with no evidence of obstruction. Post surgical changes of right hemicolectomy are noted. There multiple surgical clips in the right hemiabdomen. There are phleboliths in the pelvis. The uterus and adnexa are unremarkable. There is no free fluid or pneumoperitoneum. There is no abdominal or pelvic lymphadenopathy. The lung bases are clear. The heart size is normal. There is no pleural or pericardial effusion. Bone windows demonstrate no suspicious lytic or blastic lesions. There are degenerative changes in the spine. IMPRESSION: ?? No evidence of recurrent or metastatic disease. Requested By: Dictated By: ?? GIAN ONTIVEROS M.D. ??on Feb 21 2015 ??9:44A This document has been electronically signed by: GIAN ONTIVEROS M.D. on Feb 23 2015 ??8:27A Procedure Note Provider, MD Yenny - 07/09/2016 GIAN ONTIVEROS M.D. FINAL REPORT ACC# Date Time Exam [id number] Feb 15, 2015 08:45:[id number] Abd & Pelvis with cont EXAMINATION: CT of the abdomen and pelvis with contrast This revised report has been generated to correct the examination ordering attending(s); the report has not been altered from the previous version. HISTORY: Colon cancer status post right hemicolectomy. TECHNIQUE: CT of the abdomen and pelvis was obtained according to standard protocol after the uneventful administration of 94 mL of Optiray-350 intravenous contrast. FINDINGS: Comparison is made to a prior CT from outside facility dated 08/26/2014. The liver appears normal, with no focal hepatic lesions. There is no intra or extrahepatic biliary ductal dilatation. The gallbladder is surgically absent. The pancreas appears normal. 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 The adrenal glands and right kidney appear normal. There is a nonobstructing stone in the left kidney lower pole measuring approximately 4 mm. There is no hydronephrosis. The bowel is normal in caliber with no evidence of obstruction. Post surgical changes of right hemicolectomy are noted. There multiple surgical clips in the right hemiabdomen. There are phleboliths in the pelvis. The uterus and adnexa are unremarkable. There is no free fluid or pneumoperitoneum. There is no abdominal or pelvic lymphadenopathy. The lung bases are clear. The heart size is normal. There is no pleural or pericardial effusion. Bone windows demonstrate no suspicious lytic or blastic lesions. There are degenerative changes in the spine. IMPRESSION: No evidence of recurrent or metastatic disease. Requested By: Dictated By: GIAN ONTIVEROS M.D. on Feb 21 2015 9:44A This document has been electronically signed by: GIAN ONTIVEROS M.D. on Feb 23 2015 8:27A Historical Provider MD SINGH CT PROCEDURES Final R esult * CT Abdomen Pelvis W Contrast (02/15/2015 8:39 AM RECREATION FACILITIES SUPERVISOR) Anatomical Region Laterality Modality Body N/A Computed Tomogra phy 02/15/2015 8:39 AM RECREATION FACILITIES SUPERVISOR Narrative 02/25/2015 8:42 AM RECREATION FACILITIES SUPERVISOR This examination was converted from a Ritani system and did not match a report, either due to it being a non-reportable examination, or a duplicate entry Procedure Note Provider, MD Yenny - 10/15/2016 This examination was converted from a legacy system and did not match areport, either due to it being a non-reportable examination, or aduplicate entry us Historical Provider MD SINGH CT PROCEDURES Final R esult documented in this encounter Visit Diagnoses Diagnosis Malignant neoplasm of colon (HCC) Malignant neoplasm of colon, unspecified site Acquired absence of other specified parts of digestive tract documented in this encounter
--- OUTSIDE RECORDS SUMMARY | 2024-03-08 14:55 | XMS_ITS | Encounter Summary ---
Author Organization [facility] Address [address] [facility] [address] [place] [address] Phone Care Team Providers Care Counter Person Name Role Phone Rodolfo Zuleta MD Primary Care Provider [phone] Reason for Visit * Oncology (Routine) - Closed Specialty Diagnoses / Procedures Referred By Contac t Referred To Contact Lab Diagnoses #C,,,,PER NEETU PT TO SEE HULL INSPECTOR Procedures ARM DRAW Leanne Pike MD Phone: tel: fax: [facility] Oncology [facility] 7th [place] [address] [place] [address] Phone: tel: Referral ID Status Reason Start Date Expiration Date Visits Re quested Visits Authorized [id number] Closed 04/11/2018 03/10/2019 99 99 Encounter Details Date Type Department Care Team (Late st Contact Info) Description 04/16/2018 8:15 AM CALL CENTER AGENT Lab [facility] Oncology [address] [facility] 7th [place] [address] [place] [address] Leanne Pike MD [address] [phone] [place] [address] Personal history of colon cancer [...] on file Legal Sex Female 6:59 AM CALL CENTER AGENT Gender Identity Not on file Sexual Orientation Not on file documented as of this encounter Discharge Disposition Disposition Code Departure Means Destination Discharge to home or self care documented in this encounter Plan of Treatment Not on file documented as of this encounter Procedures Procedure Name Priority Date/Time Associated Diagnosis Comments DIFFERENTIAL AUTO STAT 04/16/2018 8:2 0 AM CALL CENTER AGENT Personal history of colon cancer CBC WITH AUTO DIFFERENTIAL STAT 04/16/2018 8:20 AM CALL CENTER AGENT Personal history of colon cancer CEA STAT 04/16/2018 8:15 AM CALL CENTER AGENT Personal history of colon cancer COMPREHENSIVE METABOLIC PANEL STAT 04/16/2018 8:15 AM CALL CENTER AGENT Personal history of colon cancer documented in this encounter Results * (ABNORMAL) Differential, auto (04/16/2018 8:20 AM CALL CENTER AGENT) Neutrophil abs 4.4 1.8 - 6.6 K/cumm [facility] Comment:Testing performed by : [facility], [address] [place] [phone] Lymphocyte abs 1.1(L) 1.2 - 3.3 K/cumm [facility] Comment:Testing performed by : [facility], [address] [place] [phone] Monocyte abs 0.6 0.2 - 1.2 K/cumm [facility] Comment:Testing performed by : [facility], [address] [place] [phone] Eosinophil abs 0.2 0.0 - 0.5 K/cumm [facility] Comment:Testing performed by : [facility], [address] [place] [phone] Basophil abs 0.0 0.0 - 0.2 K/cumm [facility] Comment:Testing performed by : [facility], [address] [place] [phone] Neutrophil pct 70.3 % [facility] Comment: Interpretive Data Percent cell count reference ranges are not reported, since discordance with absolute values may lead to misinterpretation of CBC data. Current Interpretive Data was last revised on 2017. Testing performed by: [facility], [address] [place] [phone] Lymphocyte pct 17.4 % [facility] Comment: Interpretive Data Percent cell count reference ranges are not reported, since discordance with absolute values may lead to misinterpretation of CBC data. Current Interpretive Data was last revised on 2017. Testing performed by: [facility], [address] [place] [phone] Monocyte pct 9.2 % [facility] Comment:Testing performed by : [facility], [address] [place] [phone] Eosinophil pct 2.6 % [facility] Comment:Testing performed by : [facility], [address] [place] [phone] Basophil pct 0.5 % [facility] Comment:Testing performed by : [facility], [address] [place] [phone] Blood specimen (specimen) 04/16/2018 8:20 AM CALL CENTER AGENT 04/16/2018 8:23 AM CALL CENTER AGENT Narrative AD[facility] - 04/16/2018 8:29 AM CALL CENTER AGENT Jeri Yanez HULL INSPECTOR LAB BLOOD ORDERABLES Cari l Result AD[facility] Department [place] [address] * CBC with auto differential (04/16/2018 8:20 AM CALL CENTER AGENT) WBC 6.3 3.8 - 9.8 K/cumm [facility] Comment:Testing performed by : [facility], [address] [place] [phone] Hgb 14.6 12.1 - 15.1 g/dL [facility] Comment:Testing performed by : [facility], [address] [place] [phone] Hct 43.0 36.1 - 44.3 % [facility] Comment:Testing performed by : [facility], [address] [place], [place] [phone] Plt 145 140 - 440 K/cumm [facility] Comment:Testing performed by : [facility], [address] [place], [place] [phone] MPV 9.4 6.8 - 10.4 fL [facility] Comment:Testing performed by : [facility], [address] [place] [address] RBC 4.51 3.90 - 5.00 M/cumm [facility]FO [facility] Comment:Testing performed by : [place] [id number] MCV 95.5 80.0 - 97.6 fL [facility] Comment:Testing performed by : [facility], [address] [place], [place] [phone] MCH 32.3 26.7 - 33.7 pg [facility] Comment:Testing performed by : [facility], [address] [place], [place] [id number] MCHC 33.8 32.7 - 35.5 g/dL [facility] Comment:Testing performed by : [place] [id number] RDW CV 13.1 11.8 - 14.6 % [facility] Comment:Testing performed by : [place] [id number] NRBC abs 0.00 0.00 - 0.01 K/cumm [facility] Comment:Testing performed by : [facility], [address] [place], [place] [phone] Blood specimen (specimen) 04/16/2018 8:20 AM CALL CENTER AGENT 04/16/2018 8:23 AM CALL CENTER AGENT Narrative [facility] - 04/16/2018 8:29 AM CALL CENTER AGENT us Jeri Yanez NP LAB BLOOD ORDERABLES Cari l Result [facility] Department of Laboratories [place] [phone] * (ABNORMAL) CEA (04/16/2018 8:15 AM CALL CENTER AGENT) [facility] CEA 7.6(H) <=5.0 ng/mL [facility] Comment: Interpretative Data: Reference Range: Non-Smokers: 0.0 - 5.0 ng/mL Smokers: 0.0 ? 6.5 ng/mL This test was developed and its performance characteristics determined by the [facility] in a manner consistent with CLIA requirements. This test has not been cleared or approved by the U.S. Food and Drug Administration. Current interpretive data was last revised 2018. Blood specimen (specimen) 04/16/2018 8:15 AM CALL CENTER AGENT 04/16/2018 8:30 AM CALL CENTER AGENT Narrative [facility] - 04/16/2018 9:12 AM CALL CENTER AGENT Jeri Yanez NP LAB BLOOD ORDERABLES Cari l Result [facility] [place] [address] * (ABNORMAL) Comprehensive metabolic panel (04/16/2018 8:15 AM CALL CENTER AGENT) [facility] Sodium 141 135 - 145 mmol/L [facility] Potassium, pl 4.0 3.3 - 4.9 mmol/L [facility] Chloride 106 97 - 110 mmol/L [facility] CO2 31 22 - 32 mmol/L [facility] Anion gap 4 2 - 15 mmol/L [facility] BUN 7(L) 8 - 25 mg/dL [facility] Creatinine 0.70 0.60 - 1.10 mg/dL [facility] Glucose 116 70 - 199 mg/dL [facility] Comment: Interpretive Data Fasting glucose >/= [...] Calcium 9.7 8.5 - 10.3 mg/dL [facility] Bilirubin, total 0.8 0.1 - 1.2 mg/dL [facility] Protein, pl 7.2 6.5 - 8.5 g/dL [facility] Albumin 4.5 3.5 - 5.0 g/dL [facility] Alk phos 66 40 - 130 Units/L [facility] ALT 36 7 - 45 Units/L [facility] AST 29 10 - 45 Units/L [facility] Blood specimen (specimen) 04/16/2018 8:15 AM CALL CENTER AGENT 04/16/2018 8:30 AM CALL CENTER AGENT Narrative [facility] - 04/16/2018 9:12 AM CALL CENTER AGENT Jeri Yanez HULL INSPECTOR LAB BLOOD ORDERABLES Cari l Result [facility] [place] [address] documented in this encounter Visit Diagnoses Diagnosis Personal history of colon cancer Personal history of malignant neoplasm of large intestine documented in this encounter Care Teams Counter Person Relationship Specialty Start Date End Date Rodolfo Zuleta MD [address] [place] [id number] PCP - General 09/24/17 documented as of this encounter
--- OUTSIDE RECORDS SUMMARY | 2024-03-08 14:55 | XMS_ITS | Encounter Summary ---
Author Organization [facility] Facility Care Team Providers Care Human Resources Team Member Name Role Phone Unavailable Primary Care Provider Unavailabl e Encounter Details Date Type Department Care Team (Late st Contact Info) Description 01/17/2015 - 03/10/2015 11:59 PM ROLLER MILL TENDER Hospital Encounter [facility] Malignant neoplasm of colon (CMS/HCC) Social History Tobacco Use Types Packs/Day Years Used Date Smoking Tobacco: Never Assessed Comments Unknown Sex and Gender Information Value Date Recorded Sex Assigned at Not on file Legal Sex Female 6:59 AM ROLLER MILL TENDER Gender Identity Not on file Sexual Orientation Not on file documented as of this encounter Plan of Treatment Not on file documented as of this encounter Procedures Procedure Name Priority Date/Time Associated Diagnosis Comments DISCHARGE LABORATORY CUMULATIVE REPORT 03/10/2015 PLASMA COMPREHENSIVE METABOLIC PANEL Routine 02/23/2015 7:15 AM ROLLER MILL TENDER PLASMA CARCINOEMBRYONIC AG (CEA) Routine 02/23/2015 7:15 AM ROLLER MILL TENDER BLOOD CELL COUNT Routine 02/23/2015 7:11 AM ROLLER MILL TENDER documented in this encounter Results * DISCHARGE LABORATORY CUMULATIVE REPORT (03/10/2015) Narrative 03/10/2015 Ordered by an unspecified provider. us Historical Provider LAB BLOOD ORDERABLES Cari l Result * (ABNORMAL) Plasma comprehensive metabolic panel (02/23/2015 7:15 AM ROLLER MILL TENDER) Sodium 142 135 - 145 mmol/L HISTORICAL RESULTS K, pl 4.4 3.3 - 4.9 mmol/L HISTORICAL RESULTS Chloride 104 97 - 110 mmol/L HISTORICAL RESULTS CO2 30 22 - 32 mmol/L HISTORICAL RESULTS A. gap 8 0 - 16 mmol/L HISTORICAL RESULTS Glucose 105 70 - 199 mg/dl HISTORICAL RESULTS BUN 8 8 - 25 mg/dl HISTORICAL RESULTS Creatinine 0.68 0.60 - 1.10 mg/dl HISTORICAL RESULTS Calcium 9.5 8.6 - 10.3 mg/dl HISTORICAL RESULTS Protein, pl 7.3 6.5 - 8.5 g/dl HISTORICAL RESULTS Alb 4.3 3.6 - 5.0 g/dl HISTORICAL RESULTS Bilirubin 0.7 0.3 - 1.1 mg/dl HISTORICAL RESULTS Alk phos 74 38 - 126 Units/L HISTORICAL RESULTS AST 45 11 - 47 Units/L HISTORICAL RESULTS ALT 77(H) 7 - 53 Units/L HISTORICAL RESULTS Plasma 02/23/2015 7:15 AM ROLLER MILL TENDER Rodolfo Zuleta MD LAB [facility]LOOD [facility] Performing Organization Address [facility] de Phone Number HISTORICAL RESULTS * (ABNORMAL) Plasma carcinoembryonic ag (CEA) (02/23/2015 7:15 AM ROLLER MILL TENDER) Pathologist [facility] CEA 3.9(H) 0.0 - 2.5 ng/ml HISTORICAL RESULTS Comment: Interpretive Data Reference Range: ? Non-Smokers: ??0 - 2.5 ng/mL ? Smokers: ?0 - 5.0 ng/mL ?? This test was developed and its performance characterisitics determined by the [facility] in a manner consistent with CLIA requirements. This test has not been cleared or approved by the [place] Food and Drug Administration. Current interpretive data was last revised 2011. Plasma 02/23/2015 7:15 AM ROLLER MILL TENDER Rodolfo Zuleta MD LAB BLOOD ORDERABLES Final R esult Performing Organization Address [facility] Co de Phone Number HISTORICAL RESULTS * (ABNORMAL) Blood cell count [CBC] panel, 7 CAM (02/23/2015 7:11 AM ROLLER MILL TENDER) WBC 5.5 3.8 - 9.8 K/cumm HISTORICAL RESULTS RBC 4.56 3.90 - 5.00 M/cumm HISTORICAL RESULTS Hgb 14.6 12.1 - 15.1 g/dl HISTORICAL RESULTS Hct 44.8(H) 36.1 - 44.3 % HISTORICAL RESULTS MCV 98.3(H) 80.0 - 97.6 fl HISTORICAL RESULTS MCH 32.0 26.7 - 33.7 pg HISTORICAL RESULTS MCHC 32.5(L) 32.7 - 35.5 g/dl HISTORICAL RESULTS Rdw 13.3 11.8 - 14.6 % HISTORICAL RESULTS Platelets 152 140 - 440 K/cumm HISTORICAL RESULTS MPV 9.7 6.8 - 10.4 fl HISTORICAL RESULTS Neutrophils 61.9 38.7 - 74.5 % HISTORICAL RESULTS Lymphocytes 25.5 20.0 - 54.3 % HISTORICAL RESULTS Monos 8.8 4.3 - 13.5 % HISTORICAL RESULTS Eosinophils 3.3 0.0 - 6.0 % HISTORICAL RESULTS Basophils 0.5 0.0 - 3.0 % HISTORICAL RESULTS Neutrophils, abs 3.4 1.8 - 6.6 K/cumm HISTORICAL RESULTS Lymphocytes, abs 1.4 1.2 - 3.3 K/cumm HISTORICAL RESULTS Monocytes, absolute 0.5 0.2 - 1.2 K/cumm HISTORICAL RESULTS Eosinophils, abs 0.2 0.0 - 0.5 K/cumm HISTORICAL RESULTS Basophils, abs 0.0 0.0 - 0.2 K/cumm HISTORICAL RESULTS Blood specimen (specimen) 02/23/2015 7:11 AM ROLLER MILL TENDER Rodolfo Moe Zuleta MD LAB BLOOD ORDERABLES Final R esult HISTORICAL RESULTS documented in this encounter Visit Diagnoses Diagnosis Malignant neoplasm of colon (HCC) Malignant neoplasm of colon, unspecified site documented in this encounter
--- OUTSIDE RECORDS SUMMARY | 2024-03-08 14:55 | XMS_ITS | Encounter Summary ---
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 - 02/22/2016 11:59 PM 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 Hospital Encounter [facility] Leanne Wilkerson MD [address] [facility] [id number] [place] [address] Malignant neoplasm of colon (CMS/HCC) Social History Tobacco Use Types Packs/Day Years Used Date Smoking Tobacco: Never Assessed Comments Unknown Sex and Gender Information Value Date Recorded Sex Assigned at Not on file Legal Sex Female 6:59 AM [employer]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 Gender Identity Not on file Sexual Orientation Not on file documented as of this encounter Plan of Treatment Not on file documented as of this encounter Procedures Procedure Name Priority Date/Time Associated Diagnosis Comments CT ABDOMEN PELVIS W CONTRAST Routine 02/22/2016 8:50 AM [employer] G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 CT CHEST W CONTRAST Routine 02/22/2016 8:50 AM 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 documented in this encounter Results * CT Chest W Contrast (02/22/2016 8:50 AM SALMON G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) Anatomical Region Laterality Modality Body N/A Computed Tomogra phy 02/22/2016 8:50 AM SALMON G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 Narrative 02/22/2016 10:28 AM [employer]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 NIRALI BARTLETT M.D. LIZETTE BONNER M.D. FINAL REPORT The radiology attending physician has personally reviewed this study, and has reviewed and/or edited this written report and agrees with it. ACC# ??Date Time ??Exam [id number] Feb 22, 2016 08:50:[id number] Chest with contrast [id number] Feb 22, 2016 08:50:[id number] Abd & Pelvis with cont EXAMINATION: ?CT chest, abdomen and pelvis with contrast TECHNIQUE: Computed tomographic images of the chest, abdomen and pelvis were obtained after the uneventful intravenous infusion of 93 milliliters of Optiray- 350 per standard protocol. HISTORY: ??Colon cancer resected in 2013 with elevated CEA in November of this year. FINDINGS: ?? Comparison is made with abdomen and pelvis CT from 02/15/[address] from 10/27/2013. Chest: A 2 mm minor intrafissural lymph node is stable from 2013. Lungs are otherwise clear with no suspicious pulmonary nodules, focal consolidations or pleural effusions. There is no supraclavicular, mediastinal or axillary lymphadenopathy. Heart size is normal with no pericardial effusion. There is mild atherosclerosis of the thoracic aorta. There is no large central pulmonary embolus. Abdomen: A xwf-zmlvu-lh-characterize lesion is seen in the left lobe of the liver which is unchanged and most likely a cyst. The liver is otherwise normal with no suspicious lesions seen. 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 The pancreas and common bile duct are normal. There are changes of cholecystectomy. A small hiatal hernia is seen. The adrenal glands are normal bilaterally. There is a tiny non-obstructing stone in the left kidney. The kidneys enhance bilaterally with no hydronephrosis. Urinary bladder is normal. The uterus and adnexa are unremarkable. Surgical clips are seen in the rectum. There are changes of hemicolectomy and multiple surgical clips in the right hemiabdomen. ??No retroperitoneal or pelvic lymphadenopathy is seen. The abdominal vasculature is unremarkable. Bone windows demonstrate no suspicious lytic or blastic osseous lesions. Degenerative changes are seen in the spine. IMPRESSION: ?? 1. No evidence of recurrent or metastatic disease. Requested By: Dictated By: ?? LIZETTE BONNER M.D. ??on Feb 22 2016 10:18A This document has been electronically signed by: NIRALI BARTLETT M.D. on Feb 22 2016 10:28A [id number] Procedure Note Provider, MD Yenny - 07/16/2016 NIRALI BARTLETT M.D. LIZETTE BONNER M.D. FINAL REPORT The radiology attending physician has personally reviewed this study, and has reviewed and/or edited this written report and agrees with it. ACC# Date Time Exam [id number] Feb 22, 2016 08:50:[id number] Chest with contrast [id number] Feb 22, 2016 08:50:[id number] Abd & Pelvis with cont EXAMINATION: CT chest, abdomen and pelvis with contrast TECHNIQUE: Computed tomographic images of the chest, abdomen and pelvis were obtained after the uneventful intravenous infusion of 93 milliliters of Optiray- 350 per standard protocol. HISTORY: Colon cancer resected in 2013 with elevated CEA in November of this year. FINDINGS: Comparison is made with abdomen and pelvis CT from 02/15/[address] from 10/27/2013. Chest: A 2 mm minor intrafissural lymph node is stable from 2013. Lungs are otherwise clear with no suspicious pulmonary nodules, focal consolidations or pleural effusions. There is no supraclavicular, mediastinal or axillary lymphadenopathy. Heart size is normal with no pericardial effusion. There is mild atherosclerosis of the thoracic aorta. There is no large central pulmonary embolus. Abdomen: A oje-nayuv-vs-characterize lesion is seen in the left lobe of the liver which is unchanged and most likely a cyst. The liver is otherwise normal with no suspicious lesions seen. 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 The pancreas and common bile duct are normal. There are changes of cholecystectomy. A small hiatal hernia is seen. The adrenal glands are normal bilaterally. There is a tiny non-obstructing stone in the left kidney. The kidneys enhance bilaterally with no hydronephrosis. Urinary bladder is normal. The uterus and adnexa are unremarkable. Surgical clips are seen in the rectum. There are changes of hemicolectomy and multiple surgical clips in the right hemiabdomen. No retroperitoneal or pelvic lymphadenopathy is seen. The abdominal vasculature is unremarkable. Bone windows demonstrate no suspicious lytic or blastic osseous lesions. Degenerative changes are seen in the spine. IMPRESSION: 1. No evidence of recurrent or metastatic disease. Requested By: Dictated By: LIZETTE BONNER M.D. on Feb 22 2016 10:18A This document has been electronically signed by: NIRALI BARTLETT M.D. on Feb 22 2016 10:28A [id number] us Historical Provider MD SINGH CT PROCEDURES Final R esult * CT Abdomen Pelvis W Contrast (02/22/2016 8:50 AM [employer]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) Anatomical Region Laterality Modality Body N/A Computed Tomogra phy 02/22/2016 8:5 0 AM [employer]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 Narrative 02/22/2016 10:28 AM 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 Jane PRICE M.D. FINAL REPORT The radiology attending physician has personally reviewed this study, and has reviewed and/or edited this written report and agrees with it. ACC# ??Date Time ??Exam [id number] Feb 22, 2016 08:50:[id number] Chest with contrast [id number] Feb 22, 2016 08:50:[id number] Abd & Pelvis with cont EXAMINATION: ?CT chest, abdomen and pelvis with contrast TECHNIQUE: Computed tomographic images of the chest, abdomen and pelvis were obtained after the uneventful intravenous infusion of 93 milliliters of Optiray- 350 per standard protocol. HISTORY: ??Colon cancer resected in 2013 with elevated CEA in November of this year. FINDINGS: ?? Comparison is made with abdomen and pelvis CT from 02/15/[address] from 10/27/2013. Chest: A 2 mm minor intrafissural lymph node is stable from 2013. Lungs are otherwise clear with no suspicious pulmonary nodules, focal consolidations or pleural effusions. There is no supraclavicular, mediastinal or axillary lymphadenopathy. Heart size is normal with no pericardial effusion. There is mild atherosclerosis of the thoracic aorta. There is no large central pulmonary embolus. Abdomen: A tnd-cidlk-fm-characterize lesion is seen in the left lobe of the liver which is unchanged and most likely a cyst. The liver is otherwise normal with no suspicious lesions seen. 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 The pancreas and common bile duct are normal. There are changes of cholecystectomy. A small hiatal hernia is seen. The adrenal glands are normal bilaterally. There is a tiny non-obstructing stone in the left kidney. The kidneys enhance bilaterally with no hydronephrosis. Urinary bladder is normal. The uterus and adnexa are unremarkable. Surgical clips are seen in the rectum. There are changes of hemicolectomy and multiple surgical clips in the right hemiabdomen. ??No retroperitoneal or pelvic lymphadenopathy is seen. The abdominal vasculature is unremarkable. Bone windows demonstrate no suspicious lytic or blastic osseous lesions. Degenerative changes are seen in the spine. IMPRESSION: ?? 1. No evidence of recurrent or metastatic disease. Requested By: Dictated By: ?? LIZETTE BONNER M.D. ??on Feb 22 2016 10:18A This document has been electronically signed by: NIRALI BARTLETT M.D. on Feb 22 2016 10:28A [id number] Procedure Note Provider, MD Yenny - 07/16/2016 NIRALI BARTLETT M.D. LIZETTE BONNER M.D. FINAL REPORT The radiology attending physician has personally reviewed this study, and has reviewed and/or edited this written report and agrees with it. ACC# Date Time Exam [id number] Feb 22, 2016 08:50:[id number] Chest with contrast [id number] Feb 22, 2016 08:50:[id number] Abd & Pelvis with cont EXAMINATION: CT chest, abdomen and pelvis with contrast TECHNIQUE: Computed tomographic images of the chest, abdomen and pelvis were obtained after the uneventful intravenous infusion of 93 milliliters of Optiray- 350 per standard protocol. HISTORY: Colon cancer resected in 2013 with elevated CEA in November of this year. FINDINGS: Comparison is made with abdomen and pelvis CT from 02/15/[address] from 10/27/2013. Chest: A 2 mm minor intrafissural lymph node is stable from 2013. Lungs are otherwise clear with no suspicious pulmonary nodules, focal consolidations or pleural effusions. There is no supraclavicular, mediastinal or axillary lymphadenopathy. Heart size is normal with no pericardial effusion. There is mild atherosclerosis of the thoracic aorta. There is no large central pulmonary embolus. Abdomen: A hjd-snktf-vs-characterize lesion is seen in the left lobe of the liver which is unchanged and most likely a cyst. The liver is otherwise normal with no suspicious lesions seen. 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 The pancreas and common bile duct are normal. There are changes of cholecystectomy. A small hiatal hernia is seen. The adrenal glands are normal bilaterally. There is a tiny non-obstructing stone in the left kidney. The kidneys enhance bilaterally with no hydronephrosis. Urinary bladder is normal. The uterus and adnexa are unremarkable. Surgical clips are seen in the rectum. There are changes of hemicolectomy and multiple surgical clips in the right hemiabdomen. No retroperitoneal or pelvic lymphadenopathy is seen. The abdominal vasculature is unremarkable. Bone windows demonstrate no suspicious lytic or blastic osseous lesions. Degenerative changes are seen in the spine. IMPRESSION: 1. No evidence of recurrent or metastatic disease. Requested By: Dictated By: LIZETTE BONNER M.D. on Feb 22 2016 10:18A This document has been electronically signed by: NIRALI BARTLETT M.D. on Feb 22 2016 10:28A [id number] Historical Provider MD SINGH CT PROCEDURES Final R esult documented in this encounter Visit Diagnoses Diagnosis Malignant neoplasm of colon (HCC) Malignant neoplasm of colon, unspecified site documented in this encounter
--- OUTSIDE RECORDS SUMMARY | 2024-03-08 14:55 | XMS_ITS | Encounter Summary ---
Author Organization [facility] Address [address] [place] [address] Phone Care Team Providers Care Dosier Operator Name Role Phone Rodolfo Zuleta MD Primary Care Provider [phone] Encounter Details Date Type Department Care Team (Late st Contact Info) Description 10/02/2017 9:30 AM CDT Lab [facility] Oncology [address] [facility] 7th [place] [address] [place] [address] Leanne Pike MD [address] [id number] [place] [address] History of malignant neoplasm of colon Discharge [...] on file 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 Gender Identity Not on file Sexual Orientation Not on file documented as of this encounter Discharge Disposition Disposition Code Departure Means Destination Discharge to home or self care documented in this encounter Plan of Treatment Not on file documented as of this encounter Procedures Procedure Name Priority Date/Time Associated Diagnosis Comments DIFFERENTIAL AUTO Routine 10/02/2017 9:0 2 AM CDT History of malignant neoplasm of colon CBC WITH AUTO DIFFERENTIAL Routine 10/02/2017 9:02 AM CDT History of malignant neoplasm of colon CEA Routine 10/02/2017 8:55 AM CDT History of malignant neoplasm of colon COMPREHENSIVE METABOLIC PANEL STAT 10/02/2017 8:55 AM CDT History of malignant neoplasm of colon documented in this encounter Results * Differential, auto (10/02/2017 9:02 AM CDT) Neutrophil abs 2.7 1.8 - 6.6 K/cumm [facility] Comment:Testing performed by : [facility], [address] [place] [phone] Lymphocyte abs 1.2 1.2 - 3.3 K/cumm [facility] Comment:Testing performed by : [facility], [address] [place] [phone] Monocyte abs 0.5 0.2 - 1.2 K/cumm [facility] Comment:Testing performed by : [facility], [address] [place] [phone] Eosinophil abs 0.2 0.0 - 0.5 K/cumm [facility] Comment:Testing performed by : [facility], [address] [place] [phone] Basophil abs 0.0 0.0 - 0.2 K/cumm [facility] Comment:Testing performed by : [facility], [address] [place] [phone] Neutrophil pct 58.4 % [facility] Comment: Interpretive Data Percent cell count reference ranges are not reported, since discordance with absolute values may lead to misinterpretation of CBC data. Current Interpretive Data was last revised on 2017. Testing performed by: [facility], [address] [place] [phone] Lymphocyte pct 25.9 % [facility] Comment: Interpretive Data Percent cell count reference ranges are not reported, since discordance with absolute values may lead to misinterpretation of CBC data. Current Interpretive Data was last revised on 2017. Testing performed by: [facility], [address] [place] [phone] Monocyte pct 11.0 % [facility] Comment:Testing performed by : [facility], [address] [place] [phone] Eosinophil pct 4.0 % [facility] Comment:Testing performed by : [facility], [address] [place] [phone] Basophil pct 0.7 % [facility] Comment:Testing performed by : [facility], [address] [place] [phone] Blood specimen (specimen) 10/02/2017 9:02 AM CDT 10/02/2017 9:04 AM CDT Narrative [facility] - 10/02/2017 9:08 AM CDT us Leanne Pike MD LAB BLOOD ORDERABLES Final Result [facility] Department [place] [address] * (ABNORMAL) CBC with auto differential (10/02/2017 9:02 AM CDT) WBC 4.6 3.8 - 9.8 K/cumm [facility] Comment:Testing performed by : [facility], [address] [place] [phone] Hgb 14.6 12.1 - 15.1 g/dL [facility] Comment:Testing performed by : [address] [phone] Hct 43.5 36.1 - 44.3 % [facility] Comment:Testing performed by : [facility], [address] [place] [phone] Plt 158 140 - 440 K/cumm [facility] Comment:Testing performed by : [address] [phone] MPV 9.1 6.8 - 10.4 fL [facility] Comment:Testing performed by : [address] [phone] RBC 4.44 3.90 - 5.00 M/cumm [facility] Comment:Testing performed by : [facility], [address] [place], [place] [phone] MCV 98.0(H) 80.0 - 97.6 fL [facility] Comment:Testing performed by : [facility], [address] [place] [address] MCH 32.8 26.7 - 33.7 pg [facility] Comment:Testing performed by : [facility], [address] [place] [address] MCHC 33.5 32.7 - 35.5 g/dL [facility] Comment:Testing performed by : [facility], [address] [place] [address] RDW CV 13.3 11.8 - 14.6 % [facility] Comment:Testing performed by : [facility], [address] [place], [place] [phone] NRBC abs 0.00 0.00 - 0.01 K/cumm [facility] Comment:Testing performed by : [facility], [address] [place] [address] Blood specimen (specimen) 10/02/2017 9:02 AM CDT 10/02/2017 9:04 AM CDT Narrative [facility] - 10/02/2017 9:08 AM CDT Leanne Pike MD LAB BLOOD ORDERABLES Final Result [facility] Department [place] [address] * (ABNORMAL) Comprehensive metabolic panel (10/02/2017 8:55 AM CDT) Sodium 140 135 - 145 mmol/L [facility] Potassium, pl 4.7 3.3 - 4.9 mmol/L [facility] Chloride 104 97 - 110 mmol/L [facility] CO2 29 22 - 32 mmol/L [facility] Anion gap 7 2 - 15 mmol/L [facility] BUN 8 8 - 25 mg/dL [facility] Creatinine 0.76 0.60 - 1.10 mg/dL [facility] Glucose 108 70 - 199 mg/dL [facility] Comment: Interpretive Data Fasting glucose >/= [...] 2017. Calcium 9.2 8.5 - 10.3 mg/dL [facility] Bilirubin, total 0.7 0.1 - 1.2 mg/dL [facility] Protein, pl 7.0 6.5 - 8.5 g/dL [facility] Albumin 4.1 3.5 - 5.0 g/dL [facility] Alk phos 74 40 - 130 Units/L [facility] ALT 51(H) 7 - 45 Units/L [facility] AST 34 10 - 45 Units/L [facility] Blood specimen (specimen) 10/02/2017 8:55 AM CDT 10/02/2017 9:11 AM CDT Narrative [facility] - 10/02/2017 10:06 AM CDT us Leanne Pike MD LAB BLOOD ORDERABLES Final Result [facility] Department [place] [address] * (ABNORMAL) CEA (10/02/2017 8:55 AM CDT) [facility] CEA 7.7(H) 0.1 - 5.0 ng/mL [facility] Comment: Interpretive Data: Reference Range: ? Non-Smokers: ??0.1 - 5.0 ng/mL ? Smokers: ?0.1 - 6.5 ng/mL ?? This test was developed and its performance characteristics determined by the [facility] in a manner consistent with CLIA requirements. This test has not been cleared or approved by the U.S. Food and Drug Administration. Current interpretive data was last revised 2015. Blood specimen (specimen) 10/02/2017 8:55 AM CDT 10/02/2017 9:11 AM CDT Narrative [facility] - 10/02/2017 9:54 AM CDT Leanne Pike MD LAB BLOOD ORDERABLES Final Result [facility] Department [place] [address] documented in this encounter Visit Diagnoses Diagnosis History of malignant neoplasm of colon documented in this encounter Care Teams Dosier Operator Relationship Specialty Start Date End Date Rodolfo Zuleta MD [address] [place] [id number] PCP - General 09/24/17 documented as of this encounter
--- OUTSIDE RECORDS SUMMARY | 2024-03-08 14:55 | XMS_ITS | Encounter Summary ---
Author Organization [facility] Facility Care Team Providers Care Station Cashier Name Role Phone Unavailable Primary Care Provider Unavailabl e Encounter Details Date Type Department Care Team (Late st Contact Info) Description 01/11/2015 - 01/11/2015 11:59 PM LICENSED GUIDE Hospital Encounter [facility] Rodolfo Portillo MD [address] [place] [address] [phone] Social History Tobacco Use Types Packs/Day Years Used Date Smoking Tobacco: Never Assessed Comments Unknown Sex and Gender Information Value Date Recorded Sex Assigned at Not on file Legal Sex Female 6:59 AM LICENSED GUIDE Gender Identity Not on file Sexual Orientation Not on file documented as of this encounter Plan of Treatment Not on file documented as of this encounter Procedures Procedure Name Priority Date/Time Associated Diagnosis Comments XR CONSULT OF OUTSIDE FILMS (PEDS ONLY) Routine 01/11/2015 5:16 PM LICENSED GUIDE OUTSIDE NUCMED REFERENCE Routine 01/11/2015 5:13 PM LICENSED GUIDE XR CONSULT OF OUTSIDE FILMS (PEDS ONLY) Routine 01/11/2015 5:12 PM LICENSED GUIDE XR CONSULT OF OUTSIDE FILMS (PEDS ONLY) Routine 01/11/2015 5:10 PM LICENSED GUIDE documented in this encounter Results * XR Interpretation Of Outside Films (01/11/2015 5:16 PM LICENSED GUIDE) Anatomical Region Laterality Modality N/A Radiographic Trish ging 01/11/2015 5:16 PM LICENSED GUIDE Narrative 01/11/2015 8:47 PM LICENSED GUIDE GURJIT COBURN M.D. FINAL REPORT ACC# ??Date Time ??Exam [id number] Jan 11, 2015 17:10:00 [id number] [facility] Body CT Reference [id number] Jan 11, 2015 17:12:00 [id number] [facility] Body CT Reference [id number] Jan 11, 2015 17:13:00 [id number] [facility] NucMed Reference [id number] Jan 11, 2015 17:16:00 [id number] [facility] Body CT Reference EXAMINATION: ?Images For Reference Purposes Only IMPRESSION: ?These images have been uploaded for Reference purposes only. ??There will be no separate report generated by a [facility] Radiologist. Requested By: Dictated By: ?? GURJIT COBURN M.D. ??on Jan ??2014 ??8:47P This document has been electronically signed by: GURJIT COBURN M.D. on Jan?2014 ??8:47P [id number] Procedure Note Provider, Yenny, - 07/09/2016 GURJIT COBURN M.D. FINAL REPORT ACC# Date Time Exam [id number] Jan 11, 2015 17:10:00 [id number] [facility] Body CT Reference [id number] Jan 11, 2015 17:12:00 [id number] [facility] Body CT Reference [id number] Jan 11, 2015 17:13:00 [id number] [facility] NucMed Reference [id number] Jan 11, 2015 17:16:00 [id number] [facility] Body CT Reference EXAMINATION: Images For Reference Purposes Only IMPRESSION: These images have been uploaded for Reference purposes only. There will be no separate report generated by a [facility] Radiologist. Requested By: Dictated By: GURJIT COBURN M.D. on Jan 11 2015 8:47P This document has been electronically signed by: GURJIT COBURN M.D. on Jan 11 2015 8:47P [id number] us Historical Provider IMG XR PROCEDURES Final R esult * OUTSIDE NUCMED REFERENCE (01/11/2015 5:13 PM LICENSED GUIDE) Anatomical Region Laterality Modality N/A Nuclear Medicine 01/11/2015 5:13 PM LICENSED GUIDE Narrative 01/11/2015 8:47 PM LICENSED GUIDE GURJIT COBURN M.D. FINAL REPORT ACC# ??Date Time ??Exam [id number] Jan 11, 2015 17:10:00 [id number] [facility] Body CT Reference [id number] Jan 11, 2015 17:12:00 [id number] [facility] Body CT Reference [id number] Jan 11, 2015 17:13:00 86543H [facility] NucMed Reference [id number] Jan 11, 2015 17:16:00 [id number] [facility] Body CT Reference EXAMINATION: ?Images For Reference Purposes Only IMPRESSION: ?These images have been uploaded for Reference purposes only. ??There will be no separate report generated by a [facility] Radiologist. Requested By: Dictated By: ?? GURJIT COBURN M.D. ??on Jan ??2014 ??8:47P This document has been electronically signed by: GURJIT COBURN M.D. on Jan?2014 ??8:47P [id number] Procedure Note Provider, Yenny, - 07/09/2016 GURJIT COBURN M.D. FINAL REPORT ACC# Date Time Exam [id number] Jan 11, 2015 17:10:00 [id number] [facility] Body CT Reference [id number] Jan 11, 2015 17:12:00 [id number] [facility] Body CT Reference [id number] Jan 11, 2015 17:13:00 [id number] [facility] NucMed Reference [id number] Jan 11, 2015 17:16:00 [id number] [facility] Body CT Reference EXAMINATION: Images For Reference Purposes Only IMPRESSION: These images have been uploaded for Reference purposes only. There will be no separate report generated by a [facility] Radiologist. Requested By: Dictated By: GURJIT COBURN M.D. on Jan 11 2015 8:47P This document has been electronically signed by: GURJIT COBURN M.D. on Jan 11 2015 8:47P [id number] us Historical Provider MD SINGH NM PROCEDURES Final R esult * XR Interpretation Of Outside Films (01/11/2015 5:12 PM LICENSED GUIDE) Anatomical Region Laterality Modality N/A Radiographic Trish ging 01/11/2015 5:12 PM LICENSED GUIDE Narrative 01/11/2015 8:47 PM LICENSED GUIDE GURJIT COBURN M.D. FINAL REPORT ACC# ??Date Time ??Exam [id number] Jan 11, 2015 17:10:00 [id number] [facility] Body CT Reference [id number] Jan 11, 2015 17:12:00 [id number] [facility] Body CT Reference [id number] Jan 11, 2015 17:13:00 [id number] [facility] NucMed Reference [id number] Jan 11, 2015 17:16:00 [id number] [facility] Body CT Reference EXAMINATION: ?Images For Reference Purposes Only IMPRESSION: ?These images have been uploaded for Reference purposes only. ??There will be no separate report generated by a [facility] Radiologist. Requested By: Dictated By: ?? GURJIT COBURN M.D. ??on Jan ??2014 ??8:47P This document has been electronically signed by: GURJIT COBURN M.D. on Jan ??2014 ??8:47P [id number] Procedure Note Provider, MD Yenny - 07/09/2016 GURJIT COBURN M.D. FINAL REPORT ACC# Date Time Exam [id number] Jan 11, 2015 17:10:00 [id number] [facility] Body CT Reference [id number] Jan 11, 2015 17:12:00 [id number] [facility] Body CT Reference [id number] Jan 11, 2015 17:13:00 [id number] [facility] NucMed Reference [id number] Jan 11, 2015 17:16:00 [id number] [facility] Body CT Reference EXAMINATION: Images For Reference Purposes Only IMPRESSION: These images have been uploaded for Reference purposes only. There will be no separate report generated by a [facility] Radiologist. Requested By: Dictated By: GURJIT COBURN M.D. on Jan 11 2015 8:47P This document has been electronically signed by: GURJIT COBURN M.D. on Jan 11 2015 8:47P [id number] Historical Provider MD SINGH XR PROCEDURES Final R esult * XR Interpretation Of Outside Films (01/11/2015 5:10 PM LICENSED GUIDE) Anatomical Region Laterality Modality N/A Radiographic Trish ging 01/11/2015 5:10 PM LICENSED GUIDE Narrative 01/11/2015 8:47 PM LICENSED GUIDE GURJIT COBURN M.D. FINAL REPORT ACC# ??Date Time ??Exam [id number] Jan 11, 2015 17:10:00 [id number] [facility] Body CT Reference [id number] Jan 11, 2015 17:12:00 [id number] [facility] Body CT Reference [id number] Jan 11, 2015 17:13:00 [id number] [facility] NucMed Reference [id number] Jan 11, 2015 17:16:00 [id number] [facility] Body CT Reference EXAMINATION: ?Images For Reference Purposes Only IMPRESSION: ?These images have been uploaded for Reference purposes only. ??There will be no separate report generated by a [facility] Radiologist. Requested By: Dictated By: ?? GURJIT COBURN M.D. ??on Jan ??2014 ??8:47P This document has been electronically signed by: GURJIT COBURN M.D. on Jan ??2014 ??8:47P [id number] Procedure Note Provider, MD Yenny - 07/09/2016 GURJIT COBURN M.D. FINAL REPORT ACC# Date Time Exam [id number] Jan 11, 2015 17:10:00 [id number] [facility] Body CT Reference [id number] Jan 11, 2015 17:12:00 [id number] [facility] Body CT Reference [id number] Jan 11, 2015 17:13:00 [id number] [facility] NucMed Reference [id number] Jan 11, 2015 17:16:00 [id number] [facility] Body CT Reference EXAMINATION: Images For Reference Purposes Only IMPRESSION: These images have been uploaded for Reference purposes only. There will be no separate report generated by a [facility] Radiologist. Requested By: Dictated By: GURJIT COBURN M.D. on Jan 11 2015 8:47P This document has been electronically signed by: GURJIT COBURN M.D. on Jan 11 2015 8:47P [id number] us Historical Provider MD ISNGH XR PROCEDURES Final R esult documented in this encounter Visit Diagnoses Not on filedocumented in this encounter
--- OUTSIDE RECORDS SUMMARY | 2024-03-08 14:55 | XMS_ITS | Encounter Summary ---
Author Organization [facility] Care Team Providers Care Registrar Assistant Name Role Phone Unavailable Primary Care Provider Unavailabl e Encounter Details Date Type Department Care Team (Late st Contact Info) Description 02/17/2016 8:59 AM SOCIAL MEDIA MARKETING SPECIALIST - 02/22/2016 11:59 PM SOCIAL MEDIA MARKETING SPECIALIST Hospital Encounter [facility] Leanne Wilkerson MD [address] [facility] [id number] [place] [address] Malignant neoplasm of colon (CMS/HCC) Social History Tobacco Use Types Packs/Day Years Used Date Smoking Tobacco: Never Assessed Comments Unknown Sex and Gender Information Value Date Recorded Sex Assigned at Not on file Legal Sex Female 6:59 AM SOCIAL MEDIA MARKETING SPECIALIST Gender Identity Not on file Sexual Orientation Not on file documented as of this encounter Plan of Treatment Not on file documented as of this encounter Procedures Procedure Name Priority Date/Time Associated Diagnosis Comments PLASMA COMPREHENSIVE METABOLIC PANEL Routine 02/22/2016 9:10 AM SOCIAL MEDIA MARKETING SPECIALIST PLASMA CARCINOEMBRYONIC AG (CEA) Routine 02/22/2016 9:10 AM SOCIAL MEDIA MARKETING SPECIALIST BLOOD CELL COUNT Routine 02/22/2016 9:07 AM SOCIAL MEDIA MARKETING SPECIALIST DISCHARGE LABORATORY CUMULATIVE REPORT 02/17/2016 documented in this encounter Results * (ABNORMAL) Plasma comprehensive metabolic panel (02/22/2016 9:10 AM SOCIAL MEDIA MARKETING SPECIALIST) Sodium 138 135 - 145 mmol/L CDR HISTORICAL RESULTS K, pl 4.2 3.3 - 4.9 mmol/L [facility]R HISTORICAL RESULTS CO2 28 22 - 32 mmol/L CDR HISTORICAL RESULTS BUN 9 8 - 25 mg/dl CDR HISTORICAL RESULTS Glucose 110 70 - 199 mg/dl CDR HISTORICAL RESULTS Creatinine 0.66 0.60 - 1.10 mg/dl [facility]R HISTORICAL RESULTS Calcium 9.0 8.5 - 10.3 mg/dl [facility]R HISTORICAL RESULTS Chloride 103 97 - 110 mmol/L [facility]R HISTORICAL RESULTS Alb 4.0 3.5 - 5.0 g/dl CDR HISTORICAL RESULTS AST 36 10 - 45 Units/L [facility]R HISTORICAL RESULTS ALT 53(H) 7 - 45 Units/L [facility]R HISTORICAL RESULTS Alk phos 68 40 - 130 Units/L [facility]R HISTORICAL RESULTS Bilirubin 0.6 0.1 - 1.2 mg/dl CDR HISTORICAL RESULTS Protein, pl 6.8 6.5 - 8.5 g/dl [facility]R HISTORICAL RESULTS A. gap 7 2 - 15 mmol/L CDR HISTORICAL RESULTS Plasma 02/22/2016 9:10 AM SOCIAL MEDIA MARKETING SPECIALIST Leanne Pike MD LAB BLOOD ORDERABLES Final Result Performing Organization Address [facility] de Phone Number CDR HISTORICAL RESULTS * (ABNORMAL) Plasma carcinoembryonic ag (CEA) (02/22/2016 9:10 AM SOCIAL MEDIA MARKETING SPECIALIST) CEA 6.1(H) 0.1 - 5.0 ng/ml [facility] HISTORICAL RESULTS Comment: Interpretive Data: Reference Range: ? Non-Smokers: ??0.1 - 5.0 ng/mL ? Smokers: ?0.1 - 6.5 ng/mL ?? This test was developed and its performance characteristics determined by the [facility] in a manner consistent with CLIA requirements. This test has not been cleared or approved by the U.S. Food and Drug Administration. Current interpretive data was last revised 2015. Plasma 02/22/2016 9:10 AM SOCIAL MEDIA MARKETING SPECIALIST Leanne Pike MD LAB BLOOD ORDERABLES Final Result Performing Organization Address [facility] de Phone Number CDR HISTORICAL RESULTS * (ABNORMAL) Blood cell count [CBC] panel, 7 CAM (02/22/2016 9:07 AM SOCIAL MEDIA MARKETING SPECIALIST) WBC 4.4 3.8 - 9.8 K/cumm CDR HISTORICAL RESULTS RBC 4.45 3.90 - 5.00 M/cumm CDR HISTORICAL RESULTS Hgb 14.3 12.1 - 15.1 g/dl CDR HISTORICAL RESULTS Hct 43.5 36.1 - 44.3 % CDR HISTORICAL RESULTS MCV 97.7(H) 80.0 - 97.6 fl CDR HISTORICAL RESULTS MCH 32.2 26.7 - 33.7 pg CDR HISTORICAL RESULTS MCHC 33.0 32.7 - 35.5 g/dl CDR HISTORICAL RESULTS Rdw 13.5 11.8 - 14.6 % CDR HISTORICAL RESULTS Platelets 152 140 - 440 K/cumm CDR HISTORICAL RESULTS MPV 9.4 6.8 - 10.4 fl CDR HISTORICAL RESULTS Neutrophils 61.2 38.7 - 74.5 % CDR HISTORICAL RESULTS Lymphocytes 24.6 20.0 - 54.3 % CDR HISTORICAL RESULTS Monos 9.9 4.3 - 13.5 % CDR HISTORICAL RESULTS Eosinophils 3.6 0.0 - 6.0 % CDR HISTORICAL RESULTS Basophils 0.7 0.0 - 3.0 % CDR HISTORICAL RESULTS Neutrophils, abs 2.7 1.8 - 6.6 K/cumm CDR HISTORICAL RESULTS Lymphocytes, abs 1.1(L) 1.2 - 3.3 K/cumm CDR HISTORICAL RESULTS Monocytes, absolute 0.4 0.2 - 1.2 K/cumm CDR HISTORICAL RESULTS Eosinophils, abs 0.2 0.0 - 0.5 K/cumm CDR HISTORICAL RESULTS Basophils, abs 0.0 0.0 - 0.2 K/cumm CDR HISTORICAL RESULTS Blood specimen (specimen) 02/22/2016 9:07 AM SOCIAL MEDIA MARKETING SPECIALIST Leanne Pike MD LAB BLOOD ORDERABLES Final Result CDR HISTORICAL RESULTS * DISCHARGE LABORATORY CUMULATIVE REPORT (02/17/2016) Narrative 02/17/2016 Ordered by an unspecified provider. Historical Provider LAB BLOOD ORDERABLES Cari l Result documented in this encounter Visit Diagnoses Diagnosis Malignant neoplasm of colon (HCC) Malignant neoplasm of colon, unspecified site documented in this encounter
--- OUTSIDE RECORDS SUMMARY | 2024-03-08 14:55 | XMS_ITS | Encounter Summary ---
Author Organization [facility] Address [address] [place] [address] Care Team Providers Care Impact Hammer Operator Name Role Phone Rodolfo Zuleta MD Primary Care Provider [phone] Reason for Referral * Diagnostic Imaging (Routine) - Closed Specialty Diagnoses / Procedures Referred By Jennifer lock Referred To Contact Radiology Diagnoses Encounter for follow-up surveillance of colon cancer Procedures CT Chest Abdomen Pelvis W Contrast Mira Dunham MD Phone: tel: fax: [address] [phone] Referral ID Status Reason Start Date Expiration Date Visits Re quested Visits Authorized [id number] Closed 10/02/2017 04/13/2019 1 1 Reason for Visit * Diagnostic Imaging (Routine) - Closed Specialty Diagnoses / Procedures Referred By Jennifer lock Referred To Contact Radiology Diagnoses Encounter for follow-up surveillance of colon cancer Procedures CT Chest Abdomen Pelvis W Contrast Mira Dunham MD Phone: tel: fax: [address] [address] Referral ID Status Reason Start Date Expiration Date Visits Re quested Visits Authorized [id number] Closed 10/02/2017 04/13/2019 1 1 Encounter Details Date Type Department Care Team (Latest Contact Info) Description 10/02/2017 11:20 AM CDT - 10/02/2017 11:59 PM CDT Hospital Encounter [facility] [address] [place] [address] Mira Dunham MD [address] [place] [address] Encounter for follow-up surveillance of colon cancer Discharge Disposition: Discharge to home or self care Social History Tobacco Use Types Packs/Day Years Used Date Smoking Tobacco: Never Smokeless Tobacco: Never Alcohol Use Standard Drinks/Week Comments Yes 7 (1 standard drink = 0.6 oz pur e alcohol) Comments No Sex and Gender Information Value Date Recorded Sex Assigned at Not on file 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 ??Stable tiny pulmonary nodules. 2. ??Otherwise no evidence of metastatic disease Electronically signed by: Kevin Joseph M.D. [facility] 10/02/2017 1:12 PM CDT EXAMINATION: ??Computed tomography [...] by: Kevin Joseph M.D. Mira Dunham MD IM CT PROCEDURES Final Result documented in this encounter Visit Diagnoses Diagnosis Encounter for follow-up surveillance of colon cancer documented in this encounter Administered Medications Inactive Administered Medications - up to 3 most recent administrations Medication Order MAR Action Action Date Dose Rate Site ioversol (OPTIRAY 350) syringe syringe 100 mL 100 mL, intravenous, Once in imaging, contrast, Starting on Sat10/02/17 at 1251, For 1 dose Given 10/02/2017 12:54 PM CDT 100 mL documented in this encounter Orders Medications Ordered That Mg ht Not Have Been Administered Count Last Ordered Date First Ordered Date ioversol (OPTIRAY 350) syrin ge syringe 100 mL 1 10/02/2017 documented in this encounter Care Teams Impact Hammer Operator Relationship Specialty Start Date End Date Rodolfo Zuleta MD [address] [place] [id number] PCP - General 09/24/17 documented as of this encounter
--- OUTSIDE RECORDS SUMMARY | 2024-03-08 14:55 | XMS_ITS | Encounter Summary ---
Author Organization [facility] Care Team Providers Care Chief Merchandising Officer Name Role Phone Unavailable Primary Care Provider Unavailabl e Encounter Details Date Type Department Care Team (Late st Contact Info) Description 11/22/2015 10:14 AM CDT - 11/23/2015 11:59 PM CDT Hospital Encounter [facility] Leanne Wilkerson MD [address] [facility] [id number] [place] [address] Malignant neoplasm of colon (CMS/HCC) Social History Tobacco Use Types Packs/Day Years Used Date Smoking Tobacco: Never Assessed Comments Unknown Sex and Gender Information Value Date Recorded Sex Assigned at Not on file Legal Sex Female 6:59 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 Gender Identity Not on file Sexual Orientation Not on file documented as of this encounter Plan of Treatment Not on file documented as of this encounter Procedures Procedure Name Priority Date/Time Associated Diagnosis Comments PLASMA COMPREHENSIVE METABOLIC PANEL Routine 11/23/2015 8:26 AM CDT PLASMA CARCINOEMBRYONIC AG (CEA) Routine 11/23/2015 8:26 AM CDT BLOOD CELL COUNT Routine 11/23/2015 8:25 AM CDT PLASMA CARCINOEMBRYONIC AG (CEA), NEW Routine 11/23/2015 3:26 AM CDT DISCHARGE LABORATORY CUMULATIVE REPORT 11/22/2015 documented in this encounter Results * (ABNORMAL) Plasma comprehensive metabolic panel (11/23/2015 8:26 AM CDT) Sodium 140 135 - 145 mmol/L CDR HISTORICAL RESULTS K, pl 4.3 3.3 - 4.9 mmol/L CDR HISTORICAL RESULTS Chloride 104 97 - 110 mmol/L CDR HISTORICAL RESULTS CO2 28 22 - 32 mmol/L CDR HISTORICAL RESULTS A. gap 8 2 - 15 mmol/L CDR HISTORICAL RESULTS Glucose 110 70 - 199 mg/dl CDR HISTORICAL RESULTS BUN 8 8 - 25 mg/dl CDR HISTORICAL RESULTS Creatinine 0.70 0.60 - 1.10 mg/dl CDR HISTORICAL RESULTS Calcium 9.6 8.5 - 10.3 mg/dl CDR HISTORICAL RESULTS Protein, pl 6.9 6.5 - 8.5 g/dl CDR HISTORICAL RESULTS Alb 4.2 3.5 - 5.0 g/dl CDR HISTORICAL RESULTS Bilirubin 0.7 0.1 - 1.2 mg/dl CDR HISTORICAL RESULTS Alk phos 66 40 - 130 Units/L CDR HISTORICAL RESULTS AST 40 10 - 45 Units/L CDR HISTORICAL RESULTS ALT 57(H) 7 - 45 Units/L CDR HISTORICAL RESULTS Plasma 11/23/2015 8:26 AM CDT Leanne Pike MD LAB BLOOD ORDERABLES Final Result CDR HISTORICAL RESULTS * (ABNORMAL) Plasma carcinoembryonic ag (CEA) (11/23/2015 8:26 AM CDT) CEA 4.3(H) 0.0 - 2.5 ng/ml [facility] Comment: Interpretive Data Reference Range: ? Non-Smokers: ??0 - 2.5 ng/mL ? Smokers: ?0 - 5.0 ng/mL ?? This test was developed and its performance characterisitics determined by the [facility] in a manner consistent with CLIA requirements. This test has not been cleared or approved by the U.s. Food and Drug Administration. Current interpretive data was last revised 2011. Plasma 11/23/2015 8:26 AM CDT us Leanne Pike MD LAB BLOOD ORDERABLES Final Result CDR HISTORICAL RESULTS * (ABNORMAL) Blood cell count [CBC] panel, 7 [facility] (11/23/2015 8:25 AM CDT) Hgb 14.3 12.1 - 15.1 g/dl CDR HISTORICAL RESULTS WBC 4.4 3.8 - 9.8 K/cumm CDR HISTORICAL RESULTS Hct 44.0 36.1 - 44.3 % CDR HISTORICAL RESULTS RBC 4.47 3.90 - 5.00 M/cumm CDR HISTORICAL RESULTS MCV 98.4(H) 80.0 - 97.6 fl CDR HISTORICAL RESULTS MCH 32.1 26.7 - 33.7 pg CDR HISTORICAL RESULTS MCHC 32.6(L) 32.7 - 35.5 g/dl CDR HISTORICAL RESULTS Rdw 13.0 11.8 - 14.6 % CDR HISTORICAL RESULTS Platelets 138(L) 140 - 440 K/cumm CDR HISTORICAL RESULTS MPV 9.9 6.8 - 10.4 fl CDR HISTORICAL RESULTS Neutrophils 56.1 38.7 - 74.5 % CDR HISTORICAL RESULTS Lymphocytes 28.5 20.0 - 54.3 % CDR HISTORICAL RESULTS Monos 10.9 4.3 - 13.5 % CDR HISTORICAL RESULTS Eosinophils 3.6 0.0 - 6.0 % CDR HISTORICAL RESULTS Basophils 0.9 0.0 - 3.0 % CDR HISTORICAL RESULTS Neutrophils, abs 2.4 1.8 - 6.6 K/cumm CDR HISTORICAL RESULTS Lymphocytes, abs 1.2 1.2 - 3.3 K/cumm CDR HISTORICAL RESULTS Monocytes, absolute 0.5 0.2 - 1.2 K/cumm CDR HISTORICAL RESULTS Eosinophils, abs 0.2 0.0 - 0.5 K/cumm CDR HISTORICAL RESULTS Basophils, abs 0.0 0.0 - 0.2 K/cumm CDR HISTORICAL RESULTS Blood specimen (specimen) 11/23/2015 8:25 AM CDT Leanne Pike MD LAB BLOOD ORDERABLES Final Result CDR HISTORICAL RESULTS * (ABNORMAL) Plasma carcinoembryonic ag (CEA), new (11/23/2015 3:26 AM CDT) CEA 6.7(H) 0.1 - 5.0 ng/ml CDR HISTORICAL RESULTS Plasma 11/23/2015 3:26 AM CDT Narrative CDR HISTORICAL RESULTS - 11/23/2015 4:28 AM CDT The method for this assay was changed on June 14, 2015. For a period of six months the new assay result will be reported alongside results from the old assay method. For patients being monitored, the new results should be interpreted in the context of any changes in the old results. If you have questions please call the chemistry laboratory at [phone] ??or the lab medicine resident concert manager [phone]. Option #2 Interpretive Data Reference Range: ? Non-Smokers: ??0.1 - 5.0 ng/mL ? Smokers: ?0.1 - 6.5 ng/mL ?? This test was developed and its performance characteristics determined by the [facility] in a manner consistent with CLIA requirements. This test has not been cleared or approved by the U.S. Food and Drug Administration. Current interpretive data was last revised 2015. Leanne Pike MD LAB BLOOD ORDERABLES Final Result CDR HISTORICAL RESULTS * DISCHARGE LABORATORY CUMULATIVE REPORT (11/22/2015) Narrative 11/22/2015 Ordered by an unspecified provider. Historical Provider LAB BLOOD ORDERABLES Cari l Result documented in this encounter Visit Diagnoses Diagnosis Malignant neoplasm of colon (HCC) Malignant neoplasm of colon, unspecified site documented in this encounter
--- OUTSIDE RECORDS SUMMARY | 2024-03-08 14:55 | XMS_ITS | Encounter Summary ---
Author Organization [facility] Address [address] [place] [address] Care Team Providers Care Hoop Riveting Machine Operator Helper Name Role Phone Rodolfo Zuleta MD Primary Care Provider [phone] Encounter Details Date Type Department Care Team (Latest Contact Info) Description 09/25/2016 1:39 PM CDT - 09/26/2016 11:59 PM CDT Hospital En[facility] [phone] Leanne Pike MD [address] [facility] [id number] [place] [address] Discharge Disposition: Discharge to home or self care Social History Tobacco Use Types Packs/Day Years Used Date Smoking Tobacco: Never Assessed Comments Unknown Sex and Gender Information Value Date Recorded Sex Assigned at Not on file Legal Sex Female 6:59 AM BLOW MOLDER Gender Identity Not on file Sexual Orientation Not on file documented as of this encounter Discharge Disposition Disposition Code Departure Means Destination Discharge to home or self care documented in this encounter Plan of Treatment Not on file documented as of this encounter Procedures Procedure Name Priority Date/Time Associated Diagnosis Comments CEA Routine Gen Lab 09/26/2016 1:39 PM CDT COMPREHENSIVE METABOLIC PANEL STAT 09/26/2016 1:39 PM CDT CBC WITH AUTO DIFFERENTIAL Routine Gen Lab 09/26/2016 1:37 PM CDT DISCHARGE LABORATORY CUMULATIVE REPORT 09/25/2016 12:00 AM CDT documented in this encounter Results * (ABNORMAL) CEA (09/26/2016 1:39 PM CDT) [facility] CEA 5.8(H) 0.1 - 5.0 ng/mL [facility] Comment: Interpretive Data: Reference Range: ? Non-Smokers: ??0.1 - 5.0 ng/mL ? Smokers: ?0.1 - 6.5 ng/mL ?? This test was developed and its performance characteristics determined by the [facility] in a manner consistent with CLIA requirements. This test has not been cleared or approved by the U.S. Food and Drug Administration. Current interpretive data was last revised 2015. Blood specimen (specimen) 09/26/2016 1:39 PM CDT 09/26/2016 3:24 PM CDT Leanne Pike MD LAB BLOOD ORDERABLES Final Result [facility] Department [place] [address] * (ABNORMAL) Comprehensive metabolic panel (09/26/2016 1:39 PM CDT) [facility] Sodium 140 135 - 145 mmol/L [facility] Potassium, pl 3.9 3.3 - 4.9 mmol/L [facility] CO2 30 22 - 32 mmol/L [facility] BUN 10 8 - 25 mg/dL [facility] Glucose 121 70 - 199 mg/dL [facility] Creatinine 0.66 0.60 - 1.10 mg/dL [facility] Calcium 9.0 8.5 - 10.3 mg/dL [facility] Chloride 103 97 - 110 mmol/L [facility] Albumin 4.3 3.5 - 5.0 g/dL [facility] AST 40 10 - 45 Units/L [facility] ALT 66(H) 7 - 45 Units/L [facility] Alk phos 66 40 - 130 Units/L [facility] Bilirubin, total 0.4 0.1 - 1.2 mg/dL [facility] Protein, pl 7.3 6.5 - 8.5 g/dL [facility] Anion gap 7 2 - 15 mmol/L [facility] Blood specimen (specimen) 09/26/2016 1:39 PM CDT 09/26/2016 2:03 PM CDT Leanne Pike MD LAB BLOOD ORDERABLES Final Result [facility] [place] [address] * CBC with auto differential (09/26/2016 1:37 PM CDT) WBC 5.7 3.8 - 9.8 K/cumm [facility] RBC 4.43 3.90 - 5.00 M/cumm [facility] Hgb 14.5 12.1 - 15.1 g/dL [facility] Hct 42.7 36.1 - 44.3 % [facility] Mean Cellular Volume - CAM 96.4 80.0 - 97.6 fL [facility] Mean Cellular Hemoglobin - CAM 32.6 26.7 - 33.7 pg [facility] Mean Cellular Hemoglobin Concentration - CAM 33.9 32.7 - 35.5 g/dL [facility] Rdw 13.3 11.8 - 14.6 % [facility] Plt 152 140 - 440 K/cumm [facility] Mean Platelet Volume - CAM 9.4 6.8 - 10.4 fL [facility] Neutrophil pct 58.9 38.7 - 74.5 % [facility] Lymphocyte pct 26.2 20.0 - 54.3 % [facility] Monos 10.2 4.3 - 13.5 % [facility] Eosinophil pct 4.2 0.0 - 6.0 % [facility] Basophil pct 0.5 0.0 - 3.0 % [facility] Neutrophil abs 3.3 1.8 - 6.6 K/cumm [facility] Lymphocyte abs 1.5 1.2 - 3.3 K/cumm [facility] Monocyte abs 0.6 0.2 - 1.2 K/cumm [facility] Eosinophils, abs 0.2 0.0 - 0.5 K/cumm [facility] Basophil abs 0.0 0.0 - 0.2 K/cumm [facility] NRBC 0.0 0.0 - 0.2 % [facility] NRBC abs 0.00 0.00 - 0.01 K/cumm [facility] Blood specimen (specimen) 09/26/2016 1:37 PM CDT 09/26/2016 1:40 PM CDT us Leanne Pike MD LAB BLOOD ORDERABLES Final Result [facility] [place] [address] * DISCHARGE LABORATORY CUMULATIVE REPORT (09/25/2016 12:00 AM CDT) Narrative 09/25/2016 12:00 AM CDT Ordered by an unspecified provider. Historical Provider LAB BLOOD ORDERABLES Cari l Result documented in this encounter Visit Diagnoses Not on filedocumented in this encounter Care Teams Hoop Riveting Machine Operator Helper Relationship Specialty Start Date End Date Rodolfo Zuleta MD [address] [place] [address] PCP - General 05/23/16 09/23/17 documented as of this encounter
--- OUTSIDE RECORDS SUMMARY | 2024-03-08 14:55 | XMS_ITS | Encounter Summary ---
Author Organization [facility] Address [address] [place] [address] Phone Care Team Providers Care Prop Maker Name Role Phone Rodolfo Zuleta MD Primary Care Provider [phone] Reason for Visit * Oncology (Routine) - Closed Specialty Diagnoses / Procedures Referred By Contac t Referred To Contact Medical Oncology / Oncology Diagnoses PER NEETU PT TO SEE CAR BODY MECHANIC Procedures RETURN Referral, Self Leanne Pike MD Phone: tel: fax: Referral ID Status Reason Start Date Expiration Date Visits Re quested Visits Authorized [id number] Closed 04/11/2018 03/10/2019 99 99 Encounter Details Date Type Department Care Team (Late st Contact Info) Description 04/16/2018 9:20 AM OCEAN LIFEGUARD SPECIALIST Office Visit [facility] [address] [facility] 7th [place] [address] [place] [address] Jeri Yanze NP [address] [place] [address] History of malignant neoplasm of colon (Primary Dx) Social History Tobacco Use Types Packs/Day Years Used Date Smoking Tobacco: Never Smokeless Tobacco: Never Tobacco Cessation:Counseling Given: No Alcohol Use Standard Drinks/Week Comments Yes 7 (1 standard drink = 0.6 oz pur e alcohol) Comments No Sex and Gender Information Value Date Recorded Sex Assigned at Not on file Legal Sex Female 6:59 AM OCEAN LIFEGUARD SPECIALIST Gender Identity Not on file Sexual Orientation Not on file documented as of this encounter Last Filed Vital Signs Vital Sign Reading Time Taken Comments Blood Pressure 148/75 04/16/2018 8:42 AM OCEAN LIFEGUARD SPECIALIST Pulse 79 04/16/2018 8:42 AM OCEAN LIFEGUARD SPECIALIST Temperature 36.9 ??C (98.4 ??F) 04/16/2018 8:42 AM CS T Respiratory Rate 16 04/16/2018 8:42 AM OCEAN LIFEGUARD SPECIALIST Oxygen Saturation 97% 04/16/2018 8:42 AM OCEAN LIFEGUARD SPECIALIST Inhaled Oxygen Concentration - - Weight 83.6 kg (184 lb 3.2 oz) 04/16/2018 8:42 A M OCEAN LIFEGUARD SPECIALIST Height 167.4 cm (5' 5.91 ) 04/16/2018 8:42 AM CS T Body Mass Index 29.82 04/16/2018 8:42 AM OCEAN LIFEGUARD SPECIALIST documented in this encounter Progress Notes * Brian Carl Jr., MD - 04/16/2018 9:20 AM CST Mira Magana : 1950 DATE OF VISIT: 04/16/18 Oncology History Stage II colon cancer (T3N0) diagnosed November 2013, received no adjuvant chemotherapy. History of malignant neoplasm of colon 01/14/2015 Initial Diagnosis History of malignant neoplasm of colon Active Treatment & Therapy Plans for Mira Magana does not have any active plans of the following types: Oncology Chemotherapy Treatment, Oncology Treatment (2), Oncology Treatment (3), Oncology Supportive Care, Specialty Infusion Treatment, Blood Products, BMT, Hematology INTERVAL HISTORY Ms. Mira Magana is a 67 y.o. Non- female with a history of stage II colon cancer who presents for follow-up routine oncologic care. Overall, she is feeling well. She has diarrhea and lactose intolerance. Has history of diverticulosis and had gallbladder removed in her early 30s. She states appetite and energy are good. Her weight is stable to slightly less since prior office visit. She denies any mouth sores, skin rashes, fever, chills, night sweats, shortness of breath, cough, chest pain, nausea, vomiting, constipation,, neuropathy, edema, urinary symptoms, or pain. PAST MEDICAL HISTORY: Past Medical History: Diagnosis Date ??? Colon cancer (CMS/HCC) ??? Diverticulosis ??? Macular degeneration ??? PONV (postoperative nausea and vomiting) PAST SURGICAL HISTORY: Past Surgical History: Procedure Laterality Date ??? CHOLECYSTECTOMY ??? COLECTOMY ALLERGIES: No Known Allergies CURRENT MEDICATIONS: Current Outpatient Prescriptions: ??? ALPRAZolam (XANAX) 0.25 mg tablet, , [...] Status: ECOG 0 Vital signs: Vitals BP 148/75 (BP Location: Right arm) Pulse 79 Temp 36.9 ??C (98.4 ??F) (Oral) Resp 16 Ht 167.4 cm (5' 5.91 ) Wt 83.6 kg (184 lb 3.2 oz) SpO2 97% BMI 29.82 kg/m?? General: She is a 67 y.o. [...] changes. Neurological: No focal neurological deficits. LABORATORY: Recent Results (from the past 24 hour(s)) Comprehensive metabolic panel Collection Time: 04/16/18 8:15 AM Result Value Ref Range Sodium 141 135 - 145 mmol/L Potassium, pl 4.0 3.3 - 4.9 mmol/L Chloride 106 97 - 110 mmol/L CO2 31 22 - 32 mmol/L Anion Gap 4 2 - 15 mmol/L BUN 7 (L) 8 - 25 mg/dL Creatinine 0.70 0.60 - 1.10 mg/dL Glucose 116 70 - 199 mg/dL Calcium 9.7 8.5 - 10.3 mg/dL Bilirubin, total 0.8 0.1 - 1.2 mg/dL Protein, pl 7.2 6.5 - 8.5 g/dL Albumin 4.5 3.5 - 5.0 g/dL Alk phos 66 40 - 130 Units/L ALT 36 7 - 45 Units/L AST 29 10 - 45 Units/L CEA Collection Time: 04/16/18 8:15 AM Result Value Ref Range CEA 7.6 (H) <=5.0 ng/mL CBC with auto differential Collection Time: 04/16/18 8:20 AM Result Value Ref Range WBC 6.3 3.8 - 9.8 K/cumm Hgb 14.6 12.1 - 15.1 g/dL Hct 43.0 36.1 - 44.3 % Plt 145 140 - 440 K/cumm MPV 9.4 6.8 - 10.4 fL RBC 4.51 3.90 - 5.00 M/cumm MCV 95.5 80.0 - 97.6 fL MCH 32.3 26.7 - 33.7 pg MCHC 33.8 32.7 - 35.5 g/dL RDW CV 13.1 11.8 - 14.6 % NRBC Abs 0.00 0.00 - 0.01 K/cumm Differential, auto Collection Time: 04/16/18 8:20 AM Result Value Ref Range Neutrophil absolute 4.4 1.8 - 6.6 K/cumm Lymphocytes absolute 1.1 (L) 1.2 - 3.3 K/cumm Monocyte absolute 0.6 0.2 - 1.2 K/cumm Eosinophils absolute 0.2 0.0 - 0.5 K/cumm Basophils, abs 0.0 0.0 - 0.2 K/cumm Neutrophils 70.3 % Lymphocytes 17.4 % Monocytes 9.2 % Eosinophils 2.6 % Basophils 0.5 % Hematology Lab History Some values may be hidden. Unless noted otherwise, only the newest values recorded on each date aredisplayed. Labs - Hematology Latest Ref Range 10/02/17 04/16/18 WBC 3.8 - 9.8 K/cumm 4.6 6.3 Total Hb, POC 12.1 - 15.1 g/dL 14.6 14.6 Hct 36.1 - 44.3 % 43.5 43.0 Plt 140 - 440 K/cumm 158 145 Neutrophil abs 1.8 - 6.6 K/cumm 2.7 4.4 Comments are available for some flowsheets but are not being displayed. Chem/LFT Lab History Some values may be hidden. Unless noted otherwise, only the newest values recorded on each date aredisplayed. Labs-Chem/LFT Latest Ref Range 10/02/17 04/16/18 Sodium 135 - 145 mmol/L 140 141 Creatinine 0.60 - 1.10 mg/dL 0.76 0.70 Bilirubin, total 0.1 - 1.2 mg/dL 0.7 0.8 AST 10 - 45 Units/L 34 29 ALT 7 - 45 Units/L 51 (A) 36 CrCl- Actual Body Weight (Cockcroft-Gault) 95 100 (A) Abnormal value Tumor Marker History Some values may be hidden. Unless noted otherwise, only the newest values recorded on each date aredisplayed. Tumor Markers Latest Ref Range 10/02/17 04/16/18 CEA <=5.0 ng/mL 7.7 (A) 7.6 (A) (A) Abnormal value Comments are available for some flowsheets but are not being displayed. IMAGES No results found. IMPRESSION AND PLAN: Ms. Mira Magana is a 67 y.o. Non- female with Stage II colon cancer who presents for routine oncologic care She is doing well. As such we will plan on having Mira Magana return in 6 months with scans. We discussed possible cholestyramine and lactose free diet or use of lactose supplements. She stated that she will schedule her mammogram when she comes back from [place]. Since she has a history of diverticulosis, advised on avoiding seeds etc... Discussed risk for recurrence after 3 years low, but concern for etiology of persistent elevation of CEA. But ill continue surveillance for 5 years. All of her questions were answered. She understands and was in agreement with the plan of care. She knows to call the office in the interim with any symptoms, questions, or concerns. N LIFEGUARD SPECIALIST documented in this encounter Plan of Treatment Not on file documented as of this encounter Visit Diagnoses Diagnosis History of malignant neoplasm of colon- Primary documented in this encounter Discontinued Medications Medication Sig Discontinue Reason Start Date End Da te polyethylene glycol (COLYTE) 240-22.72-6.72 -5.84 gram solution FOLLOW INSTRUCTIONS IN PREP PACKET Therapy completed 08/02/2017 04/16/2018 polyethylene glycol-electrolytes (NULYTELY) 420 gram solutionIndications:B owel Evacuation Follow instructions in prep packet Therapy completed 08/02/2017 04/16/2018 documented as of this encounter Historical Medications * This list may reflect changes made after this encounter. Medication Sig Dispense Quantity Refills Last Filled Start D ate End Date rosuvastatin (CRESTOR) 10 mg tablet 04/14/2018 ALPRAZolam (XANAX) 0.25 mg tablet 04/14/2018 added in this encounter Care Teams Prop Maker Relationship Specialty Start Date End Date Rodolfo Zuleta MD [address] [place] [id number] PCP - General 09/24/17 documented as of this encounter
--- OUTSIDE RECORDS SUMMARY | 2024-03-08 14:55 | XMS_ITS | Encounter Summary ---
Author Organization [facility] Healthcare Address [address] [place] [address] Care Team Providers Care Block Machine Operator Name Role Phone Rodolfo Zuleta MD Primary Care Provider [phone] Encounter Details Date Type Department Care Team (Late st Contact Info) Description 10/02/2017 Orders Only [facility] [address] [place] [address] Huma Norton RN Social History Tobacco Use Types Packs/Day Years Used Date Smoking Tobacco: Never Smokeless Tobacco: Never Alcohol Use Standard Drinks/Week Comments Yes 7 (1 standard drink = 0.6 oz pur e alcohol) Comments No Sex and Gender Information Value Date Recorded Sex Assigned at Not on file Legal Sex Female 6:59 AM EDUCATIONAL FUNDRAISING DIRECTOR Gender Identity Not on file Sexual Orientation Not on file documented as of this encounter Plan of Treatment Not on file documented as of this encounter Visit Diagnoses Not on filedocumented in this encounter Care Teams Block Machine Operator Relationship Specialty Start Date End Date Rodolfo Zuleta MD [address] [place] [address] PCP - General 09/24/17 documented as of this encounter
--- OUTSIDE RECORDS SUMMARY | 2024-03-08 14:56 | XMS_ITS | Encounter Summary ---
Author Organization [facility] Address [address] [place] [address] Care Team Providers Care Stoker Installation Mechanic Name Role Phone Víctor Steinberg MD Primary Care Provider [phone] Encounter Details Date Type Department Care Team (Late st Contact Info) Description 11/19/2023 External Device Data STL ABSTRACTION Provider, Abstract NO ADDRESS ON FILE Social History Tobacco Use Types Packs/Day Years Used Date Smoking Tobacco: Never Smokeless Tobacco: Never Alcohol Use Standard Drinks/Week Comments Yes 0 (1 standard drink = 0.6 oz pur e alcohol) Sex and Gender Information Value Date Recorded Sex Assigned at Not on file Gender Identity Not on file Sexual Orientation Not on file documented as of this encounter Plan of Treatment Upcoming Encounters Date Type Department Care Team (Late st Contact Info) Description 03/16/2024 11:00 AM AUTO TECH Appointment [address] [place] [address] Tony Kevin MD [address] [facility] [address] [place] [address] 03/26/2024 2:30 PM AUTO TECH Office Visit [facility] Oncology and Hematology - [place] [address] [place] [address] Zachary Werner MD [address] [facility] [address] [place] [address] 03/30/2024 1:00 PM AUTO TECH Telephone Check Up [facility] Neurosurgery - Medical [place] [address] [facility] [address] [place] [address] Tony Kevin MD [address] [facility] [address] [place] [address] documented as of this encounter Visit Diagnoses Not on filedocumented in this encounter Care Teams Stoker Installation Mechanic Relationship Specialty Start Date End Date Víctor Steinberg MD [address] [place] [address] PCP - General Family Practice 03/08/21 documented as of this encounter
--- OUTSIDE RECORDS SUMMARY | 2024-03-08 14:56 | XMS_ITS | Encounter Summary ---
Author Organization [facility] Address [address] [place] [address] Care Team Providers Care Skein Mercerizing Machine Operator Name Role Phone Víctor Steinberg MD Primary Care Provider Encounter Details Date Type Department Care Team (Late st Contact Info) Description 12/24/2023 External Device Data STL ABSTRACTION Provider, Abstract [...] st Contact Info) Description 03/16/2024 11:00 AM LIVESTOCK FARMWORKER Appointment [address] [place] [address] Tony Kevin MD [address] [facility] [address] [place] [address] 03/26/2024 2:30 PM LIVESTOCK FARMWORKER Office Visit [facility] Oncology and Hematology - [place] [address] [place] [address] Zachary Werner MD [address] [facility] [address] [place] [address] 03/30/2024 1:00 PM LIVESTOCK FARMWORKER Telephone Check Up [facility] Neurosurgery - Medical [place] [address] [facility] [address] [place] [address] Tony Kevin MD [address] [facility] [address] [place] [address] documented as of this encounter Visit Diagnoses Not on filedocumented in this encounter Care Teams Skein Mercerizing Machine Operator Relationship Specialty Start Date End Date Víctor Steinberg MD [address] [place] [address] PCP - General Family Practice 03/08/21 documented as of this encounter
--- OUTSIDE RECORDS SUMMARY | 2024-03-08 14:56 | XMS_ITS | Clinical Summary ---
Author Organization [facility] felipe Connor Address [address] [place] [address] Care Team Providers Care Plugging Machine Operator Name Role Phone Víctor Steinberg MD Primary Care Provider [phone] Allergies No known active allergies Medications Medication Sig Dispensed Refills Start Date End Date Status ALPRAZolam (XANAX) 0.25 mg tablet alprazolam 0.25 mg tablet 04/14/2018 Active aspirin (ECOTRIN EC) 81 mg Tablet, Delayed Release (E.C.) Take 81 mg by mouth daily. Active Sodium Fluoride 5000 Plus 1.1 % Cream BRUSH TEETH TWICE DAILY WITH PASTE 02/23/2021 Active rosuvastatin (CRESTOR) 10 mg tablet rosuvastatin 10 mg tablet 04/14/2018 Active vit A/vit C/vit E/zinc/copper (PRESERVISION AREDS ORAL) Take by mouth. Active omeprazole (PriLOSEC) 40 mg Capsule, Delayed Release(E.C.) Take 40 mg by mouth daily. Active Active Problems No known active problems Encounters Date Type Department Care Team Description 01/08/2024 External Device Data STL ABSTRACTION Provider, Abstract 12/24/2023 External Device Data STL ABSTRACTION Provider, Abstract 12/10/2023 External Device Data STL ABSTRACTION Provider, Abstract from Last 3 Months Family History Medical History Relation Name Comments Heart Disease Mother Diabetes Paternal Grandmother Relation Name Status Comments Brother Alive Daughter 1 Alive Daughter 2 Alive Father Mother Paternal Grandmother Sister Alive Son Alive Social History Tobacco Use Types Packs/Day Years Used Date Smoking Tobacco: Never Smokeless Tobacco: Never Tobacco Cessation:Counseling Given: Not Answered Alcohol Use Standard Drinks/Week Comments Yes 0 (1 standard drink = 0.6 oz pur e alcohol) Sex and Gender Information Value Date Recorded Sex Assigned at Not on file Gender Identity Not on file Sexual Orientation Not on file Last Filed Vital Signs Vital Sign Reading Time Taken Comments Blood Pressure 139/71 11/13/2023 1:03 PM CDT Pulse 81 11/13/2023 1:03 PM CDT Temperature 36.7 ??C (98 ??F) 11/13/2023 1:03 PM CDT Respiratory Rate 16 11/13/2023 1:03 PM CDT Oxygen Saturation 98% 11/13/2023 1:03 PM CDT Inhaled Oxygen Concentration - - Weight 87.1 kg (192 lb) 11/13/2023 1:03 PM CDT Height 167.6 cm (5' 6 ) 08/27/2023 9:15 AM CDT Body Mass Index 30.99 08/27/2023 9:15 AM CDT Plan of Treatment Upcoming Encounters Date Type Department Care Team (Late st Contact Info) Description 03/16/2024 11:00 AM CUSTOMS COMPLIANCE DIRECTOR Appointment [address] [place] [address] Tony Kevin MD [address] [place] [address] [place] [address] 03/26/2024 2:30 PM CUSTOMS COMPLIANCE DIRECTOR Office Visit [facility] Oncology and Hematology - Terr[place] [address] [facility] [address] [place] [address] Zachary Werner MD [address] [facility] [address] [place] [address] 03/30/2024 1:00 PM CUSTOMS COMPLIANCE DIRECTOR Telephone Check Up [facility] Neurosurgery - Medical [place] [address] [facility] [address] [place] [address] Tony Kevin MD [address] [facility] [address] [place] [address] Health Maintenance Due Date Last Done Comments DTAP/TDAP/TD VACCINES (1 - Tdap) 12/21/1967 ZOSTER VACCINE (1 of 2) 1998 PNEUMOCOCCAL VACCINE 65+ YEA RS (1 of 1 - PCV) 2013 INFLUENZA VACCINE (#1) 2023 RSV VACCINE (60+ or ) (1 - 1-dose 75+ series) 12/21/2023 OSTEOPOROSIS SCREENING Completed 10/03/2013, 2013 COLORECTAL SCREENING Discontinued 09/24/2017 Colorectal Cancer Screening Discontinued FIT-DNA Q 3 years Discontinued FIT/FOBT Q 1 year Discontinued Flex Sig/CT Colonography Q 5 years Discontinued Care Teams Plugging Machine Operator Relationship Specialty Start Date End Date Víctor Steinberg MD [address] [place] [phone] PCP - General Family Practice 03/08/21
--- OUTSIDE RECORDS SUMMARY | 2024-03-08 14:56 | XMS_ITS | Encounter Summary ---
Author Organization [facility] [employer] Address [address] [place] [address] Care Team Providers Care Hand Coremaker Name Role Phone Víctor Steinberg MD Primary Care Provider [phone] Encounter Details Date Type Department Care Team (Late Contact Info) Description 11/14/2023 Orders Only [facility] Oncology and Hematology [facility] [address] [facility] [address] [place] [address] Zachary Werner MD [address] [address] [place] [address] Social History Tobacco Use Types Packs/Day Years [...] Encounters Date Type Department Care Team (Late Contact Info) Description 03/16/2024 11:00 AM TELEVISION ANTENNA INSTALLER Appointment [address] [place] [address] Tony Kevin MD [address] [facility] [address] [place] [address] 03/26/2024 2:30 PM TELEVISION ANTENNA INSTALLER Office Visit [facility] Oncology and Hematology [place] [address] [place] [address] Zachary Werner MD [address] [facility] [address] [place] [address] 03/30/2024 1:00 PM TELEVISION ANTENNA INSTALLER Telephone Check Up [facility] Neurosurgery - [facility] [address] [facility] [address] [place] [address] Tony Kevin MD [address] [facility] [address] [place] [address] documented as of this encounter Procedures Procedure Name Priority Date/Time Associated Diagnosis Comments COMPREHENSIVE METABOLIC PANEL Routine 11/12/2023 2:44 PM CDT documented in this encounter Results * COMPREHENSIVE METABOLIC PANEL (11/12/2023 2:44 PM CDT) Blood Zachary Werner MD CHEMISTRY ORDERABLES documented in this encounter Visit Diagnoses Not on filedocumented in this encounter Care Teams Hand Coremaker Relationship Specialty Start Date End Date Víctor Steinberg MD [address] [place] [address] PCP - General Family Practice 03/08/21 documented as of this encounter
--- OUTSIDE RECORDS SUMMARY | 2024-03-08 14:56 | XMS_ITS | Encounter Summary ---
Author Organization [facility] [employer] [facility] Address [address] [place] [address] Care Team Providers Care Track Laminating Machine Tender Name Role Phone Víctor Steinberg MD Primary Care Provider [phone] Reason for Referral * Eval and Treat (Routine) - Closed Specialty Diagnoses / Procedures Referred By Jennifer t Referred To Contact Gastroenterology Diagnoses Malignant neoplasm of colon, unspecified part of colon Procedures CA OFFICE/OUTPATIENT ESTABLISHED MOD MDM 30 MIN CA OFFICE/OUTPATIENT NEW MODERATE MDM 45 MINUTES Zachary Werner MD [address] [place] [address] [place] [address] Referral ID Status Reason Start Date Expiration Date V isits Requested Visits Authorized [id number] Closed STL CTS 11/13/2023 11/12/2024 1 1 Reason for Visit * Reason Comments Cancer Follow Up Encounter Details Date Type Department Care Team (Late st Contact Info) Description 11/13/2023 1:15 PM CDT Office Visit [facility] Oncology and Hematology - [place] [address] [address] Zachary Werner MD [address] [place] [address] Malignant neoplasm of colon, unspecified part of colon (Primary Dx) Social History Tobacco [...] (192 lb) 11/13/2023 1:03 PM CDT Height - - Body Mass Index 30.99 08/27/2023 9:15 AM CDT documented in this encounter Progress Notes * Zachary Werner MD - 11/13/2023 2:16 PM CDT HEMATOLOGY / ONCOLOGY PROGRESS NOTE Patient Identification: Name: Mira Magana Age: 72 y.o. Sex: female : 1950 DIAGNOSIS Stage II colon cancer diagnosed in 2013 status post resection CURRENT TREATMENT Surveillance TREATMENT HISTORY SUBJECTIVE Patient came to the office for follow-up visit. She denies any diarrhea and constipation. No melenahematochezia. Weight and appetite stable. Had knee surgery done just about a week ago. No other newcomplaints. Review of system Constitutional: Patient did not mention fevers, sweats, weight and appetite stable, denies any tiredness and fatigue HEENT: Patient did not mention sinus congestion, hearing or vision problems Respiratory: Patient did not mention cough, dyspnea, wheeze Cardiovascular: Patient did not mention chest pain, exertional chest pressure/discomfort, nausea, syncope, shortness of breath GI: Patient did not mention constipation, diarrhea, dsyphagia, reflux symptoms, vomiting, melena : Patient did not mention dysuria, frequency, incontinence, urgency Integumentary system: no lymphadenopathy, sweats, flushing Musculoskeletal: Patient not mention: myalgia, arthralgia Neurological: Patient did not mention blurry or disturbed vision, numbness/weakness, dizziness Skin: No lumps, bumps or rashes. 12 point review of system was reviewed Objective: Vital signs in last 24 hours: As per nursing note Exam: General appearance: alert, cooperative, no distress, appears stated age Head: normocephalic, without obvious abnormality, atraumatic Eyes: conjunctivae/corneas clear, EOM's intact Ears: normal external ear canals AU Nose: Nares normal. Septum midline. Mucosa normal. No drainage or sinus tenderness Throat: Lips, mucosa, and tongue normal. Teeth and gums normal Neck: supple, symmetrical, trachea midline. Lungs: clear to auscultation bilaterally Heart: regular rate and rhythm, S1, S2 normal, no murmur, click, rub or gallop Abdomen: soft, non-tender. Bowel sounds normal. No masses, No organomegaly Extremities: extremities normal, atraumatic, no cyanosis or edema Skin: Skin color, texture, turgor normal. No rashes or lesions Lymph nodes: No lymphadenopathy Neuro: No obvious focal deficit Exam as above PATH LABS Labs from May 11 showed CEA 7.5 Labs from December 27 showed WBC 3.4 hemoglobin 13.2 platelet 138,000 creatinine 0.6 CEA 8.0 AST 56 ALT 42 Labs from July 08 showed WBC 3.5 hemoglobin 13.9 platelet 162 CEA 9.5 total bilirubin 0.9 Lab from November 11 showed hemoglobin 13.1 platelet 1 42,000 creatinine 0.6 total bilirubin 0.9 CEA 9.7 Assessment: Plan: There are no problems to display for this patient. Stage II colon cancer diagnosed in 2013 status post resection. T3N0 disease. She did not receive any adjuvant chemotherapy. She always have a slightly elevated CEA. Last colonoscopy was in 2020. She is asymptomatic. Labs showed slightly elevated CEA but is stable at 9.7. I will refer her for surveillance colonoscopy by Dr. Jeffrey prior to next in 4 months. Left paraspinal mass. Patient was evaluated by neurosurgery and MRI was performed that showed 1.4 x1.5 cm left paraspinal mass at the level of T7 and T8. This could be consistent with a schwannoma or neurofibroma. Surveillance was recommended with repeat MRI in 4 months. She will follow-up with any surgery. History of elevated liver enzymes secondary to fatty liver. I recommended regular exercise and weight loss. Liver enzymes stable. Follow-up in 4 months 11/13/2023 Zachary Werner MD documented in this encounter Plan of Treatment Upcoming Encounters Date Type Department Care Team (Late st Contact Info) Description 03/16/2024 11:00 AM IMMIGRATION SPECIALIST Appointment [address] [place] [address] Tony Kevin MD [address] [facility] [address] [facility] [address] 03/26/2024 2:30 PM IMMIGRATION SPECIALIST Office Visit [facility] Oncology and Hematology - [place] [address] [facility] [address] [place] [address] Zachary Werner MD [address] [facility] [address] [place] [address] 03/30/2024 1:00 PM IMMIGRATION SPECIALIST Telephone Check Up [facility] Neurosurgery - Medical [place] [address] [facility] [address] [place] [address] Tony Kevin MD [address] [facility] [address], [place] [address] Scheduled Orders Name Type Priority Associated Diagnoses Orde r Schedule CBC WITH DIFFERENTIAL Lab Stat Malignant neoplasm of colon, unspecified part of colon Expected: 03/04/2024, Expires: 11/12/2024 CEA Lab Routine Malignant neoplasm of colon, unspecified part of colon Expected: 03/04/2024, Expires: 11/12/2024 COMPREHENSIVE METABOLIC PANEL Lab Stat Malignant neoplasm of colon, unspecified part of colon Expected: 03/04/2024, Expires: 11/12/2024 Scheduled Referrals Name Type Priority Associated Diagnoses Order Schedule AMB REFERRAL TO GASTROENTEROLOGY Outpatient Referral Routine Malignant neoplasm of colon, unspecified part of colon Ordered: 11/13/2023 documented as of this encounter Visit Diagnoses Diagnosis Malignant neoplasm of colon, unspecified part of colon- Primary documented in this encounter Care Teams Track Laminating Machine Tender Relationship Specialty Start Date End Date Víctor Steinberg MD [address] [place] [address] PCP - General Family Practice 03/08/21 documented as of this encounter
--- OUTSIDE RECORDS SUMMARY | 2024-03-08 14:56 | XMS_ITS | Encounter Summary ---
Author Organization [facility] Address [address] [place] [address] Care Team Providers Care Coil Repair Technician Name Role Phone Víctor Steinberg MD Primary Care Provider [phone] Encounter Details Date Type Department Care Team (Late st Contact Info) Description 09/17/2023 External Device Data STL ABSTRACTION Provider, Abstract [...] st Contact Info) Description 03/16/2024 11:00 AM COMPLIANCE ADVISOR Appointment [address] [place] [address] Tony Kevin MD [address] [facility] [address] [place] [address] 03/26/2024 2:30 PM COMPLIANCE ADVISOR Office Visit [facility] Oncology and Hematology - [place] [address] [place] [address] Zachary Werner MD [address] [facility] [address] [place] [address] 03/30/2024 1:00 PM COMPLIANCE ADVISOR Telephone Check Up [facility] Neurosurgery - Medical [place] [address] [facility] [address] [place] [address] Tony Kevin MD [address] [facility] [address] [place] [address] documented as of this encounter Visit Diagnoses Not on filedocumented in this encounter Care Teams Coil Repair Technician Relationship Specialty Start Date End Date Víctor Steinberg MD [address] [place] [address] PCP - General Family Practice 03/08/21 documented as of this encounter
--- OUTSIDE RECORDS SUMMARY | 2024-03-08 14:56 | XMS_ITS | Encounter Summary ---
Author Organization [facility] [employer] Address [address] [place] [address] Care Team Providers Care Systems Checkout Mechanic Name Role Phone Víctor Steinberg MD Primary Care Provider [phone] Encounter Details Date Type Department Care Team (Late Contact Info) Description 11/15/2023 Orders Only [facility] Oncology and Hematology [facility] [address] [place] [address] Zachary Werner MD [address] [facility] [address] [place] [address] Social History Tobacco Use Types [...] (Late Contact Info) Description 03/16/2024 11:00 AM BROKER ASSOCIATE Appointment [address] [place] [address] Tony Kevin MD [address] [facility] [address] [place] [address] 03/26/2024 2:30 PM BROKER ASSOCIATE Office Visit [facility] Oncology and Hematology [place] [address] [place] [address] Zachary Werner MD [address] [facility] [address] [place] [address] 03/30/2024 1:00 PM BROKER ASSOCIATE Telephone Check Up [facility] Neurosurgery - [facility] [address] [facility] [address] [place] [address] Tony Kevin MD [address] [facility] [address] [place] [address] documented as of this encounter Procedures Procedure Name Priority Date/Time Associated Diagnosis Comments CBC WITH AUTODIFFERENTIAL Routine 2023 9:06 AM CDT documented in this encounter Results * CBC WITH AUTODIFFERENTIAL (11/12/2023 9:06 AM CDT) Blood Zachary Werner MD HEMATOLOGY ORDERABLE S documented in this encounter Visit Diagnoses Not on filedocumented in this encounter Care Teams Systems Checkout Mechanic Relationship Specialty Start Date End Date Víctor Steinberg MD [address] [place] [address] PCP - General Family Practice 03/08/21 documented as of this encounter
--- OUTSIDE RECORDS SUMMARY | 2024-03-08 14:56 | XMS_ITS | Encounter Summary ---
Author Organization [facility] Address [address] [place] [address] Care Team Providers Care Manager Food Name Role Phone Víctor Steinberg MD Primary Care Provider [phone] Encounter Details Date Type Department Care Team (Late st Contact Info) Description 10/31/2023 External Device Data STL ABSTRACTION Provider, Abstract [...] st Contact Info) Description 03/16/2024 11:00 AM SALES MARKETING DIRECTOR Appointment [address] [place] [address] Tony Kevin MD [address] [facility] [address] [place] [address] 03/26/2024 2:30 PM SALES MARKETING DIRECTOR Office Visit [facility] Oncology and Hematology - [place] [address] [place] [address] Zachary Werner MD [address] [facility] [address] [place] [address] 03/30/2024 1:00 PM SALES MARKETING DIRECTOR Telephone Check Up [facility] Neurosurgery - Medical [place] [address] [facility] [address] [place] [address] Tony Kevin MD [address] [facility] [address] [place] [address] documented as of this encounter Visit Diagnoses Not on filedocumented in this encounter Care Teams Manager Food Relationship Specialty Start Date End Date Víctor Steinberg MD [address] [place] [address] PCP - General Family Practice 03/08/21 documented as of this encounter
--- OUTSIDE RECORDS SUMMARY | 2024-03-08 14:56 | XMS_ITS | Encounter Summary ---
Author Organization [facility] Address [address] [place] [address] Care Team Providers Care Leguillon Debeader Name Role Phone Víctor Steinberg MD Primary Care Provider [phone] Encounter Details Date Type Department Care Team [...] st Contact Info) Description 03/16/2024 11:00 AM SECURITY SYSTEM INSTALLER Appointment [address] [place] [address] Tony Kevin MD [address] [facility] [address] [place] [address] 03/26/2024 2:30 PM SECURITY SYSTEM INSTALLER Office Visit [facility] Oncology and Hematology - [place] [address] [place] [address] Zachary Werner MD [address] [facility] [address] [place] [address] 03/30/2024 1:00 PM SECURITY SYSTEM INSTALLER Telephone Check Up [facility] Neurosurgery - Medical [place] [address] [facility] [address] [place] [address] Tony Kevin MD [address] [facility] [address] [place] [address] documented as of this encounter Visit Diagnoses Not on filedocumented in this encounter Care Teams Leguillon Debeader Relationship Specialty Start Date End Date Víctor Steinberg MD [address] [place] [address] PCP - General Family Practice 03/08/21 documented as of this encounter
--- OUTSIDE RECORDS SUMMARY | 2024-03-08 14:56 | XMS_ITS | Encounter Summary ---
Author Organization [facility] Address [address] [place] [address] Care Team Providers Care Gypsum Block Setter Name Role Phone Víctor Steinberg MD Primary Care Provider [phone] Encounter Details Date Type Department Care Team (Late st Contact Info) Description 10/01/2023 External Device Data STL ABSTRACTION Provider, Abstract [...] st Contact Info) Description 03/16/2024 11:00 AM SUPERINTENDENT NONSELLING Appointment [address] [place] [address] Tony Kevin MD [address] [facility] [address] [place] [address] 03/26/2024 2:30 PM SUPERINTENDENT NONSELLING Office Visit [facility] Oncology and Hematology - [place] [address] [facility] [address] [place] [address] Zachary Werner MD [address] [facility] [address] [place] [address] 03/30/2024 1:00 PM SUPERINTENDENT NONSELLING Telephone Check Up [facility] Neurosurgery - Medical [place] [address] [facility] [address] [place] [address] Tony Kevin MD [address] [facility] [address] [place] [address] documented as of this encounter Visit Diagnoses Not on filedocumented in this encounter Care Teams Gypsum Block Setter Relationship Specialty Start Date End Date Víctor Steinberg MD [address] [place] [address] PCP - General Family Practice 03/08/21 documented as of this encounter
--- OUTSIDE RECORDS SUMMARY | 2024-03-08 14:56 | XMS_ITS | Encounter Summary ---
Author Organization [facility] Address [address] [place] [address] Care Team Providers Care Concrete Floater Name Role Phone Víctor Steinberg MD Primary Care Provider [phone] Encounter Details Date Type Department Care Team [...] st Contact Info) Description 03/16/2024 11:00 AM CATERING AND EVENTS MANAGER Appointment [address] [place] [address] Tony Kevin MD [address] [facility] [address] [place] [address] 03/26/2024 2:30 PM CATERING AND EVENTS MANAGER Office Visit [facility] Oncology and Hematology - [place] [address] [place] [address] Zachary Werner MD [address] [facility] [address] [place] [address] 03/30/2024 1:00 PM CATERING AND EVENTS MANAGER Telephone Check Up [facility] Neurosurgery - Medical [place] [address] [facility] [address] [place] [address] Tony Kevin MD [address] [facility] [address] [place] [address] documented as of this encounter Visit Diagnoses Not on filedocumented in this encounter Care Teams Concrete Floater Relationship Specialty Start Date End Date Víctor Steinberg MD [address] [place] [address] PCP - General Family Practice 03/08/21 documented as of this encounter
--- OUTSIDE RECORDS SUMMARY | 2024-03-08 14:56 | XMS_ITS | Encounter Summary ---
Author Organization [facility] Address [address] [place] [address] Care Team Providers Care Business Services Vice President Name Role Phone Víctor Steinberg MD Primary Care Provider [phone] Encounter Details Date Type Department Care Team (Late st Contact Info) Description 12/10/2023 External Device Data STL ABSTRACTION Provider, [...] st Contact Info) Description 03/16/2024 11:00 AM TRAINING PROGRAM ASSISTANT Appointment [address] [place] [address] Tony Kevin MD [address] [facility] [address] [place] [address] 03/26/2024 2:30 PM TRAINING PROGRAM ASSISTANT Office Visit [facility] Oncology and Hematology - [place] [address] [place] [address] Zachary Werner MD [address] [facility] [address] [place] [address] 03/30/2024 1:00 PM TRAINING PROGRAM ASSISTANT Telephone Check Up [facility] Neurosurgery - Medical [place] [address] [facility] [address] [place] [address] Tony Kevin MD [address] [facility] [address] [place] [address] documented as of this encounter Visit Diagnoses Not on filedocumented in this encounter Care Teams Business Services Vice President Relationship Specialty Start Date End Date Víctor Steinberg MD [address] [place] [address] PCP - General Family Practice 03/08/21 documented as of this encounter
--- OUTSIDE RECORDS SUMMARY | 2024-03-08 14:56 | XMS_ITS | Encounter Summary ---
Author Organization [facility] [employer] Address [address] [place] [address] Care Team Providers Care Director Of Direct Marketing Name Role Phone Víctor Steinberg MD Primary Care Provider [phone] Reason for Visit * Reason Onset Date Comments blood work for appointment 11/12/2023 Encounter Details Date Type Department Care Team (Late Contact Info) Description 11/12/2023 Telephone [facility] Oncology and Hematology - Terrance [address] [facility] [address] [place] [address] Zachary Werner MD [address] [facility] [address] [place] [address] blood work for appointment Social History Tobacco Use Types Packs/Day Years [...] encounter Miscellaneous Notes * Telephone Encounter - Bettina Santacruz - 11/12/2023 9:25 AM CDT Left message for patient with appointment reminder and need for blood work for up coming appointment. Gave them the labs information next door. Also informed them their spouse has an appointment and needs blood work as well. documented in this encounter Plan of Treatment Upcoming Encounters Date Type Department Care Team (Late Contact Info) Description 03/16/2024 11:00 AM REFRACTORY TECHNICIAN Appointment [address] [place] [address] Tony Kevin MD [address] [facility] [address] [place] [address] 03/26/2024 2:30 PM REFRACTORY TECHNICIAN Office Visit [facility] Oncology and Hematology - Terr[place] [address] [facility] [address] [place] [address] Zachary Werner MD [address] [facility] [address] [place] [address] 03/30/2024 1:00 PM REFRACTORY TECHNICIAN Telephone Check Up [facility] Neurosurgery - Medical [place] [address] [facility] [address] [place] [address] Tony Kevin MD [address] [facility] [address] [place] [address] documented as of this encounter Visit Diagnoses Not on filedocumented in this encounter Care Teams Director Of Direct Marketing Relationship Specialty Start Date End Date Víctor Steinberg MD [address] [place] [address] PCP - General Family Practice 03/08/21 documented as of this encounter
--- OUTSIDE RECORDS SUMMARY | 2024-03-08 14:56 | XMS_ITS | Encounter Summary ---
Author Organization [facility] Address [address] [place] [address] Care Team Providers Care Client Services Analyst Name Role Phone Víctor Steinberg MD Primary Care Provider [phone] Encounter Details Date Type Department Care Team (Late st Contact Info) Description 01/08/2024 External Device Data STL ABSTRACTION [...] st Contact Info) Description 03/16/2024 11:00 AM FIRST ASSISTANT MANAGER Appointment [address] [place] [address] Tony Kevin MD [address] [facility] [address] [place] [address] 03/26/2024 2:30 PM FIRST ASSISTANT MANAGER Office Visit [facility] Oncology and Hematology - Terr[place] [address] [place] [address] Zachary Werner MD [address] [facility] [address] [place] [address] 03/30/2024 1:00 PM FIRST ASSISTANT MANAGER Telephone Check Up [facility] Neurosurgery - Medical [place] [address] [facility] [address] [place] [address] Tony Kevin MD [address] [facility] [address] [place] [address] documented as of this encounter Visit Diagnoses Not on filedocumented in this encounter Care Teams Client Services Analyst Relationship Specialty Start Date End Date Víctor Steinberg MD [address] [place] [address] PCP - General Family Practice 03/08/21 documented as of this encounter
--- OUTSIDE RECORDS SUMMARY | 2024-03-08 14:56 | XMS_ITS | Encounter Summary ---
Author Organization [facility] Address [address] [place] [address] Care Team Providers Care Rivet Driver Name Role Phone Víctor Steinberg MD Primary Care Provider [phone] Encounter Details Date Type Department Care Team [...] st Contact Info) Description 03/16/2024 11:00 AM COAGULATION OPERATOR Appointment [address] [place] [address] Tony Kevin MD [address] [facility] [address] [place] [address] 03/26/2024 2:30 PM COAGULATION OPERATOR Office Visit [facility] Oncology and Hematology - [place] [address] [place] [address] Zachary Wenrer MD [address] [facility] [address] [place] [address] 03/30/2024 1:00 PM COAGULATION OPERATOR Telephone Check Up [facility] Neurosurgery - Medical [place] [address] [facility] [address] [place] [address] Tony Kevin MD [address] [facility] [address] [place] [address] documented as of this encounter Visit Diagnoses Not on filedocumented in this encounter Care Teams Rivet Driver Relationship Specialty Start Date End Date Víctor Steinberg MD [address] [place] [address] PCP - General Family Practice 03/08/21 documented as of this encounter
--- OUTSIDE RECORDS SUMMARY | 2024-03-08 14:57 | XMS_ITS | Encounter Summary ---
Author Organization [facility] Address [address] [place] [address] Care Team Providers Care Circuit Judge Name Role Phone Víctor Steinberg MD Primary Care Provider [phone] Encounter Details Date Type Department Care Team (Late Contact Info) Description 08/02/2023 Abstract [facility] Neurosurgery - Medical [place] [address] [facility] [address] [place] [address] Tony Kevin MD [address] [facility] [address] [place] [address] Social History Tobacco Use Types Packs/Day Years [...] (Late Contact Info) Description 03/16/2024 11:00 AM LIABILITY CLAIMS MANAGER Appointment [facility] [address] [facility] [address] [place] [address] Tony Kevin MD [address] [facility] [address] [place] [address] 03/26/2024 2:30 PM LIABILITY CLAIMS MANAGER Office Visit [facility] Oncology and Hematology - Terrance [address] [place] [address] Zachary Werner MD [address] [facility] [address] [place] [address] 03/30/2024 1:00 PM LIABILITY CLAIMS MANAGER Telephone Check Up [facility] Neurosurgery - [facility] [address] [facility] [address] [place] [address] Tony Kevin MD [address] [facility] [address] [place] [address] documented as of this encounter Visit Diagnoses Not on filedocumented in this encounter Care Teams Circuit Judge Relationship Specialty Start Date End Date Víctor Steinberg MD [address] [place] [address] PCP - General Family Practice 03/08/21 documented as of this encounter
--- OUTSIDE RECORDS SUMMARY | 2024-03-08 14:57 | XMS_ITS | Encounter Summary ---
Author Organization [facility] Address [address] [place] [address] Care Team Providers Care Web Offset Press Feeder Name Role Phone Víctor Steinberg MD Primary Care Provider [phone] Reason for Referral * MRI (Routine) - Authorized Specialty Diagnoses / Procedures Referred By Contviviane t Referred To Contact Diagnoses Thoracic spine tumor Procedures MRI THORACIC W WO CONTRAST Tony Kevin MD [address] [facility] [address] [place] [address] [facility] Mri [address] [address] Referral ID Status Reason Start Date Expiration Date V isits Requested Visits Authorized [id number] Authorized 09/16/2023 10/16/2024 1 1 Encounter Details Date Type Department Care Team (Late st Contact Info) Description 09/16/2023 Orders Only [facility] Neurosurgery - Medical [place] [address] [facility] [address] [place] [address] Tony Kevin MD [address] [facility] [place] [address] Thoracic spine tumor (Primary Dx) Social History Tobacco Use Types [...] st Contact Info) Description 03/16/2024 11:00 AM DETECTOR CAR OPERATOR Appointment [facility] [address] [place] [address] Tony Kevin MD [address] [facility] [address] [place] [address] 03/26/2024 2:30 PM DETECTOR CAR OPERATOR Office Visit [facility] Oncology and Hematology - [place] [address] [facility] [address] [place] [address] Zachary Werner MD [address] [facility] [address] [place] [address] 03/30/2024 1:00 PM DETECTOR CAR OPERATOR Telephone Check Up [facility] Neurosurgery - Medical [place] [address] [facility] [address] [place] [address] Tony Kevin MD [address] [facility] [address] [place] [address] Scheduled Orders Name Type Priority Associated Diagnoses Orde r Schedule MRI THORACIC W WO CONTRAST Imaging Routine Thoracic spine tumor 1 Occurrences starting 09/16/2023 until 09/15/2024 documented as of this encounter Visit Diagnoses Diagnosis 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 [address] PCP - General Family Practice 03/08/21 documented as of this encounter
--- OUTSIDE RECORDS SUMMARY | 2024-03-08 14:57 | XMS_ITS | Encounter Summary ---
Author Organization [facility] [employer] Address [address] [place] [address] Care Team Providers Care Title Checker Name Role Phone Víctor Steinberg MD Primary Care Provider [phone] Encounter Details Date Type Department Care Team (Late Contact Info) Description 07/24/2023 Orders Only [facility] Oncology and Hematology [facility] [address] [place] [address] Zachary Werner MD [address] [facility] [address] [place] [address] Social History Tobacco Use Types [...] (Late Contact Info) Description 03/16/2024 11:00 AM SOLUTIONS DEVELOPMENT ANALYST Appointment [address] [place] [address] Tony Kevin MD [address] [facility] [address] [place] [address] 03/26/2024 2:30 PM SOLUTIONS DEVELOPMENT ANALYST Office Visit [facility] Oncology and Hematology [place] [address] [place] [address] Zachary Werner MD [address] [facility] [address] [place] [address] 03/30/2024 1:00 PM SOLUTIONS DEVELOPMENT ANALYST Telephone Check Up [facility] Neurosurgery - [facility] [address] [facility] [address] [place] [address] Tony Kevin MD [address] [facility] [address] [place] [address] documented as of this encounter Procedures Procedure Name Priority Date/Time Associated Diagnosis Comments PET BONE IMG W CT SKL BSE MID THG Routine 07/23/2023 10:08 AM CDT documented in this encounter Results * PET BONE IMG W CT SKB MDTH (07/23/2023 10:08 AM CDT) Anatomical Region Laterality Modality Other Zachary Werner MD PE ORDERABLES documented in this encounter Visit Diagnoses Not on filedocumented in this encounter Care Teams Title Checker Relationship Specialty Start Date End Date Víctor Steinberg MD [address] [place] [address] PCP - General Family Practice 03/08/21 documented as of this encounter
--- OUTSIDE RECORDS SUMMARY | 2024-03-08 14:57 | XMS_ITS | Encounter Summary ---
Author Organization [facility] Address [address] [place] [address] Care Team Providers Care In Shop Service Technician Name Role Phone Víctor Steinberg MD Primary Care Provider [phone] Encounter Details Date Type Department Care Team (Late Contact Info) Description 08/27/2023 Abstract [facility] Neurosurgery - Medical [place] [address] [facility] [address] [place] [address] Tony Kevin MD [address] [facility] [address] [place] [address] Social History Tobacco Use Types Packs/Day [...] (Late Contact Info) Description 03/16/2024 11:00 AM HYDRAULIC PLUMBER Appointment [facility] [address] [facility] [address] [place] [address] Tony Kevin MD [address] [facility] [address] [place] [address] 03/26/2024 2:30 PM HYDRAULIC PLUMBER Office Visit [facility] Oncology and Hematology - Terrance [address] [place] [address] Zachary Werner MD [address] [facility] [address] [place] [address] 03/30/2024 1:00 PM HYDRAULIC PLUMBER Telephone Check Up [facility] Neurosurgery - [facility] [address] [facility] [address] [place] [address] Tony Kevin MD [address] [facility] [address] [place] [address] documented as of this encounter Visit Diagnoses Not on filedocumented in this encounter Care Teams In Shop Service Technician Relationship Specialty Start Date End Date Víctor Steinberg MD [address] [place] [address] PCP - General Family Practice 03/08/21 documented as of this encounter
--- OUTSIDE RECORDS SUMMARY | 2024-03-08 14:57 | XMS_ITS | Encounter Summary ---
Author Organization [facility] Address [address] [place] [address] Care Team Providers Care Printed Circuit Boards Contact Printer Name Role Phone Víctor Steinberg MD Primary Care Provider [phone] Encounter Details Date Type Department Care Team (Late Contact Info) Description 09/13/2023 Abstract [facility] Neurosurgery - Medical [place] [address] [facility] [address] [place] [address] Tony Kevin MD [address] [facility] [address] [place] [address] Social History Tobacco Use Types Packs/Day [...] (Late Contact Info) Description 03/16/2024 11:00 AM BINDERY WORKER Appointment [facility] [address] [facility] [address] [place] [address] Tony Kevin MD [address] [facility] [address] [place] [address] 03/26/2024 2:30 PM BINDERY WORKER Office Visit [facility] Oncology and Hematology - Terrance [address] [place] [address] Zachary Werner MD [address] [facility] [address] [place] [address] 03/30/2024 1:00 PM BINDERY WORKER Telephone Check Up [facility] Neurosurgery - [facility] [address] [facility] [address] [place] [address] Tony Kevin MD [address] [facility] [address] [place] [address] documented as of this encounter Visit Diagnoses Not on filedocumented in this encounter Care Teams Printed Circuit Boards Contact Printer Relationship Specialty Start Date End Date Víctor Steinberg MD [address] [place] [address] PCP - General Family Practice 03/08/21 documented as of this encounter
--- OUTSIDE RECORDS SUMMARY | 2024-03-08 14:57 | XMS_ITS | Encounter Summary ---
Author Organization [facility] Address [address] [place] [address] Care Team Providers Care Mine Engineering Superintendent Name Role Phone Víctor Steinberg MD Primary Care Provider [phone] Reason for Referral * MRI (Routine) - Closed Specialty Diagnoses / Procedures Referred By Jennifer t Referred To Contact Diagnoses Paraspinal mass Procedures MRI THORACIC W WO CONTRAST Tony Kevin MD [address] [facility] [address] [place] [address] [facility] Mri [address] [address] Referral ID Status Reason Start Date Expiration Date Visits Re quested Visits Authorized [id number] Closed 08/27/2023 09/26/2024 1 1 Encounter Details Date Type Department Care Team (Late st Contact Info) Description 08/27/2023 Orders Only [facility] Neurosurgery - Medical [place] [address] [facility] [address] [place] [address] Tony Kevin MD [address] [facility] [address] [facility] [address] Paraspinal mass (Primary Dx) Social History Tobacco Use Types [...] st Contact Info) Description 03/16/2024 11:00 AM RIVER GUIDE Appointment [address] [place] [phone] Tony Kevin MD [address] [facility] [address] [place] [address] 03/26/2024 2:30 PM RIVER GUIDE Office Visit [facility] Oncology and Hematology - [place] [address] [facility] [address] [place] [address] Zachary Werner MD [address] [facility] [address] [place] [address] 03/30/2024 1:00 PM RIVER GUIDE Telephone Check Up [facility] Neurosurgery - Medical [place] [address] [facility] [address] [place] [address] Tony Kevin MD [address] [facility] [address] [place] [address] documented as of this encounter Results * MRI THORACIC W WO CONTRAST (08/29/2023 4:24 PM CDT) Anatomical Region Laterality Modality Spine Magnetic Resonan ce 08/29/2023 4:30 PM CDT Impressions 08/30/2023 10:22 AM CDT IMPRESSION: 1. 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 Comparison with prior imaging could be helpful. 2. ??Mild multilevel thoracic spondylosis. DICTATION LOCATION: Location 1 - [facility] Narrative 08/30/2023 10:22 AM CDT MRI THORACIC W WO CONTRAST ?? DATE: 08/29/2023 4:24 PM INDICATION: Paraspinal mass/tumor, thoracic spine, to evaluate paraspinal tumor at T7-T8 TECHNIQUE: Multi-planar multi-weighted magnetic resonance imaging of the thoracic spine was performed with and without contrast using the standard protocol. CONTRAST: GADOTERIDOL 279.3 MG/ML INTRAVENOUS SOLUTION Given:18 mL COMPARISON: ??None. FINDINGS: Avid enhancement of 1.4 x 1.5 cm left paraspinal tumor at the level of T7-T8. The thoracic spine is normally aligned. No acute fracture. Vertebral body heights are maintained without compression deformity. Mild to moderate degenerative disc disease at T6-T7.. Degenerative fatty endplate changes at T6-T7. No marrow replacing process suggestive of malignancy. The spinal cord is normal in signal intensity. The conus medullaris terminates at the level of L1. No soft tissue abnormality within the visualized chest or abdomen. The visualized thoracic aorta is normal caliber. Disc bulges and ligamentum flavum thickening at T9-T10 and T10-T11 without resulting spinal canal stenosis. No significant neuroforaminal narrowing or spinal canal stenosis. Procedure Note Tab Lopez MD - 08/30/2023 MRI THORACIC W WO CONTRAST DATE: 08/29/2023 4:24 PM INDICATION: Paraspinal mass/tumor, thoracic spine, to evaluate paraspinal tumor at T7-T8 TECHNIQUE: Multi-planar multi-weighted magnetic resonance imaging of the thoracic spine was performed with and without contrast using the standard protocol. CONTRAST: GADOTERIDOL 279.3 MG/ML INTRAVENOUS SOLUTION Given:18 mL COMPARISON: None. FINDINGS: Avid enhancement of 1.4 x 1.5 cm left paraspinal tumor at the level of T7-T8. The thoracic spine is normally aligned. No acute fracture. Vertebral body heights are maintained without compression deformity. Mild to moderate degenerative disc disease at T6-T7.. Degenerative fatty endplate changes at T6-T7. No marrow replacing process suggestive of malignancy. The spinal cord is normal in signal intensity. The conus medullaris terminates at the level of L1. No soft tissue abnormality within the visualized chest or abdomen. The visualized thoracic aorta is normal caliber. Disc bulges and ligamentum flavum thickening at T9-T10 and T10-T11 without resulting spinal canal stenosis. No significant neuroforaminal narrowing or spinal canal stenosis. IMPRESSION: 1. 1.4 x 1.5 cm left paraspinal tumor at the level of T7-T8 is most consistent with schwannoma or neurofibroma. Comparison with prior imaging could be helpful. 2. Mild multilevel thoracic spondylosis. DICTATION LOCATION: Location 1 - [facility] Tony Kevin MD MR ORDERAB LES documented in this encounter Visit Diagnoses Diagnosis Paraspinal mass- Primary Other symptoms involving nervous and musculoskeletal systems Paraspinal mass Other symptoms involving nervous and musculoskeletal systems documented in this encounter Care Teams Mine Engineering Superintendent Relationship Specialty Start Date End Date Víctor Steinberg MD [address] [place] [address] PCP - General Family Practice 03/08/21 documented as of this encounter
--- OUTSIDE RECORDS SUMMARY | 2024-03-08 14:57 | XMS_ITS | Encounter Summary ---
Author Organization [facility] [place] Address [address] [place] [address] Care Team Providers Care Deportation Examiner Name Role Phone Víctor Steinberg MD Primary Care Provider [phone] Reason for Visit * Reason Onset Date Comments follow up 05/16/2023 Encounter Details Date Type Department Care Team (Late st Contact Info) Description 05/16/2023 Telephone [facility] Oncology and Hematology - [place] [address] [place] [address] Nanette Colmenares FNP [address] [facility] [address] [place] [address] follow up Social History Tobacco Use Types Packs/Day Years [...] encounter Miscellaneous Notes * Telephone Encounter - Dara Gómez - 05/16/2023 9:57 AM CST Patient called today asking if her referral was sent over to have a colonoscopy. After looking intoit patient had one done on 01/04/22 and does not need to have another one for another three years from that date. Patient verbalized understanding. EMENTATION PROJECT COORDINATOR documented in this encounter Plan of Treatment Upcoming Encounters Date Type Department Care Team (Late st Contact Info) Description 03/16/2024 11:00 AM IMPLEMENTATION PROJECT COORDINATOR Appointment [address] [place] [address] Tony Kevin MD [address] [facility] [address] [place] [address] 03/26/2024 2:30 PM IMPLEMENTATION PROJECT COORDINATOR Office Visit [facility] Oncology and Hematology - [place] [address] [place] [address] Zachary Werner MD [address] [facility] [address] [place] [address] 03/30/2024 1:00 PM IMPLEMENTATION PROJECT COORDINATOR Telephone Check Up [facility] Neurosurgery - Medical [place] [address] [facility] [address] [place] [address] Tony Kevin MD [address] [facility] [address] [place] [address] documented as of this encounter Visit Diagnoses Not on filedocumented in this encounter Care Teams Deportation Examiner Relationship Specialty Start Date End Date Víctor Steinberg MD [address] [place] [address] PCP - General Family Practice 03/08/21 documented as of this encounter
--- OUTSIDE RECORDS SUMMARY | 2024-03-08 14:57 | XMS_ITS | Encounter Summary ---
Author Organization [facility] Address [address] [place] [address] Care Team Providers Care Metal Sander And Finisher Name Role Phone Víctor Steinberg MD Primary Care Provider [phone] Reason for Referral * PET Scan (Routine) - Closed Specialty Diagnoses / Procedures Referred By Contviviane t Referred To Contact Diagnoses Malignant neoplasm of colon, unspecified part of colon Other nonspecific abnormal finding of lung field Procedures PET TUMOR IMG W CT SKB Zachary Reis MD [address] [place] [address] [place] [address] Referral ID Status Reason Start Date Expiration Date V isits Requested Visits Authorized [id number] Closed [facility] CTS 07/10/2023 08/09/2024 1 1 Reason for Visit * Reason Comments Follow Up Encounter Details Date Type Department Care Team (Late st Contact Info) Description 07/10/2023 11:45 AM CDT Office Visit [facility] Oncology and Hematology - [place] [address] [facility] [address] [place] [address] Zachary Werner MD [address] [place] [address] Malignant neoplasm of colon, unspecified part of colon (Primary Dx); Other nonspecific abnormal finding of lung field Social History Tobacco Use Types Packs/Day Years [...] Sign Reading Time Taken Comments Blood Pressure 155/81 07/10/2023 11:46 AM CDT Pulse 74 07/10/2023 11:44 AM CDT Temperature 36.3 ??C (97.3 ??F) 07/10/2023 11:44 AM C DT Respiratory Rate 14 07/10/2023 11:44 AM CDT Oxygen Saturation 94% 07/10/2023 11:44 AM CDT Inhaled Oxygen Concentration - - Weight 85.7 kg (189 lb) 07/10/2023 11:44 AM CDT Height - - Body Mass Index 30.51 12/28/2021 10:27 AM CDT documented in this encounter Progress Notes * Zachary Werner MD - 07/10/2023 12:11 PM CDT HEMATOLOGY / ONCOLOGY PROGRESS NOTE Patient Identification: Name: Mira Magana Age: 72 y.o. Sex: female : 1950 DIAGNOSIS Stage II colon cancer diagnosed in 2013 status post resection CURRENT TREATMENT Surveillance TREATMENT HISTORY SUBJECTIVE Patient came to the office for follow-up visit. He he recently came back from her vacation. Denies any diarrhea and constipation. No bleeding and bruising. She has lost 6 pound weight. No other new complaints. Review of system Constitutional: Patient did not mention fevers, sweats, denies any tiredness and fatigue, 6 pound weight loss HEENT: Patient did not mention sinus congestion, [...] platelet 162 CEA 9.5 total bilirubin 0.9 Assessment: Plan: There are no problems to display for this patient. Stage II colon cancer diagnosed in 2013 status post resection. T3N0 disease. She did not receive any adjuvant chemotherapy. She always have a slightly elevated CEA. Last colonoscopy was in 2020. Labs showed further rising CEA now up to 9.5. CT chest done on April 11 showed subcentimeter pulmonary nodules. I will order PET scan and due to rising CEA level which is worrisome for malignancy. I will discuss PET scan finding with her in 1 week. Elevated liver enzymes secondary to fatty liver. Repeat labs showed normal liver enzymes. She was recommended to reduce her alcohol consumption. TOBACCO COUNSELING She is not a tobacco/nicotine user. 07/10/2023 Zachary Werner MD documented in this encounter Plan of Treatment Upcoming Encounters Date Type Department Care Team (Late st Contact Info) Description 03/16/2024 11:00 AM DIRECTOR OF RESPIRATORY THERAPY Appointment [facility] [address] [place] [address] Tony Kevin MD [address] [facility] [address] [place] [address] 03/26/2024 2:30 PM DIRECTOR OF RESPIRATORY THERAPY Office Visit [facility] Oncology and Hematology - [place] [address] [facility] [address] [place] [address] Zachary Werner MD [address] [facility] [address] [place] [address] 03/30/2024 1:00 PM DIRECTOR OF RESPIRATORY THERAPY Telephone Check Up [facility] Neurosurgery - Medical [place] [address] [facility] [address] [place] [address] Tony eKvin MD [address] [facility] [address] [place] [address] Scheduled Orders Name Type Priority Associated Diagnoses Orde r Schedule PET TUMOR IMG W CT SKB MDTH Imaging Routine Malignant neoplasm of colon, unspecified part of colon Other nonspecific abnormal finding of lung field Expected: 07/11/2023, Expires: 07/09/2024 documented as of this encounter Visit Diagnoses Diagnosis Malignant neoplasm of colon, unspecified part of colon- Primary Other nonspecific abnormal finding of lung field documented in this encounter Care Teams Metal Sander And Finisher Relationship Specialty Start Date End Date Víctor Steinberg MD [address] [place] [place] [address] PCP - General Family Practice 03/08/21 documented as of this encounter
--- OUTSIDE RECORDS SUMMARY | 2024-03-08 14:57 | XMS_ITS | Encounter Summary ---
Author Organization [employer] [facility] Address [address] [place] [address] Care Team Providers Care Cigar Making Machine Operator Name Role Phone Víctor Steinberg MD Primary Care Provider [phone] Reason for Referral * MRI (Routine) - Closed Specialty Diagnoses / Procedures Referred By Contac t Referred To Contact Diagnoses Paraspinal mass Procedures MRI THORACIC W WO Tony Pride MD [address] [facility] [address] [place] [phone] [place] [phone] Referral ID Status Reason Start Date Expiration Date Visits Re quested Visits Authorized [id number] Closed 08/27/2023 09/26/2024 1 1 Reason for Visit * MRI (Routine) - Closed Specialty Diagnoses / Procedures Referred By Contac t Referred To Contact Diagnoses Paraspinal mass Procedures MRI THORACIC W WO CONTRAST Tony Kevin MD [address] [facility] [address] [place] [phone] [facility] Mri [address] [place] [address] Referral ID Status Reason Start Date Expiration Date Visits Re quested Visits Authorized [id number] Closed 08/27/2023 09/26/2024 1 1 Encounter Details Date Type Department Care Team (Latest Contact Info) Description 08/29/2023 2:47 PM CDT - 08/29/2023 11:59 PM CDT Hospital Encounter [facility] [place] [address] [place] [phone] Tony Kevin MD [address] [facility] [address] [place] [address] Discharge Disposition: Home or Self Care Social History Tobacco Use Types Packs/Day Years [...] this encounter Medications at Time of Discharge Medication Sig Dispensed Refills Start Date End Date vit A/vit C/vit E/zinc/copper (PRESERVISION AREDS ORAL) Take by mouth. omeprazole (PriLOSEC) 40 mg Capsule, Delayed Release(E.C.) Take 40 mg by mouth daily. ALPRAZolam (XANAX) 0.25 mg tablet alprazolam 0.25 mg tablet 04/14/2018 aspirin (ECOTRIN EC) 81 mg Tablet, Delayed Release (E.C.) Take 81 mg by mouth daily. Sodium Fluoride 5000 Plus 1.1 % Cream BRUSH TEETH TWICE DAILY WITH PASTE 02/23/2021 rosuvastatin (CRESTOR) 10 mg tablet rosuvastatin 10 mg tablet 04/14/2018 documented as of this encounter Procedure Notes * Sandrita Gastelum, RT - 08/29/2023 3:30 PM CDT Images from the original note were not included. [facility] IMS Medication and Flush Protocol- CT and MRI Procedures [facility] Approved by: [facility] Executive Committee Approval Date: 09/27/2022 ORDERS ARE ENTERED ???PER PROTOCOL?? Enter the protocol in the patient's electronic health record using smartphrase: .imagingctmriprotocol Communication Orders: For ordered imaging procedures requiring intravenous access: Initiate a peripheral IV, if not already in place, and discontinue IV prior to discharge (if outpatient). Enter order if needed: Insert Peripheral IV Bariatric Oral Contrast: Post-surgical bariatric patients will have markedly reduced ability to drink normal quantities of liquid. Four ounces will be the maximum amount or less if the patient cannot comfortably tolerate. Cancel oral contrast if patient is nauseated or vomiting. Water based contrast only. Medication Orders: Local Anesthetic for use to initiate IV ADULT Lidocaine 4% (L.M.X.4) applied topically ONE TIME prior to IV catheter insertion PRN (L.M.X.4 % should be applied 15 minutes prior to procedure) PEDIATRIC Lidocaine 4% (L.M.X.4) applied topically ONE TIME prior to IV catheter insertion PRN (apply 30 minutes prior to procedure) Sucrose 24% (Squirts) given PO prior to IV catheter insertion (administer 1 - 2 minutes prior to procedure) OR Sucrose 24% (Tootsweet; Sweet-Ease) oral solution 0.2 mL oral (apply to tongue on pacifier or clean, gloved finger), ONE TIME 2 minutes prior to painful procedure. May repeat dose x1 PRN to complete procedure. Sodium chloride 0.9% (normal saline) flush 10 mL PRN for saline lock or medication administration. For respiratory distress, initiate oxygen and/or increase O2 to maintain saturation greater than 90% For all invasive procedures: obtain Lidocaine 1% for intra-procedure administration. If Lidocaine 1% unavailable, may substitute Lidocaine 2%. PROCEDURE SPECIFIC CT MEDICATIONS Any exceptions to these contrast protocols must be approved by a Radiologist and documented in the EHR Progress Notes. When multiple medications are listed with the comment ???OR?? them, select the first option until challenges from product availability make this option unavailable. Cystogram (CT Pelvis): Iopamidol (Isovue 300) 61%, 50 mL, diluted with 250mL of sterile NS. Inject Isovue into 250 mL bag of NS. Clamp welch catheter prior to instilling solution via catheter. Instill up to 300 mL of Isovue and NS solution into bladder via catheter, one time. CT ORAL CONTRAST PROTOCOLS FOR ADULTS Use Iohexol (Omnipaque) 240 mg/mL for CT scan unless patient has a documented allergy to contrast dye. If allergy present, use Barium Sulfate (EZ Paque) for procedure. Iopamidol (Isovue 300) 300mg/ml: 30ml added to 960mL of clear liquid of patient's choice. Preferredroute is oral. May use nasoenteric tube if needed. Utilize the following administration instructions when there is a need to conserve contrast 15 mL of Iopamidol (Isovue 300) split into two cups (7.5 mL in each cup) Dilute as usual with 960 mL of clear liquid of patient's choice (480 mL in each cup) Have patient drink one cup an hour before the test, wait 30 minutes then start to drink the next cup, leaving a little over an inch in the bottom of the second cup. As the technologist is getting thepatient from the waiting room after an hour, have the patient finish the rest of the second cup so it can coat and fill the stomach OR Iohexol (Omnipaque) 240 mg/mL: 50ml added to 960mL of clear liquid of patient's choice. Preferred route is oral. May use nasoenteric tube if needed. Administer 900mL of the diluted Omnipaque 240, orally, one time only. Barium Sulfate (EZ Paque /Vanilla Silq) 96% oral suspension: Preferred route is oral. May use nasoenteric tube if needed. Administer 900mL of barium sulfate, orally, one time only. Bariatric Patient: Post-Surgery to 1 year- 50 mL total volume. NO carbonated liquids lopamidol (Isovue 300) 300 mg/mL: mixed with water. Draw 50 mL of mixed solution for patient. Preferred route is orally. May use nasoenteric tube if needed. OR lohexol (Omnipaque) 240 mg/mL: mixed with water. Draw 50mL of mixed solution for patient. Preferredroute is orally. May use nasoenteric tube if needed. (SUBJECT TO AVAILABILITY) After 1 year- no more than 236 mL (8oz) total volume. NO carbonated liquids. lopamidol (Isovue 300) 300 mg/mL: mixed with water OR lohexol (Omnipaque) 240 mg/mL: mixed with water (SUBJECT TO AVAILABILITY) CT ORAL CONTRAST PROTOCOLS FOR PEDIATRICS Pediatrics = up to age 18 Pediatric Radiologist will approve of one of the following products selected for procedure. Barium Sulfate (EZ Paque) 96% oral suspension: preferred route is oral. May use nasoenteric tube ifneeded. to 3 months Administer up to 90mL of Barium sulfate, orally, one time only 4 months to 1 year old Administer up to 240mL of Barium sulfate, Orally, One Time Only 1 year old to 5 years old Administer up to 360mL of Barium sulfate, Orally, One Time Only 5 years old to 10 years old Administer up to 480mL of Barium sulfate, Orally, One Time Only Over 10 years old Administer up to 600mL of Barium sulfate, Orally, One Time Only Iopamidol (Isovue 300) 300 mg/mL oral solution Dilute 25mL of Iohexol with 480mL of clear liquid of patient's choice. Administer the diluted solution per age as follows: Preferred route is orally. May use nasoenteric tube if needed. Send any remaining diluted Iohexol solution with the patient's nurse to CT Iopamidol (Isovue) 300 mg/ml oral solution age appropriate guidelines Administer 45mL of diluted Iopamidol oral solution, orally every 30 minutes x 2 doses. 1 month to 1 year old Administer 120mL of diluted Iopamidol oral solution, orally every 30 min x 2 doses. 1 year old to 5 years old Administer 180mL of diluted Iopamidol oral solution, orally every 30 min x 2 doses. 5 years old to 10 years old Administer 240mL of diluted Iopamidol oral solution, orally every 30 min x 2 doses. Over 10 years old Administer 245mL of diluted Iopamidol oral solution, orally every 30 min x 2 doses. OR Iohexol (Omnipaque) 240 mg/mL oral solution Dilute 25mL of Iohexol with 480mL of clear liquid of patient's choice. Administer the diluted solution per age as follows: Preferred route is orally. May use nasoenteric tube if needed. Send any remaining diluted Iohexol solution with the patient's nurse to CT Iohexol (Omnipaque) 240mg/ml oral solution age appropriate guidelines Clarks Administer 45mL of diluted Iohexol oral solution, orally every 30 minutes x 2 doses. 1 month to 1 year old Administer 120mL of diluted Iohexol oral solution, orally every 30 min x 2 doses. 1 year old to 5 years old Administer 180mL of Iohexol orally every 30 min x 2 doses. 5 years old to 10 years old Administer 240mL of Iohexol orally every 30 min x 2 doses. Over 10 years old Administer 250mL of Iohexol orally every 30 min x [address] RECTAL CONTRAST PROTOCOLS ADULTS: Iopamidol (Isovue) 300 mg/mL: Dilute 30mL of Isovue with 900mL of warm water in an enema bag. Administer the diluted solution rectally via gravity per patient's tolerance, up to 950mLs, one time only. OR Iohexol (Omnipaque) 240 mg/mL: Dilute 50mL of Omnipaque with 900mL of warm water in an enema bag. Administer the diluted solution rectally via gravity per patient's tolerance, up to 950mLs, one time only. CT IV CONTRAST PROTOCOLS for ADULT ADULTS: (If patient is less than 55kg and confirm dose with radiologist) Iopadmidol (Isovue-300): Administer 2.2mL/kg of Iopamidol 61%, intravenously, one time only. See table below for maximum dose, unless otherwise authorized by radiologist. If exam has been completed before the entire dose has been administered, stop the injection. Multiple doses of iodine contrast within a 24-hour period are a risk factor for ANGEL and should be avoided if possible. Emergent or other unusual circumstances where multiple doses of contrast are required in a short interval time should prompt consideration by the referring professional and radiologist to discuss the risks and benefits of contrast media administration. If exam not included in table below, contact radiologist for orders. Procedure Maximum Dose CT Head with Contrast Up to [address] Chest with Contrast Up to [address] Maxillofacial with Contrast Up to [address] Soft Tissue Neck with Contrast CT Chest Abdomen Pelvis with Contrast CT Chest Abdomen with Contrast CT Abdomen Pelvis with Contrast CT Pelvis with Contrast CT Angiogram Examinations (all) CT Soft Tissue Neck and Chest Abdomen Pelvis with Contrast Up to [address] Soft Tissue Neck and Chest with Contrast CT Urogram with Contrast CT IV CONTRAST PROTOCOLS for PEDIATRICS PEDIATRICS: Use weight-based dosing if patient is less than 55kg and confirm dose with radiologist. Clarks to 15 years old Administer 2.2mL/kg (to MAX of 80 mL) of Iopamidol (Isovue-300) 61%, intravenously, one time only 15 years old and older Administer 2.2mL/kg (to MAX of 150mL) of Iopamidol (Isovue-300) 61%, intravenously, one time only PROCEDURE SPECIFIC MRI MEDICATIONS: MRI ENTEROGRAPHY: GLUGACON ADMINISTRATION ADULTS: (patient 18 years or older) Patient will receive 2 doses of Glucagon one dose 0.5mg IM administered by RN prior to the MRI exambeginning 2nd dose 0.5mg IV prior to the IV contrast being administered. (If the patient is diabetic call the radiologist to verify administration of Glucagon) PEDIATRICS: If the patient is diabetic call the radiologist to verify administration of Glucagon Pediatric patient weighing 24.9 kg or less should have one dose of Glucagon 0.5mg IM administered by RN prior to MRI exam beginning. Pediatric patient weighing 25 kg or greater should have one dose of Glucagon 1 mg IM administered by RN prior to the MRI exam beginning. MRI UROGRAM: LASIX ADMINISTRATION ADULTS: Call radiologist with any questions regarding administration of Lasix Lasix 0.1mg per kg with a minimum dose of Lasix 5mg IV being given up to a max dose of Lasix 10mg IV being given. The Lasix should be administered by RN prior to the IV contrast being administered. (Hold Lasix if: obstruction, anuria and hypersensitivity to furosemide, and electrolyte imbalance or hypotension should be corrected by RN before administering) MRI IV CONTRAST PROTOCOLS ADULTS: Multihance and Prohance can be used for most MRI scans Prohance should be used primarily. Multihance is useful in specific circumstances as directed by the radiologist or per the appropriate sections established protocols. Group I gadolinium contrast agents shall not be administered. Generally, multiple doses of gadolinium contrast should not be administered within a 24-hour period. In emergent or other unusual circumstances where this is necessary, only Group II agents should beadministered. For Liver Studies: Contact radiologist to determine use of one of the following: Gadobenate Dimeglumine (Multihance) (0.1mmol/0.2mL), Administer 0.1mmol/kg = 0.2mL/kg up to MAX of 20 mL, intravenously, one time only Gadoteridol (Prohance) (0.1mmol/0.2mL), Administer 0.1mmol/kg = 0.2mL/kg up to MAX of 20mL, intravenously, one time only Gadoxetate (Eovist) (2.5 mmol/10mL), Administer 0.025mmol/kg = 0.1mL/kg up to MAX of 10mL, intravenously, one time only PEDIATRICS: Radiologist to determine need for contrast Term neonates up to 2 years: Gadobuterol (Gadavist) (1mmol/mL injection), Administer 0.1mmol/kg = 0.1mL/kg up to MAX of 14mmol=14mL, intravenously, one time only OR Gadobenate Dimeglumine (Multihance) (0.1mmol/mL), Administer 0.1mmol/kg = 0.1mL/kg up to MAX of 14mmol = 14mL, intravenously, one time only 2 years and older Gadobenate Dimeglumine (Multihance) (0.1mmol/0.2mL), Administer 0.1mmol/kg = 0.2mL/kg up to MAX of 20mL, intravenously, one time only OR Gadoteridol (Prohance) (0.1mmol/0.2mL), Administer 0.1mmol/kg = 0.2mL/kg up to MAX of 20mL, intravenously, one time only TABLE 1. ACR Manual Classification of Gadolinium-Based Agents Relative to Nephrogenic Systemic Fibrosis Group I: Agents associated with the greatest number of NSF cases: Gadodiamide (Omniscan?? - WePay) Gadopentetate dimeglumine (Magnevist?? - ePod Solar) Gadoversetamide (OptiMARK?? - Guerbet) Group II: Agents associated with few, if any, unconfounded cases of NSF: Gadobenate dimeglumine (MultiHance?? - [employer]) Gadobutrol (Gadavist?? - [employer]; Gadovist in many countries) Gadoteric acid (Dotarem?? - Guerbet, Clariscan - WePay) Gadoteridol (ProHance?? - AGNITiOcco [employer]ostics) Group III: Agents for which data remains limited regarding NSF risk, but for which few, if any unconfounded cases of NSF have been reported: Gadoxetate disodium (Eovist - ePod Solar; Primovist in many countries) documented in this encounter Plan of Treatment Upcoming Encounters Date Type Department Care Team (Late st Contact Info) Description 03/16/2024 11:00 AM CLIP AND HANGER ATTACHER Appointment [facility] [address] [place] [address] Tony Kevin MD [address] [facility] [address] [place] [address] 03/26/2024 2:30 PM CLIP AND HANGER ATTACHER Office Visit [facility] Oncology and Hematology - [place] [address] [facility] [address] [place] [phone] Zachary Werner MD [address] [facility] [address] [place] [address] 03/30/2024 1:00 PM CLIP AND HANGER ATTACHER Telephone Check Up [facility] Neurosurgery - Medical [place] [address] [facility] [address] [place] [address] Tony Kevin MD [address] [facility] [address] [place] [address] documented as of this encounter Procedures Procedure Name Priority Date/Time Associated Diagnosis Comments MRI THORACIC W WO CONTRAST Routine 08/29/2023 4:24 PM CDT Paraspinal mass documented in this encounter Results * MRI THORACIC W [...] thoracic spondylosis. DICTATION LOCATION: Location 1 - [facility] Narrative 08/30/2023 10:22 AM CDT MRI [...] thoracic spondylosis. DICTATION LOCATION: Location 1 - [facility] Tony Kevin MD MR ORDERAB LES documented in this encounter Visit Diagnoses Diagnosis Paraspinal mass Other symptoms involving nervous and musculoskeletal systems documented in this encounter Administered Medications Inactive Administered Medications - up to 3 most recent administrations Medication Order MAR Action Action Date Dose Rate Site gadoteridoL (PROHANCE) 279.3 mg/mL injection 18 mL 18 mL, IV, INTRA-PROCEDURE ONCE, 1 dose, Starting on Ivory 08/29/23 at 1604, Until Ivory 08/29/23 at 1610, Routine Contrast Given 08/29/2023 4:10 PM CDT 18 mL documented in this encounter Care Teams Cigar Making Machine Operator Relationship Specialty Start Date End Date Víctor Steinberg MD [address] [place] [address] PCP - General Family Practice 03/08/21 documented as of this encounter
--- OUTSIDE RECORDS SUMMARY | 2024-03-08 14:57 | XMS_ITS | Encounter Summary ---
Author Organization [facility] [employer] Address [address] [place] [address] Care Team Providers Care Spike Machine Heater Name Role Phone Víctor Steinberg MD Primary Care Provider [phone] Encounter Details Date Type Department Care Team (Late Contact Info) Description 04/11/2023 Orders Only [facility] Oncology and Hematology [facility] [address] [place] [address] Zachary Werner MD [address] [facility] [address] [place] [address] Social History Tobacco Use Types [...] (Late Contact Info) Description 03/16/2024 11:00 AM TECHNICAL DOCUMENTATION SPECIALIST Appointment [address] [place] [address] Tony Kevin MD [address] [facility] [address] [place] [address] 03/26/2024 2:30 PM TECHNICAL DOCUMENTATION SPECIALIST Office Visit [facility] Oncology and Hematology [place] [place] [address] Zachary Werner MD [address] [facility] [address] [place] [address] 03/30/2024 1:00 PM TECHNICAL DOCUMENTATION SPECIALIST Telephone Check Up [facility] Neurosurgery - [facility] [address] [facility] [address] [place] [address] Tony Kevin MD [address] [facility] [address] [place] [address] documented as of this encounter Procedures Procedure Name Priority Date/Time Associated Diagnosis Comments CT CHEST W CONTRAST Routine 04/11/2023 10:27 AM TECHNICAL DOCUMENTATION SPECIALIST documented in this encounter Results * CT CHEST W CONTRAST (04/11/2023 10:27 AM TECHNICAL DOCUMENTATION SPECIALIST) Anatomical Region Laterality Modality Chest Other Zachary Werner MD CT ORDERABLES documented in this encounter Visit Diagnoses Not on filedocumented in this encounter Care Teams Spike Machine Heater Relationship Specialty Start Date End Date Víctor Steinberg MD [address] [place] [address] PCP - General Family Practice 03/08/21 documented as of this encounter
--- OUTSIDE RECORDS SUMMARY | 2024-03-08 14:57 | XMS_ITS | Encounter Summary ---
Author Organization [facility] Address [address] [place] [address] Care Team Providers Care [employer] Research Center Director Name Role Phone Víctor Steinberg MD Primary Care Provider [phone] Encounter Details Date Type Department Care Team (Late Contact Info) Description 09/02/2023 Abstract [facility] Neurosurgery - Medical [place] [address] [facility] [address] [place] [address] Tony Kevin MD [address] [facility] [address] [place] [address] Social History Tobacco Use Types Packs/Day [...] (Late Contact Info) Description 03/16/2024 11:00 AM PRIMARY SPECIAL EDUCATOR Appointment [facility] [address] [facility] [address] [place] [address] Tony Kevin MD [address] [facility] [address] [place] [address] 03/26/2024 2:30 PM PRIMARY SPECIAL EDUCATOR Office Visit [facility] Oncology and Hematology - [place] [address] [place] [address] Zachary Werner MD [address] [facility] [address] [place] [address] 03/30/2024 1:00 PM PRIMARY SPECIAL EDUCATOR Telephone Check Up [facility] Neurosurgery - [facility] [address] [facility] [address] [place] [address] Tony Kevin MD [address] [facility] [address] [place] [address] documented as of this encounter Visit Diagnoses Not on filedocumented in this encounter Care Teams [employer] Center Director Relationship Specialty Start Date End Date Víctor Steinberg MD [address] [place] [address] PCP - General Family Practice 03/08/21 documented as of this encounter
--- OUTSIDE RECORDS SUMMARY | 2024-03-08 14:57 | XMS_ITS | Encounter Summary ---
Author Organization [facility] Address [address] [place] [address] Care Team Providers Care Food Server Name Role Phone Víctor Steinberg MD Primary Care Provider [phone] Encounter Details Date Type Department Care Team (Latest Contact Info) Description 09/16/2023 3:00 PM CDT Telephone Check Up [facility] Neurosurgery - [facility] [address] [place] [address] [address] [place] [address] Tony Kevin MD [address] [facility] [address] [place] [address] Thoracic spine tumor (Primary Dx) [...] as of this encounter Progress Notes * Tony Kevin MD - 09/16/2023 11:35 AM CDT This encounter was completed via audio-only two way synchronous communication. Patient's identity confirmed yes Patient gave verbal consent to have these services billed to their insurance and expressed understanding that co-insurance and deductible may apply: yes Time spent by the provider delivering the care documented in this encounter 12 minutes. I called his to the patient by phone for about 12 minutes today. 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 The comparison imaging from the past was not available to the radiologist at the timeof the read of this MRI, I was able to view a CT of the chest abdomen and pelvis from November 2019, which does show the mass and measurements of its diameter appear to be consistent between that scan from 4 years ago, and this current MRI. We have discussed treatment options which include follow-up after watchful waiting and interval repeat MRI with and without contrast, versus surgical excision. We discussed the risks versus benefits of surgery, the technique of surgery. At the moment, she wishes to take the watchful waiting approach, but will let us know if she develops any symptoms related to this lesion including radiating pain, numbness, or otherwise in her left rib cage. So long as she remains asymptomatic, we will plan for repeat MRI with and without contrast in 6 months followedby a scheduled phone call. Thoracic spine MRI with and without contrast to rule out growth of left T7-T8 mass followed by scheduled phone call in 6 months documented in this encounter Plan of Treatment Upcoming Encounters Date Type Department Care Team (Late st Contact Info) Description 03/16/2024 11:00 AM ACCOUNT SERVICES REPRESENTATIVE Appointment [address] [place] [address] Tony Kevin MD [address] [facility] [address] [place] [address] 03/26/2024 2:30 PM ACCOUNT SERVICES REPRESENTATIVE Office Visit [facility] Oncology and Hematology - [place] [place] [address] Zachary Werner MD [address] [facility] [address] [place] [address] 03/30/2024 1:00 PM ACCOUNT SERVICES REPRESENTATIVE Telephone Check Up [facility] Neurosurgery - Medical [facility] [address] [facility] [address] [place] [address] Tony Kevin MD [address] [facility] [address] [place] [address] documented as of this encounter Visit Diagnoses Diagnosis 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 [address] PCP - General Family Practice 03/08/21 documented as of this encounter
--- OUTSIDE RECORDS SUMMARY | 2024-03-08 14:57 | XMS_ITS | Encounter Summary ---
Author Organization [facility] Address [address] [place] [address] Care Team Providers Care Manager Hospitality Name Role Phone Víctor Steinberg MD Primary Care Provider [phone] Reason for Visit * Reason Comments Consult Paraspinal Mass 14 m m T7-T8 * Eval and Treat (Routine) - Closed Specialty Diagnoses / Procedures Referred By Contac t Referred To Contact Neurosurgery Diagnoses Paraspinal mass Procedures [place] OFFICE/OUTPATIENT ESTABLISHED MOD MDM 30 MIN [place] OFFICE/OUTPATIENT NEW MODERATE MDM 45 MINUTES Zachary Werner MD [address] [facility] [employer] [address] [place] [address] [facility] Neurosurgery [place] [address] [facility] [address] [place] [address] Referral ID Status Reason Start Date Expiration Date V isits Requested Visits Authorized [id number] Closed CRS to Schedule 07/30/2023 07/29/2024 1 1 Encounter Details Date Type Department Care Team (Late st Contact Info) Description 08/27/2023 9:30 AM CDT Office Visit [facility] Neurosurgery - Medical [place] [address] [facility] [address] [place] [address] Tony Kevin MD [address] [facility] [address] [place] [address] Paraspinal mass (Primary Dx) Social [...] Sign Reading Time Taken Comments Blood Pressure 154/83 08/27/2023 9:15 AM CDT Pulse 84 08/27/2023 9:15 AM CDT Temperature - - Respiratory Rate - - Oxygen Saturation 94% 08/27/2023 9:15 AM CDT Inhaled Oxygen Concentration - - Weight 89.8 kg (198 lb) 08/27/2023 9:15 AM CDT Height 167.6 cm (5' 6 ) 08/27/2023 9:15 AM CDT Body Mass Index 31.96 08/27/2023 9:15 AM CDT documented in this encounter Progress Notes * Tony Kevin MD - 08/27/2023 9:56 AM CDT [facility]surgery [facility] H&P Patient Name: Mira Magana : 1950 Date of Service: 08/27/2023 Subjective: Chief Complaint: Chief Complaint Patient presents with Consult Paraspinal Mass 14 mm T7-T8 History of Present Illness: Mira is a 72 y.o. female with a history of colon cancer status post resection approximately 10 years ago who presents after surveillance PET scan demonstrated a left-sided paraspinal mass at T7-T8 which had some increased uptake from background on the PET scan. She is asymptomatic and this lesion was an incidental discovery. Past Medical History: Diagnosis Date Colon cancer Difficulty balancing Difficulty walking High cholesterol Hyperlipidemia Kidney stones sone left kidney 4mm Past Surgical History: Procedure Laterality Date HX CHOLECYSTECTOMY 1983 HX LAPAROSCOPIC COLON RESECTION 2000 HX SURGICAL OTHER 2014 colon cancer Family History Problem Relation Name Age of Onset Heart Disease Mother Diabetes Paternal Grandmother Social History Tobacco Use Smoking status: Never Smokeless tobacco: Never Substance Use Topics Alcohol use: Yes No Known Allergies Current Outpatient Medications on File Prior to Visit Medication Sig Dispense Refill vit A/vit C/vit E/zinc/copper (PRESERVISION AREDS ORAL) Take by mouth. omeprazole (PriLOSEC) 40 mg Capsule, Delayed Release(E.C.) Take 40 mg by mouth daily. ALPRAZolam (XANAX) 0.25 mg tablet alprazolam 0.25 mg tablet aspirin (ECOTRIN EC) 81 mg Tablet, Delayed Release (E.C.) Take 81 mg by mouth daily. rosuvastatin (CRESTOR) 10 mg tablet rosuvastatin 10 mg tablet Sodium Fluoride 5000 Plus 1.1 % Cream BRUSH TEETH TWICE DAILY WITH PASTE No current facility-administered medications on file prior to visit. Preventative Medicine: Normal BMI Range: 18 & older: > or = 18.5 and < 25 Body mass index is 31.96 kg/m??. Abnormal high BMI: Referral to primary care provider for follow-up on BMI. Tobacco Counseling She is not a tobacco/nicotine user. Review of Systems Constitutional: Negative for chills, fever and weight loss. HENT: Negative for ear pain, hearing loss, sinus pain, sore throat and tinnitus. Eyes: Negative for blurred vision, double vision and photophobia. Respiratory: Negative for cough and shortness of breath. Cardiovascular: Negative for chest pain and leg swelling. Gastrointestinal: Negative for abdominal pain, constipation, diarrhea, heartburn, nausea and vomiting. Genitourinary: Negative for dysuria, frequency and urgency. Musculoskeletal: Negative for back pain, falls, myalgias and neck pain. Skin: Negative for rash. Neurological: Negative for dizziness, tingling, tremors, sensory change, speech change, focal weakness, seizures, loss of consciousness, weakness and headaches. Endo/Heme/Allergies: Does not bruise/bleed easily. Psychiatric/Behavioral: Negative for depression, hallucinations, memory loss, substance abuse and suicidal ideas. The patient is not nervous/anxious. Objective: Physical Exam: BP (!) 154/83 (BP Location: Left arm, Patient Position (BP): Sitting, BP Cuff Size: Large Adult) Pulse 84 Ht 5' 6 (1.676 m) Wt 89.8 kg (198 lb) SpO2 94% BMI 31.96 kg/m?? Normal BMI Range: 18 & older: > or = 18.5 and < 25 Body mass index is 31.96 kg/m??. Constitutional: Appears well, no distress, well-nourished, well-developed HEENT: External inspection of ears and nose within normal limits, oral mucosa normal Eye: Normal external eye, conjunctiva, lids, cornea Neck: Normal appearance, no thyroid enlargement Cardiovascular: Regular rate and rhythm, no swelling or edema Respiratory: Even/unlabored Gastrointestinal: Nondistended Musculoskeletal: See neuro exam, Negative for spine tenderness to palpation Integumentary: No rashes, no induration Psychiatric: Appropriate to circumstances, normal mood and affect Neurosurgical Exam: Neurologic Exam Mental Status Oriented to person, place, and time. Follows 2 step commands. Attention: normal. Concentration: normal. Speech: speech is normal Level of consciousness: alert Normal comprehension. Cranial Nerves CN III, IV, Pupils are equal, round, and reactive to light. Extraocular motions are normal. CN V Facial sensation intact. CN VII Facial expression full, symmetric. CN VIII CN VIII normal. CN XI CN XI normal. CN XII CN XII normal. Motor Exam Overall muscle tone: normal Strength Strength 5/5 except as noted. Sensory Exam Light touch normal. Pinprick normal. Gait, Coordination, and Reflexes Gait Gait: normal Reflexes Reflexes 2+ except as noted. Right plantar: normal Left plantar: normal Right Salmon: absent Left Salmon: absent Right ankle clonus: absent Left ankle clonus: absent Labs: No results found for: WBC , HGB , HCT , PLT , NA , K , INR No results found for: ESR , CRP No results found for: URINELEUKOC , NITRITEUA , KETONEURINE , BLOODUA , WBCU , WBCURINE , RBCUA , BACTERIAUA , UREPITHELIAL No results found for: CA , FXIC705 , VITD25 , YVUU97VVV7 , AKXO75RTY9 , [id number] , DPGG6NCTFHCR , [id number] , VITAMINDTO , NARSOHS445 , TSH , T4 No results found for: NICOTINE , COTININE Imaging Studies: Imaging studies examined and interpreted by me show: PET scan performed July 23, 2023 read as showing a 14 mm left-sided paraspinal mass at T7-T8 with increased uptake, but stable from comparison of 12/28/2022, 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 She is neurologically intact on exam. We do not have access to comparison imaging, and more information will need to be obtained before deciding what to do next. I will plan to order a thoracic spine MRI with and without contrast, and suggests careful attention to including the lesion and that scan, and accurate axial characterization of this region. We also need the patient to obtain prior spine related and chest abdomen andpelvis/PET scan related imaging from [facility], for comparison. She will need to bring this imaging to on [facility], and we will plan a scheduled phone call after these images are available and the MRIs beenperformed. Plan: MRI thoracic spine with and without contrast to evaluate paraspinal tumor at T7-T8 Patient to obtain past imaging of chest abdomen pelvis, thoracic spine from [facility] and bring to us Scheduled phone call after imaging available/MRI performed Follow up: Return for Scheduled phone call after imaging available. This patient seen by Tony Kevin MD documented in this encounter Plan of Treatment Upcoming Encounters Date Type Department Care Team (Late st Contact Info) Description 03/16/2024 11:00 AM ERP ANALYST Appointment [address] [place] [address] Tony Kevin MD [address] [facility] [address] [place] [address] 03/26/2024 2:30 PM ERP ANALYST Office Visit [facility] Oncology and Hematology - [place] [address] [facility] [address] [place] [address] Zachary Werner MD [address] [facility] [address] [place] [address] 03/30/2024 1:00 PM ERP ANALYST Telephone Check Up [facility] Neurosurgery - Medical [place] [address] [facility] [address] [place] [address] Tony Kevin MD [address] [phone] documented as of this encounter Visit Diagnoses Diagnosis Paraspinal mass- Primary Other symptoms involving nervous and musculoskeletal systems documented in this encounter Care Teams Manager Hospitality Relationship Specialty Start Date End Date Víctor Steinberg MD [address] [place] [address] PCP - General Family Practice 03/08/21 documented as of this encounter
--- OUTSIDE RECORDS SUMMARY | 2024-03-08 14:57 | XMS_ITS | Encounter Summary ---
Author Organization [facility] Address [address] [place] [address] Care Team Providers Care Tower Control Operator Name Role Phone Víctor Steinberg MD Primary Care Provider [phone] Encounter Details Date Type Department Care Team (Late st Contact Info) Description 05/14/2023 External Device Data STL ABSTRACTION Provider, Abstract [...] st Contact Info) Description 03/16/2024 11:00 AM MILL ROLL REWINDER Appointment [address] [place] [address] Tony Kevin MD [address] [facility] [address] [place] [address] 03/26/2024 2:30 PM MILL ROLL REWINDER Office Visit [facility] Oncology and Hematology - [place] [address] [facility] [address] [place] [address] Zachary Werner MD [address] [facility] [address] [place] [address] 03/30/2024 1:00 PM MILL ROLL REWINDER Telephone Check Up [facility] Neurosurgery - Medical [place] [address] [facility] [address] [place] [address] Tony Kevin MD [address] [facility] [address] [place] [address] documented as of this encounter Visit Diagnoses Not on filedocumented in this encounter Care Teams Tower Control Operator Relationship Specialty Start Date End Date Víctor Steinberg MD [address] [place] [address] PCP - General Family Practice 03/08/21 documented as of this encounter
--- OUTSIDE RECORDS SUMMARY | 2024-03-08 14:57 | XMS_ITS | Encounter Summary ---
Author Organization [facility] Address [address] [place] [address] Care Team Providers Care Spike Maker Name Role Phone Víctor Steinberg MD Primary Care Provider [phone] Encounter Details Date Type Department Care Team (Late st Contact Info) Description 08/13/2023 External Device Data STL ABSTRACTION Provider, Abstract [...] st Contact Info) Description 03/16/2024 11:00 AM FIELD SUPPORT TECHNICIAN Appointment [address] [place] [address] Tony Kevin MD [address] [facility] [address] [place] [address] 03/26/2024 2:30 PM FIELD SUPPORT TECHNICIAN Office Visit [facility] Oncology and Hematology - [place] [address] [facility] [address] [place] [address] Zachary Werner MD [address] [facility] [address] [place] [address] 03/30/2024 1:00 PM FIELD SUPPORT TECHNICIAN Telephone Check Up [facility] Neurosurgery - Medical [place] [address] [facility] [address] [place] [address] Tony Kevin MD [address] [facility] [address] [place] [address] documented as of this encounter Visit Diagnoses Not on filedocumented in this encounter Care Teams Spike Maker Relationship Specialty Start Date End Date Víctor Steinberg MD [address] [place] [address] PCP - General Family Practice 03/08/21 documented as of this encounter
--- OUTSIDE RECORDS SUMMARY | 2024-03-08 14:57 | XMS_ITS | Encounter Summary ---
Author Organization [facility] Address [address] [place] [address] Care Team Providers Care Asset Protection Detective Name Role Phone Víctor Steinberg MD Primary Care Provider [phone] Reason for Referral * Eval and Treat (Routine) - Closed Specialty Diagnoses / Procedures Referred By Jennifer lock Referred To Contact Neurosurgery Diagnoses Paraspinal mass Procedures [place] OFFICE/OUTPATIENT ESTABLISHED MOD MDM 30 MIN [place] OFFICE/OUTPATIENT NEW MODERATE MDM 45 MINUTES Zachary Werner MD [address] [place] [address] [facility] Neurosurgery [place] [address] [facility] [address] [place] [address] Referral ID Status Reason Start Date Expiration Date V isits Requested Visits Authorized [id number] Closed CRS to Schedule 07/30/2023 07/29/2024 1 1 Encounter Details Date Type Department Care Team (Late st Contact Info) Description 07/30/2023 3:45 PM CDT Telephone Check Up [facility] Oncology and Hematology - [place] [place] [address] Zachary Werner MD [address] [place] [address] Paraspinal mass (Primary Dx); Malignant neoplasm of colon, unspecified part of colon Social History Tobacco Use Types [...] as of this encounter Progress Notes * Zachary Werner MD - 07/30/2023 5:01 PM CDT HEMATOLOGY / ONCOLOGY PROGRESS NOTE Patient Identification: Name: Mira Magana Age: 72 y.o. Sex: female : 1950 DIAGNOSIS Stage II colon cancer diagnosed in 2013 status post resection CURRENT TREATMENT Surveillance TREATMENT HISTORY SUBJECTIVE This is a phone visit with patient to discuss the PET scan. She denies any back pain and neuropathy. No melena hematochezia. Denies any chest pain or shortness of breath. No other new complaints. Review of system [...] 24 hours: As per nursing note Exam: This is a audio visit [facility] Labs from May 11 showed [...] elevated CEA. Last colonoscopy was in 2020. 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 She is asymptomatic without any back pain and neuropathy. After discussion we decided to get a consultation from neurosurgery and I will make the referral. I plan to see her back in 3 months with repeat labs including CEA. Elevated liver enzymes secondary to fatty liver. Recommended regular exercise and weight loss. Follow-up in 3 months with repeat labs. TOBACCO COUNSELING She is not a tobacco/nicotine user. 07/30/2023 Zachary Werner MD This encounter was completed via audio-only two way synchronous communication. Patient's identity confirmed yes Patient gave verbal consent to have these services billed to their insurance and expressed understanding that co-insurance and deductible may apply: yes Time spent by the provider delivering the care documented in this encounter 25 minutes. documented in this encounter Plan of Treatment Upcoming Encounters Date Type Department Care Team (Late st Contact Info) Description 03/16/2024 11:00 AM COMPUTER FORENSIC EXAMINER Appointment [address] [place] [address] Tony Kevin MD [address] [facility] [address] [place] [address] 03/26/2024 2:30 PM COMPUTER FORENSIC EXAMINER Office Visit [facility] Oncology and Hematology - [place] [address] [facility] [address] [place] [address] Zachary Werner MD [address] [facility] [address] [place] [address] 03/30/2024 1:00 PM COMPUTER FORENSIC EXAMINER Telephone Check Up [facility] Neurosurgery - Medical [place] [address] [facility] [address] [place] [address] Tony Kevin MD [address] [facility] [address] [place] [address] Scheduled Orders Name Type Priority Associated Diagnoses Orde r Schedule CBC WITH DIFFERENTIAL Lab Stat Malignant neoplasm of colon, unspecified part of colon Expected: 10/22/2023, Expires: 07/29/2024 CEA Lab Routine Malignant neoplasm of colon, unspecified part of colon Expected: 10/22/2023, Expires: 07/29/2024 COMPREHENSIVE METABOLIC PANEL Lab Stat Malignant neoplasm of colon, unspecified part of colon Expected: 10/22/2023, Expires: 07/29/2024 Scheduled Referrals Name Type Priority Associated Diagnoses Order Schedule AMB REFERRAL TO NEUROSURGERY Outpatient Referral Routine Paraspinal mass Ordered: 07/30/2023 documented as of this encounter Visit Diagnoses Diagnosis Paraspinal mass- Primary Other symptoms involving nervous and musculoskeletal systems Malignant neoplasm of colon, unspecified part of colon documented in this encounter Care Teams Asset Protection Detective Relationship Specialty Start Date End Date Víctor Steinberg MD [address] [place] [address] PCP - General Family Practice 03/08/21 documented as of this encounter
--- OUTSIDE RECORDS SUMMARY | 2024-03-08 14:57 | XMS_ITS | Encounter Summary ---
Author Organization [facility] [employer] Address [address] [place] [address] Care Team Providers Care Gravity Prospector Name Role Phone Víctor Steinberg MD Primary Care Provider [phone] Reason for Visit * Reason Onset Date Comments Pet Scan Review 07/18/2023 Encounter Details Date Type Department Care Team (Late st Contact Info) Description 07/18/2023 Telephone [facility] Oncology and Hematology - Terr[place] [address] Geeta H[address] [facility] [address] [place] [address] Nanette Colmenares FNP [address] [facility] [address] [place] [address] Pet Scan Review Social History Tobacco Use Types Packs/Day Years [...] * Telephone Encounter - Dara Gómez - 07/18/2023 11:25 AM CDT Patient called and wanted to let us know that she has an appointment on Saturday for her PET Scan. She states that she is on an antibiotic for a UTI and wanted to make sure it was ok to still get her scan done. Per Yael TENORIO it is ok for her to still get her scan done. documented in this encounter Plan of Treatment Upcoming Encounters Date Type Department Care Team (Late st Contact Info) Description 03/16/2024 11:00 AM CHROME TANNER Appointment [facility] [address] [place] [address] Tony Kevin MD [address] [facility] [address] [place] [address] 03/26/2024 2:30 PM CHROME TANNER Office Visit [facility] Oncology and Hematology - [place] [address] [facility] [address] [place] [address] Zachary Werner MD [address] [facility] [address] [place] [address] 03/30/2024 1:00 PM CHROME TANNER Telephone Check Up [facility] Neurosurgery - Medical [place] [address] [facility] [address] [place] [address] Tony Kevin MD [address] [facility] [address] [place] [address] documented as of this encounter Visit Diagnoses Not on filedocumented in this encounter Care Teams Gravity Prospector Relationship Specialty Start Date End Date Víctor Steinberg MD [address] [place] [address] PCP - General Family Practice 03/08/21 documented as of this encounter
--- OUTSIDE RECORDS SUMMARY | 2024-03-08 14:57 | XMS_ITS | Encounter Summary ---
Author Organization [facility] Address [address] [place] [address] Care Team Providers Care Tester Printed Circuit Boards Name Role Phone Víctor Steinberg MD Primary Care Provider [phone] Reason for Referral * Eval and Treat (Routine) - Closed Specialty Diagnoses / Procedures Referred By Contviviane t Referred To Contact Gastroenterology Diagnoses Malignant neoplasm of colon, unspecified part of colon Procedures TX OFFICE/OUTPATIENT ESTABLISHED MOD MDM 30 MIN TX OFFICE/OUTPATIENT NEW MODERATE MDM 45 MINUTES Zachary Werner MD [address] [place] [address] [place] [address] Referral ID Status Reason Start Date Expiration Date V isits Requested Visits Authorized [id number] Closed [facility] CTS 04/24/2023 04/24/2024 1 1 FITTER Reason for Visit * Reason Onset Date Comments Results 04/24/2023 Encounter Details Date Type Department Care Team (Late st Contact Info) Description 04/24/2023 Telephone [facility] Oncology and Hematology [facility] [address] [facility] [address] [place] [address] Zachary Werner MD [address] [place] [address] Results Social History Tobacco Use Types Packs/Day Years [...] encounter Miscellaneous Notes * Telephone Encounter - RicoEfrenDara M - 04/24/2023 8:18 AM CST ----- Message from Zachary Werner MD sent at 04/23/2023 5:11 PM TILE FITTER ----- Regarding: RE: CT Scan Results CT scan is stable. We can see her in July. ----- Message ----- From: Dara Gómez Sent: 04/23/2023 1:13 PM TILE FITTER To: Zahcary Werner MD Subject: CT Scan Results Patient called today and stated that she does not have a follow up until July. She just had a CT scan done and wants to make sure that the results are ok. Do you want me to put her on for a follow up for the CT results? Or are the results ok and just follow up in July? Also patient states that her last colonoscopy was done about 4 years ago and she would like to havea referral to have another one. Please advise. FITTER documented in this encounter Plan of Treatment Upcoming Encounters Date Type Department Care Team (Late st Contact Info) Description 03/16/2024 11:00 AM TILE FITTER Appointment [address] [place] [address] Tony Kevin MD [address] [facility] [address] [address] 03/26/2024 2:30 PM TILE FITTER Office Visit [facility] Oncology and Hematology - Terrance [address] [place] [address] Zachary Werner MD [address] [facility] [address] [place] [address] 03/30/2024 1:00 PM TILE FITTER Telephone Check Up [facility] Neurosurgery - Medical [place] [address] [facility] [address] [place] [address] Tony Kevin MD [address] [facility] [address] [place] [address] Scheduled Referrals Name Type Priority Associated Diagnoses Order Schedule AMB REFERRAL TO GASTROENTEROLOGY Outpatient Referral Routine Malignant neoplasm of colon, unspecified part of colon Ordered: 04/24/2023 documented as of this encounter Visit Diagnoses Diagnosis Malignant neoplasm of colon, unspecified part of colon- Primary documented in this encounter Care Teams Tester Printed Circuit Boards Relationship Specialty Start Date End Date Víctor Steinberg MD [address] [place] [address] PCP - General Family Practice 03/08/21 documented as of this encounter
--- OUTSIDE RECORDS SUMMARY | 2024-03-08 14:57 | XMS_ITS | Encounter Summary ---
Author Organization [facility] Address [address] [place] [address] Care Team Providers Care Pe Manager Name Role Phone Víctor Steinberg MD Primary Care Provider [phone] Encounter Details Date Type Department Care Team (Late Contact Info) Description 08/27/2023 Abstract [facility] Neurosurgery - Medical [place] [address] [facility] [address] [place] [address] Tony Kevin MD [address] [facility] [address] [place] [address] Social History Tobacco Use Types Packs/Day [...] (Late Contact Info) Description 03/16/2024 11:00 AM MOTORCYCLE TECHNICIAN Appointment [facility] [address] [facility] [address] [place] [address] Tony Kevin MD [address] [facility] [address] [place] [address] 03/26/2024 2:30 PM MOTORCYCLE TECHNICIAN Office Visit [facility] Oncology and Hematology - Terrance [address] [place] [address] Zachary Werner MD [address] [facility] [address] [place] [address] 03/30/2024 1:00 PM MOTORCYCLE TECHNICIAN Telephone Check Up [facility] Neurosurgery - [facility] [address] [facility] [address] [place] [address] Tony Kevin MD [address] [facility] [address] [place] [address] documented as of this encounter Visit Diagnoses Not on filedocumented in this encounter Care Teams Pe Manager Relationship Specialty Start Date End Date Víctor Steinberg MD [address] [place] [address] PCP - General Family Practice 03/08/21 documented as of this encounter
--- OUTSIDE RECORDS SUMMARY | 2024-03-08 14:57 | XMS_ITS | Encounter Summary ---
Author Organization [facility] Address [address] [place] [address] Care Team Providers Care Weather Forcaster Name Role Phone Víctor Steinberg MD Primary Care Provider [phone] Encounter Details Date Type Department Care Team (Late st Contact Info) Description 06/11/2023 External Device Data STL ABSTRACTION Provider, Abstract [...] st Contact Info) Description 03/16/2024 11:00 AM SOAP INSPECTOR Appointment [address] [place] [address] Tony Kevin MD [address] [facility] [address] [place] [address] 03/26/2024 2:30 PM SOAP INSPECTOR Office Visit [facility] Oncology and Hematology - Terrance [address] [place] [address] Zachary Werner MD [address] [facility] [address] [place] [address] 03/30/2024 1:00 PM SOAP INSPECTOR Telephone Check Up [facility] Neurosurgery - Medical [place] [address] [facility] [address] [place] [address] Tony Kevin MD [address] [facility] [address] [place] [address] documented as of this encounter Visit Diagnoses Not on filedocumented in this encounter Care Teams Weather Forcaster Relationship Specialty Start Date End Date Víctor Steinberg MD [address] [place] [address] PCP - General Family Practice 03/08/21 documented as of this encounter
--- OUTSIDE RECORDS SUMMARY | 2024-03-08 14:58 | XMS_ITS | Encounter Summary ---
Author Organization [facility] [employer] Address [address] [place] [address] Care Team Providers Care Learning Technologies Specialist Name Role Phone Víctor Steinberg MD Primary Care Provider [phone] Encounter Details Date Type Department Care Team (Late Contact Info) Description 12/28/2022 Orders Only [facility] Oncology and Hematology [facility] [address] [facility] [address] [place] [address] Zachary Werner MD [address] [facility] [address] [place] [address] Social History Tobacco Use Types [...] (Late Contact Info) Description 03/16/2024 11:00 AM DIRECTOR NETWORK DEVELOPMENT Appointment [address] [place] [address] Tony Kevin MD [address] [facility] [address] [place] [address] 03/26/2024 2:30 PM DIRECTOR NETWORK DEVELOPMENT Office Visit [facility] Oncology and Hematology [place] [address] [place] [address] Zachary Werner MD [address] [facility] [address] [place] [address] 03/30/2024 1:00 PM DIRECTOR NETWORK DEVELOPMENT Telephone Check Up [facility] Neurosurgery - [facility] [address] [facility] [address] [place] [address] Tony Kevin MD [address] [facility] [address] [place] [address] documented as of this encounter Procedures Procedure Name Priority Date/Time Associated Diagnosis Comments COMPREHENSIVE METABOLIC PANEL Routine 12/27/2022 10:56 AM CDT documented in this encounter Results * COMPREHENSIVE METABOLIC PANEL (12/27/2022 10:56 AM CDT) Blood Zachary Werner MD CHEMISTRY ORDERABLES documented in this encounter Visit Diagnoses Not on filedocumented in this encounter Care Teams Learning Technologies Specialist Relationship Specialty Start Date End Date Víctor Steinberg MD [address] [place] [address] PCP - General Family Practice 03/08/21 documented as of this encounter
--- OUTSIDE RECORDS SUMMARY | 2024-03-08 14:58 | XMS_ITS | Encounter Summary ---
Author Organization [facility] [employer] Address [address] [place] [address] Care Team Providers Care Allocation Analyst Name Role Phone Víctor Steinberg MD Primary Care Provider [phone] Encounter Details Date Type Department Care Team (Late Contact Info) Description 01/22/2022 Orders Only [facility] Oncology and Hematology - Terr[place] [address] [place] [address] Tejal Gutierrez RN Malignant neoplasm of colon, unspecified part of colon Social History Tobacco Use Types Packs/Day Years Used Date Smoking Tobacco: Never Smokeless Tobacco: Never Alcohol Use Standard Drinks/Week Comments Yes 0 (1 standard drink = 0.6 oz pur e alcohol) Sex and Gender Information Value Date Recorded Sex Assigned at Not on file Gender Identity Not on file Sexual Orientation Not on file COVID-19 Exposure Response Date Recorded In the last 10 days, have yo u been in contact with someone who was confirmed or suspected to have Coronavirus/COVID-19? No / Unsure 12/28/2021 10:01 AM CDT documented as of this encounter Plan of Treatment Upcoming Encounters Date Type Department Care Team (Late st Contact Info) Description 03/16/2024 11:00 AM LIEUTENANT FIRE FIGHTER Appointment [address] [place] [address] Tony Kevin MD [address] [address] 03/26/2024 2:30 PM LIEUTENANT FIRE FIGHTER Office Visit [facility] Oncology and Hematology [facility] [address] [place] [address] Zachary Werner MD [address] [facility] [address] [place] [address] 03/30/2024 1:00 PM LIEUTENANT FIRE FIGHTER Telephone Check Up [facility] Neurosurgery - [facility] [address] [facility] [address] [place] [address] Tony Kevin MD [address] [facility] [address] [place] [address] documented as of this encounter Visit Diagnoses Diagnosis Malignant neoplasm of colon, unspecified part of colon documented in this encounter Care Teams Allocation Analyst Relationship Specialty Start Date End Date Víctor Steinberg MD [address] [place] [address] PCP - General Family Practice 03/08/21 documented as of this encounter
--- OUTSIDE RECORDS SUMMARY | 2024-03-08 14:58 | XMS_ITS | Encounter Summary ---
Author Organization [facility] [employer] Address [address] [place] [address] Care Team Providers Care Gis Geographer Name Role Phone Víctor Steinberg MD Primary Care Provider [phone] Encounter Details Date Type Department Care Team (Late st Contact Info) Description 05/18/2022 2:45 PM GENERAL OFFICE ASSOCIATE Telephone Check Up [facility] Oncology and Hematology - [place] [address] [facility] [address] [place] [address] Zachary Werner MD [address] [facility] [address] [place] [address] Malignant neoplasm of colon, unspecified [...] suspected to have Coronavirus/COVID-19? No / Unsure 05/18/2022 3:02 PM GENERAL OFFICE ASSOCIATE documented as of this encounter Progress Notes * Zachary Werner MD - 05/18/2022 3:24 PM CST HEMATOLOGY / ONCOLOGY PROGRESS NOTE Patient Identification: Name: Mira Magana Age: 71 y.o. Sex: female : 1950 DIAGNOSIS Stage II colon cancer diagnosed in 2013 status post resection CURRENT TREATMENT Surveillance TREATMENT HISTORY SUBJECTIVE This is a phone visit with patient. Patient has no new complaint including bleeding chest pain and shortness of breath. She remains clinically stable. Review of system Constitutional: Patient did not mention fevers, sweats, fatigue, malaise, weight loss HEENT: Patient did not mention [...] lumps, bumps or rashes. 12 point review system was reviewed Objective: Vital signs in last 24 hours: As per nursing note Exam: This is a audio visit. [facility] Labs from May 11 showed CEA 7.5 @IMAGEIMP@ Assessment: Plan: There are no problems to display for this patient. Stage II colon cancer diagnosed in 2013 status post resection. T3N0 disease. She did not receive any adjuvant chemotherapy. She always have a slightly elevated CEA. Last colonoscopy was in 2020. CEA remains slightly elevated at 7.5 but close to her baseline. She remains asymptomatic. I plan tosee her back in 6 months with repeat labs. She will contact us if she has any clinical change. Hyperlipidemia. Stable on Crestor. TOBACCO COUNSELING She is not a tobacco user. 05/18/2022 This encounter was completed via audio-only two way synchronous communication. Patient's identity confirmed yes Patient gave verbal consent to have these services billed to their insurance and expressed understanding that co-insurance and deductible may apply: yes Time spent by the provider delivering the care documented in this encounter 15 minutes. Zachary Werner MD RAL OFFICE ASSOCIATE documented in this encounter Plan of Treatment Upcoming Encounters Date Type Department Care Team (Late st Contact Info) Description 03/16/2024 11:00 AM GENERAL OFFICE ASSOCIATE Appointment [facility] [address] [facility] [address] [place] [address] Tony Kevin MD [address] [facility] [address] [place] [address] 03/26/2024 2:30 PM GENERAL OFFICE ASSOCIATE Office Visit [facility] Oncology and Hematology - Terrance [address] [facility] [address] [place] [address] Zachary Werner MD [address] [facility] [address] [place] [address] 03/30/2024 1:00 PM GENERAL OFFICE ASSOCIATE Telephone Check Up [facility] Neurosurgery - Medical [place] [address] [facility] [address] [place] [address] Tony Kevin MD [address] [facility] [address] [place] [address] documented as of this encounter Visit Diagnoses Diagnosis Malignant neoplasm of colon, unspecified part of colon- Primary documented in this encounter Care Teams Gis Geographer Relationship Specialty Start Date End Date Víctor Steinberg MD [address] [place] [address] PCP - General Family Practice 03/08/21 documented as of this encounter
--- OUTSIDE RECORDS SUMMARY | 2024-03-08 14:58 | XMS_ITS | Encounter Summary ---
Author Organization [facility] [employer] Address [address] [place] [address] Care Team Providers Care Dispatcher Maintenance Service Name Role Phone Víctor Steinberg MD Primary Care Provider [phone] Reason for Visit * Reason Onset Date Comments lab orders 12/28/2021 Encounter Details Date Type Department Care Team (Late Contact Info) Description 12/28/2021 Telephone [facility] Oncology and Hematology - Terrance [address] [place] [address] Mushtaq Chau MD [address] [place] [address] lab orders Social History Tobacco Use Types Packs/Day Years [...] (Late Contact Info) Description 03/16/2024 11:00 AM TRIM MACHINE OPERATOR Appointment [address] [place] [address] Tony Kevin MD [address] [facility] [address] [place] [address] 03/26/2024 2:30 PM TRIM MACHINE OPERATOR Office Visit [facility] Oncology and Hematology - Terrance [address] [place] [address] Zachary Werner MD [address] [facility] [address] [place] [address] 03/30/2024 1:00 PM TRIM MACHINE OPERATOR Telephone Check Up [facility] Neurosurgery - Medical [place] [address] [facility] [address] [place] [address] Tony Kevin MD [address] [facility] [address] [place] [address] documented as of this encounter Visit Diagnoses Diagnosis Malignant neoplasm of colon, unspecified part of colon- Primary documented in this encounter Care Teams Dispatcher Maintenance Service Relationship Specialty Start Date End Date Víctor Steinberg MD [address] [place] [address] PCP - General Family Practice 03/08/21 documented as of this encounter
--- OUTSIDE RECORDS SUMMARY | 2024-03-08 14:58 | XMS_ITS | Encounter Summary ---
Author Organization [facility] Service Route [facility] Address [address] [place] [address] Care Team Providers Care Briquetting Machine Operator Name Role Phone Víctor Steinberg MD Primary Care Provider [phone] Encounter Details Date Type Department Care Team (Late Contact Info) Description 01/05/2022 Orders Only [facility] Oncology and Hematology - [place] [address] [facility] [address] [place] [address] Zachary Werner MD [address] [facility] [address] [place] [address] Social History Tobacco Use Types [...] st Contact Info) Description 03/16/2024 11:00 AM INJECTION MOLDER Appointment [address] [place] [address] Tony Kevin MD [address] [facility] [address] [facility] [place] [address] 03/26/2024 2:30 PM INJECTION MOLDER Office Visit [facility] Oncology and Hematology - Terrance [address] [facility] [address] [place] [address] Zachary Werner MD [address] [facility] [address] [place] [address] 03/30/2024 1:00 PM INJECTION MOLDER Telephone Check Up [facility] Neurosurgery - Medical [place] [address] [facility] [address] [place] [address] Tony Kevin MD [address] [facility] [address] [place] [address] documented as of this encounter Procedures Procedure Name Priority Date/Time Associated Diagnosis Comments COMPREHENSIVE METABOLIC PANEL Routine 12/22/2021 documented in this encounter Results * COMPREHENSIVE METABOLIC PANEL (12/22/2021) Blood Zachary Werner MD CHEMISTRY ORDERABLES documented in this encounter Visit Diagnoses Not on filedocumented in this encounter Care Teams Briquetting Machine Operator Relationship Specialty Start Date End Date Víctor Steinberg MD [address] [place] [address] PCP - General Family Practice 03/08/21 documented as of this encounter
--- OUTSIDE RECORDS SUMMARY | 2024-03-08 14:58 | XMS_ITS | Encounter Summary ---
Author Organization [facility] [employer] Address [address] [place] [address] Care Team Providers Care Senior Vice President And Chief Information Officer Name Role Phone Víctor Steinberg MD Primary Care Provider [phone] Encounter Details Date Type Department Care Team (Late Contact Info) Description 05/14/2022 Orders Only [facility] Oncology and Hematology - Terrance [address] [place] [address] Dara Gómez Malignant neoplasm of colon, unspecified part of [...] suspected to have Coronavirus/COVID-19? No / Unsure 05/11/2022 9:55 AM ADJUNCT PSYCHOLOGY INSTRUCTOR documented as of this encounter Plan of Treatment Upcoming Encounters Date Type Department Care Team (Late Contact Info) Description 03/16/2024 11:00 AM ADJUNCT PSYCHOLOGY INSTRUCTOR Appointment [address] [place] [address] Tony Kevin MD [address] [facility] [address] [place] [address] 03/26/2024 2:30 PM ADJUNCT PSYCHOLOGY INSTRUCTOR Office Visit [facility] Oncology and Hematology [facility] [address] [place] [address] Zachary Werner MD [address] [facility] [address] [place] [address] 03/30/2024 1:00 PM ADJUNCT PSYCHOLOGY INSTRUCTOR Telephone Check Up [facility] Neurosurgery - [facility] [address] [facility] [address] [place] [address] Tony Kevin MD [address] [facility] [address] [place] [address] documented as of this encounter Visit Diagnoses Diagnosis Malignant neoplasm of colon, unspecified part of colon documented in this encounter Care Teams Senior Vice President And Chief Information Officer Relationship Specialty Start Date End Date Víctor Steinberg MD [address] [place] [address] PCP - General Family Practice 03/08/21 documented as of this encounter
--- OUTSIDE RECORDS SUMMARY | 2024-03-08 14:58 | XMS_ITS | Encounter Summary ---
Author Organization [facility] Address [address] [facility] Attn: [place] [address] Care Team Providers Care Project Development Manager Name Role Phone Víctor Steinberg MD Primary Care Provider [phone] Encounter Details Date Type Department Care Team (Latest Contact Info) Description 05/11/2022 Travel Social History Tobacco Use Types Packs/Day Years [...] Coronavirus/COVID-19? No / Unsure 05/11/2022 9:55 AM RESEARCH CLERK documented as of this encounter Plan of Treatment Upcoming Encounters Date Type Department Care Team (Late st Contact Info) Description 03/16/2024 11:00 AM RESEARCH CLERK Appointment [address] [place] [address] Tony Kevin MD [address] [facility] [address] [place] [address] 03/26/2024 2:30 PM RESEARCH CLERK Office Visit [facility] Oncology and Hematology - Terrance [address] [facility] [address] [place] [address] Zachary Werner MD [address] [facility] [address] [place] [address] 03/30/2024 1:00 PM RESEARCH CLERK Telephone Check Up [facility] Neurosurgery - Medical [place] [address] [facility] [address] [place] [address] Tony Kevin MD [address] [facility] [address] [place] [address] documented as of this encounter Visit Diagnoses Not on filedocumented in this encounter Care Teams Project Development Manager Relationship Specialty Start Date End Date Víctor Steinberg MD [address] [place] [address] PCP - General Family Practice 03/08/21 documented as of this encounter
--- OUTSIDE RECORDS SUMMARY | 2024-03-08 14:58 | XMS_ITS | Encounter Summary ---
Author Organization [facility] [email or web address] Address [address] [place] [address] Care Team Providers Care Brine Maker Name Role Phone Víctor Steinberg MD Primary Care Provider [phone] Encounter Details Date Type Department Care Team (Late st Contact Info) Description 01/08/2023 4:00 PM CDT Telephone Check Up [facility] Oncology and Hematology - Terrance [address] [facility] [address] [place] [address] Zachary Werner MD [address] [facility] [address] [place] [address] Malignant neoplasm of colon, unspecified [...] Progress Notes * Zachary Werner MD - 01/08/2023 5:40 PM CDT HEMATOLOGY / ONCOLOGY PROGRESS NOTE Patient Identification: Name: Mira Magana Age: 72 y.o. Sex: female : 1950 DIAGNOSIS Stage II colon cancer diagnosed in 2014 status post resection CURRENT TREATMENT Surveillance TREATMENT HISTORY SUBJECTIVE This is audio visit with patient after the CT scan was performed. She denies any shortness of breath and cough. No hemoptysis. Weight and appetite stable. No other new complaints. Review of system Constitutional: Patient did not mention fevers, sweats, fatigue, malaise, weight and appetite stable HEENT: Patient did not mention sinus congestion, [...] 0.6 CEA 8.0 AST 56 ALT 42 @IMAGEIMP@ Assessment: Plan: There are no problems to display for this patient. Stage II colon cancer diagnosed in 2013 status post resection. T3N0 disease. She did not receive any adjuvant chemotherapy. She always have a slightly elevated CEA. Last colonoscopy was in 2020. See the scan chest abdomen pelvis was performed due to rising CEA. CT scan showed 2 subcentimeter pulmonary nodules one 5 mm in the right lower lobe and another 3 mm in the left lower lobe. There wasno comparison available. 6 follow- up CT scan in 3 months was recommended and I will order. There was also diffuse fatty liver. Elevated liver enzymes. CT scan Showed fatty liver. Abstinence from drinking recommended. 01/08/2023 Zachary Werner MD This encounter was completed via audio-only two way synchronous communication. Patient's identity confirmed yes Patient gave verbal consent to have these services billed to their insurance and expressed understanding that co-insurance and deductible may apply: yes Time spent by the provider delivering the care documented in this encounter 20 minutes. documented in this encounter Plan of Treatment Upcoming Encounters Date Type Department Care Team (Late st Contact Info) Description 03/16/2024 11:00 AM GOLD LEAF ROLLER Appointment [facility] [address] [facility] [address] [place] [address] Tony Kevin MD [address] [facility] [address] [place] [address] 03/26/2024 2:30 PM GOLD LEAF ROLLER Office Visit [facility] Oncology and Hematology - Terrance [address] [facility] [address] [place] [address] Zachary Werner MD [address] [facility] [address] [place] [address] 03/30/2024 1:00 PM GOLD LEAF ROLLER Telephone Check Up [facility] Neurosurgery - Medical [place] [address] [facility] [address] [place] [address] Tony Kevin MD [address] [facility] [address] [place] [address] documented as of this encounter Visit Diagnoses Diagnosis Malignant neoplasm of colon, unspecified part of colon- Primary documented in this encounter Care Teams Brine Maker Relationship Specialty Start Date End Date Víctor Steinberg MD [address] [place] [address] PCP - General Family Practice 03/08/21 documented as of this encounter
--- OUTSIDE RECORDS SUMMARY | 2024-03-08 14:58 | XMS_ITS | Encounter Summary ---
Author Organization [facility] Address [address] [facility] Attn: [place] [address] Care Team Providers Care Field Support Specialist Name Role Phone Víctor Steinberg MD Primary Care Provider [phone] Encounter Details Date Type Department Care Team (Latest Contact Info) Description 05/18/2022 Travel Social History Tobacco Use Types Packs/Day [...] Coronavirus/COVID-19? No / Unsure 05/18/2022 3:02 PM CUSTOMS EXAMINER documented as of this encounter Plan of Treatment Upcoming Encounters Date Type Department Care Team (Late st Contact Info) Description 03/16/2024 11:00 AM CUSTOMS EXAMINER Appointment [address] [place] [address] Tony Kevin MD [address]21 [facility] [address] [facility] [address] 03/26/2024 2:30 PM CUSTOMS EXAMINER Office Visit [facility] Oncology and Hematology - Terrance [address] [facility] [address] [place] [address] Zachary Werner MD [address] [facility] [address] [place] [address] 03/30/2024 1:00 PM CUSTOMS EXAMINER Telephone Check Up [facility] Neurosurgery - Medical [place] [address] [facility] [address] [place] [address] Tony Kevin MD [address] [facility] [address] [place] [address] documented as of this encounter Visit Diagnoses Not on filedocumented in this encounter Care Teams Field Support Specialist Relationship Specialty Start Date End Date Víctor Steinberg MD [address] [place] [address] PCP - General Family Practice 03/08/21 documented as of this encounter
--- OUTSIDE RECORDS SUMMARY | 2024-03-08 14:58 | XMS_ITS | Encounter Summary ---
Author Organization [facility] [email or web address] Address [address] [place] [address] Care Team Providers Care Earth Burner Name Role Phone Víctor Steinberg MD Primary Care Provider [phone] Encounter Details Date Type Department Care Team (Late Contact Info) Description 01/02/2023 Orders Only [facility] Oncology and Hematology [facility] [address] [place] [address] Zachary Werner MD [address] [facility] [address] [place] [address] Social History Tobacco Use Types [...] (Late Contact Info) Description 03/16/2024 11:00 AM BUFFER INFLATED PAD Appointment [address] [place] [address] Tony Kevin MD [address] [facility] [address] [place] [address] 03/26/2024 2:30 PM BUFFER INFLATED PAD Office Visit [facility] Oncology and Hematology [place] [address] [place] [address] Zachary Werner MD [address] [facility] [address] [place] [address] 03/30/2024 1:00 PM BUFFER INFLATED PAD Telephone Check Up [facility] Neurosurgery - Medical [place] [address] [facility] [address] [place] [address] Tony Kevin MD [address] [facility] [address] [place] [address] documented as of this encounter Procedures Procedure Name Priority Date/Time Associated Diagnosis Comments CT CHEST ABDOMEN PELVIS W CONT Routine 01/01/2023 3:05 PM CDT documented in this encounter Results * CT CHEST ABDOMEN PELVIS W CONT (01/01/2023 3:05 PM CDT) Anatomical Region Laterality Modality Chest Other Zachary Werner MD CT ORDERABLES documented in this encounter Visit Diagnoses Not on filedocumented in this encounter Care Teams Earth Burner Relationship Specialty Start Date End Date Víctor Steinberg MD [address] [place] [address] PCP - General Family Practice 03/08/21 documented as of this encounter
--- OUTSIDE RECORDS SUMMARY | 2024-03-08 14:58 | XMS_ITS | Encounter Summary ---
Author Organization [facility] Address [address] [facility] Attn: [place] [address] Care Team Providers Care Manager Compensation Name Role Phone Víctor Steinberg MD Primary Care Provider [phone] Encounter Details Date Type Department Care Team (Latest Contact Info) Description 12/28/2021 Travel Social History Tobacco Use Types Packs/Day [...] st Contact Info) Description 03/16/2024 11:00 AM GARMENT 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 SUPERVISOR Appointment [address] [place] [address] Tony Kevin MD [address] [facility] [address] [place] [address] 03/26/2024 2:30 PM GARMENT 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 SUPERVISOR Office Visit [facility] Oncology and Hematology - Terrance [address] [facility] [address] [place] [address] Zachary Werner MD [address] [facility] [address] [place] [address] 03/30/2024 1:00 PM GARMENT 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 SUPERVISOR Telephone Check Up [facility] Neurosurgery - Medical [place] [address] [facility] [address] [place] [address] Tony Kevin MD [address] [facility] [address] [place] [address] documented as of this encounter Visit Diagnoses Not on filedocumented in this encounter Care Teams Manager Compensation Relationship Specialty Start Date End Date Víctor Steinberg MD [address] [place] [address] PCP - General Family Practice 03/08/21 documented as of this encounter
--- OUTSIDE RECORDS SUMMARY | 2024-03-08 14:58 | XMS_ITS | Encounter Summary ---
Author Organization [facility] [employer] [facility] Address [address] [place] [address] Care Team Providers Care Transportation Supervisor Name Role Phone Víctor Steinberg MD Primary Care Provider [phone] Reason for Visit * Reason Comments Follow Up Follow up labs * Eval and Treat (Routine) - Closed Specialty Diagnoses / Procedures Referred By Contac t Referred To Contact Hematology and Oncology Diagnoses Malignant neoplasm of colon, unspecified (CMS/HCC) Procedures Office Visit Level 3-5 Víctor Steinberg MD [address] [place] [address] [facility] Oncology And Hematology Terr[place] [address] [place] [address] Referral ID Status Reason Start Date Expiration Date Visits Re quested Visits Authorized [id number] Closed 08/10/2021 02/06/2022 12 10 Encounter Details Date Type Department Care Team (Late st Contact Info) Description 12/28/2021 10:15 AM CDT Office Visit [facility] Oncology and Hematology - Terrance [address] [place] [address] Mushtaq Chau MD [address] [place] [address] Malignant neoplasm of colon, unspecified [...] Recorded In the last 10 days, have nissa u been in contact with someone who was confirmed or suspected to have Coronavirus/COVID-19? No / Unsure 12/28/2021 10:01 AM CDT documented as of this encounter Last Filed Vital Signs Vital Sign Reading Time Taken Comments Blood Pressure 152/75 12/28/2021 10:27 AM CDT Pulse 66 12/28/2021 10:27 AM CDT Temperature 36.2 ??C (97.1 ??F) 12/28/2021 10:27 AM C DT Respiratory Rate - - Oxygen Saturation 99% 12/28/2021 10:27 AM CDT Inhaled Oxygen Concentration - - Weight 84.1 kg (185 lb 4.8 oz) 12/28/2021 10:27 AM CDT Height 167.6 cm (5' 6 ) 12/28/2021 10:27 AM CDT Body Mass Index 29.91 12/28/2021 10:27 AM CDT documented in this encounter Progress Notes * Mushtaq Chau MD - 12/28/2021 1:26 PM CDT HEMATOLOGY / ONCOLOGY PROGRESS NOTE Patient Identification: Name: Mira Magana Age: 70 y.o. Sex: female : 1950 DIAGNOSIS stage II colon cancer 2014 SUBJECTIVE Ms. Magana is a 70-year-old female who is coming here for continued follow-up in November 2013 1 resection for stage II T3N0 colon cancer that time she did not receive any adjuvant therapy she has been doing well since and has now decided to transfer her follow-up here at our clinic. She had acolonoscopy a year ago which was normal as well as a mammogram which was normal as well she describes no weight loss abdominal pain change in bowel habits or change in performance status She does mention that her CEA is normally elevated however has not changed she is a non-smoker CEA is still elevated but not increasing Review of system Constitutional: denies fevers, sweats, fatigue, malaise, weight loss HEENT: denies sinus congestion, hearing or vision problems Respiratory: denies cough, dyspnea, wheeze Cardiovascular: denies chest pain, exertional chest pressure/discomfort, nausea, syncope, shortnessof breath GI: denies constipation, diarrhea, dsyphagia, reflux symptoms, vomiting, melena : denies dysuria, frequency, incontinence, urgency Integumentary system: no lymphadenopathy, sweats, flushing Musculoskeletal: denies: myalgia, arthralgia Neurological: denies blurry or disturbed vision, numbness/weakness, dizziness Skin: No lumps, bumps or rashes. Objective: Vital signs in last 24 hours: [...] No lymphadenopathy Neuro: No obvious focal deficit White blood cell count 3.22 hemoglobin 14.1 platelet count of 150,000 CEA is 7.9 Assessment: Plan: Follow-up in 1 year she will undergo annual mammogram colonoscopy every 3 years and be seen in thisclinic in 1 year with repeat labs ? TOBACCO COUNSELING She is not a tobacco user. 03/08/2021 This note was transcribed using [employer] naturally speaking computerized voice recognition without a human customer care associate. This report may or may not have been adjusted for typographical, grammaticaland syntax errors. Mushtaq Chau MD documented in this encounter Plan of Treatment Upcoming Encounters Date Type Department Care Team (Late st Contact Info) Description 03/16/2024 11:00 AM TOOL MAKER BENCH Appointment [place] [address] [facility] [address] [place] [address] Tony Kevin MD [address] [facility] [address] [place] [address] 03/26/2024 2:30 PM TOOL MAKER BENCH Office Visit [facility] Oncology and Hematology - Terrance [address] [facility] [address] [place] [address] Zachary Werner MD [address] [facility] [address] [place] [address] 03/30/2024 1:00 PM TOOL MAKER BENCH Telephone Check Up [facility] Neurosurgery - Medical [place] [address] [facility] [address] [place] [address] Tony Kevin MD [address] [facility] [address] [place] [address] documented as of this encounter Visit Diagnoses Diagnosis Malignant neoplasm of colon, unspecified part of colon- Primary documented in this encounter Care Teams Transportation Supervisor Relationship Specialty Start Date End Date Víctor Steinberg MD [address] [place] [address] PCP - General Family Practice 03/08/21 documented as of this encounter
--- OUTSIDE RECORDS SUMMARY | 2024-03-08 14:58 | XMS_ITS | Encounter Summary ---
Author Organization [facility] [employer] Address [address] [place] [address] Care Team Providers Care Airport Operations Officer Name Role Phone Víctor Steinberg MD Primary Care Provider [phone] Reason for Visit * Reason Comments Follow Up Encounter Details Date Type Department Care Team (Late st Contact Info) Description 12/28/2022 10:00 AM CDT Office Visit [facility] Oncology and Hematology - Terrance [address] [facility] [address] [place] [address] Zachary Werner MD [address] [facility] [address] [place] [address] Malignant neoplasm of colon, [...] Sign Reading Time Taken Comments Blood Pressure 146/64 12/28/2022 10:01 AM CDT Pulse 80 12/28/2022 10:00 AM CDT Temperature 36.5 ??C (97.7 ??F) 12/28/2022 10:00 AM C DT Respiratory Rate 10 12/28/2022 10:00 AM CDT Oxygen Saturation 99% 12/28/2022 10:00 AM CDT Inhaled Oxygen Concentration - - Weight 88.5 kg (195 lb) 12/28/2022 10:00 AM CDT Height - - Body Mass Index 31.47 12/28/2021 10:27 AM CDT documented in this encounter Progress Notes * Zachary Werner MD - 12/28/2022 10:31 AM CDT HEMATOLOGY / ONCOLOGY PROGRESS NOTE Patient Identification: Name: Mira Magana Age: 72 y.o. Sex: female : 1950 DIAGNOSIS Stage II colon cancer diagnosed in 2014 status post resection CURRENT TREATMENT Surveillance TREATMENT HISTORY SUBJECTIVE Patient came to the office for follow-up visit. He denies any chest pain or abdominal pain. No nausea vomiting. No diarrhea and constipation. She drinks couple of drinks every day. 3 pound weight gain. No other new complaint. Review of system Constitutional: Patient did not mention fevers, sweats, fatigue, malaise, 3 pound weight gain HEENT: Patient did not mention sinus congestion, [...] No lymphadenopathy Neuro: No obvious focal deficit PATH LABS Labs from May 11 showed [...] colonoscopy was in 2020. Labs showed further increase in CEA. Liver enzymes are elevated as well. I will order CT chest abdomen pelvis. We will follow-up in 1 week on phone visit. Elevated liver enzymes. Likely secondary to fatty liver and alcohol consumption. I have suggested to abstinence from drinking. Hyperlipidemia. Stable on Crestor. 12/28/2022 Zachary Werner MD documented in this encounter Plan of Treatment Upcoming Encounters Date Type Department Care Team (Late st Contact Info) Description 03/16/2024 11:00 AM CHANNEL BUSINESS MANAGER Appointment [address] [place] [address] Tony Kevin MD [address] [place] [address] [address] [place] [address] 03/26/2024 2:30 PM CHANNEL BUSINESS MANAGER Office Visit [facility] Oncology and Hematology - [place] [address] [facility] [address] [place] [address] Zachary Werner MD [address] [facility] [address] [place] [address] 03/30/2024 1:00 PM CHANNEL BUSINESS MANAGER Telephone Check Up [facility] Neurosurgery - Medical [place] [address] [facility] [address] [place] [address] Tony Kevin MD [address] [place] [address] [place] [address] documented as of this encounter Visit Diagnoses Diagnosis Malignant neoplasm of colon, unspecified part of colon- Primary documented in this encounter Care Teams Airport Operations Officer Relationship Specialty Start Date End Date Víctor Steinberg MD [address] [place] [address] PCP - General Family Practice 03/08/21 documented as of this encounter
--- OUTSIDE RECORDS SUMMARY | 2024-03-08 14:58 | XMS_ITS | Encounter Summary ---
Author Organization [facility] [employer] Address [address] [place] [address] Care Team Providers Care Refrigeration Houseman Name Role Phone Víctor Steinberg MD Primary Care Provider [phone] Reason for Visit * Reason Comments Follow Up Encounter Details Date Type Department Care Team (Late st Contact Info) Description 05/11/2022 10:15 AM PULVERIZING AND SIFTING OPERATOR Office Visit [facility] Oncology and Hematology - Terrance [address] [facility] [address] [place] [address] Zachary Werner MD [address] [facility] [address] [place] [address] Malignant neoplasm of colon, unspecified [...] Coronavirus/COVID-19? No / Unsure 05/11/2022 9:55 AM PULVERIZING AND SIFTING OPERATOR documented as of this encounter Last Filed Vital Signs Vital Sign Reading Time Taken Comments Blood Pressure 161/68 05/11/2022 10:05 AM PULVERIZING AND SIFTING OPERATOR Pulse 71 05/11/2022 10:04 AM PULVERIZING AND SIFTING OPERATOR Temperature 36.1 ??C (97 ??F) 05/11/2022 10:04 AM PULVERIZING AND SIFTING OPERATOR Respiratory Rate 10 05/11/2022 10:04 AM PULVERIZING AND SIFTING OPERATOR Oxygen Saturation 98% 05/11/2022 10:04 AM PULVERIZING AND SIFTING OPERATOR Inhaled Oxygen Concentration - - Weight 87.1 kg (192 lb) 05/11/2022 10:04 AM PULVERIZING AND SIFTING OPERATOR Height - - Body Mass Index 30.99 12/28/2021 10:27 AM CDT documented in this encounter Progress Notes * Zachary Werner MD - 05/11/2022 10:53 AM CST HEMATOLOGY / ONCOLOGY PROGRESS NOTE Patient Identification: Name: Mira Magana Age: 71 y.o. Sex: female : 1950 DIAGNOSIS Stage II colon cancer diagnosed in 2014 status post resection CURRENT TREATMENT Expectant TREATMENT HISTORY SUBJECTIVE Patient came to the office for follow-up visit. She denies any night sweats fevers and chills. Denies any nausea vomiting. Denies any melena hematochezia. No diarrhea and constipation. No other new complaints. Weight and appetite stable. Review of system Constitutional: Patient did [...] Neuro: No obvious focal deficit PATH LABS @IMAGEIMP@ Assessment: Plan: There are no problems to display for this patient. Stage II colon cancer diagnosed in 2013 status post resection. T3N0 disease. She did not receive any adjuvant chemotherapy. She always have a slightly elevated CEA. Clinically she is asymptomatic. I will check CEA level today. She had labs done at [facility] couple of weeks ago and will get the result from that lab. She is due for another colonoscopy next year. Her last colonoscopy was in 2020. I will discuss those lab results with patient next week. I will also see her back in 6 months with repeat labs. Hyperlipidemia. She is on Crestor. ? TOBACCO COUNSELING She is not a tobacco user. 05/11/2022 Zachary Werner MD ERIZING AND SIFTING OPERATOR documented in this encounter Plan of Treatment Upcoming Encounters Date Type Department Care Team (Late st Contact Info) Description 03/16/2024 11:00 AM PULVERIZING AND SIFTING OPERATOR Appointment [address] [place] [address] Tony Kevin MD [address] [facility] [address] [place] [address] 03/26/2024 2:30 PM PULVERIZING AND SIFTING OPERATOR Office Visit [facility] Oncology and Hematology - Terrance [address] [place] [address] Zachary Werner MD [address] [facility] [address] [place] [address] 03/30/2024 1:00 PM PULVERIZING AND SIFTING OPERATOR Telephone Check Up [facility] Neurosurgery - Medical [place] [address] [facility] [address] [place] [address] Tony Kevin MD [address] [facility] [address] [place] [address] Scheduled Orders Name Type Priority Associated Diagnoses Orde r Schedule CEA Lab Routine Malignant neoplasm of colon, unspecified part of colon Expected: 05/11/2022, Expires: 05/11/2023 documented as of this encounter Visit Diagnoses Diagnosis Malignant neoplasm of colon, unspecified part of colon- Primary documented in this encounter Care Teams Refrigeration Houseman Relationship Specialty Start Date End Date Víctor Steinberg MD [address] [place] [address] PCP - General Family Practice 03/08/21 documented as of this encounter
--- OUTSIDE RECORDS SUMMARY | 2024-03-08 14:58 | XMS_ITS | Encounter Summary ---
Author Organization [facility] Address [address] [place] [address] Care Team Providers Care End User Support Specialist Name Role Phone Víctor Steinberg MD Primary Care Provider [phone] Encounter Details Date Type Department Care Team (Late st Contact Info) Description 03/19/2023 External Device Data STL ABSTRACTION Provider, Abstract [...] st Contact Info) Description 03/16/2024 11:00 AM EMPLOYEE BENEFITS INSURANCE AGENT Appointment [address] [place] [address] Tony Kevin MD [address] [facility] [address] [place] [address] 03/26/2024 2:30 PM EMPLOYEE BENEFITS INSURANCE AGENT Office Visit [facility] Oncology and Hematology - Terrance [address] [facility] [address] [place] [address] Zachary Werner MD [address] [facility] [address] [place] [address] 03/30/2024 1:00 PM EMPLOYEE BENEFITS INSURANCE AGENT Telephone Check Up [facility] Neurosurgery - Medical [place] [address] [facility] [address] [place] [address] Tony Kevin MD [address] [facility] [address] [place] [address] documented as of this encounter Visit Diagnoses Not on filedocumented in this encounter Care Teams End User Support Specialist Relationship Specialty Start Date End Date Víctor Steinberg MD [address] [place] [address] PCP - General Family Practice 03/08/21 documented as of this encounter
--- OUTSIDE RECORDS SUMMARY | 2024-03-08 14:59 | XMS_ITS | Encounter Summary ---
Author Organization [facility] [employer] [facility] Address [address] [place] [address] Care Team Providers Care Dye House Hand Name Role Phone Víctor Steinberg MD Primary Care Provider [phone] Reason for Visit * Reason Comments Establish Care establish care for m alignant neoplasm of colon * Eval and Treat (Routine) - Closed Specialty Diagnoses / Procedures Referred By Contac t Referred To Contact Oncology Diagnoses Malignant neoplasm of colon, unspecified (CMS/HCC) Procedures Office visit level 3-5 Zachary Werner MD [address] [facility] [address] [place] [address] [facility] Oncology And Hematology Terrance [address] [place] [address] Referral ID Status Reason Start Date Expiration Date Visits Re quested Visits Authorized [id number] Closed 01/23/2021 07/22/2021 12 12 Encounter Details Date Type Department Care Team (Late st Contact Info) Description 03/08/2021 10:00 AM AUTOMOBILE CARPETS MOLDER Office Visit [facility] Oncology and Hematology - Terrance [address] [place] [address] Mushtaq Chau MD [address] [place] [address] Malignant neoplasm of colon, unspecified [...] Exposure Response Date Recorded In the last month, have you been in contact with someone who was confirmed or suspected to have Coronavirus / COVID-19? No / Unsure 03/08/2021 9:35 AM AUTOMOBILE CARPETS MOLDER documented as of this encounter Last Filed Vital Signs Vital Sign Reading Time Taken Comments Blood Pressure 158/98 03/08/2021 10:16 AM AUTOMOBILE CARPETS MOLDER Pulse 70 03/08/2021 10:16 AM AUTOMOBILE CARPETS MOLDER Temperature 36.9 ??C (98.5 ??F) 03/08/2021 10:[address] Respiratory Rate - - Oxygen Saturation 97% 03/08/2021 10:16 AM AUTOMOBILE CARPETS MOLDER Inhaled Oxygen Concentration - - Weight 85.4 kg (188 lb 4.8 oz) 03/08/2021 10:16 AM AUTOMOBILE CARPETS MOLDER Height 167.6 cm (5' 6 ) 03/08/2021 10:16 AM AUTOMOBILE CARPETS MOLDER Body Mass Index 30.39 03/08/2021 10:16 AM AUTOMOBILE CARPETS MOLDER documented in this encounter Progress Notes * Mushtaq Chau MD - 03/08/2021 11:07 AM CST HEMATOLOGY / ONCOLOGY PROGRESS NOTE [...] her follow-up here at our clinic. She is recently got a colonoscopy which was normal as well as a mammogram which was normal as well she describes no weight loss abdominal pain change in bowel habits or change in performance status She does mention that her CEA is normally elevated however has not changed she is a non-smoker Review of system Constitutional: denies fevers, sweats, [...] No lymphadenopathy Neuro: No obvious focal deficit Assessment: Plan: Follow-up in 1 year she will undergo annual mammogram colonoscopy every 3 years and be seen in thisclinic in 1 year with repeat labs ? TOBACCO COUNSELING She is not a tobacco user. 03/08/2021 This note was transcribed using [employer] naturally speaking computerized voice recognition without a human inside sales manager. This report may or may not have been adjusted for typographical, grammaticaland syntax errors. Mushtaq Chau MD MOBILE CARPETS MOLDER documented in this encounter Plan of Treatment Upcoming Encounters Date Type Department Care Team (Late st Contact Info) Description 03/16/2024 11:00 AM AUTOMOBILE CARPETS MOLDER Appointment [address] [place] [address] Tony Kevin MD [address] [place] [address] [place] [address] 03/26/2024 2:30 PM AUTOMOBILE CARPETS MOLDER Office Visit [facility] Oncology and Hematology - Terrance [address] [facility] [address] [place] [address] Zachary Werner MD [address] [facility] [address] [place] [address] 03/30/2024 1:00 PM AUTOMOBILE CARPETS MOLDER Telephone Check Up [facility] Neurosurgery - Medical [place] [address] [facility] [address] [place] [address] Tony Kevin MD [address] [facility] [address] [place] [address] Scheduled Orders Name Type Priority Associated Diagnoses Orde r Schedule CBC WITH DIFFERENTIAL Lab Stat Malignant neoplasm of colon, unspecified part of colon Expected: 09/06/2021, Expires: 03/08/2022 COMPREHENSIVE METABOLIC PANEL Lab Stat Malignant neoplasm of colon, unspecified part of colon Expected: 09/06/2021, Expires: 03/08/2022 documented as of this encounter Visit Diagnoses Diagnosis Malignant neoplasm of colon, unspecified part of colon- Primary documented in this encounter Care Teams Dye House Hand Relationship Specialty Start Date End Date Víctor Steinberg MD [address] [place] [address] PCP - General Family Practice 03/08/21 documented as of this encounter
--- OUTSIDE RECORDS SUMMARY | 2024-03-08 14:59 | XMS_ITS | Encounter Summary ---
Author Organization [facility] Address [address] [place] [address] Care Team Providers Care Real Estate Paralegal Name Role Phone Unavailable Primary Care Provider Unavailabl e Encounter Details Date Type Department Care Team (Late st Contact Info) Description 07/08/2018 Orders Only [facility] BREAST SURGERY JUANITA [address] [place] [address] Provider, Abstract NO ADDRESS ON FILE Social History Tobacco Use Types Packs/Day Years Used Date Smoking Tobacco: Never Assessed Sex and Gender Information Value Date Recorded Sex Assigned at Not on file Gender Identity Not on file Sexual Orientation Not on file documented as of this encounter Plan of Treatment Upcoming Encounters Date Type Department Care Team (Late st Contact Info) Description 03/16/2024 11:00 AM FISHING ACCESSORIES MAKER Appointment [address] [place] [address] Tony Kevin MD [address] [facility] [address] [place] [address] 03/26/2024 2:30 PM FISHING ACCESSORIES MAKER Office Visit [facility] Oncology and Hematology - Juanita [address] [place] [address] Zachary Werner MD [address] [facility] [address] [place] [address] 03/30/2024 1:00 PM FISHING ACCESSORIES MAKER Telephone Check Up [facility] Neurosurgery - Medical [place] [address] [facility] [address] [place] [address] Tony Kevin MD [address] [address] documented as of this encounter Procedures Procedure Name Priority Date/Time Associated Diagnosis Comments MAMMO SCREENING BILAT Routine 05/15/2018 documented in this encounter Results * MAMMO SCREENING BILAT (05/15/2018) Anatomical Region Laterality Modality Breast Bilateral Other Abstract Provider MAMMO ORDERABLES documented in this encounter Visit Diagnoses Not on filedocumented in this encounter
--- OUTSIDE RECORDS SUMMARY | 2024-03-08 14:59 | XMS_ITS | Encounter Summary ---
Author Organization [facility] Address [address] [facility] Attn: [place] [address] Care Team Providers Care Statement Request Clerk Name Role Phone Víctor Steinberg MD Primary Care Provider [phone] Encounter Details Date Type Department Care Team (Latest Contact Info) Description 03/08/2021 Travel Social History Tobacco Use Types Packs/Day [...] COVID-19? No / Unsure 03/08/2021 9:35 AM DENTAL EQUIPMENT MECHANIC documented as of this encounter Plan of Treatment Upcoming Encounters Date Type Department Care Team (Late st Contact Info) Description 03/16/2024 11:00 AM DENTAL EQUIPMENT MECHANIC Appointment [address] [place] [address] Tony Kevin MD [address] [facility] [place] [address] 03/26/2024 2:30 PM DENTAL EQUIPMENT MECHANIC Office Visit [facility] Oncology and Hematology - Terrance [address] [facility] [address] [place] [address] Zachary Werner MD [address] [facility] [address] [place] [address] 03/30/2024 1:00 PM DENTAL EQUIPMENT MECHANIC Telephone Check Up [facility] Neurosurgery - Medical [place] [address] [facility] [address] [place] [address] Tony Kevin MD [address] [facility] [address] [place] [address] documented as of this encounter Visit Diagnoses Not on filedocumented in this encounter Care Teams Statement Request Clerk Relationship Specialty Start Date End Date Víctor Steinberg MD [address] [place] [address] PCP - General Family Practice 03/08/21 documented as of this encounter
--- OUTSIDE RECORDS SUMMARY | 2024-03-08 15:00 | XMS_ITS | Encounter Summary ---
Author Organization [facility] [employer] Address [address] [place] [address] Care Team Providers Care Security Assistant Name Role Phone Víctor Steinberg MD Primary Care Provider [phone] Encounter Details Date Type Department Care Team (Late Contact Info) Description 12/25/2021 Orders Only [facility] Oncology and Hematology - Terrance [address] [place] [address] Mushtaq Chau MD [address] [place] [address] Malignant neoplasm of colon, unspecified [...] st Contact Info) Description 03/16/2024 11:00 AM CONTAINER SHOP WELDER Appointment [address] [place] [address] Tony Kevin MD [address] [facility] [address] [facility] [address] 03/26/2024 2:30 PM CONTAINER SHOP WELDER Office Visit [facility] Oncology and Hematology - Terrance [address] [facility] [place] [address] Zachary Werner MD [address] [facility] [address] [place] [address] 03/30/2024 1:00 PM CONTAINER SHOP WELDER Telephone Check Up [facility] Neurosurgery - Medical [place] [address] [facility] [address] [place] [address] Tony Kevin MD [address] [facility] [address] [place] [address] documented as of this encounter Visit Diagnoses Diagnosis Malignant neoplasm of colon, unspecified part of colon documented in this encounter Care Teams Security Assistant Relationship Specialty Start Date End Date Víctor Steinberg MD [address] [place] [address] PCP - General Family Practice 03/08/21 documented as of this encounter
--- OUTSIDE RECORDS SUMMARY | 2024-03-08 15:01 | XMS_ITS | Encounter Summary ---
Author Organization [facility] Address [address] [place] [address] Care Team Providers Care Bulb Brander Name Role Phone Rodolfo Zuleta MD Primary Care Provider [phone] Reason for Referral * Diagnostic Imaging (Routine) - Closed Specialty Diagnoses / Procedures Referred By Jennifer lock Referred To Contact Radiology Diagnoses Personal history of colon cancer Procedures CT Chest Abdomen Pelvis W Contrast Leanne Pike MD Phone: tel: fax: [address] [address] Referral ID Status Reason Start Date Expiration Date Visits Re quested Visits Authorized Closed 10/31/2018 01/31/2019 1 1 Reason for Visit * Diagnostic Imaging (Routine) - Closed Specialty Diagnoses / Procedures Referred By Jennifer lock Referred To Contact Radiology Diagnoses Personal history of colon cancer Procedures CT Chest Abdomen Pelvis W Contrast Leanne Pike MD Phone: tel: fax: [address] [address] Referral ID Status Reason Start Date Expiration Date Visits Re quested Visits Authorized Closed 10/31/2018 01/31/2019 1 1 Encounter Details Date Type Department Care Team (Latest Contact Info) Description 11/05/2018 7:43 AM CDT - 11/05/2018 11:59 PM CDT Hospital Encounter [facility] [place] [address] Leanne Pike MD [address] [id number] [place] [address] Personal history of colon cancer Discharge Disposition: [...] on file Legal Sex Female 6:59 AM 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 Gender Identity Not on file Sexual Orientation [...] CONTRAST Schedule Routine, Read Routine (OP Routine) 11/05/2018 9:01 AM CDT Personal history of colon cancer POCT CREATININE - DEVICE Routine 11/05/2018 8:21 AM CDT documented in this encounter Results [...] PROCEDURES Fin al Result * POCT creatinine (11/05/2018 8:21 AM CDT) Creatinine POC 0.6 0.6 - 1.1 mg/dL [facility] Blood specimen (specimen) 11/05/2018 8:21 AM CDT 11/05/2018 8:21 AM CDT Leanne Pike MD LAB POCT ORDERABLES - DEVICE Final Result [facility] Department [place] [address] documented in this encounter Visit Diagnoses Diagnosis Personal history of colon cancer Personal history of malignant neoplasm of large intestine documented in this encounter Administered Medications Inactive Administered Medications - up to 3 most recent administrations Medication Order MAR Action Action Date Dose Rate Site ioversol (OPTIRAY 350) syringe syringe 125 mL 125 mL, intravenous, Once in imaging, contrast, Starting on Sat11/05/18 at 0902, For 1 dose Given 11/05/2018 9:02 AM CDT 125 mL documented in this encounter Orders Medications Ordered That Mg ht Not Have Been Administered Count Last Ordered Date First Ordered Date ioversol (OPTIRAY 350) syrin ge syringe 125 mL 1 11/05/2018 documented in this encounter Care Teams Bulb Brander Relationship Specialty Start Date End Date Rodolfo Zuleta MD [address] [place] [address] PCP - General 09/24/17 documented as of this encounter
== END 2024-03-01 12:16 | disposition home or self-care (01) ==
PROVIDERS: Emergency Provider Registered Nurse; PCP Family Medicine
DX: N39.0 Urinary tract infection, site not specified (principal); B96.20 Unspecified Escherichia coli [E. coli] as the cause of diseases classified elsewhere; R31.9 Hematuria, unspecified; K21.9 Gastro-esophageal reflux disease without esophagitis; M19.90 Unspecified osteoarthritis, unspecified site; E78.5 Hyperlipidemia, unspecified; Z85.038 Personal history of other malignant neoplasm of large intestine; Z85.828 Personal history of other malignant neoplasm of skin; Z98.42 Cataract extraction status, left eye; Z98.41 Cataract extraction status, right eye; Z90.49 Acquired absence of other specified parts of digestive tract
CPT/HCPCS: 81003; 87077; 87086; 87186; 99213; G0463

== ENCOUNTER 2024-04-09 08:48 | Outpatient (CLI) | payer MEDICARE, SELFPAY ==
[2024-04-09 09:04] LABS: Basophils Percent Auto 0.3 % (0.2-1.2); Eosinophils Percent Auto 0.9 % (0-4.4); Hematocrit 43.2 % (37.0-47.0); Hemoglobin 14.2 g/dL (12.0-15.0); Immature Granulocyte Absolute 0.01 K/mm3 (0.00-0.031); Immature Granulocyte Percent A 0.3 % (0-0.5); Immature Platelet Fraction Pct 6.2 % (0.9-11.2); Lymphocytes Absolute Auto 1.36 K/mm3 (0.9-3.2); Lymphocytes Percent Auto 40.7 % (18.3-44.2); Mean Corpuscular HGB Conc 32.9 g/dl (32-36); Mean Corpuscular Hemoglobin 32.3 pg (26-34); Mean Corpuscular Volume 98.4 fl (80-100); Mean Platelet Volume 11.1 fl (7.4-10.4); Monocytes Absolute Auto 0.4 K/mm3 (0.1-0.6); Monocytes Percent Auto 10.8 % (2.6-8.5); Neutrophils Absolute Auto 1.6 K/mm3 (1.3-6.7); Platelet Count Result 141 k/mm3 (150-375); Red Blood Count 4.39 M/mm3 (4.2-5.4); Red Cell Distribution Width 13.2 % (11.5-14.5); White Blood Count 3.3 K/mm3 (4.5-10.0)
--- OUTSIDE RECORDS SUMMARY | 2024-04-09 09:11 | XMS_ITS | Clinical Summary ---
Author Organization [facility] Graeme wang Scar Address [address] [place] [address] Care Team Providers Care Pace Analyst Name Role Phone Víctor Steinberg MD Primary Care Provider [phone] Allergies No known active allergies Medications ALPRAZolam (XANAX) 0.25 mg tablet alprazolam 0.25 mg tablet 9 Active aspirin (ECOTRIN EC) 81 mg Tablet, Delayed Release (E.C.) Take 81 mg by mouth daily. Active Sodium Fluoride 5000 Plus 1.1 % Cream BRUSH TEETH TWICE DAILY WITH PASTE 1 Active rosuvastatin (CRESTOR) 10 mg tablet rosuvastatin 10 mg tablet 9 Active vit A/vit C/vit E/zinc/copper (PRESERVISION AREDS ORAL) Take by mouth. Act ira omeprazole (PriLOSEC) 40 mg Capsule, Delayed Release(E.C.) Take 40 mg by mouth daily. Active Active Problems No known active problems Encounters Date Type Department Care Team Description 04/01/2024 External Device Data STL ABSTRACTION Provider, Abstract 03/31/2024 External Device Data STL ABSTRACTION Provider, Abstract 03/30/2024 1:00 PM WAREHOUSE SHIPPER Telephone Check Up [facility] [place] [address] [place] [address] Tony Kevin MD Mass of spine (Primary Dx) 03/30/2024 Orders Only [facility] [place] [address] [place] [address] Tony Kevin MD Mass of spine (Primary Dx); Thoracic spine tumor; Paraspinal mass 03/27/2024 10:39 AM WAREHOUSE SHIPPER - 03/27/2024 11:59 PM WAREHOUSE SHIPPER Hospital Encounter [address] [place] [id number] Tony Kevin MD Discharge Disposition: Home or Self Care 03/24/2024 External Device Data STL ABSTRACTION Provider, Abstract 01/08/2024 External Device Data STL ABSTRACTION Provider, [...] at Not on file Legal Sex Female 4:31 AM WAREHOUSE SHIPPER Gender Identity Not on file Sexual Orientation [...] Care Team (Late st Contact Info) Description 04/10/2024 10:45 AM WAREHOUSE SHIPPER Office Visit [facility] [place] [address] [place] [address] Zachary Werner MD 1944 [facility] [address] [place] [address] Health Maintenance Due Date Last Done Comments DTAP/TDAP/TD VACCINES (1 - Tdap) 12/21/1967 PNEUMOCOCCAL VACCINE 65+ YEA RS (1 of 1 - PCV) 1998 ZOSTER VACCINE (1 of 2) 1998 INFLUENZA VACCINE (#1) 2023 RSV VACCINE (60+ or ) (1 - 1-dose 75+ series) 12/21/2023 Medicare Advantage (MD) Prev entative Visit/Annual Wellness Visit 03/11/2024 OSTEOPOROSIS SCREENING Completed 10/03/2013, 2013 COLORECTAL SCREENING Discontinued 09/24/2017 Colorectal Cancer Screening Discontinued FIT-DNA Q 3 years Discontinued FIT/FOBT Q 1 year Discontinued Flex Sig/CT Colonography Q 5 years Discontinued Procedures Procedure Name Priority Date/Time Associated Diagnosis Comments MRI THORACIC W WO CONTRAST Routine 03/27/2024 11:20 AM WAREHOUSE SHIPPER Thoracic spine tumor from Last 3 Months Results * MRI THORACIC W WO CONTRAST (03/27/2024 11:20 AM WAREHOUSE SHIPPER) Anatomical Region Laterality Modality Spine Magnetic Resonan ce 03/27/2024 11:2 0 AM WAREHOUSE SHIPPER Impressions 03/27/2024 12:43 PM WAREHOUSE SHIPPER Impression: 1. ??Enhancing left paraspinal mass unchanged at the left T7-8 neural foramen. Peripheral nerve sheath tumor is the leading consideration. 2. ??Mild degenerative disease in the thoracic spine. DICTATION LOCATION: Location 1 - [facility] Narrative 03/27/2024 12:43 PM WAREHOUSE SHIPPER EXAM: MRI THORACIC W WO CONTRAST DATE: ??03/27/2024 11:20 AM CLINICAL HISTORY: T7-T8 mass. Thoracic spine tumor. TECHNIQUE: Multiple sagittal and axial MR sequences were obtained of the thoracic spine without and with the use of IV contrast. IV CONTRAST: ??17 mL ProHance COMPARISON: August 29, 2023. FINDINGS: ?? Preservation of the normal thoracic kyphosis. No anterolisthesis or retrolisthesis is identified. There are no wedge-shaped compression deformities. No destructive marrow replacing lesions. The thoracic spinal cord is normal in size and signal. There is degenerative loss of disc space height and signal. Small disc bulges throughout the thoracic spine. Mild spinal canal narrowing at T9-10 and T10-11. ?? Enhancing left paraspinal mass at the left T7-8 neural foramen measuring 1.4 x 1.5 cm, previously 1.4 x 1.6 cm when measured in a similar fashion. INCIDENTAL FINDINGS: ??None. Procedure Note Ben Kenney MD - 03/27/2024 EXAM: MRI THORACIC W WO CONTRAST DATE: 03/27/2024 11:20 AM CLINICAL HISTORY: T7-T8 mass. Thoracic spine tumor. TECHNIQUE: Multiple sagittal and axial MR sequences were obtained of the thoracic spine without and with the use of IV contrast. IV CONTRAST: 17 mL ProHance COMPARISON: August 29, 2023. FINDINGS: Preservation of the normal thoracic kyphosis. No anterolisthesis or retrolisthesis is identified. There are no wedge-shaped compression deformities. No destructive marrow replacing lesions. The thoracic spinal cord is normal in size and signal. There is degenerative loss of disc space height and signal. Small disc bulges throughout the thoracic spine. Mild spinal canal narrowing at T9-10 and T10-11. Enhancing left paraspinal mass at the left T7-8 neural foramen measuring 1.4 x 1.5 cm, previously 1.4 x 1.6 cm when measured in a similar fashion. INCIDENTAL FINDINGS: None. Impression: 1. Enhancing left paraspinal mass unchanged at the left T7-8 neural foramen. Peripheral nerve sheath tumor is the leading consideration. 2. 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 DICTATION LOCATION: Location 1 - [facility] Tony Kevin MD MR ORDERABLES Fi nal Result from Last 3 Months Insurance [facility] AAR [id number] [facility] Address: [address] [address] [place] [address] [facility] [address] [place] [id number] Care Teams Pace Analyst Relationship Specialty Start Date End Date Víctor Steinberg MD [address] [place] [address] PCP - General Family Practice 03/08/21
--- OUTSIDE RECORDS SUMMARY | 2024-04-09 09:11 | XMS_ITS | Clinical Summary ---
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 Gender Identity Not on file Sexual Orientation [...] of Treatment Not on file Insurance MEDICARE [facility] HMO REF MEDICARE [facility] Address: [address] [place] [address] Advance Directives For more information, please contact: [phone] * Full Code (Latest Code Status on File) Date Activated Date Inactivated Comments 09/24/2017 11:59 AM 09/24/2017 4:41 PM Care Teams Amusement Centre Manager Relationship Specialty Start Date End Date Rodolfo Zuleta MD [address] [place] [address] PCP - General 09/24/17 Leanne Pike MD [address] [place] [address] Medical Oncologist/Photographer Scientific Medical Oncology 11/18/19
--- OUTSIDE RECORDS SUMMARY | 2024-04-09 09:11 | XMS_ITS | Encounter Summary ---
Author Organization [facility] [employer] Address [address] [place] [address] Care Team Providers Care Fabric Stretcher Name Role Phone Víctor Steinberg MD Primary Care Provider [phone] Reason for Visit * Reason Onset Date Comments lab orders 12/28/2021 Encounter Details Date Type Department Care Team ([facility] Contact Info) Description 12/28/2021 Telephone [facility] and [facility] [address] [place] [address] Mushtaq Chau MD [address] [place] [phone] lab orders Social History Tobacco Use Types Packs/Day Years Used Date Smoking Tobacco: Never Smokeless Tobacco: Never Alcohol Use Standard Drinks/Week Comments Yes 0 (1 standard drink = 0.6 oz pur e alcohol) Comments No Sex and Gender Information Value Date Recorded Sex Assigned at Not on file Legal Sex Female 4:31 AM INDUSTRIAL CHEMISTRY TEACHER Gender Identity Not on file Sexual Orientation Not on file COVID-19 Exposure Response Date Recorded In the last 10 days, have yo u been in contact with someone who was confirmed or suspected to have Coronavirus/COVID-19? No / Unsure 12/28/2021 10:01 AM CDT documented as of this encounter Plan of Treatment Upcoming Encounters Date Type Department Care Team (Late Contact Info) Description 04/10/2024 10:45 AM INDUSTRIAL CHEMISTRY TEACHER Office Visit [facility] [address] [place] [address] [place] [address] [place] [address] [address] [place] [address] documented as of this encounter Visit Diagnoses Diagnosis Malignant neoplasm of colon, unspecified part of colon (CMS/HCC)- Primary documented in this encounter Care Teams Fabric Stretcher Relationship Specialty Start Date End Date Víctor Steinberg MD [address] [place] [address] PCP - General Family Practice 03/08/21 documented as of this encounter
--- OUTSIDE RECORDS SUMMARY | 2024-04-09 09:11 | XMS_ITS | Referral Summary ---
Author Organization [facility] Address [address] [place] [address] Care Team Providers Care Structural Ironworker Name Role Phone Rodolfo Zuleta MD Primary Care Provider [phone] Leanne Pike MD Unavailable Allergies No known [...] on file Legal Sex Female 6:59 AM BEADER TENDER Gender Identity Not on file Sexual [...] of Treatment Not on file Insurance [facility] REF MEDICARE [facility] ACCESS Advance Directives For more information, please contact: [phone] * Full Code (Latest Code Status on File) Date Activated Date Inactivated Comments 09/24/2017 11:59 AM 09/24/2017 4:41 PM Care Teams Structural Ironworker Relationship Specialty Start Date End Date Rodolfo Zuleta MD [address] [place] [address] PCP - General 09/24/17 Leanne Pike MD [address] [place] [address] Medical Oncologist/Salesperson Wigs Medical Oncology 11/18/19
[2024-04-09 12:05] LABS: Alanine Aminotransferase 32 U/L (6-35); Albumin Level 4.2 g/dL (3.5-5.1); Alkaline Phosphatase 59 U/L (38-126); Anion Gap 8 mmol/L (4-12); Aspartate Amino Transferase 34 U/L (14-36); Bilirubin,Total 0.9 mg/dL (0.2-1.3); Blood Urea Nitrogen 9 mg/dL (7-17); Calcium 9.4 mg/dL (8.4-10.2); Carbon Dioxide 29 mmol/L (22-30); Chloride 104 mmol/L (98-107); Estimated Glomerular Filt Rate > 60; Glucose 123 mg/dL (65-110); Potassium 4.3 mmol/L (3.4-5.0); Sodium 141 mmol/L (137-145)
[2024-04-09 12:36] LABS: Carcinoembryonic Antigen 10.4 ng/mL (0.0-3.0)
== END 2024-04-09 08:49 | disposition home or self-care (01) ==
LOC: ANHLAB 08:49
PROVIDERS: PCP Family Medicine; Visit Provider Internal Medicine Hematology & Oncology
DX: C18.9 Malignant neoplasm of colon, unspecified (principal)
CPT/HCPCS: 36415; 80053; 82378; 85025; 85055

== ENCOUNTER 2024-07-28 08:36 | Outpatient (CLI) | payer MEDICARE, SELFPAY ==
--- NOTE | ~2024-07-28 | CT_ITS ---
Clinical Indication: Colon cancer CT Scan of the Chest, Abdomen, and Pelvis with Contrast: Technique: Contiguous sections were acquired throughout the chest, abdomen, and pelvis after intraven ous administration of 100 cc of Omnipaque 350. Dose reduction technique was used on this scan by sanford forde automated exposure control and iterative reconstruction technique. The dose-length product (DL P) was 906.21 mGy-cm. Comparison: 04/11/2023 Findings: There is no evidence of any significant mediastinal, hilar or axillary lymphadenopathy. The mediastin al soft tissues appear normal. There is no evidence of pleural or pericardial effusion. Stable 4 mm right basilar pulmonary nodule (axial image 73). There is diffuse hepatic steatosis. The spleen, pancreas, gallbladder, adrenals and kidneys are withi n normal limits. No evidence of aortic aneurysm. No lymphadenopathy. No bowel obstruction or bowel wall thickening. Rectosigmoid anastomosis noted. Postoperative change a lso noted the right colon. Urinary bladder is unremarkable. No pelvic mass evident. No ascites. Impression: No evidence for active malignancy or metastatic disease. Postoperative changes of large bowel, as noted above. Numerous stable 4 mm right basilar pulmonary no dule. Diffuse hepatic steatosis. Reviewed, dictated and finalized at location . Impression: No evidence for active malignancy or metastatic disease. Postoperative changes of large bowel, as noted above. Numerous stable 4 mm righ t basilar pulmonary nodule. Diffuse hepatic steatosis.
--- OUTSIDE RECORDS SUMMARY | 2024-07-28 08:46 | XMS_ITS | Clinical Summary ---
Author Organization [facility] Address [address] [facility] [place] [address] Care Team Providers Care Senior Office Support Assistant Sosa Name Role Phone Víctor Steinberg MD Primary Care Provider [phone] Allergies No known active allergies Medications ALPRAZolam [...] Encounters Date Type Department Care Team Description 07/27/2024 Orders Only [facility] Oncology and Hematology - [place] [address] [facility] [address] [facility] [address] [place] [address] Zachary Werner MD 05/27/2024 External Device Data STL ABSTRACTION Provider, Abstract 05/16/2024 External Device Data STL ABSTRACTION Provider, Abstract 05/15/2024 External Device Data STL ABSTRACTION Provider, Abstract 05/12/2024 External Device Data STL ABSTRACTION Provider, Abstract [...] on file Legal Sex Female 4:31 AM PR SPECIALIST Gender Identity Not on file Sexual Orientation Not on file Last Filed Vital Signs Vital Sign Reading Time Taken Comments Blood Pressure 156/90 04/10/2024 10:38 AM PR SPECIALIST Pulse 83 04/10/2024 10:35 AM PR SPECIALIST Temperature 36.3 C (97.4 F) 04/10/2024 10:35 AM PR SPECIALIST Respiratory Rate 15 04/10/2024 10:35 AM PR SPECIALIST Oxygen Saturation 93% 04/10/2024 10:35 AM PR SPECIALIST Inhaled Oxygen Concentration - - Weight 89.4 kg (197 lb) 04/10/2024 10:35 AM PR SPECIALIST Height 167.6 cm (5' 6 ) 08/27/2023 9:15 AM CDT Body Mass Index 31.8 08/27/2023 9:15 AM CDT Plan of Treatment Upcoming Encounters Date Type Department Care Team (Late st Contact Info) Description 08/06/2024 11:30 AM CDT Office Visit [facility] Oncology and Hematology - [place] [address] [place] [address] [facility] [address] [place] [address] Zachary Werner MD [address] [facility] [address] [place] [address] Health Maintenance Due Date Last Done Comments DTAP/TDAP/TD VACCINES (1 - Tdap) 12/21/1967 PNEUMOCOCCAL VACCINE 50+ YEA RS (1 of 1 - PCV) 1998 ZOSTER VACCINE (1 of 2) 1998 OSTEOPOROSIS SCREENING 10/03/2018 10/03/2013, 2013 INFLUENZA VACCINE (#1) 2023 RSV VACCINE (60+ or ) (1 - 1-dose 75+ series) 12/21/2023 COLORECTAL SCREENING Discontinued 09/24/2017 Colorectal Cancer Screening Discontinued FIT-DNA Q 3 years Discontinued FIT/FOBT Q 1 year Discontinued Flex Sig/CT Colonography Q 5 years Discontinued Insurance [facility] [id number] [facility] [id number] Care Teams Senior Office Support Assistant Sosa Relationship Specialty Start Date End Date Víctor Steinberg MD [address] [place] [address] PCP - General Family Practice 03/08/21
--- OUTSIDE RECORDS SUMMARY | 2024-07-28 08:46 | XMS_ITS | Encounter Summary ---
Author Organization [facility] [employer] Address [address] [place] [address] Care Team Providers Care Bellstaff Name Role Phone Víctor Steinberg MD Primary Care Provider [phone] Reason for Visit * Reason Onset Date Comments lab orders 12/28/2021 Encounter Details Date Type Department Care Team ([facility] Contact Info) Description 12/28/2021 Telephone [facility] Oncology and Hematology [facility] [address] [place] [address] Mushtaq Chau MD [address] [place] [phone] lab orders Social History Tobacco Use Types Packs/Day Years Used Date Smoking Tobacco: Never Smokeless Tobacco: Never Alcohol Use Standard Drinks/Week Comments Yes 0 (1 standard drink = 0.6 oz pur e alcohol) Comments No Sex and Gender Information Value Date Recorded Sex Assigned at Not on file Legal Sex Female 4:31 AM AUTOMATION CONTROL TECHNICIAN Gender Identity Not on file Sexual Orientation Not on file COVID-19 Exposure Response Date Recorded In the last 10 days, have yo u been in contact with someone who was confirmed or suspected to have Coronavirus/COVID-19? No / Unsure 12/28/2021 10:01 AM CDT documented as of this encounter Plan of Treatment Upcoming Encounters Date Type Department Care Team (Late Contact Info) Description 08/06/2024 11:30 AM CDT Office Visit [facility] Oncology and Hematology [facility] [address] [place] [address] Zachary Werner MD [address] [facility] [address] [place] [address] documented as of this encounter Visit Diagnoses Diagnosis Malignant neoplasm of colon, unspecified part of colon (CMS/HCC)- Primary documented in this encounter Care Teams Bellstaff Relationship Specialty Start Date End Date Víctor Steinberg MD [address] [place] [address] PCP - General Family Practice 03/08/21 documented as of this encounter
--- OUTSIDE RECORDS SUMMARY | 2024-07-28 08:46 | XMS_ITS | Encounter Summary ---
Author Organization [facility] [employer] Address [address] [place] [address] Care Team Providers Care Smudger Name Role Phone Víctor Steinberg MD Primary Care Provider [phone] Encounter Details Date Type Department Care Team (Late Contact Info) Description 07/27/2024 Orders Only [facility] Oncology and Hematology [facility] [address] [place] [address] Zachary Werner MD [address] [place], [place] [address] [address] [place] [address] Social History Tobacco Use Types Packs/Day Years Used Date Smoking Tobacco: Never Smokeless Tobacco: Never Alcohol Use Standard Drinks/Week Comments Yes 0 (1 standard drink = 0.6 oz pur e alcohol) Comments No Sex and Gender Information Value Date Recorded Sex Assigned at Not on file Legal Sex Female 4:31 AM DIRECTOR CORPORATE SALES Gender Identity Not on file Sexual Orientation Not on file documented as of this encounter Plan of Treatment Upcoming Encounters Date Type Department Care Team (Late st Contact Info) Description 08/06/2024 11:30 AM CDT Office Visit [facility] Oncology and Hematology [place] [address] [place] [address] Zachary [facility] MD [facility] [address] [place] [address] documented as of this encounter Visit Diagnoses Not on filedocumented in this encounter Care Teams Smudger Relationship Specialty Start Date End Date Víctor Steinberg [place] [address] PCP - General Family Practice 03/08/21 documented as of this encounter
[2024-07-28 08:53] LABS: Estimated Glomerular Filt Rate > 60
== END 2024-07-28 08:37 | disposition home or self-care (01) ==
PROVIDERS: PCP Family Medicine; Visit Provider Internal Medicine Hematology & Oncology
DX: K76.0 Fatty (change of) liver, not elsewhere classified (principal); C18.9 Malignant neoplasm of colon, unspecified
CPT/HCPCS: 71260; 74177; Q9967

== ENCOUNTER 2024-08-05 08:25 | Outpatient (CLI) | payer MEDICARE, SELFPAY ==
--- OUTSIDE RECORDS SUMMARY | 2024-08-05 08:27 | XMS_ITS | Clinical Summary ---
Author Organization [facility] Address [address] [place] [address] Care Team Providers Care Hadoop Engineer Name Role Phone Rodolfo Zuleta MD Primary Care Provider [phone] Leanne Pike MD Unavailable [phone] Allergies No known active allergies Medications aspirin [...] nausea and vomiting) Macular degeneration Colon cancer (HCC) Diverticulosis Family History Medical History Relation [...] on file Legal Sex Female 6:59 AM MEDICAL MASSAGE THERAPIST Gender Identity Not on file Sexual Orientation Not on file Obstetrics History Last Filed Vital Signs Vital Sign Reading Time Taken Comments Blood Pressure 158/84 11/30/2020 10:50 AM CDT Pulse 65 11/30/2020 10:50 AM CDT Temperature 36.4 C (97.5 F) 11/30/2020 10:50 AM CDT Respiratory Rate 16 11/30/2020 10:50 AM CDT Oxygen Saturation 98% 11/30/2020 10:50 AM CDT Inhaled Oxygen Concentration - - Weight 85.3 kg (188 lb) 11/30/2020 10:50 AM CDT Height 167 cm (5' 5.75) 11/30/2020 10:50 AM CDT Body Mass Index 30.58 11/30/2020 10:50 AM CDT Plan of Treatment Not on file Insurance [facility]IC[facility] REF MEDICARE [facility] ACCESS Advance Directives For more information, please contact: [phone] * Full Code (Latest Code Status on File) Date Activated Date Inactivated Comments 09/24/2017 11:59 AM 09/24/2017 4:41 PM Care Teams Hadoop Engineer Relationship Specialty Start Date End Date Rodolfo Zuleta MD [address] [place] [address] PCP - General 09/24/17 Leanne Pike MD [address] [place] [address] Medical Oncologist/Skydiving Instructor Medical Oncology 11/18/19
--- OUTSIDE RECORDS SUMMARY | 2024-08-05 08:27 | XMS_ITS | Encounter Summary ---
Author Organization [facility] [employer] Address [address] [place] [address] Care Team Providers Care Ruby Rails Developer Name Role Phone Víctor Steinberg MD Primary Care Provider [phone] Reason for Visit * Reason Onset Date Comments lab orders 12/28/2021 Encounter Details Date Type Department Care Team ([facility] Contact Info) Description 12/28/[address] [facility] Oncology and Hematology [facility] [address] [place] [address] Mushtaq Chau MD [address] [place] [phone] lab orders Social History Tobacco Use Types Packs/Day Years Used Date Smoking Tobacco: Never Smokeless Tobacco: Never Alcohol Use Standard Drinks/Week Comments Yes 0 (1 standard drink = 0.6 oz pur e alcohol) Comments No Sex and Gender Information Value Date Recorded Sex Assigned at Not on file Legal Sex Female 4:31 AM RESEARCH TEST ENGINE EVALUATOR Gender Identity Not on file Sexual Orientation [...] Description 08/06/2024 11:30 AM CDT Office Visit [facility] Oncology and Hematology [facility] [address] [place] [address] Zachary Werner MD [address] [facility] [address] [place] [address] documented as of this encounter Visit Diagnoses Diagnosis Malignant neoplasm of colon, unspecified part of colon (CMS/HCC)- Primary documented in this encounter Care Teams Ruby Rails Developer Relationship Specialty Start Date End Date Víctor Steinberg MD [address] [place] [address] PCP - General Family Practice 03/08/21 documented as of this encounter
--- OUTSIDE RECORDS SUMMARY | 2024-08-05 08:27 | XMS_ITS | Referral Summary ---
Author Organization [facility] Address [address] [place] [address] Care Team Providers Care Spray Dyer Name Role Phone Rodolfo Zuleta MD Primary Care Provider [phone] Leanne Pike MD Unavailable Allergies No known [...] on file Legal Sex Female 6:59 AM RECEPTIONIST SCHEDULER Gender Identity Not on file Sexual Orientation [...] of Treatment Not on file [facility] ACCESS Advance Directives For more information, please contact: [phone] * Full Code (Latest Code Status on File) Date Activated Date Inactivated Comments 09/24/2017 11:59 AM 09/24/2017 4:41 PM Care Teams Spray Dyer Relationship Specialty Start Date End Date Rodolfo Zuleta MD [address] [place] [address] PCP - General 09/24/17 Leanne Pike MD [address] [place] [address] Medical Oncologist/Cut Off Saw Grader Medical Oncology 11/18/19
--- OUTSIDE RECORDS SUMMARY | 2024-08-05 08:27 | XMS_ITS | Encounter Summary ---
Author Organization [facility] [place] Address [address] [place] [address] Care Team Providers Care Handbag Framer Name Role Phone Víctor Steinberg MD Primary Care Provider [phone] Encounter Details Date Type Department Care Team (Late Contact Info) Description 07/29/2024 Orders Only [facility] Oncology and [facility] [address] [place] [address] Zachary Werner MD [address] [place] [address] [address] [place] [address] Social History Tobacco Use Types Packs/Day Years Used Date Smoking Tobacco: Never Smokeless Tobacco: Never Alcohol Use Standard Drinks/Week Comments Yes 0 (1 standard drink = 0.6 oz pur e alcohol) Comments No Sex and Gender Information Value Date Recorded Sex Assigned at Not on file 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 Gender Identity Not on file Sexual Orientation Not on file documented as of this encounter Plan of Treatment Upcoming Encounters Date Type Department Care Team (Late st Contact Info) Description 08/06/2024 11:30 AM CDT Office Visit [facility] Oncology [facility] [address] [place] [address] Zachary Werner MD [address] [place] [address] [address] [place] [address] documented as of this encounter Procedures Procedure Name Priority Date/Time Associated Diagnosis Comments CT CHEST ABDOMEN PELVIS W CONT Routine 07/28/2024 1:59 PM CDT documented in this encounter Results * CT CHEST ABDOMEN PELVIS W CONT (07/28/2024 1:59 PM CDT) Anatomical Region Laterality Modality Chest Computed Tomogra phy Zachary Werner MD CT ORDERABLES Final Result documented in this encounter Visit Diagnoses Not on filedocumented in this encounter Care Teams Handbag Framer Relationship Specialty Start Date End Date Víctor Steinberg MD [address] [place] [address] PCP - General Family Practice 03/08/21 documented as of this encounter
--- OUTSIDE RECORDS SUMMARY | 2024-08-05 08:27 | XMS_ITS | Clinical Summary ---
Author Organization [facility] Graeme wang Scar Address [address] [place] [address] Care Team Providers Care Dietary Aide Teacher Name Role Phone Víctor Steinberg MD Primary Care Provider [phone] Allergies No known active allergies Medications ALPRAZolam [...] Encounters Date Type Department Care Team Description 07/29/2024 Orders Only [facility] Oncology and Hematology - [place] [address] [place] [address] Zachary Werner MD 07/28/2024 External Device Data STL ABSTRACTION Provider, Abstract 07/27/2024 Orders Only [facility] Oncology and Hematology [place] [address] [place] [address] Zachary Werner MD 05/27/2024 External Device Data [...] on file Legal Sex Female 4:31 AM BUSINESS OPERATIONS CONSULTANT Gender Identity Not on file Sexual Orientation Not on file Last Filed Vital Signs Vital Sign Reading Time Taken Comments Blood Pressure 156/90 04/10/2024 10:38 AM BUSINESS OPERATIONS CONSULTANT Pulse 83 04/10/2024 10:35 AM BUSINESS OPERATIONS CONSULTANT Temperature 36.3 C (97.4 F) 04/10/2024 10:35 AM BUSINESS OPERATIONS CONSULTANT Respiratory Rate 15 04/10/2024 10:35 AM BUSINESS OPERATIONS CONSULTANT Oxygen Saturation 93% 04/10/2024 10:35 AM BUSINESS OPERATIONS CONSULTANT Inhaled Oxygen Concentration - - Weight 89.4 kg (197 lb) 04/10/2024 10:35 AM BUSINESS OPERATIONS CONSULTANT Height 167.6 cm (5' 6) 08/27/2023 9:15 AM CDT Body Mass Index 31.8 08/27/2023 9:15 AM CDT Plan of Treatment Upcoming Encounters Date Type Department Care Team (Late st Contact Info) Description 08/06/2024 11:30 AM CDT Office Visit [facility] Oncology and Hematology - [place] [address] [facility] [address] [place] [address] Zachary Werner MD [address] [facility] [address] [place] [address] Health Maintenance Due Date Last Done Comments DTAP/TDAP/TD VACCINES (1 - Tdap) 12/21/1969 PNEUMOCOCCAL VACCINE 50+ YEA RS (1 of 1 - PCV) 1998 ZOSTER VACCINE (1 of 2) 1998 OSTEOPOROSIS SCREENING 10/03/2018 10/03/2013, 2013 INFLUENZA VACCINE (#1) 2023 RSV VACCINE (60+ or ) (1 - 1-dose 75+ series) 12/21/2023 Medicare Advantage (SD) Prev entative Visit/Annual Wellness Visit 03/11/2024 COLORECTAL SCREENING Discontinued 09/24/2017 Colorectal Cancer Screening Discontinued FIT-DNA Q 3 years Discontinued FIT/FOBT Q 1 year Discontinued Flex Sig/CT Colonography Q 5 years Discontinued Procedures Procedure Name Priority Date/Time Associated Diagnosis Comments CT CHEST ABDOMEN PELVIS W CONT Routine 07/28/2024 1:59 PM CDT from Last 3 Months Results * CT CHEST ABDOMEN PELVIS W CONT (07/28/2024 1:59 PM CDT) Anatomical Region Laterality Modality Chest Computed Tomogra phy Zachary Werner MD CT ORDERABLES Final Result from Last 3 Months Insurance [facility] [id number] Care Teams Dietary Aide Teacher Relationship Specialty Start Date End Date Víctor Steinberg MD [address] [place] [address] PCP - General Family Practice 03/08/21
[2024-08-05 08:45] LABS: Basophils Percent Auto 0.4 % (0.2-1.2); Eosinophils Percent Auto 1.7 % (0-4.4); Hematocrit 41.6 % (37.0-47.0); Hemoglobin 13.6 g/dL (12.0-15.0); Immature Granulocyte Absolute 0.01 K/mm3 (0.00-0.031); Immature Granulocyte Percent A 0.4 % (0-0.5); Immature Platelet Fraction Pct 6.9 % (0.9-11.2); Lymphocytes Absolute Auto 0.87 K/mm3 (0.9-3.2); Lymphocytes Percent Auto 36.1 % (18.3-44.2); Mean Corpuscular HGB Conc 32.7 g/dl (32-36); Mean Corpuscular Hemoglobin 32.8 pg (26-34); Mean Corpuscular Volume 100.2 fl (80-100); Mean Platelet Volume 10.6 fl (7.4-10.4); Monocytes Absolute Auto 0.3 K/mm3 (0.1-0.6); Neutrophils Absolute Auto 1.2 K/mm3 (1.3-6.7); Neutrophils Percent Auto 49.4 % (45.5-73.1); Platelet Count Result 128 k/mm3 (150-375); Red Blood Count 4.15 M/mm3 (4.2-5.4); Red Cell Distribution Width 13.5 % (11.5-14.5); White Blood Count 2.4 K/mm3 (4.5-10.0)
[2024-08-05 09:20] LABS: Alanine Aminotransferase 44 U/L (6-35); Albumin Level 4.3 g/dL (3.5-5.1); Alkaline Phosphatase 56 U/L (38-126); Anion Gap 6 mmol/L (4-12); Aspartate Amino Transferase 60 U/L (14-36); Bilirubin,Total 0.7 mg/dL (0.2-1.3); Blood Urea Nitrogen 12 mg/dL (7-17); Calcium 9.4 mg/dL (8.4-10.2); Carbon Dioxide 28 mmol/L (22-30); Chloride 106 mmol/L (98-107); Estimated Glomerular Filt Rate > 60; Glucose 122 mg/dL (65-110); Potassium 4.4 mmol/L (3.4-5.0); Sodium 140 mmol/L (137-145)
[2024-08-05 09:50] LABS: Carcinoembryonic Antigen 9.6 ng/mL (0.0-3.0)
== END 2024-08-05 08:26 | disposition home or self-care (01) ==
LOC: ANHLAB 08:26
PROVIDERS: PCP Family Medicine; Visit Provider Internal Medicine Hematology & Oncology
DX: C18.9 Malignant neoplasm of colon, unspecified (principal)
CPT/HCPCS: 36415; 80053; 82378; 85025; 85055

== ENCOUNTER 2024-09-22 14:02 | Outpatient (CLI) | payer MEDICARE, SELFPAY ==
--- NOTE | ~2024-09-22 | US_ITS ---
EXAMINATION: US knee asp inj w image RT DATE: 09/22/2024 16:00 INDICATION: Right knee joint effusion TECHNIQUE: The procedure including the risks and benefits was discussed with the patient. Risks discu ssed included bleeding and infection. The patient understood the risks and agreed to proceed. The sk in overlying the right knee was prepped and draped in usual sterile fashion. Anesthetic was administ ered with 1% lidocaine subcutaneously. An 18 gauge core biopsy needle was advanced under continuous ultrasound observation into the fluid collection at the suprapatellar pouch. 40 mL of cloudy brownish fluid was drained and sent to the lab for Gram stain and cultures. The needle was removed and the e ntry site was cleaned and dressed. Post procedure ultrasound demonstrated no hemorrhage. FINDINGS: Ultrasound images demonstrate needle advanced into a moderate-sized right knee joint effusi on at the suprapatellar pouch. IMPRESSION: 1. Successful Ultrasound-guided right knee arthrocentesis yielding 40 mL of cloudy brownish fluid. Reviewed, dictated and finalized at location A. IMPRESSION: 1. Successful Ultrasound-guided right knee arthrocentesis yielding 40 mL of ashlee udy brownish fluid.
--- OUTSIDE RECORDS SUMMARY | 2024-09-22 14:08 | XMS_ITS | Clinical Summary ---
Author Organization [facility] Ronnellsusana felipe Connor Address [address] [place] [address] Care Team Providers Care Cap Maker Name Role Phone Víctor Steinberg MD Primary Care Provider [phone] Allergies No known active allergies Medications ALPRAZolam [...] Encounters Date Type Department Care Team Description 09/01/2024 External Device Data STL ABSTRACTION Provider, Abstract 08/26/2024 External Device Data STL ABSTRACTION Provider, Abstract 08/25/2024 External Device Data STL ABSTRACTION Provider, Abstract 08/06/2024 11:30 AM CDT Office Visit [facility] Oncology and Hematology [facility] [address] [place] [address] Zachary Werner MD Malignant neoplasm of colon, unspecified part of colon (CMS/HCC) (Primary Dx) 07/29/2024 Orders Only [facility] Oncology and Hematology [facility] [address] [place] [address] Zachary Werner MD 07/28/2024 External Device Data STL ABSTRACTION Provider, Abstract 07/27/2024 Orders Only [facility] Oncology and Hematology - [place] [address] [facility] [address] [place] [address] Zachary Werner MD from Last 3 Months Family History Medical [...] on file 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 Gender Identity Not on file Sexual Orientation Not on file Last Filed Vital Signs Vital Sign Reading Time Taken Comments Blood Pressure 151/86 08/06/2024 11:30 AM CDT Pulse 74 08/06/2024 11:27 AM CDT Temperature 36.7 C (98 F) 08/06/2024 11:27 AM CDT Respiratory Rate 15 08/06/2024 11:27 AM CDT Oxygen Saturation 95% 08/06/2024 11:27 AM CDT Inhaled Oxygen Concentration - - Weight 86.7 kg (191 lb 3.2 oz) 08/06/2024 11:27 AM CDT Height 167.6 cm (5' 6) 08/27/2023 9:15 AM CDT Body Mass Index 30.86 08/27/2023 9:15 AM CDT Plan of Treatment Upcoming Encounters Date Type Department Care Team (Late st Contact Info) Description 12/18/2024 9:15 AM CDT Office Visit [facility] Oncology and Hematology - [place] [address] [place] [address] Zachary Werner MD [address] [facility] [address] [place] [address] Health Maintenance Due Date Last Done Comments DTAP/TDAP/TD VACCINES (1 - Tdap) 12/21/1967 PNEUMOCOCCAL VACCINE 50+ YEA RS (1 of 1 - PCV) 1998 ZOSTER VACCINE (1 of 2) 1998 OSTEOPOROSIS SCREENING 10/03/2018 10/03/2013, 2013 RSV VACCINE (60+ or ) (1 - 1-dose 75+ series) 12/21/2023 INFLUENZA VACCINE (#1) 2024 COLORECTAL SCREENING Discontinued 09/24/2017 Colorectal Cancer Screening [...] Final Result from Last 3 Months Insurance [facility] [id number] [facility] Address: [facility] [address] [place] [address] [facility] [id number] Care Teams Cap Maker Relationship Specialty Start Date End Date Víctor Steinberg MD [address] [place] [address] PCP - General Family Practice 03/08/21
--- OUTSIDE RECORDS SUMMARY | 2024-09-22 14:08 | XMS_ITS | Referral Summary ---
Author Organization [facility] Address [address] [place] [address] Care Team Providers Care Operations Section Manager Name Role Phone Rodolfo Zuleta MD Primary Care Provider [phone] Leanne Pike MD Unavailable Allergies No known [...] on file Legal Sex Female 6:59 AM RECORD PRESS TENDER Gender Identity Not on file Sexual [...] of Treatment Not on file [facility] REF [facility] MEDICARE Address: [address] [address] [place] [address] MEDICARE ANTHEM ACCESS Advance Directives For more information, please contact: [phone] * Full Code (Latest Code Status on File) Date Activated Date Inactivated Comments 09/24/2017 11:59 AM 09/24/2017 4:41 PM Care Teams Operations Section Manager Relationship Specialty Start Date End Date Rodolfo Zuleta MD [address] [place] [address] PCP - General 09/24/17 Leanne Pike MD [address] [place] [address] Medical Oncologist/Technical Translator Medical Oncology 11/18/19
--- OUTSIDE RECORDS SUMMARY | 2024-09-22 14:08 | XMS_ITS | Encounter Summary ---
Author Organization [facility]3] [employer] Address [address] [place] [address] Care Team Providers Care Fabrication Machine Operator Name Role Phone Víctor Steinberg MD Primary Care Provider [phone] Reason for Visit * Reason Onset Date Comments lab orders 12/28/2021 Encounter Details Date Type Department Care Team ([facility] Contact Info) Description 12/28/2021 Telephone [facility] Oncology and Hematology [facility] [address] [place] [address] Mushtaq Chau MD [address] [place] [address] lab orders Social History Tobacco Use Types Packs/Day Years Used Date Smoking Tobacco: Never Smokeless Tobacco: Never Alcohol Use Standard Drinks/Week Comments Yes 0 (1 standard drink = 0.6 oz pur e alcohol) Comments No Sex and Gender Information Value Date Recorded Sex Assigned at Not on file 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 No / Unsure 12/28/2021 10:01 AM CDT documented as of this encounter Plan of Treatment Upcoming Encounters Date Type Department Care Team (Late Contact Info) Description 12/18/2024 9:15 AM CDT Office Visit [facility] Oncology and Hematology [facility] [address] [place] [address] Zachary Werner MD [address] [facility] [address] [place] [address] documented as of this encounter Visit Diagnoses Diagnosis Malignant neoplasm of colon, unspecified part of colon (CMS/HCC)- Primary documented in this encounter Care Teams Fabrication Machine Operator Relationship Specialty Start Date End Date Víctor Steinberg MD [address] [place] [address] PCP - General Family Practice 03/08/21 documented as of this encounter
--- OUTSIDE RECORDS SUMMARY | 2024-09-22 14:08 | XMS_ITS | Clinical Summary ---
Author Organization [facility] Address [address] [place] [address] Care Team Providers Care Regasification Plant Operator Name Role Phone Rodolfo Zuleta MD Primary Care Provider [phone] Leanne Pike MD Unavailable Allergies No known [...] on file Legal Sex Female 6:59 AM MANAGER CASH Gender Identity Not on file Sexual Orientation [...] of Treatment Not on file [facility] [place] [address] [facility] ACCESS Advance Directives For more information, please contact: [phone] * Full Code (Latest Code Status on File) Date Activated Date Inactivated Comments 09/24/2017 11:59 AM 09/24/2017 4:41 PM Care Teams Regasification Plant Operator Relationship Specialty Start Date End Date Rodolfo Zuleta MD [address] [place] [id number] PCP - General 09/24/17 Leanne Pike MD [address] [place] [address] Medical Oncologist/Film Casting Operator Medical Oncology 11/18/19
== END 2024-09-22 14:03 | disposition home or self-care (01) ==
PROVIDERS: PCP Family Medicine; Visit Provider Orthopaedic Surgery
DX: M25.461 Effusion, right knee (principal); Z96.651 Presence of right artificial knee joint
CPT/HCPCS: 20611

== ENCOUNTER 2024-09-25 10:19 | Outpatient (CLI) | payer MEDICARE, SELFPAY ==
--- OUTSIDE RECORDS SUMMARY | 2024-09-25 10:24 | XMS_ITS | Encounter Summary ---
Author Organization [facility] [employer] Address [address] [place] [address] Care Team Providers Care Dry Kiln Burner Name Role Phone Víctor Steinberg MD Primary Care Provider [phone] Reason for Visit * Reason Onset Date Comments lab orders 12/28/2021 Encounter Details Date Type Department Care Team ([facility] Contact Info) Description 12/28/2021 Telephone [facility] Oncology and Hematology [facility] [address] [place] [address] Mushtaq Chau MD [address] [place] [address] lab orders Social History Tobacco Use Types Packs/Day Years Used Date Smoking Tobacco: Never Smokeless Tobacco: Never Alcohol Use Standard Drinks/Week Comments Yes 0 (1 standard drink = 0.6 oz pur e alcohol) Comments No Sex and Gender Information Value Date Recorded Sex Assigned at Not on file Legal Sex Female 4:31 AM 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 Gender Identity Not on file Sexual [...] Description 12/18/2024 9:15 AM CDT Office Visit [facility] Oncology and Hematology [facility] [address] [place] [address] Zachary Werner MD [address] [facility] [address] [place] [address] documented as of this encounter Visit Diagnoses Diagnosis Malignant neoplasm of colon, unspecified part of colon (CMS/HCC)- Primary documented in this encounter Care Teams Dry Kiln Burner Relationship Specialty Start Date End Date Víctor Steinbreg MD [address] [place] [address] PCP - General Family Practice 03/08/21 documented as of this encounter
--- OUTSIDE RECORDS SUMMARY | 2024-09-25 10:24 | XMS_ITS | Referral Summary ---
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 Female 6:59 AM DESIGN LEADER Gender Identity Not on file Sexual Orientation [...] Treatment Not on file [facility] MED[facility] Address: [address] [address] [place] [address] MEDICARE ANTHEM ACCESS Advance Directives For more information, please contact: [phone] * Full Code (Latest Code Status on File) Date Activated Date Inactivated Comments 09/24/2017 11:59 AM 09/24/2017 4:41 PM Care Teams Enterprise Infrastructure Architect Relationship Specialty Start Date End Date Rodolfo Zuleta MD [address] [place] [address] PCP - General 09/24/17 Leanne Pike MD [address] [place] [address] Medical Oncologist/Mysql Database Developer Medical Oncology 11/18/19
--- OUTSIDE RECORDS SUMMARY | 2024-09-25 10:24 | XMS_ITS | Clinical Summary ---
Author Organization [facility] Address [address] [place] [address] Care Team Providers Care Aircraft Mechanic Name Role Phone Rodolfo Zuleta MD Primary Care Provider [phone] Leanne Pike MD Unavailable Allergies No known [...] on file Legal Sex Female 6:59 AM REPAIR SERVICE CLERK Gender Identity Not on file Sexual Orientation [...] of Treatment Not on file [facility] [place] [address] [facility] ACCESS Advance Directives For more information, please contact: [phone] * Full Code (Latest Code Status on File) Date Activated Date Inactivated Comments 09/24/2017 11:59 AM 09/24/2017 4:41 PM Care Teams Aircraft Mechanic Relationship Specialty Start Date End Date Rodolfo Zuleta MD [address] [place] [address] PCP - General 09/24/17 Leanne Pike MD [address] [place] [id number] Medical Oncologist/Family Program Specialist Medical Oncology 11/18/19
--- OUTSIDE RECORDS SUMMARY | 2024-09-25 10:24 | XMS_ITS | Encounter Summary ---
Author Organization [facility] Address [address] [place] [address] Care Team Providers Care Agricultural And Forestry Supervisor Name Role Phone Víctor Steinberg MD Primary Care Provider [phone] Encounter Details Date Type Department Care Team (Late st Contact Info) Description 09/23/2024 External Device Data STL ABSTRACTION Provider, Abstract NO ADDRESS ON FILE Social History Tobacco Use Types Packs/Day Years Used Date Smoking Tobacco: Never Smokeless Tobacco: Never Alcohol Use Standard Drinks/Week Comments Yes 0 (1 standard drink = 0.6 oz pur e alcohol) Comments No Sex and Gender Information Value Date Recorded Sex Assigned at Not on file 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 Gender Identity Not on file Sexual Orientation Not on file documented as of this encounter Plan of Treatment Upcoming Encounters Date Type Department Care Team (Late st Contact Info) Description 12/18/2024 9:15 AM CDT Office Visit [facility] Oncology and Hematology - [place] [address] [place] [address] [address] [place] [address] [place] [address] [place] [address] [address] [place] [address] documented as of this encounter Visit Diagnoses Not on filedocumented in this encounter Care Teams Agricultural And Forestry Supervisor Relationship Specialty Start Date End Date Víctor Steinberg MD [address] [place] [address] PCP - General Family Practice 03/08/21 documented as of this encounter
--- OUTSIDE RECORDS SUMMARY | 2024-09-25 10:24 | XMS_ITS | Encounter Summary ---
Author Organization [facility] Address [address] [place] [address] Care Team Providers Care Garnishment Specialist Name Role Phone Víctor Steinberg MD Primary Care Provider [phone] Encounter Details Date Type Department Care Team [...] on file Legal Sex Female 4:31 AM SPEEDER FRAME TENDER Gender Identity Not on file Sexual Orientation Not on file documented as of this encounter Plan of Treatment Upcoming Encounters Date Type Department Care Team (Late st Contact Info) Description 12/18/2024 9:15 AM CDT Office Visit [facility] Oncology and Hematology - [place] [address] [place] [address] [address] [place] [address] [place] [address] [place] [address] [address] [place] [address] documented as of this encounter Visit Diagnoses Not on filedocumented in this encounter Care Teams Garnishment Specialist Relationship Specialty Start Date End Date Víctor Steinberg MD [address] [place] [address] PCP - General Family Practice 03/08/21 documented as of this encounter
--- OUTSIDE RECORDS SUMMARY | 2024-09-25 10:24 | XMS_ITS | Clinical Summary ---
Author Organization [facility] Graeme Connor Address [address] [place] [address] Care Team Providers Care Game Operator Name Role Phone Víctor Steinberg MD Primary Care Provider [phone] Allergies No known active allergies Medications ALPRAZolam [...] Encounters Date Type Department Care Team Description 09/23/2024 External Device Data STL ABSTRACTION Provider, Abstract 09/23/2024 External Device Data STL ABSTRACTION Provider, Abstract 09/23/2024 External Device Data STL ABSTRACTION Provider, Abstract 09/22/2024 External Device Data STL ABSTRACTION Provider, Abstract 09/01/2024 External Device Data STL ABSTRACTION Provider, Abstract 08/26/2024 External Device Data STL ABSTRACTION Provider, Abstract 08/25/2024 External Device Data STL ABSTRACTION Provider, Abstract 08/06/2024 11:30 AM CDT Office Visit [facility] Oncology and Hematology - [place] [address] [place] [address] Zachary Werner MD Malignant neoplasm of colon, unspecified part of colon (CMS/HCC) (Primary Dx) 07/29/2024 Orders Only [facility] Oncology and Hematology - [place] [address] [place] [address] Zachary Werner MD 07/28/2024 External Device Data STL ABSTRACTION Provider, Abstract 07/27/2024 Orders Only [facility] Oncology and Hematology - [place] [address] [place] [address] Zachary Werner MD from Last [...] on file 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 [address] [place] [address] Health Maintenance Due Date Last [...] Final Result from Last 3 Months Insurance [facility] [id number] [facility] [id number] Care Teams Game Operator Relationship Specialty Start Date End Date Víctor Steinberg MD [address] [place] [address] PCP - General Family Practice 03/08/21
[2024-09-25 12:49] LABS: Hematocrit 37.6 % (37.0-47.0); Hemoglobin 12.2 g/dL (12.0-15.0); Mean Corpuscular HGB Conc 32.4 g/dl (32-36); Mean Corpuscular Hemoglobin 32.0 pg (26-34); Mean Corpuscular Volume 98.7 fl (80-100); Platelet Count Result 165 k/mm3 (150-375); Red Blood Count 3.81 M/mm3 (4.2-5.4); White Blood Count 3.8 K/mm3 (4.5-10.0)
[2024-09-25 13:28] LABS: CRP 12.9 mg/dL (<1.0)
== END 2024-09-25 10:20 | disposition home or self-care (01) ==
PROVIDERS: Nurse Practitioner; PCP Family Medicine; Visit Provider Orthopaedic Surgery
DX: K64.9 Unspecified hemorrhoids (principal); M25.561 Pain in right knee; M25.461 Effusion, right knee
CPT/HCPCS: 36415; 85027; 85652; 86140

== ENCOUNTER 2024-09-25 20:10 | Inpatient (IN) | payer MEDICARE, SELFPAY ==
--- NOTE | ~2024-09-25 | XR_ITS ---
EXAMINATION: XR chest 2V Exam Date/Time: 09/25/2024 22:31 CDT HISTORY: Preop Comparison: None. RESULT: Lines, tubes, and devices: None. Lungs and pleura: Clear. Cardiomediastinal silhouette: Unremarkable. Other: No acute osseous or upper abdominal finding. IMPRESSION: No acute cardiopulmonary process. Reviewed, dictated and finalized at location K.
--- OUTSIDE RECORDS SUMMARY | 2024-09-25 20:15 | XMS_ITS | Encounter Summary ---
Author Organization [facility] Address [address] [place] [address] Care Team Providers Care Mowing Machine Operator Name Role Phone Víctor Steinberg MD Primary Care Provider [phone] Encounter Details Date Type Department Care Team [...] on file Legal Sex Female 4:31 AM BLAST SETTER Gender Identity Not on file Sexual Orientation Not on file documented as of this encounter Plan of Treatment Upcoming Encounters Date Type Department Care Team (Late st Contact Info) Description 12/18/2024 9:15 AM CDT Office Visit [facility] Oncology and Hematology - [place] [address] [place] [address] [address] [place] [address] [place] [address] [place] [address] [address] [place] [address] documented as of this encounter Visit Diagnoses Not on filedocumented in this encounter Care Teams Mowing Machine Operator Relationship Specialty Start Date End Date Víctor Steinberg MD [address] [place] [address] PCP - General Family Practice 03/08/21 documented as of this encounter
--- OUTSIDE RECORDS SUMMARY | 2024-09-25 20:15 | XMS_ITS | Referral Summary ---
Author Organization [facility] Address [address] [place] [address] Care Team Providers Care Broker Agricultural Produce Name Role Phone Rodolfo Zuleta MD Primary Care Provider [phone] Leanne Pike MD Unavailable Allergies No known [...] on file Legal Sex Female 6:59 AM SENIOR CHEMICAL ENGINEER Gender Identity Not on file Sexual [...] of Treatment Not on file Insurance [facility] Address: [address] [address] [place] [address] MEDICARE ANTHEM ACCESS Advance Directives For more information, please contact: [phone] * Full Code (Latest Code Status on File) Date Activated Date Inactivated Comments 09/24/2017 11:59 AM 09/24/2017 4:41 PM Care Teams Broker Agricultural Produce Relationship Specialty Start Date End Date Rodolfo Zuleta MD [address] [place] [address] PCP - General 09/24/17 Leanne Pike MD [address] [place] [id number] Medical Oncologist/Speech Communication Instructor Medical Oncology 11/18/19
--- OUTSIDE RECORDS SUMMARY | 2024-09-25 20:15 | XMS_ITS | Clinical Summary ---
Author Organization [facility] Address [address] [place] [address] Care Team Providers Care Local Company Flatbed Truck Driver Name Role Phone Rodolfo Zuleta MD Primary Care Provider [phone] Leanne iPke MD Unavailable Allergies No known active allergies [...] on file Legal Sex Female 6:59 AM MARKETING CONTENT MANAGER Gender Identity Not on file Sexual [...] Treatment Not on file Insurance [facility] REF [facility]IC[facility] ACCESS Advance Directives For more information, please contact: [phone] * Full Code (Latest Code Status on File) Date Activated Date Inactivated Comments 09/24/2017 11:59 AM 09/24/2017 4:41 PM Care Teams Local Company Flatbed Truck Driver Relationship Specialty Start Date End Date Rodolfo Zuleta MD [address] [place] [id number] PCP - General 09/24/17 Leanne Pike MD [address] [place] [id number] Medical Oncologist/Access Rn Medical Oncology 11/18/19
--- OUTSIDE RECORDS SUMMARY | 2024-09-25 20:15 | XMS_ITS | Clinical Summary ---
Author Organization [facility] Graeme Connor Address [address] [place] [address] Care Team Providers Care Hebrew Professor Name Role Phone Víctor Steinberg MD Primary Care Provider [phone] Allergies No known active allergies Medications ALPRAZolam [...] Abstract 08/06/2024 11:30 AM CDT Office Visit [facility] Oncology and Hematology - [place] [address] [place] [address] Zachary Werner MD Malignant neoplasm of colon, unspecified part of colon (CMS/HCC) (Primary Dx) 07/29/2024 Orders Only [facility] Oncology and Hematology - [place] [address] [place] [address] Zachary Werner MD 07/28/2024 External Device Data STL ABSTRACTION Provider, Abstract 07/27/2024 Orders Only [facility] Oncology and Hematology - [place] [address] [place] [address] Zachary Werner MD from Last [...] on file 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 Gender Identity Not on file Sexual Orientation [...] 12/18/2024 9:15 AM CDT Office Visit [facility] Oncology and Hematology - [place] [address] [place] [address] Zachary Werner MD [address] [facility] [address] [place] [address] Health Maintenance Due Date Last [...] Final Result from Last 3 Months Insurance [facility] [id number] [facility] [id number] Care Teams Hebrew Professor Relationship Specialty Start Date End Date Víctor Steinberg MD [address] [place] [address] PCP - General Family Practice 03/08/21
--- OUTSIDE RECORDS SUMMARY | 2024-09-25 20:15 | XMS_ITS | Encounter Summary ---
Author Organization [facility] Address 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 Gender Identity Not on file Sexual Orientation Not on file documented as of this encounter Plan of Treatment Upcoming Encounters Date Type Department Care Team (Late st Contact Info) Description 12/18/2024 9:15 AM CDT Office Visit [facility] Oncology and Hematology - [place] [address] [place] [address] [address] [place] [address] [place] [address] [place] [address] [address] [place] [address] documented as of this encounter Visit Diagnoses Not on filedocumented in this encounter Care Teams Biscuit Machine Operator Relationship Specialty Start Date End Date Víctor Steinberg MD [address] [place] [address] PCP - General Family Practice 03/08/21 documented as of this encounter
--- OUTSIDE RECORDS SUMMARY | 2024-09-25 20:15 | XMS_ITS | Encounter Summary ---
Author Organization [facility] [employer] Address [address] [place] [address] Care Team Providers Care Dietitian Therapeutic Name Role Phone Víctor Steinberg MD Primary Care Provider [phone] Reason for Visit * Reason Onset Date Comments lab orders 12/28/2021 Encounter Details Date Type Department Care Team ([facility] Contact Info) Description 12/28/2021 Telephone [facility] Oncology and Hematology [facility] [address] [place] [address] Mushtaq Chau MD [address] [place] [phone] lab orders Social History Tobacco Use Types Packs/Day Years Used Date Smoking Tobacco: Never Smokeless Tobacco: Never Alcohol Use Standard Drinks/Week Comments Yes 0 (1 standard drink = 0.6 oz pur e alcohol) Comments No Sex and Gender Information Value Date Recorded Sex Assigned at Not on file 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 [address] PCP - General Family Practice 03/08/21 documented as of this encounter
[2024-09-25 20:28] VITALS: BP 148/71; PULSE 79; RESP 16; TEMP 37.2; O2SAT 97
[2024-09-25 21:31] VITALS: BMI 31.8
--- NOTE | 2024-09-25 21:46 | ADMGEN ---
This patient, Mira Magana, was admitted to [facility] Surg Room 309-01. Patient/family oriented to hospital policies and general routines including ID bracelet, bed and alarms, visiting hours, pain management, procedures, bathroom and other care routines, personal items, smoking policy, room service/diet, and visiting hours. Information on how to activate the Rapid Response Team has been discussed. Patient/Family are encouraged to report perceived risks to care and to ask questions if they do not understand what they are told or what they should do.
[2024-09-25 22:41] LABS: Hematocrit 35.9 % (37.0-47.0); Hemoglobin 11.6 g/dL (12.0-15.0); Mean Corpuscular HGB Conc 32.3 g/dl (32-36); Mean Corpuscular Hemoglobin 31.4 pg (26-34); Mean Corpuscular Volume 97.3 fl (80-100); Platelet Count Result 156 k/mm3 (150-375); Red Blood Count 3.69 M/mm3 (4.2-5.4); White Blood Count 3.2 K/mm3 (4.5-10.0)
[2024-09-25 22:56] LABS: Acetaminophen < 10 ug/mL (10-30)
[2024-09-26] VITALS (12 sets, daily range): BP systolic 108–140; BP diastolic 52–67; PULSE 75–82; RESP 12–18; TEMP 36.1–36.9; O2SAT 93–97
[2024-09-26 03:02] LABS: Hematocrit 34.4 % (37.0-47.0); Hemoglobin 11.3 g/dL (12.0-15.0); Mean Corpuscular HGB Conc 32.8 g/dl (32-36); Mean Corpuscular Hemoglobin 31.9 pg (26-34); Mean Corpuscular Volume 97.2 fl (80-100); Platelet Count Result 160 k/mm3 (150-375); Red Blood Count 3.54 M/mm3 (4.2-5.4); White Blood Count 3.5 K/mm3 (4.5-10.0)
[2024-09-26 03:17] LABS: INR 1.1; Prothrombin Time 14.0 Seconds (11.1-14.7)
[2024-09-26 03:18] LABS: Partial Thromboplastin Time 27.9 Seconds (22.3-36.8)
[2024-09-26 03:21] LABS: Anion Gap 7 mmol/L (4-12); Blood Urea Nitrogen 6 mg/dL (7-17); Calcium 8.8 mg/dL (8.4-10.2); Carbon Dioxide 26 mmol/L (22-30); Chloride 102 mmol/L (98-107); Estimated CRCL calculation 80 ml/min; Estimated Glomerular Filt Rate > 60; Glucose 126 mg/dL (65-110); Potassium 3.9 mmol/L (3.4-5.0); Sodium 135 mmol/L (137-145)
--- NOTE | 2024-09-26 03:55 | P.CONIM_ITS ---
Assessment and Plan Assessment and plan (1) Right knee pain: Code(s): M25.561 - Pain in right knee Status: Acute Plan Mira Magana is a 73 year old female with past medical history diverticulitis and colon cancer status post partial colectomy, hyperlipidemia, GERD, osteoarthritis status post right TKA in 09/2023. The patient is admitted to [facility] directly on 09/25/[address] Carlos. Story is as follows: The patient was playing water [email or web address]. She believe she hurt her knee and shortly after not walk due to pain. She denies any open wounds, redness, fever or chills, dizziness, syncope. She feels there may be more fluid in the knee than usual. On 09/22/[address] Carlos's office at which time a right knee x-ray and aspirate was performed. X-ray demonstrated total knee arthroplasty in excellent alignment. Loosening or change. So far the aspirate has not grown anything. Patient admitted for procedural intervention. Medical team consulted. ----- Chronic leukopenia, hemoglobin 11.3. INR 1.1. Serum creatinine 0.56. Chest x- ray without acute process. No prior cardiopulmonary conditions. Full code. SCDs. NPO. Hold STREET VENDOR aspirin (preventative status post colon cancer). Acetaminophen p.r.n.. HPI Date of Consult Consult date: 09/26/24 Requesting Physician: Kole Carlos MD Primary Care Provider: Víctor Steinberg MD Consult Narrative Reason for consult: Medical Narrative: Mira Magana is a 73 year old female with past medical history diverticulitis and colon cancer status post partial colectomy, hyperlipidemia, GERD, osteoarthritis status post right TKA in 09/2023. The patient is admitted to [facility] directly on 09/25/[address] Carlos. Story is as follows: The patient was playing water [email or web address] at [place]. She believe she hurt her knee and shortly after not walk due to pain. She denies any open wounds, redness, fever or chills, dizziness, syncope. She feels there may be more fluid in the knee than usual. On 09/22/[address] Carlos's office at which time a right knee x-ray and aspirate was performed. X-ray demonstrated total knee arthroplasty in excellent alignment. Loosening or change. So far the aspirate has not grown anything. Patient admitted for procedural intervention. Medical team consulted. Review of Systems 2 Review of Systems: All systems reviewed & are unremarkable except as noted in HPI and below (Subjective) [facility] Past Medical History Medical History Elevated glucose Gastroesophageal reflux Osteoarthritis Basal cell carcinoma of skin Diverticulitis Colon cancer Hyperlipidemia Surgical History Surgical History History of basal cell carcinoma excision Nose. History of bilateral cataract extraction History of arthroscopy of right knee (2010) History of arthroplasty of right knee (09/09/23) History of partial colectomy For colon cancer. History of cholecystectomy Family History Family History (Updated 09/22/24 @ 10:53 by Nikia Caruso CMA) Mother Family history of heart disease in male family member before age 55 Patient's mother is Heart disease Tobacco abuse CHF (congestive heart failure) Cerebrovascular accident Father Alzheimer's disease Sibling No problems noted. Social History Social History Social History: Surrogate medical decision maker: Jay Magana, spouse. Code status: Full code. Smoking status: Never smoker Second hand tobacco smoke exposure: Yes Alcohol intake: current Drinks per week: 7 Alcohol use details: 2 drinks/day Substance use: never Substance use type: does not use Do You Feel Safe in your Home?: Yes Lack of Transportation: No Lack of Food: Never True Current Housing: I Have Housing Concerned About Future Housing: No Difficulty Paying Gas/Electric Bills: No Difficulty Paying for Meds: No Currently Unemployed: No Education: Bachelor's Degree Difficulty w/ Childcare or Family Care: No Living arrangements: with family Additional living arrangements comments: Lives with in [place]. 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: No Agree to blood products: Yes Meds Home Medications and Allergies Home Medications ?Medication ?Instructions ?Recorded ?Confirmed ?Type aspirin 81 mg chewable tablet 81 mg PO QPM 02/16/19 09/25/24 History alprazolam 0.25 mg tablet 0.25 mg PO QHS PRN sleep #30 tabs 07/01/24 09/25/24 Rx omeprazole 40 mg capsule,delayed 40 mg PO QPM 09/25/24 09/25/24 History release pressure vision areds 2 1 tablet BYMOUTH QPM 09/25/24 09/25/24 History rosuvastatin 10 mg tablet 10 mg PO QPM 09/25/24 09/25/24 History Allergies Allergy/AdvReac Type Severity Reaction Status Date / Time hydromorphone (From Dilaudid) AdvReac Intermediate Hallucinating Verified 09/22/24 07:09 AND NAUSEA AND VOMITING Vital Signs Vital Signs - 24 hr 09/25/24 20:28 09/25/24 21:31 Temperature 99.0 F Pulse Rate 79 Respiratory Rate 16 Blood Pressure 148/71 H Pulse Oximetry 97 Oxygen Delivery Room Air Exam 2 Const: General: comfortable and no acute distress Other: A&O x3 HENMT: Mouth: Yes moist mucous membranes Eyes: Pupils: Equal, round and reactive pupils present Neck: Neck: supple Resp: Effort & Inspection: normal respiratory effort Auscultation: clear to auscultation bilaterally Cardio: Rate: regular rate Rhythm: regular rhythm Heart sounds: no gallops, Murmur heart sound present and no rubs GI: Inspection: non-distended GI Palp: Yes Soft to palpation and No Tenderness to palpation present (GI) Neuro: Motor exam (neuro): 5/5 motor strength present throughout Extrem: General: no edema Results Labs 09/26/24 02:57 09/26/24 02:57 Labs: Short CBC 09/25/24 09/26/24 Range/Units 22:35 02:57 WBC 3.2 L 3.5 L (4.5-10.0) K/mm3 Hgb 11.6 L 11.3 L (12.0-15.0) g/dL Hct 35.9 L 34.4 L (37.0-47.0) % Plt Count 156 160 (150-375) k/mm3 BMP 09/26/24 02:57 Sodium 135 L Potassium 3.9 Chloride 102 Carbon Dioxide 26 BUN 6 L D Creatinine 0.56 L Glucose 126 H Calcium 8.8
--- NOTE | 2024-09-26 05:59 | P.HP_ITS ---
H&P: HPI History of Present Illness Date/Time: 09/26/24 05:59 Chief Complaint: 73yo female with probable septic RIGHT knee. Patient had a TKA 1 year ago. Developed symptoms after a UTI. Cultures are pending, however she has 54,000 white cells with a left shift. SED RATE and CRP are also greatly elevated at 133 and 12.9. Pain is only mild. Has had fever and chills Review of Systems Musculoskeletal: Musculoskeletal: Reports myalgias, Reports arthralgias, Reports joint swelling and Reports stiffness [facility] Past Medical History Medical History Elevated glucose Gastroesophageal reflux Osteoarthritis Basal cell carcinoma of skin Diverticulitis Colon cancer Hyperlipidemia Surgical History Surgical History History of basal cell carcinoma excision Nose. History of bilateral cataract extraction History of arthroscopy of right knee (2010) History of arthroplasty of right knee (09/09/23) History of partial colectomy For colon cancer. History of cholecystectomy Family History Family History (Updated 09/22/24 @ 10:53 by Nikia Caruso CMA) Mother Family history of heart disease in male family member before age 55 Patient's mother is Heart disease Tobacco abuse CHF (congestive heart failure) Cerebrovascular accident Father Alzheimer's disease Sibling No problems noted. Social History Social History Social History: Surrogate medical decision maker: Jay Magana, spouse. Code status: Full code. Smoking status: Never smoker Second hand tobacco smoke exposure: Yes Alcohol intake: current Drinks per week: 7 Alcohol use details: 2 drinks/day Substance use: never Substance use type: does not use Do You Feel Safe in your Home?: Yes Lack of Transportation: No Lack of Food: Never True Current Housing: I Have Housing Concerned About Future Housing: No Difficulty Paying Gas/Electric Bills: No Difficulty Paying for Meds: No Currently Unemployed: No Education: Bachelor's Degree Difficulty w/ Childcare or Family Care: No Living arrangements: with family Additional living arrangements comments: Lives with in [place]. 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: No Agree to blood products: Yes Meds Home Medications and Allergies Home Medications ?Medication ?Instructions ?Recorded ?Confirmed ?Type aspirin 81 mg chewable tablet 81 mg PO QPM 02/16/19 09/25/24 History alprazolam 0.25 mg tablet 0.25 mg PO QHS PRN sleep #30 tabs 07/01/24 09/25/24 Rx omeprazole 40 mg capsule,delayed 40 mg PO QPM 09/25/24 09/25/24 History release pressure vision areds 2 1 tablet BYMOUTH QPM 09/25/24 09/25/24 History rosuvastatin 10 mg tablet 10 mg PO QPM 09/25/24 09/25/24 History Allergies Allergy/AdvReac Type Severity Reaction Status Date / Time hydromorphone (From Dilaudid) AdvReac Intermediate Hallucinating Verified 09/22/24 07:09 AND NAUSEA AND VOMITING Vital Signs Vital Signs - 24 hr 09/25/24 20:28 09/25/24 21:31 Temperature 99.0 F Pulse Rate 79 Respiratory Rate 16 Blood Pressure 148/71 H Pulse Oximetry 97 Oxygen Delivery Room Air Exam Narrative: Minimal swelling. No erythema. Mild pain with motion. H&P: Results Labs Labs: Short CBC 09/25/24 09/26/24 Range/Units 22:35 02:57 WBC 3.2 L 3.5 L (4.5-10.0) K/mm3 Hgb 11.6 L 11.3 L (12.0-15.0) g/dL Hct 35.9 L 34.4 L (37.0-47.0) % Plt Count 156 160 (150-375) k/mm3 [facility] 09/26/24 02:57 Sodium 135 L Potassium 3.9 Chloride 102 Carbon Dioxide 26 BUN 6 L D Creatinine 0.56 L Glucose 126 H Calcium 8.8 Assessment and Plan Assessment and plan (1) Infection of prosthetic right knee joint: Code(s): T84.53XA - Infection and inflammatory reaction due to internal right knee prosthesis, initial encounter Status: Acute Assessment and Plan: Pain has a probable septic joint. Had a UTI, then developed knee symptoms. Knee is 1 year old at this time. I think that the best option would be a polyethylene exchange and thorough Irrigation and Debridement. I have discussed this with the patient in detail. She understands and agress. Discussed risks, benefits, limitations and alternatives in detail. The bacteria grown from the UTI was E. Coli.
--- NOTE | 2024-09-26 08:00 | ECG_ITS ---
Test Date: 2024-09-26 07:15:21 Measurements Intervals [place] Rate: 79 P: 17 RI: 162 QRS: 11 QRSD: 82 T: 31 QT: 368 QTc: 422 Interpretive Statements SINUS RHYTHM POOR R-WAVE PROGRESSION LOW-VOLTAGE ABNORMAL ECG Compared to ECG 09/02/2023 10:57:32 NO DIFFERENT Electronically Signed On 09-26-2024 08:58:04 CDT by Daniele Cabezas M.D.
--- NOTE | 2024-09-26 08:20 | PCPTNOTE ---
PT order appears to be from hospitalist and it looks like patient will be having a poly exchange and I&D washout. Will wait until after the procedure with ortho to see the patient.
[2024-09-26] MEDS: cefTRIAXone 1 GM in SODIUM CHLORIDE 0.9% IV 50 ML 100 ML IVPB (10:24)
[2024-09-26] MEDS: VANCOMYCIN HCL 1,000 MG in SODIUM CHLORIDE 0.9% IV 250 ML 250 MG IVPB (10:58)
[2024-09-26] MEDS: VANCOMYCIN 1,250 MG/NS 250 ML 1,250 MG/250 ML BAG 166.67 MG IVPB (12:27)
--- NOTE | 2024-09-26 12:32 | WPDANESEPPF ---
Anes - Initial Pre Proc Eval Procedure: Operation Date: 09/26/24 13:00 Proposed Procedures p Right Knee Washout with Poly Exchange(Right) - Kole Carlos MD Date/Time: 09/26/24 12:32 Surgeon: Kole Carlos MD Pre Op Diagnosis: Septic Knee Patient Data Age: 73 Gender: F Height: 1.65 m Weight: 86.7 kg Last Vital Signs Temp 36.9 C 09/26/24 06:00 Pulse 79 09/26/24 08:00 Resp 17 09/26/24 08:00 BP 127/62 09/26/24 06:00 Pulse Ox 97 09/26/24 08:00 O2 Del Method Room Air 09/26/24 08:00 Allergies Allergy/AdvReac Type Severity Reaction Status Date / Time hydromorphone (From Dilaudid) AdvReac Intermediate Hallucinating Verified 09/22/24 07:09 AND NAUSEA AND VOMITING Home Medications ?Medication ?Instructions ?Recorded ?Confirmed ?Type aspirin 81 mg chewable tablet 81 mg PO QPM 02/16/19 09/25/24 History alprazolam 0.25 mg tablet 0.25 mg PO QHS PRN sleep #30 tabs 07/01/24 09/25/24 Rx omeprazole 40 mg capsule,delayed 40 mg PO QPM 09/25/24 09/25/24 History release pressure vision areds 2 1 tablet BYMOUTH QPM 09/25/24 09/25/24 History rosuvastatin 10 mg tablet 10 mg PO QPM 09/25/24 09/25/24 History Laboratory Tests 09/25/24 09/26/24 22:35 02:57 WBC 3.2 L K/mm3 3.5 L K/mm3 (4.5-10.0) (4.5-10.0) RBC 3.69 L M/mm3 3.54 L M/mm3 (4.2-5.4) (4.2-5.4) Hgb 11.6 L g/dL 11.3 L g/dL (12.0-15.0) (12.0-15.0) Hct 35.9 L % 34.4 L % (37.0-47.0) (37.0-47.0) MCV 97.3 fl 97.2 fl (80-100) (80-100) MCH 31.4 pg 31.9 pg (26-34) (26-34) MCHC 32.3 g/dl 32.8 g/dl (32-36) (32-36) RDW 13.2 % 13.0 % (11.5-14.5) (11.5-14.5) Plt Count 156 k/mm3 160 k/mm3 (150-375) (150-375) MPV 9.8 fl 10.1 fl (7.4-10.4) (7.4-10.4) PT 14.0 Seconds (11.1-14.7) INR 1.1 APTT 27.9 Seconds (22.3-36.8) Sodium 135 L mmol/L (137-145) Potassium 3.9 mmol/L (3.4-5.0) Chloride 102 mmol/L (98-107) Carbon Dioxide 26 mmol/L (22-30) Anion Gap 7 mmol/L (4-12) BUN 6 L D mg/dL (7-17) Creatinine 0.56 L mg/dL (0.7-1.0) Estim Creat Clear Calc 80 ml/min Estimated GFR > 60 (59 - ) Glucose 126 H mg/dL (65-110) Calcium 8.8 mg/dL (8.4-10.2) Acetaminophen < 10 L ug/mL (10-30) Patient hx anesthesia problems: post op nausea/vomiting Family hx anesthesia problems: none Results Review: All pre-operative results and documents have been reviewed as part of the pre-operative evaluation. [facility] Past Medical History Medical History Elevated glucose Gastroesophageal reflux Osteoarthritis Basal cell carcinoma of skin Diverticulitis Colon cancer Hyperlipidemia Surgical History Surgical History History of basal cell carcinoma excision Nose. History of bilateral cataract extraction History of arthroscopy of right knee (2010) History of arthroplasty of right knee (09/09/23) History of partial colectomy For colon cancer. History of cholecystectomy Family History Family History (Updated 09/22/24 @ 10:53 by Nikia Caruso CMA) Mother Family history of heart disease in male family member before age 55 Patient's mother is Heart disease Tobacco abuse CHF (congestive heart failure) Cerebrovascular accident Father Alzheimer's disease Sibling No problems noted. Social History Social History (Reviewed 09/22/24 @ 07:09 by Nikia Caruso [facility]) Social History: Surrogate medical decision maker: Jay Magana, spouse. Code status: Full code. Smoking status: Never smoker Second hand tobacco smoke exposure: Yes Alcohol intake: current Drinks per week: 7 Alcohol use details: 2 drinks/day Substance use: never Substance use type: does not use Do You Feel Safe in your Home?: Yes Lack of Transportation: No Lack of Food: Never True Current Housing: I Have Housing Concerned About Future Housing: No Difficulty Paying Gas/Electric Bills: No Difficulty Paying for Meds: No Currently Unemployed: No Education: Bachelor's Degree Difficulty w/ Childcare or Family Care: No Living arrangements: with family Additional living arrangements comments: Lives with in [place]. Additional occupation/education comments: Retired [employer] Spiritual care concerns: No Agree to blood products: Yes Anes - Eval Final PreProcedure Day of Procedure 09/26/24 12:32 Patient weight: obese Heart: regular rate and rhythm Lungs: clear to auscultation Airway: Mallampati scale class II Neurological: alert and oriented Last oral intake: >/= 8 hours ASA classification: III Emergent: no Anesthetic plan: proceed Anesthesia type and monitoring: general LMA and standard monitoring Results Review: All pre-operative results and documents have been reviewed as part of the pre-operative evaluation. Informed Consent: The patient's anesthetic plan and its attendant risks and benefits were discussed with the patient/family/POA. Questions were solicited and answers provided to the satisfaction of the patient/family/POA.
--- NOTE | 2024-09-26 12:35 | WPDHPUPDATE1 ---
History and Physical Update Update Date/Time: 09/26/24 12:35 History and Physical has been reviewed, including an updated exam of the patient. There are NO changes in the patient's condition. Risks, benefits, and alternatives have been discussed and questions answered. Patient agrees to proceed with procedure.
--- NOTE | 2024-09-26 13:15 | PM.EVENT ---
Event Note Event Note Event Note: Patient had been seen and assessed you at a previous provider same day to for consultation I did go ahead start patient on empiric antibiotics for possible septic knee with IV vancomycin and Rocephin. Patient seen post-op right knee washout and poly exchange. At this time she is comfortable with no acute distress and no complaints. Pain is controlled. Will defer physical and occupational therapy pending ortho does weight-bearing status. will continue with antibiotic therapy pending final cultures and sensitivity from an operative culture.
--- NOTE | 2024-09-26 13:53 | P.OP_ITS ---
Procedure Note - Detailed Date of Procedure 09/26/24 Pre-op Diagnosis Infected right total knee arthroplasty Post-op Diagnosis Same Procedure Performed Irrigation debridement with on component revision (polyethylene liner) Surgeon Kole Carlos MD Pumper Gauger Apprentice ORQUIDEA Anesthesia General Findings Pus Description of Procedure Patient brought to operating room #8. A general anesthetic was administered. She was sterilely prepped and draped in usual manner. The old incision reopened. Dissection carried down to the fascia. A medial parapatellar incision made and purulence was noted. Cultures were sent x2. The remainder of the knee was opened and the synovium debrided. I removed the polyethylene line. I then thoroughly irrigated the knee with 6 liters of antibiotic soaked saline. At this point the remainder of the wound looked clean. I then replaced the 10 millimeter liner with a new line and locking clip. This gave good motion stability in all directions. The wound was irrigated, hemostasis obtained and closed with #1. PDS 2-0 PDS and nan. Patient tolerated the procedure well. A sterile dressing was applied. Implants Biomet Estimated Blood Loss 100 Complications No immediate complications Condition Stable Disposition PACU [facility] Billing Surgery - Charge Forward: Surgery Billing (97014 Revision 1 component)
[2024-09-26] MEDS: LACTATED RINGERS 1,000 ML 30 ML IV CONT (14:10)
--- NOTE | 2024-09-26 14:46 | PCPTNOTE ---
Attempted to see at 1445, but patient still off the floor in the recovery room from surgery and no orders put in my Dr. Carlos. Physical therapy will attempt to see the patient tomorrow.
[2024-09-26 17:36] LABS: Add Urine Microscopic? YES; Appearance Urine Cloudy (Clear); Glucose Urine UA Negative (Negative); Leukocyte Esterase Ur Trace LEU/UL (Negative); Need Manual Microscopic Reviewed; Nitrate Urine Negative (Negative); Specific Grav Ur 1.015 (1.001-1.035)
[2024-09-26] MEDS: SACCHAROMYCES BOULARDII 250 MG CAPSULE PO (18:10)
[2024-09-26] MEDS: ROSUVASTATIN 10 MG TABLET PO (18:10)
[2024-09-26] MEDS: SENNA/DOCUSATE SODIUM TABLET 2 TAB PO (18:10)
[2024-09-26] MEDS: CELECOXIB 200 MG CAPSULE PO (18:10)
[2024-09-26] MEDS: ceFAZolin 2 GM/D5W 50 ML 2 GM/50 ML BAG IVPB (21:10)
[2024-09-26] MEDS: RIVAROXABAN 10 MG TABLET PO (21:10)
[2024-09-26] MEDS: VANCOMYCIN 1,500 MG/NS 500 ML 1,500 MG/500 ML BAG 250 MG IVPB (22:34)
[2024-09-27] VITALS (7 sets, daily range): BP systolic 113–140; BP diastolic 59–80; PULSE 70–83; RESP 16–18; TEMP 35.6–37.3; O2SAT 96–100
[2024-09-27] MEDS: ACETAMINOPHEN 500 MG TABLET 1000 MG PO (01:10)
[2024-09-27 05:38] LABS: Hematocrit 31.7 % (37.0-47.0); Hemoglobin 10.4 g/dL (12.0-15.0); Immature Granulocyte Percent A 0.6 % (0-0.5); Lymphocytes Absolute Auto 0.47 K/mm3 (0.9-3.2); Mean Corpuscular HGB Conc 32.8 g/dl (32-36); Mean Corpuscular Hemoglobin 31.9 pg (26-34); Mean Corpuscular Volume 97.2 fl (80-100); Nucleated Red Blood Cells Absolute Auto 0.000 K/mm3 (0.0-0.012); Nucleated Red Blood Cells Perc 0.0 % (0.0-0.2); Platelet Count Result 191 k/mm3 (150-375); Red Blood Count 3.26 M/mm3 (4.2-5.4); White Blood Count 5.2 K/mm3 (4.5-10.0)
[2024-09-27 06:02] LABS: Alanine Aminotransferase 15 U/L (6-35); Albumin Level 3.0 g/dL (3.5-5.1); Alkaline Phosphatase 56 U/L (38-126); Anion Gap 4 mmol/L (4-12); Aspartate Amino Transferase 28 U/L (14-36); Bilirubin,Total 0.3 mg/dL (0.2-1.3); Blood Urea Nitrogen 9 mg/dL (7-17); Calcium 8.5 mg/dL (8.4-10.2); Carbon Dioxide 26 mmol/L (22-30); Chloride 103 mmol/L (98-107); Estimated CRCL calculation 77 ml/min; Estimated Glomerular Filt Rate > 60; Glucose 181 mg/dL (65-110); Magnesium 2.5 mg/dL (1.6-2.3); Potassium 4.0 mmol/L (3.4-5.0); Sodium 133 mmol/L (137-145); Total Protein 6.1 g/dL (6.3-8.2)
[2024-09-27] MEDS: ceFAZolin 2 GM/D5W 50 ML 2 GM/50 ML BAG IVPB ×2 (06:06→13:26)
--- NOTE | 2024-09-27 08:53 | P.PNIM_ITS ---
Progress Note: A&P Assessment and Plan (1) Infection of prosthetic right knee joint: Code(s): T84.53XA - Infection and inflammatory reaction due to internal right knee prosthesis, initial encounter Status: Acute Assessment and Plan: patient with concern for possible septic prosthetic knee joint was taken for washout 09/26/2024. * postop day 1 * wound cultures pending * blood cultures pending * continue with empiric antibiotics IV vancomycin and Rocephin pending cultures * analgesics p.r.n. * SCDs * PT/OT per Orthopedic weight-bearing status Plan Code status: Full code per patient DVT prophylaxis: SCD's Stress ulcer prophylaxis: Protonix 40 daily PT/OT notes: PT/OT pending ortho recommendations Disposition: patient continues admission postop day 1 washout of possible right septic knee joint will continue with IV antibiotic therapy pending final cultures. PT/ OT deferred to Orthopedics for weight-bearing status in discharge planning needs. Time Spent With Patient Time with patient: 15 - 25 minutes Subjective Date/time seen: 09/27/24 08:53 Interval history: Patient is a 73-year-old female who was a direct admit to [facility] under Dr. Carlos orthopedics due to concern for possible septic right knee consulted to assist in any medical management. 09/27/2024: Patient doing well today with no complaints, pain controlled with acetaminophen and working with PT/OT. Denies CP, SOB. N/V. Cultures still pending. Review of Systems Review of Systems: All systems reviewed & are unremarkable except as noted in HPI and below (Subjective) Exam Const: General: comfortable and no acute distress Other: A&O x3 HENMT: Mouth: Yes moist mucous membranes Eyes: Pupils: Equal, round and reactive pupils present Neck: Neck: supple Resp: Effort & Inspection: normal respiratory effort Auscultation: clear to auscultation bilaterally Cardio: Rate: regular rate Rhythm: regular rhythm Heart sounds: no gallops, Murmur heart sound present and no rubs GI: Inspection: non-distended Neuro: Cranial nerves: Yes Equal, round and reactive pupils present Motor exam (neuro): 5/5 motor strength present throughout Extrem: General: no edema Other: right lower extremity postop dressing and wrapped with Flo wrap no visual drainage or erythema Psych: Mental Status: mental status grossly normal Affect: normal affect Objective Data Vital Signs Vital Signs: Vital Signs - 24 hr 09/26/24 14:10 09/26/24 14:25 09/26/24 14:40 Temperature 97.7 F Pulse Rate 80 75 76 Respiratory Rate 12 16 16 Blood Pressure 140/65 125/60 130/52 L Pulse Oximetry 96 97 97 Oxygen Delivery Room Air Room Air Room Air 09/26/24 14:55 09/26/24 16:00 09/26/24 16:10 Temperature 97.4 F L 97.3 F L 97.4 F L Pulse Rate 79 80 77 Respiratory Rate 17 18 18 Blood Pressure 130/61 133/67 123/67 Pulse Oximetry 97 95 95 Oxygen Delivery Room Air 09/26/24 17:00 09/26/24 20:00 09/26/24 21:00 Temperature 97 F L 97.4 F L Pulse Rate 82 81 81 Respiratory Rate 18 18 18 Blood Pressure 108/63 119/55 L Pulse Oximetry 97 93 93 Oxygen Delivery Room Air 09/26/24 21:10 09/27/24 01:00 09/27/24 05:00 Temperature 96.1 F L 97.7 F Pulse Rate 75 70 Respiratory Rate 18 18 Blood Pressure 128/69 121/59 L Pulse Oximetry 93 100 97 Oxygen Delivery Room Air Intake/Output Intake/Output: Intake & Output 09/24/24 09/25/24 09/26/24 09/27/24 23:59 23:59 23:59 23:59 Intake Total 1620 550 Output Total 400 Balance 1220 550 Meds/Results Medications: Active Medications Generic Name Dose Route Start Last Admin Trade Name Freq PRN Reason Stop Dose Admin Acetaminophen 1,000 mg 09/25/24 22:03 09/27/24 01:10 Acetaminophen 500 Mg Tablet PO 1,000 mg Q6H PRN Administration Mild Pain (1-3) or Fever Hydrocodone Bitart/Acetaminophen 1 tab 09/26/24 15:15 Hydrocodone/Acetaminophen (*Crx) 5-325 Mg Tablet PO Q4H PRN Pain Rated 4-6 Hydrocodone Bitart/Acetaminophen 1 tab 09/26/24 15:15 Hydrocodone/Acetaminophen (*Crx) 7.5-325 Mg Tablet PO Q4H PRN Pain Rated 7-10 Alprazolam 0.25 mg 09/26/24 09:08 Alprazolam (*Crx) 0.25 Mg Tablet PO QHS PRN sleep Celecoxib 200 mg 09/26/24 17:00 09/26/24 18:10 Celecoxib 200 Mg Capsule PO 200 mg BIDWM LA NENA Administration Diphenhydramine HCl 25 mg 09/26/24 15:15 Diphenhydramine Hcl Inj 50 Mg/Ml Vial IV PUSH Q6H PRN Itching Hydromorphone HCl 1 mg 09/26/24 15:23 Hydromorphone Hcl Inj (*Crx) 2 Mg/Ml Vial IV PUSH Q2H PRN Breakthrough Pain Rated 7-10 or NPO Hydromorphone HCl 0.5 mg 09/26/24 15:23 Hydromorphone Hcl Inj (*Crx) 2 Mg/Ml Vial IV PUSH Q2H PRN Breakthrough Pain Rated 4-6 or NPO Ceftriaxone Sodium 1 gm/ 50 mls @ 100 mls/hr 09/26/24 09:00 09/26/24 10:24 Sodium Chloride IVPB 100 mls/hr Q24H LA NENA Administration Vancomycin HCl 1,500 mg in 500 mls @ 250 mls/hr 09/26/24 22:00 09/27/24 00:34 Vancomycin 1,500 Mg/Ns 500 Ml IVPB Infused Q12H LA NENA Infusion Cefazolin Sodium 2 gm in 50 mls @ 100 mls/hr 09/26/24 21:00 09/27/24 06:36 Ancef 2 Gm/D5w 50 Ml IVPB 09/27/24 13:29 Infused Q8H LA NENA Infusion Ibuprofen 800 mg in 200 mls @ 400 mls/hr 09/26/24 15:15 Caldolor 800 Mg/200 Ml IVPB Q6H PRN Breakthrough Pain Rated 1-3 or NPO Naloxone HCl 0.1 mg 09/26/24 15:15 Naloxone Hcl 0.4 Mg/Ml Vial IV PUSH Q2M PRN Opiate Reversal Ondansetron HCl 4 mg 09/26/24 12:33 Ondansetron Inj 4 Mg/2 Ml Vial IV PUSH ONCE PRN Nausea Polyethylene Glycol 17 gm 09/27/24 09:00 Polyethylene Glycol 3350 17 Gm Powd.Pack PO QAM LA NENA Rivaroxaban 10 mg 09/26/24 21:00 09/26/24 21:10 Rivaroxaban 10 Mg Tablet PO 10/07/24 17:01 10 mg DAILY@17 LA NENA Administration Rosuvastatin Calcium 10 mg 09/26/24 18:00 09/26/24 18:10 Rosuvastatin 10 Mg Tablet PO 10 mg QPM LA NENA Administration Saccharomyces Boulardii 250 mg 09/26/24 13:00 09/26/24 18:10 Saccharomyces Boulardii 250 Mg Capsule PO 250 mg TID LA NENA Administration Senna/Docusate Sodium 2 tab 09/26/24 17:00 09/26/24 18:10 Senna/Docusate Sodium Tablet PO 2 tab BID LA NENA Administration Tramadol HCl 50 mg 09/26/24 15:15 Tramadol Hcl (*Crx) 50 Mg Tablet PO Q4H PRN Pain Rated 1-3 Radiology Results: ITS Impressions Chest X-Ray 09/25/24 22:43 IMPRESSION: No acute cardiopulmonary process. Labs Labs: Laboratory Results - last 24 hr 09/26/24 09/27/24 17:18 05:01 WBC 5.2 RBC 3.26 L Hgb 10.4 L Hct 31.7 L MCV 97.2 MCH 31.9 MCHC 32.8 RDW 12.7 Plt Count 191 MPV 10.2 Immature Gran % (Auto) 0.6 H Neut % (Auto) 76.0 H Lymph % (Auto) 9.0 L [place] % (Auto) 14.4 H Eos % (Auto) 0.0 Baso % (Auto) 0.0 L Lymph # (Auto) 0.47 L [place] # (Auto) 0.8 H Eos # (Auto) 0.0 Baso # (Auto) 0.0 Abs Immat Gran (auto) 0.03 Absolute Neuts (auto) 4.0 Absolute Nucleated RBC 0.000 Nucleated RBC % 0.0 Sodium 133 L Potassium 4.0 Chloride 103 Carbon Dioxide 26 Anion Gap 4 BUN 9 Creatinine 0.58 L Estim Creat Clear Calc 77 Estimated GFR > 60 Glucose 181 H Calcium 8.5 Magnesium 2.5 H Total Bilirubin 0.3 AST 28 ALT 15 Alkaline Phosphatase 56 Total Protein 6.1 L Albumin 3.0 L Urine Color Yellow Urine Appearance Cloudy H Urine pH 6.0 Ur Specific [place] 1.015 Urine Protein Trace Urine Glucose (UA) Negative Urine Ketones 3+ H Ur Blood (Man) Negative Urine Nitrate Negative Urine Bilirubin Negative Urine Urobilinogen 1.0 Add Ur Microanalysis Reviewed Leukocyte Esterase Rfl Trace H Urine RBC 3-5 H Urine WBC 0-5 Ur Squamous Epith Cells Occasional Urine Bacteria None seen Urine Casts 6-10 Urine Mucus Present Quality VTE Prophylaxis VTE prophylaxis: mechanical ordered -Patient's previous records reviewed on admission -ER notes reviewed in detail on admission -discussed all findings and current treatment plan with patient/Family/POA -Consultations reviewed for recommendations -Patient's disposition for safe discharge discussed with renal case manager Dictation performed by [employer] direct speech recognition software, therefore shell molder variants and typographical errors may occur. Hospitalist MIPS Advance Care Plan I have confirmed that the patient's Advanced Care Plan is present, code status is documented, or surrogate decision maker is listed in patient medical record.: Yes Medication Reconciliation I have utilized all available resources to obtain, update and review the patients current medications (includes all prescriptions, OTC, herbals, cannabis, and nutritional supplements).: Yes The patient is not eligible for med reconciliation; the patient is in a emergent medical situation where delaying treatment would jeopardize the patients health.: No
[2024-09-27] MEDS: cefTRIAXone 1 GM in SODIUM CHLORIDE 0.9% IV 50 ML 100 ML IVPB (09:10)
[2024-09-27] MEDS: SACCHAROMYCES BOULARDII 250 MG CAPSULE PO ×3 (09:11→17:16)
[2024-09-27] MEDS: CELECOXIB 200 MG CAPSULE PO (09:11)
[2024-09-27] MEDS: SENNA/DOCUSATE SODIUM TABLET 2 TAB PO (09:11)
[2024-09-27] MEDS: VANCOMYCIN 1,500 MG/NS 500 ML 1,500 MG/500 ML BAG 250 MG IVPB (11:00)
--- NOTE | 2024-09-27 16:53 | P.PNOP_ITS ---
Progress Note: A&P Assessment and Plan (1) Infection of prosthetic right knee joint: Code(s): T84.53XA - Infection and inflammatory reaction due to internal right knee prosthesis, initial encounter Status: Acute Plan Patient is postop day 1 after debridement right knee replacement with polyethylene exchange and implant retention. She is on vancomycin and ceftriaxone for empiric coverage. The culture from 09/22/2024 is still no growth to date on the cultures from yesterday are no growth today. History is very suspicious for infection with recent history of fevers. CRP 12.9 12 times normal, sedimentation rate of 133 and synovial cell count of 50,000 of which 75% were neutrophils from the right knee. She also appears to have consistent low white count since 2021. Absolute neutrophil count was just under the normal range at 1.2 in July of this year for the 1st time. Platelet count has been borderline. Etiology for this is not clear. I will ask Dr. Live sarmiento to see her for his opinion. She is neurologically intact in the right leg. She is having no discomfort. The leg is wrapped to the mid thigh with an Flo wrap and there is no drainage. Hemoglobin stable at 10.4. She is quite comfortable and has no complaints. Await culture results. Subjective Subjective Date/Time Seen: 09/27/24 16:53 Objective Data Vital Signs Vital Signs: Vital Signs - 24 hr 09/26/24 17:00 09/26/24 20:00 09/26/24 21:00 Temperature 36.1 C L 36.3 C L Pulse Rate 82 81 81 Respiratory Rate 18 18 18 Blood Pressure 108/63 119/55 L Pulse Oximetry 97 93 93 Oxygen Delivery Room Air 09/26/24 21:10 09/27/24 01:00 09/27/24 05:00 Temperature 35.6 C L 36.5 C Pulse Rate 75 70 Respiratory Rate 18 18 Blood Pressure 128/69 121/59 L Pulse Oximetry 93 100 97 Oxygen Delivery Room Air 09/27/24 09:00 09/27/24 10:14 09/27/24 10:29 Temperature 36.5 C Pulse Rate 83 Respiratory Rate 18 Blood Pressure 140/70 Pulse Oximetry 96 Oxygen Delivery Room Air Room Air 09/27/24 13:00 Temperature 36.5 C Pulse Rate 78 Respiratory Rate 18 Blood Pressure 139/65 Pulse Oximetry 96 Oxygen Delivery Intake/Output Intake/Output: Intake & Output 09/24/24 09/25/24 09/26/24 09/27/24 23:59 23:59 23:59 23:59 Intake Total 1670 850 Output Total 400 Balance 1270 850 Meds/Results Medications: Active Medications Generic Name Dose Route Start Last Admin Trade Name Freq PRN Reason Stop Dose Admin Acetaminophen 1,000 mg 09/25/24 22:03 09/27/24 01:10 Acetaminophen 500 Mg Tablet PO 1,000 mg Q6H PRN Administration Mild Pain (1-3) or Fever Hydrocodone Bitart/Acetaminophen 1 tab 09/26/24 15:15 Hydrocodone/Acetaminophen (*Crx) 5-325 Mg Tablet PO Q4H PRN Pain Rated 4-6 Hydrocodone Bitart/Acetaminophen 1 tab 09/26/24 15:15 Hydrocodone/Acetaminophen (*Crx) 7.5-325 Mg Tablet PO Q4H PRN Pain Rated 7-10 Alprazolam 0.25 mg 09/26/24 09:08 Alprazolam (*Crx) 0.25 Mg Tablet PO QHS PRN sleep Celecoxib 200 mg 09/28/24 08:00 Celecoxib 200 Mg Capsule PO DAILY@0800 LA NENA Diphenhydramine HCl 25 mg 09/26/24 15:15 Diphenhydramine Hcl Inj 50 Mg/Ml Vial IV PUSH Q6H PRN Itching Hydromorphone HCl 1 mg 09/26/24 15:23 Hydromorphone Hcl Inj (*Crx) 2 Mg/Ml Vial IV PUSH Q2H PRN Breakthrough Pain Rated 7-10 or NPO Hydromorphone HCl 0.5 mg 09/26/24 15:23 Hydromorphone Hcl Inj (*Crx) 2 Mg/Ml Vial IV PUSH Q2H PRN Breakthrough Pain Rated 4-6 or NPO Ceftriaxone Sodium 1 gm/ 50 mls @ 100 mls/hr 09/26/24 09:00 09/27/24 09:10 Sodium Chloride IVPB 100 mls/hr Q24H LA NENA Administration Vancomycin HCl 1,500 mg in 500 mls @ 250 mls/hr 09/26/24 22:00 09/27/24 11:00 Vancomycin 1,500 Mg/Ns 500 Ml IVPB 250 mls/hr Q12H LA NENA Administration Naloxone HCl 0.1 mg 09/26/24 15:15 Naloxone Hcl 0.4 Mg/Ml Vial IV PUSH Q2M PRN Opiate Reversal Ondansetron HCl 4 mg 09/26/24 12:33 Ondansetron Inj 4 Mg/2 Ml Vial IV PUSH ONCE PRN Nausea Polyethylene Glycol 17 gm 09/27/24 09:00 09/27/24 09:10 Polyethylene Glycol 3350 17 Gm Powd.Pack PO 17 gm QAM LA NENA Administration Rivaroxaban 10 mg 09/26/24 21:00 09/26/24 21:10 Rivaroxaban 10 Mg Tablet PO 10/07/24 17:01 10 mg DAILY@17 LA NENA Administration Rosuvastatin Calcium 10 mg 09/26/24 18:00 09/26/24 18:10 Rosuvastatin 10 Mg Tablet PO 10 mg QPM LA NENA Administration Saccharomyces Boulardii 250 mg 09/26/24 13:00 09/27/24 13:26 Saccharomyces Boulardii 250 Mg Capsule PO 250 mg TID LA NENA Administration Senna/Docusate Sodium 2 tab 09/26/24 17:00 09/27/24 09:11 Senna/Docusate Sodium Tablet PO 2 tab BID LA NENA Administration Tramadol HCl 50 mg 09/26/24 15:15 Tramadol Hcl (*Crx) 50 Mg Tablet PO Q4H PRN Pain Rated 1-3 Radiology Results: ITS Impressions Chest X-Ray 09/25/24 22:43 IMPRESSION: No acute cardiopulmonary process. Labs Labs: Laboratory Results - last 24 hr 09/26/24 09/27/24 17:18 05:01 WBC 5.2 RBC 3.26 L Hgb 10.4 L Hct 31.7 L MCV 97.2 MCH 31.9 MCHC 32.8 RDW 12.7 Plt Count 191 MPV 10.2 Immature Gran % (Auto) 0.6 H Neut % (Auto) 76.0 H Lymph % (Auto) 9.0 L [place] % (Auto) 14.4 H Eos % (Auto) 0.0 Baso % (Auto) 0.0 L Lymph # (Auto) 0.47 L [place] # (Auto) 0.8 H Eos # (Auto) 0.0 Baso # (Auto) 0.0 Abs Immat Gran (auto) 0.03 Absolute Neuts (auto) 4.0 Absolute Nucleated RBC 0.000 Nucleated RBC % 0.0 Sodium 133 L Potassium 4.0 Chloride 103 Carbon Dioxide 26 Anion Gap 4 BUN 9 Creatinine 0.58 L Estim Creat Clear Calc 77 Estimated GFR > 60 Glucose 181 H Calcium 8.5 Magnesium 2.5 H Total Bilirubin 0.3 AST 28 ALT 15 Alkaline Phosphatase 56 Total Protein 6.1 L Albumin 3.0 L Urine Color Yellow Urine Appearance Cloudy H Urine pH 6.0 Ur Specific [place] 1.015 Urine Protein Trace Urine Glucose (UA) Negative Urine Ketones 3+ H Ur Blood (Man) Negative Urine Nitrate Negative Urine Bilirubin Negative Urine Urobilinogen 1.0 Add Ur Microanalysis Reviewed Leukocyte Esterase Rfl Trace H Urine RBC 3-5 H Urine WBC 0-5 Ur Squamous Epith Cells Occasional Urine Bacteria None seen Urine Casts 6-10 Urine Mucus Present
[2024-09-27] MEDS: ROSUVASTATIN 10 MG TABLET PO (17:16)
[2024-09-27] MEDS: RIVAROXABAN 10 MG TABLET PO (17:16)
[2024-09-27] MEDS: ALPRAZolam (*CRX) 0.25 MG TABLET PO ×2 (21:26→21:28)
[2024-09-27] MEDS: VANCOMYCIN 1,750 MG/NS 500 ML 1,750 MG/500 ML BAG 250 MG IVPB (22:13)
--- NOTE | 2024-09-28 02:13 | PC.NURSE ---
([phone]) Charting completed by Ivette Acosta (RN-pending), under this RNs user profile and confirmed documentation is accurate.
[2024-09-28 05:22] VITALS: BP 116/64; PULSE 80; RESP 16; TEMP 36.7; O2SAT 96
[2024-09-28 06:04] LABS: Hematocrit 29.8 % (37.0-47.0); Hemoglobin 9.6 g/dL (12.0-15.0); Immature Granulocyte Percent A 0.9 % (0-0.5); Lymphocytes Absolute Auto 0.69 K/mm3 (0.9-3.2); Mean Corpuscular HGB Conc 32.2 g/dl (32-36); Mean Corpuscular Hemoglobin 32.1 pg (26-34); Mean Corpuscular Volume 99.7 fl (80-100); Nucleated Red Blood Cells Absolute Auto 0.000 K/mm3 (0.0-0.012); Nucleated Red Blood Cells Perc 0.0 % (0.0-0.2); Platelet Count Result 202 k/mm3 (150-375); Red Blood Count 2.99 M/mm3 (4.2-5.4); White Blood Count 3.3 K/mm3 (4.5-10.0)
[2024-09-28 06:36] LABS: Alanine Aminotransferase 12 U/L (6-35); Albumin Level 2.9 g/dL (3.5-5.1); Alkaline Phosphatase 52 U/L (38-126); Anion Gap 3 mmol/L (4-12); Aspartate Amino Transferase 28 U/L (14-36); Bilirubin,Total 0.2 mg/dL (0.2-1.3); Blood Urea Nitrogen 5 mg/dL (7-17); Calcium 8.2 mg/dL (8.4-10.2); Carbon Dioxide 28 mmol/L (22-30); Chloride 108 mmol/L (98-107); Estimated CRCL calculation 77 ml/min; Estimated Glomerular Filt Rate > 60; Glucose 110 mg/dL (65-110); Magnesium 2.2 mg/dL (1.6-2.3); Potassium 4.2 mmol/L (3.4-5.0); Sodium 139 mmol/L (137-145); Total Protein 5.8 g/dL (6.3-8.2)
[2024-09-28 08:00] VITALS: PULSE 80; RESP 16; O2SAT 96
--- NOTE | 2024-09-28 08:24 | P.PNOP_ITS ---
Progress Note: A&P Assessment and Plan (1) Infection of prosthetic right knee joint: Qualifiers: Encounter type: subsequent encounter Qualified Code(s): T84.53XD - Infection and inflammatory reaction due to internal right knee prosthesis, subsequent encounter Code(s): T84.53XA - Infection and inflammatory reaction due to internal right knee prosthesis, initial encounter Status: Acute Assessment and Plan: Patient is postop day 2. After irrigation debridement polyethylene exchange of right total knee replacement for suspected acute periprosthetic infection. She has been up and walking around without difficulty and she is comfortable. She remains on ceftriaxone 2 g IV Q 24 hours and vancomycin. The pharmacist has been managing the vancomycin dosing. Cultures continue to say pending. Even the culture from 09/22/2024 says pending and that indicates a problem. I have spoken with the laboratory analyst Dalila this morning and she is going to find out what happened to this culture as that is the critical culture since that culture would of been taken before antibiotics were started. Her wound looks perfect. Will start daily dressing changes. Hemoglobin unchanged at 9.6. Her white count again is low at 3.3. I have consulted Dr. Amanda for hematology evaluation regarding her low white count and today, a low lymphocyte count. She may need for additional testing to determine the etiology of her chronically low white count noted back in 2021. Subjective Subjective Date/Time Seen: 09/28/24 08:24 Objective Data Vital Signs Vital Signs: Vital Signs - 24 hr 09/27/24 09:00 09/27/24 10:14 09/27/24 10:29 Temperature 36.5 C Pulse Rate 83 Respiratory Rate 18 Blood Pressure 140/70 Pulse Oximetry 96 Oxygen Delivery Room Air Room Air 09/27/24 13:00 09/27/24 17:00 09/27/24 20:00 Temperature 36.5 C 36.3 C L Pulse Rate 78 82 Respiratory Rate 18 16 Blood Pressure 139/65 113/60 Pulse Oximetry 96 98 Oxygen Delivery Room Air 09/27/24 21:26 09/28/24 05:22 Temperature 37.3 C 36.7 C Pulse Rate 80 80 Respiratory Rate 16 16 Blood Pressure 121/80 116/64 Pulse Oximetry 98 96 Oxygen Delivery Intake/Output Intake/Output: Intake & Output 09/25/24 09/26/24 09/27/24 09/28/24 23:59 23:59 23:59 23:59 Intake Total 1670 1630 900 Output Total 400 Balance 1270 1630 900 Meds/Results Medications: Active Medications Generic Name Dose Route Start Last Admin Trade Name Freq PRN Reason Stop Dose Admin Acetaminophen 1,000 mg 09/25/24 22:03 09/27/24 01:10 Acetaminophen 500 Mg Tablet PO 1,000 mg Q6H PRN Administration Mild Pain (1-3) or Fever Hydrocodone Bitart/Acetaminophen 1 tab 09/26/24 15:15 Hydrocodone/Acetaminophen (*Crx) 5-325 Mg Tablet PO Q4H PRN Pain Rated 4-6 Hydrocodone Bitart/Acetaminophen 1 tab 09/26/24 15:15 Hydrocodone/Acetaminophen (*Crx) 7.5-325 Mg Tablet PO Q4H PRN Pain Rated 7-10 Alprazolam 0.25 mg 09/26/24 09:08 09/27/24 21:28 Alprazolam (*Crx) 0.25 Mg Tablet PO 0.25 mg QHS PRN Administration sleep Celecoxib 200 mg 09/28/24 08:00 Celecoxib 200 Mg Capsule PO DAILY@0800 LA NENA Diphenhydramine HCl 25 mg 09/26/24 15:15 Diphenhydramine Hcl Inj 50 Mg/Ml Vial IV PUSH Q6H PRN Itching Hydromorphone HCl 1 mg 09/26/24 15:23 Hydromorphone Hcl Inj (*Crx) 2 Mg/Ml Vial IV PUSH Q2H PRN Breakthrough Pain Rated 7-10 or NPO Hydromorphone HCl 0.5 mg 09/26/24 15:23 Hydromorphone Hcl Inj (*Crx) 2 Mg/Ml Vial IV PUSH Q2H PRN Breakthrough Pain Rated 4-6 or NPO Vancomycin HCl 1,750 mg in 500 mls @ 250 mls/hr 09/27/24 23:00 09/28/24 00:13 Vancomycin 1,750 Mg/Ns 500 Ml IVPB Infused Q12H LA NENA Infusion Ceftriaxone Sodium 2 gm/ 100 mls @ 200 mls/hr 09/28/24 09:00 Sodium Chloride IVPB Q24H LA NENA Naloxone HCl 0.1 mg 09/26/24 15:15 Naloxone Hcl 0.4 Mg/Ml Vial IV PUSH Q2M PRN Opiate Reversal Ondansetron HCl 4 mg 09/26/24 12:33 Ondansetron Inj 4 Mg/2 Ml Vial IV PUSH ONCE PRN Nausea Polyethylene Glycol 17 gm 09/27/24 09:00 09/27/24 09:10 Polyethylene Glycol 3350 17 Gm Powd.Pack PO 17 gm QAM LA NENA Administration Rivaroxaban 10 mg 09/26/24 21:00 09/27/24 17:16 Rivaroxaban 10 Mg Tablet PO 10/07/24 17:01 10 mg DAILY@17 LA NENA Administration Rosuvastatin Calcium 10 mg 09/26/24 18:00 09/27/24 17:16 Rosuvastatin 10 Mg Tablet PO 10 mg QPM LA NENA Administration Saccharomyces Boulardii 250 mg 09/26/24 13:00 09/27/24 17:16 Saccharomyces Boulardii 250 Mg Capsule PO 250 mg TID LA NENA Administration Senna/Docusate Sodium 2 tab 09/26/24 17:00 09/27/24 17:16 Senna/Docusate Sodium Tablet PO Not Given BID LA NENA Tramadol HCl 50 mg 09/26/24 15:15 Tramadol Hcl (*Crx) 50 Mg Tablet PO Q4H PRN Pain Rated 1-3 Radiology Results: ITS Impressions Chest X-Ray 09/25/24 22:43 IMPRESSION: No acute cardiopulmonary process. Labs Labs: Laboratory Results - last 24 hr 09/27/24 09/28/24 20:56 05:44 WBC 3.3 L RBC 2.99 L Hgb 9.6 L Hct 29.8 L MCV 99.7 MCH 32.1 MCHC 32.2 RDW 13.3 Plt Count 202 MPV 10.0 Immature Gran % (Auto) 0.9 H Neut % (Auto) 61.0 Lymph % (Auto) 21.2 Mccracken % (Auto) 15.7 H Eos % (Auto) 0.9 Baso % (Auto) 0.3 Lymph # (Auto) 0.69 L Mccracken # (Auto) 0.5 Eos # (Auto) 0.0 Baso # (Auto) 0.0 Abs Immat Gran (auto) 0.03 Absolute Neuts (auto) 2.0 Absolute Nucleated RBC 0.000 Nucleated RBC % 0.0 Sodium 139 Potassium 4.2 Chloride 108 H Carbon Dioxide 28 Anion Gap 3 L BUN 5 L Creatinine 0.58 L Estim Creat Clear Calc 77 Estimated GFR > 60 Glucose 110 Calcium 8.2 L Magnesium 2.2 Total Bilirubin 0.2 AST 28 ALT 12 Alkaline Phosphatase 52 Total Protein 5.8 L Albumin 2.9 L Vancomycin Trough 13.3
[2024-09-28] MEDS: cefTRIAXone 2 GM in SODIUM CHLORIDE 0.9% IV 100 ML 200 ML IVPB (08:46)
[2024-09-28] MEDS: SENNA/DOCUSATE SODIUM TABLET 2 TAB PO (08:47)
[2024-09-28] MEDS: CELECOXIB 200 MG CAPSULE PO (08:47)
[2024-09-28] MEDS: SACCHAROMYCES BOULARDII 250 MG CAPSULE PO ×3 (08:47→17:23)
--- NOTE | 2024-09-28 08:54 | PHA.ABX.ID ---
Pharmacy ID Consult Stewardship Interventions Pharmacy ID Note: Subjective Pharmacy was consulted by Dr. Kole Carlos regarding infectious diseases for Mira Magana. Mira Magana is a 73 year old patient with concerns regarding prosthetic joint infection of the right knee. Background The patient is currently receiving Ceftriaxone and Vancomycin (D3). The patient's PMH includes presenting from after an office visit on 09/22 in which the right knee was bothering patient and the fluid was aspirated. Additionally, patient presented on 09/26 and underwent debridement in which further cultures were sent as purulence was noted at this time. Patient has been afebrile since admission. Cultures 09/22 R. Knee Aspirate Culture - [facility] streptococcus light growth - gram stain says few WBC and no organisms seen - finalized - no growth yet on anaerobic - still following 09/26 R. Knee Procedure Culture - pending - [facility] apprentice instrument technician that I spoke to states that these were received 09/27 AM and believes we should have preliminary results tomorrow potentially 09/26 Blood Culture - pending - [facility] apprentice instrument technician that I spoke to states that we are likely to have preliminary for this tomorrow Assessment/Recommendation/Discussion Spoke with consulting provider this AM. Discussed likelihood of which etiologies for which we are treating at this time between the likely Staphylococcal source vs. a potential Enterobacterales source as patient has had history of E. coli UTI in last year. Currently receiving Ceftriaxone (increased to 2g daily) to cover for MSSA, MS-CONS, and E coli while vancomycin is there to cover MRSA and MR-CONS. Continue current therapy as we await culture results. -- update 09/28/2024 0924 -- heard back from Denia in lab - updated 09/22 culture results as above - growing VGS. Updated Dr. Steele who is seeing patient today - will dc vancomycin at this time. 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 Likely looking at 4-6 weeks of treatment from date of last source control (current 09/26 debridement) either with highly bioA orals or IV Abx. Will continue to follow. Thank you for the interesting consult. Melo Michele, PharmD Infectious Disease/Antimicrobial Stewardship Pharmacist 09/28/24; 0854 WBC 3.3 K/mm3 (4.5-10.0) L 09/28/24 05:44 Creatinine 0.58 mg/dL (0.7-1.0) L 09/28/24 05:44 Estim Creat Clear Calc 77 ml/min 09/28/24 05:44
--- NOTE | 2024-09-28 12:28 | P.PNIM_ITS ---
Progress Note: A&P Assessment and Plan (1) Infection of prosthetic right knee joint: Qualifiers: Encounter type: subsequent encounter Qualified Code(s): T84.53XD - Infection and inflammatory reaction due to internal right knee prosthesis, subsequent encounter Code(s): T84.53XA - Infection and inflammatory reaction due to internal right knee prosthesis, initial encounter Status: Acute Assessment and Plan: patient with concern for possible septic prosthetic knee joint was taken for washout 09/26/2024. * postop day 2 * wound cultures 09/22 Viridans streptococcus * intra operative cultures pending * blood cultures NGTD * empiric antibiotics IV vancomycin and Rocephin pending cultures switched to 2g ceftriaxone and D/C vanc likely need 4-6 week ABX treatment ID following * analgesics p.r.n. * SCDs * PT/OT per Orthopedic weight-bearing status (2) Abnormal WBC count: Code(s): D72.9 - Disorder of white blood cells, unspecified Status: Acute Assessment and Plan: Leukopenia noted patient with history of colon cancer * Ortho consulted hem/onc Plan Code status: Full code per patient DVT prophylaxis: SCD's Stress ulcer prophylaxis: Protonix 40 daily PT/OT notes: PT/OT pending ortho recommendations Disposition: patient continues admission postop day 1 washout of right septic knee joint will continue with IV antibiotic therapy pending final cultures. PT/ OT WBT. Time Spent With Patient Time with patient: 15 - 25 minutes Subjective Date/time seen: 09/28/24 12:28 Interval history: Patient is a 73-year-old female who was a direct admit to [facility] under Dr. Carlos orthopedics due to concern for possible septic right knee consulted to assist in any medical management. 09/28/2024: Patient up in chair doing well with therapy with minimal pain. Afebrile and Leukopenia noted. 09/22 aspiration cultures had not been released but ID was able to get initial reading Viridans streptococcus, intra-operative culture pending. Review of Systems Review of Systems: All systems reviewed & are unremarkable except as noted in HPI and below (Subjective) Exam Const: General: comfortable and no acute distress Other: A&O x3 HENMT: Mouth: Yes moist mucous membranes Eyes: Pupils: Equal, round and reactive pupils present Neck: Neck: supple Resp: Effort & Inspection: normal respiratory effort Auscultation: clear to auscultation bilaterally Cardio: Rate: regular rate Rhythm: regular rhythm Heart sounds: no gallops, Murmur heart sound present and no rubs GI: Inspection: non-distended Neuro: Cranial nerves: Yes Equal, round and reactive pupils present Motor exam (neuro): 5/5 motor strength present throughout Extrem: General: no edema Other: right lower extremity postop dressing and wrapped with Flo wrap no visual drainage or erythema Psych: Mental Status: mental status grossly normal Affect: normal affect Objective Data Vital Signs Vital Signs: Vital Signs - 24 hr 09/27/24 13:00 09/27/24 17:00 09/27/24 20:00 Temperature 97.7 F 97.4 F L Pulse Rate 78 82 Respiratory Rate 18 16 Blood Pressure 139/65 113/60 Pulse Oximetry 96 98 Oxygen Delivery Room Air 09/27/24 21:26 09/28/24 05:22 09/28/24 08:00 Temperature 99.1 F 98.1 F Pulse Rate 80 80 80 Respiratory Rate 16 16 16 Blood Pressure 121/80 116/64 Pulse Oximetry 98 96 96 Oxygen Delivery Room Air Intake/Output Intake/Output: Intake & Output 09/25/24 09/26/24 09/27/24 09/28/24 23:59 23:59 23:59 23:59 Intake Total 1670 1630 1140 Output Total 400 Balance 1270 1630 1140 Meds/Results Medications: Active Medications Generic Name Dose Route Start Last Admin Trade Name Freq PRN Reason Stop Dose Admin Acetaminophen 1,000 mg 09/25/24 22:03 09/27/24 01:10 Acetaminophen 500 Mg Tablet PO 1,000 mg Q6H PRN Administration Mild Pain (1-3) or Fever Hydrocodone Bitart/Acetaminophen 1 tab 09/26/24 15:15 Hydrocodone/Acetaminophen (*Crx) 5-325 Mg Tablet PO Q4H PRN Pain Rated 4-6 Hydrocodone Bitart/Acetaminophen 1 tab 09/26/24 15:15 Hydrocodone/Acetaminophen (*Crx) 7.5-325 Mg Tablet PO Q4H PRN Pain Rated 7-10 Alprazolam 0.25 mg 09/26/24 09:08 09/27/24 21:28 Alprazolam (*Crx) 0.25 Mg Tablet PO 0.25 mg QHS PRN Administration sleep Celecoxib 200 mg 09/28/24 08:00 09/28/24 08:47 Celecoxib 200 Mg Capsule PO 200 mg DAILY@0800 LA NENA Administration Diphenhydramine HCl 25 mg 09/26/24 15:15 Diphenhydramine Hcl Inj 50 Mg/Ml Vial IV PUSH Q6H PRN Itching Hydromorphone HCl 1 mg 09/26/24 15:23 Hydromorphone Hcl Inj (*Crx) 2 Mg/Ml Vial IV PUSH Q2H PRN Breakthrough Pain Rated 7-10 or NPO Hydromorphone HCl 0.5 mg 09/26/24 15:23 Hydromorphone Hcl Inj (*Crx) 2 Mg/Ml Vial IV PUSH Q2H PRN Breakthrough Pain Rated 4-6 or NPO Ceftriaxone Sodium 2 gm/ 100 mls @ 200 mls/hr 09/28/24 09:00 09/28/24 08:46 Sodium Chloride IVPB 200 mls/hr Q24H LA NENA Administration Naloxone HCl 0.1 mg 09/26/24 15:15 Naloxone Hcl 0.4 Mg/Ml Vial IV PUSH Q2M PRN Opiate Reversal Ondansetron HCl 4 mg 09/26/24 12:33 Ondansetron Inj 4 Mg/2 Ml Vial IV PUSH ONCE PRN Nausea Polyethylene Glycol 17 gm 09/27/24 09:00 09/28/24 08:47 Polyethylene Glycol 3350 17 Gm Powd.Pack PO 17 gm QAM LA NENA Administration Rivaroxaban 10 mg 09/26/24 21:00 09/27/24 17:16 Rivaroxaban 10 Mg Tablet PO 10/07/24 17:01 10 mg DAILY@17 LA NENA Administration Rosuvastatin Calcium 10 mg 09/26/24 18:00 09/27/24 17:16 Rosuvastatin 10 Mg Tablet PO 10 mg QPM LA NENA Administration Saccharomyces Boulardii 250 mg 09/26/24 13:00 09/28/24 08:47 Saccharomyces Boulardii 250 Mg Capsule PO 250 mg TID LA NENA Administration Senna/Docusate Sodium 2 tab 09/26/24 17:00 09/28/24 08:47 Senna/Docusate Sodium Tablet PO 2 tab BID LA NENA Administration Tramadol HCl 50 mg 09/26/24 15:15 Tramadol Hcl (*Crx) 50 Mg Tablet PO Q4H PRN Pain Rated 1-3 Radiology Results: ITS Impressions Chest X-Ray 09/25/24 22:43 IMPRESSION: No acute cardiopulmonary process. Labs Labs: Laboratory Results - last 24 hr 09/27/24 09/28/24 20:56 05:44 WBC 3.3 L RBC 2.99 L Hgb 9.6 L Hct 29.8 L MCV 99.7 MCH 32.1 MCHC 32.2 RDW 13.3 Plt Count 202 MPV 10.0 Immature Gran % (Auto) 0.9 H Neut % (Auto) 61.0 Lymph % (Auto) 21.2 Carter % (Auto) 15.7 H Eos % (Auto) 0.9 Baso % (Auto) 0.3 Lymph # (Auto) 0.69 L Carter # (Auto) 0.5 Eos # (Auto) 0.0 Baso # (Auto) 0.0 Abs Immat Gran (auto) 0.03 Absolute Neuts (auto) 2.0 Absolute Nucleated RBC 0.000 Nucleated RBC % 0.0 Sodium 139 Potassium 4.2 Chloride 108 H Carbon Dioxide 28 Anion Gap 3 L BUN 5 L Creatinine 0.58 L Estim Creat Clear Calc 77 Estimated GFR > 60 Glucose 110 Calcium 8.2 L Magnesium 2.2 Total Bilirubin 0.2 AST 28 ALT 12 Alkaline Phosphatase 52 Total Protein 5.8 L Albumin 2.9 L Vancomycin Trough 13.3 Quality VTE Prophylaxis VTE prophylaxis: mechanical ordered -Patient's previous records reviewed on admission -ER notes reviewed in detail on admission -discussed all findings and current treatment plan with patient/Family/POA -Consultations reviewed for recommendations -Patient's disposition for safe discharge discussed with supportive employment case manager Dictation performed by [employer] direct speech recognition software, therefore test design engineer variants and typographical errors may occur. Hospitalist MIPS Advance Care Plan I have confirmed that the patient's Advanced Care Plan is present, code status is documented, or surrogate decision maker is listed in patient medical record.: Yes Medication Reconciliation I have utilized all available resources to obtain, update and review the p atients current medications (includes all prescriptions, OTC, herbals, cannabis, and nutritional supplements).: Yes The patient is not eligible for med reconciliation; the patient is in a emergent medical situation where delaying treatment would jeopardize the patients health.: No
[2024-09-28 14:00] VITALS: BP 110/43; PULSE 85; RESP 16; TEMP 36; O2SAT 98
[2024-09-28] MEDS: RIVAROXABAN 10 MG TABLET PO (17:23)
[2024-09-28] MEDS: ROSUVASTATIN 10 MG TABLET PO (17:23)
--- NOTE | 2024-09-28 18:47 | P.CONONC_ITS ---
Assessment and Plan Assessment and plan (1) Leukopenia: Code(s): D72.819 - Decreased white blood cell count, unspecified Status: Acute Assessment and Plan: This is a pleasant 73-year-old female with the history of stage II colon cancer diagnosed in 2013. She did not receive any adjuvant chemotherapy. She was last seen in the office on August 06, 2024. CT scan chest abdomen pelvis was performed in July 2024 due to elevated Ca came back with no evidence of relapse of malignancy but there was diffuse hepatic steatosis. Patient was now admitted to the hospital with the septic right knee. She had right-sided TKA done about 1 year ago. I have reviewed differential diagnosis of leukopenia with the patient that includes secondary to the recent knee infection, hepatic steatosis and splenic sequestration, autoimmune diseases and nutritional deficiencies. I will order the workup including flow cytometric analysis for leukemia, TOM, iron and B12 level. I will also check quantitative immunoglobulin levels. No need for bone marrow biopsy. ANC is adequate. She will follow-up with us as previously scheduled in the office. HPI Data of Consult Date/Time: 09/28/24 18:47 Requesting Physician: Kole Carlos MD Primary Care Provider: Víctor Steinberg MD Consult Narrative Narrative: Mira Magana is a 73 year old female with history of stage II colon cancer diagnosed in 2013 is status post dissection. She has T3 N0 disease. Patient did not receive any adjuvant chemotherapy. She was last seen in the office on August 06, 2024. Her last CEA was 9.6. Patient also has a history of left paraspinal mass and followed by the new surgery. Patient has TKA done about 1 year ago and came into the hospital with septic right knee without any recent injury or trauma. On September 26 patient had irrigation debridement with component revision done. She is recovering well from the surgery. Labs from September 25 showed WBC count of 3.8. Patient has a history of low white blood cell 3.3 in March 2024. Other labs from today showed hemoglobin of 9.6. ANC is 2000. Patient had CT chest abdomen pelvis done on July 29 due to elevated CEA that showed no evidence of active malignancy. There was there was diffuse hepatic steatosis. She denies any other new complaints. Review of Systems 2 Review of Systems: Twelve point review of system was reviewed [facility] Past Medical History Medical History Elevated glucose Gastroesophageal reflux Osteoarthritis Basal cell carcinoma of skin Diverticulitis Colon cancer Hyperlipidemia Surgical History Surgical History History of basal cell carcinoma excision Nose. History of bilateral cataract extraction History of arthroscopy of right knee (2010) History of arthroplasty of right knee (09/09/23) History of partial colectomy For colon cancer. History of cholecystectomy Family History Family History (Updated 09/22/24 @ 10:53 by Nikia Caruso CMA) Mother Family history of heart disease in male family member before age 55 Patient's mother is Heart disease Tobacco abuse CHF (congestive heart failure) Cerebrovascular accident Father Alzheimer's disease Sibling No problems noted. Social History Social History (Updated 09/26/24 @ 12:49 by Kushal Nam DO) Social History: Surrogate medical decision maker: Jay Magana, spouse. Code status: Full code. Smoking status: Never smoker Second hand tobacco smoke exposure: Yes Alcohol intake: former Substance use: never Substance use type: does not use Do You Feel Safe in your Home?: Yes Lack of Transportation: No Lack of Food: Never True Current Housing: I Have Housing Concerned About Future Housing: No Difficulty Paying Gas/Electric Bills: No Difficulty Paying for Meds: No Currently Unemployed: No Education: Bachelor's Degree Difficulty w/ Childcare or Family Care: No Living arrangements: with family Additional living arrangements comments: Lives with in [place]. Additional occupation/education comments: Retired [employer] Spiritual care concerns: No Agree to blood products: Yes Meds Home Medications and Allergies Home Medications ?Medication ?Instructions ?Recorded ?Confirmed ?Type aspirin 81 mg chewable tablet 81 mg PO QPM 02/16/19 09/25/24 History alprazolam 0.25 mg tablet 0.25 mg PO QHS PRN sleep #30 tabs 07/01/24 09/25/24 Rx omeprazole 40 mg capsule,delayed 40 mg PO QPM 09/25/24 09/25/24 History release pressure vision areds 2 1 tablet BYMOUTH QPM 09/25/24 09/25/24 History rosuvastatin 10 mg tablet 10 mg PO QPM 09/25/24 09/25/24 History Allergies Allergy/AdvReac Type Severity Reaction Status Date / Time hydromorphone (From Dilaudid) AdvReac Intermediate Hallucinating Verified 09/22/24 07:09 AND NAUSEA AND VOMITING Vital Signs Vital Signs - 24 hr 09/27/24 20:00 09/27/24 21:26 09/28/24 05:22 Temperature 37.3 C 36.7 C Pulse Rate 80 80 Respiratory Rate 16 16 Blood Pressure 121/80 116/64 Pulse Oximetry 98 96 Oxygen Delivery Room Air 09/28/24 08:00 09/28/24 14:00 Temperature 36.0 C L Pulse Rate 80 85 Respiratory Rate 16 16 Blood Pressure 110/43 L Pulse Oximetry 96 98 Oxygen Delivery Room Air Exam 2 Narrative: Lungs are clear to auscultation bilaterally Cardiovascular regular rate rhythm no murmurs Abdomen soft nontender nondistended bowel sounds are positive Extremities no edema Results Labs 09/28/24 05:44 09/28/24 05:44 Labs: Short CBC 09/28/24 Range/Units 05:44 WBC 3.3 L (4.5-10.0) K/mm3 Hgb 9.6 L (12.0-15.0) g/dL Hct 29.8 L (37.0-47.0) % Plt Count 202 (150-375) k/mm3 [facility] 09/28/24 05:44 Sodium 139 Potassium 4.2 Chloride 108 H Carbon Dioxide 28 BUN 5 L Creatinine 0.58 L Glucose 110 Calcium 8.2 L Liver Function 09/28/24 Range/Units 05:44 Total Bilirubin 0.2 (0.2-1.3) mg/dL AST 28 (14-36) U/L ALT 12 (6-35) U/L Alkaline Phosphatase 52 (38-126) U/L Albumin 2.9 L (3.5-5.1) g/dL
[2024-09-28 21:06] VITALS: BP 120/61; PULSE 78; RESP 16; TEMP 36.3; O2SAT 99
[2024-09-28 21:31] LABS: Iron 57 ug/dL (37-170)
[2024-09-28 21:40] LABS: Percent Iron Saturation 20 % (20-50)
[2024-09-28 21:48] LABS: Immunoglobulin A 115 mg/dL (70-400); Immunoglobulin G 703 mg/dL (700-1600); Immunoglobulin M 66 mg/dL (40-230)
[2024-09-28 22:12] LABS: Ferritin 135.00 ng/mL (11.1-264)
[2024-09-28 22:45] LABS: Vitamin B12 212.0 pg/mL (239-931)
[2024-09-29 05:05] VITALS: BP 123/64; PULSE 76; RESP 16; TEMP 36.4; O2SAT 98
[2024-09-29 05:42] LABS: Hematocrit 31.8 % (37.0-47.0); Hemoglobin 10.1 g/dL (12.0-15.0); Immature Granulocyte Percent A 0.7 % (0-0.5); Lymphocytes Absolute Auto 0.80 K/mm3 (0.9-3.2); Mean Corpuscular HGB Conc 31.8 g/dl (32-36); Mean Corpuscular Hemoglobin 31.8 pg (26-34); Mean Corpuscular Volume 100.0 fl (80-100); Nucleated Red Blood Cells Absolute Auto 0.000 K/mm3 (0.0-0.012); Nucleated Red Blood Cells Perc 0.0 % (0.0-0.2); Platelet Count Result 237 k/mm3 (150-375); Red Blood Count 3.18 M/mm3 (4.2-5.4); White Blood Count 2.7 K/mm3 (4.5-10.0)
[2024-09-29 06:07] LABS: Alanine Aminotransferase 14 U/L (6-35); Albumin Level 3.1 g/dL (3.5-5.1); Alkaline Phosphatase 54 U/L (38-126); Anion Gap 4 mmol/L (4-12); Aspartate Amino Transferase 30 U/L (14-36); Bilirubin,Total 0.3 mg/dL (0.2-1.3); Blood Urea Nitrogen 6 mg/dL (7-17); Calcium 8.5 mg/dL (8.4-10.2); Carbon Dioxide 29 mmol/L (22-30); Chloride 106 mmol/L (98-107); Estimated CRCL calculation 81 ml/min; Estimated Glomerular Filt Rate > 60; Glucose 111 mg/dL (65-110); Magnesium 2.3 mg/dL (1.6-2.3); Potassium 3.6 mmol/L (3.4-5.0); Sodium 139 mmol/L (137-145); Total Protein 6.0 g/dL (6.3-8.2)
[2024-09-29] MEDS: CELECOXIB 200 MG CAPSULE PO (09:19)
[2024-09-29] MEDS: cefTRIAXone 2 GM in SODIUM CHLORIDE 0.9% IV 100 ML 200 ML IVPB (09:19)
--- NOTE | 2024-09-29 12:59 | P.PNIM_ITS ---
Progress Note: A&P Assessment and Plan (1) Infection of prosthetic right knee joint: Qualifiers: Encounter type: subsequent encounter Qualified Code(s): T84.53XD - Infection and inflammatory reaction due to internal right knee prosthesis, subsequent encounter Code(s): T84.53XA - Infection and inflammatory reaction due to internal right knee prosthesis, initial encounter Status: Acute Assessment and Plan: patient with concern for possible septic prosthetic knee joint was taken for washout 09/26/2024. * postop day 2 * wound cultures 09/22 Viridans streptococcus * intra operative cultures pending * blood cultures NGTD * empiric antibiotics IV vancomycin and Rocephin pending cultures switched to 2g ceftriaxone and D/C vanc likely need 4-6 week ABX treatment ID following * analgesics p.r.n. * SCDs * PT/OT per Orthopedic weight-bearing status 09/29 intra operative cultures still pending Pharm ID following (2) Abnormal WBC count: Code(s): D72.9 - Disorder of white blood cells, unspecified Status: Acute Assessment and Plan: Leukopenia noted patient with history of colon cancer * Ortho consulted hem/onc DR Werner saw pt- no need for bone marrow biopsy for now, note reviewed Plan Code status: Full code per patient DVT prophylaxis: SCD's Stress ulcer prophylaxis: Protonix 40 daily PT/OT notes: PT/OT pending ortho recommendations Disposition: patient continues admission postop day 1 washout of right septic knee joint will continue with IV antibiotic therapy pending final cultures. PT/ OT WBT. Time Spent With Patient Time with patient: 25 - 35 minutes Subjective Date/time seen: 09/29/24 12:59 Interval history: Patient is a 73-year-old female who was a direct admit to [facility] under Dr. Carlos orthopedics due to concern for possible septic right knee consulted to assist in any medical management. 09/28/2024: Patient up in chair doing well with therapy with minimal pain. Afebrile and Leukopenia noted. 09/22 aspiration cultures had not been released but ID was able to get initial reading Viridans streptococcus, intra-operative culture pending. 09/29 pt is seen and examined. cultures still pending. Care coordination on board to help with planning for antibiotic regimen. Review of Systems Review of Systems: All systems reviewed & are unremarkable except as noted in HPI and below (Subjective) Exam Const: General: comfortable and no acute distress Other: A&O x3 HENMT: Mouth: Yes moist mucous membranes Eyes: Pupils: Equal, round and reactive pupils present Neck: Neck: supple Resp: Effort & Inspection: normal respiratory effort Auscultation: clear to auscultation bilaterally Cardio: Rate: regular rate Rhythm: regular rhythm Heart sounds: no gallops, Murmur heart sound present and no rubs GI: Inspection: non-distended Neuro: Cranial nerves: Yes Equal, round and reactive pupils present Motor exam (neuro): 5/5 motor strength present throughout Extrem: General: no edema Other: right lower extremity postop dressing and wrapped with Flo wrap no visual drainage or erythema Psych: Mental Status: mental status grossly normal Affect: normal affect Objective Data Vital Signs Vital Signs: Vital Signs - 24 hr 09/28/24 14:00 09/28/24 20:00 09/28/24 21:06 Temperature 96.8 F L 97.3 F L Pulse Rate 85 78 Respiratory Rate 16 16 Blood Pressure 110/43 L 120/61 Pulse Oximetry 98 99 Oxygen Delivery Room Air 09/29/24 05:05 Temperature 97.6 F Pulse Rate 76 Respiratory Rate 16 Blood Pressure 123/64 Pulse Oximetry 98 Oxygen Delivery Intake/Output Intake/Output: Intake & Output 09/26/24 09/27/24 09/28/24 09/29/24 23:59 23:59 23:59 23:59 Intake Total 1670 1630 1720 368 Output Total 400 Balance 1270 1630 1720 368 Meds/Results Medications: Active Medications Generic Name Dose Route Start Last Admin Trade Name Freq PRN Reason Stop Dose Admin Acetaminophen 1,000 mg 09/25/24 22:03 09/27/24 01:10 Acetaminophen 500 Mg Tablet PO 1,000 mg Q6H PRN Administration Mild Pain (1-3) or Fever Hydrocodone Bitart/Acetaminophen 1 tab 09/26/24 15:15 Hydrocodone/Acetaminophen (*Crx) 5-325 Mg Tablet PO Q4H PRN Pain Rated 4-6 Hydrocodone Bitart/Acetaminophen 1 tab 09/26/24 15:15 Hydrocodone/Acetaminophen (*Crx) 7.5-325 Mg Tablet PO Q4H PRN Pain Rated 7-10 Alprazolam 0.25 mg 09/26/24 09:08 09/27/24 21:28 Alprazolam (*Crx) 0.25 Mg Tablet PO 0.25 mg QHS PRN Administration sleep Celecoxib 200 mg 09/28/24 08:00 09/29/24 09:19 Celecoxib 200 Mg Capsule PO 200 mg DAILY@0800 [facility] Administration Diphenhydramine HCl 25 mg 09/26/24 15:15 Diphenhydramine Hcl Inj 50 Mg/Ml Vial IV PUSH Q6H PRN Itching Hydromorphone HCl 1 mg 09/26/24 15:23 Hydromorphone Hcl Inj (*Crx) 2 Mg/Ml Vial IV PUSH Q2H PRN Breakthrough Pain Rated 7-10 or NPO Hydromorphone HCl 0.5 mg 09/26/24 15:23 Hydromorphone Hcl Inj (*Crx) 2 Mg/Ml Vial IV PUSH Q2H PRN Breakthrough Pain Rated 4-6 or NPO Ceftriaxone Sodium 2 gm/ 100 mls @ 200 mls/hr 09/28/24 09:00 09/29/24 09:19 Sodium Chloride IVPB 200 mls/hr Q24H [facility] Administration Naloxone HCl 0.1 mg 09/26/24 15:15 Naloxone Hcl 0.4 Mg/Ml Vial IV PUSH Q2M PRN Opiate Reversal Ondansetron HCl 4 mg 09/26/24 12:33 Ondansetron Inj 4 Mg/2 Ml Vial IV PUSH ONCE PRN Nausea Polyethylene Glycol 17 gm 09/27/24 09:00 09/29/24 09:20 Polyethylene Glycol 3350 17 Gm Powd.Pack PO Not Given QAM [facility] Rivaroxaban 10 mg 09/26/24 21:00 09/28/24 17:23 Rivaroxaban 10 Mg Tablet PO 10/07/24 17:01 10 mg DAILY@17 [facility] Administration Rosuvastatin Calcium 10 mg 09/26/24 18:00 09/28/24 17:23 Rosuvastatin 10 Mg Tablet PO 10 mg QPM [facility] Administration Saccharomyces Boulardii 250 mg 09/26/24 13:00 09/29/24 12:23 Saccharomyces Boulardii 250 Mg Capsule PO Not Given TID [facility] Senna/Docusate Sodium 2 tab 09/26/24 17:00 09/29/24 09:20 Senna/Docusate Sodium Tablet PO Not Given BID [facility] Tramadol HCl 50 mg 09/26/24 15:15 Tramadol Hcl (*Crx) 50 Mg Tablet PO Q4H PRN Pain Rated 1-3 Radiology Results: ITS Impressions Chest X-Ray 09/25/24 22:43 IMPRESSION: No acute cardiopulmonary process. Labs Labs: Laboratory Results - last 24 hr 09/28/24 09/29/24 21:09 05:05 WBC 2.7 L RBC 3.18 L Hgb 10.1 L Hct 31.8 L MCV 100.0 MCH 31.8 MCHC 31.8 L RDW 13.3 Plt Count 237 MPV 10.0 Immature Gran % (Auto) 0.7 H Neut % (Auto) 51.3 Lymph % (Auto) 30.0 [place] % (Auto) 16.5 H Eos % (Auto) 1.1 Baso % (Auto) 0.4 Lymph # (Auto) 0.80 L [place] # (Auto) 0.4 Eos # (Auto) 0.0 Baso # (Auto) 0.0 Abs Immat Gran (auto) 0.02 Absolute Neuts (auto) 1.4 Absolute Nucleated RBC 0.000 Nucleated RBC % 0.0 Sodium 139 Potassium 3.6 Chloride 106 Carbon Dioxide 29 Anion Gap 4 BUN 6 L Creatinine 0.55 L Estim Creat Clear Calc 81 Estimated GFR > 60 Glucose 111 H Calcium 8.5 Magnesium 2.3 Iron 57 TIBC 280 % Saturation 20 Ferritin 135.00 Total Bilirubin 0.3 AST 30 ALT 14 Alkaline Phosphatase 54 Total Protein 6.0 L Albumin 3.1 L Vitamin B12 212.0 L Folate 10.2 IgG 703 IgA 115 IgM 66 Quality VTE Prophylaxis VTE prophylaxis: mechanical ordered
--- NOTE | 2024-09-29 13:10 | CY_PTH ---
PATIENT: Mira Magana LOC: [id number] U#:[id number] AGE/SX: 73/F ROOM: 309 RE09/25/[address]: Moe Steele MD : [id number] BED: 01 DIS: 09/30/2024 SPEC #: [id number] RECD: 09/29/24 13:41 STATUS: TRELL REArleth #: [id number] DANAY: 09/29/24 13:[address]: Zachary Werner DEPT: [facility] Cytology RECD BY: Minesh Espinal ENTERED: 09/29/24 13:42 SP TYPE: Cytology OTHR DR: MD Ping Abreu MD Jennifer M.J. Clark, APRN Víctor Reinaldo Steinberg MD Tissues: A - Peripheral Blood Procedures: Flow Cytometry
[2024-09-29 14:00] VITALS: BP 136/72; PULSE 79; RESP 16; TEMP 35.9; O2SAT 97
[2024-09-29] MEDS: SACCHAROMYCES BOULARDII 250 MG CAPSULE PO (17:49)
[2024-09-29] MEDS: RIVAROXABAN 10 MG TABLET PO (17:50)
[2024-09-29] MEDS: ROSUVASTATIN 10 MG TABLET PO (17:50)
--- NOTE | 2024-09-29 18:32 | PM.PNORT ---
Progress Note: A&P Assessment and Plan (1) Infection of prosthetic right knee joint: Qualifiers: Encounter type: subsequent encounter Qualified Code(s): T84.53XD - Infection and inflammatory reaction due to internal right knee prosthesis, subsequent encounter Code(s): T84.53XA - Infection and inflammatory reaction due to internal right knee prosthesis, initial encounter Status: Acute Assessment and Plan: Postop day 3 after irrigation debridement of right knee replacement with polyethylene exchange. Cultures from 09/22 did grow strep viridans for communication with oz Michele who spoke with Denia ship laborer. Still, there is no official report listed in the EMR. Cultures from that date say pending. Also, cultures from 09/26 are growing strep viridans. At the recommendation of oz anna the infectious disease pharmacist, the vancomycin was discontinued and ceftriaxone his continued at 2 g Q 24 hours. His sources suggest this is the safest most effective IV option For this group a strep organism He is going to speak with Dr. Carlos regarding switching to oral antibiotic therapy. Patient is doing very well. She is quite comfortable she is moving around the room very easily. She states she is having no significant pain. Will stop the Celebrex. She is receiving physical therapy for range of motion. Wound looks excellent Dr. Amanda consultation is reviewed. He listed the likely causes for her low white blood count and is going to order some additional testing as well. Subjective Subjective Date/Time Seen: 09/29/24 18:32 Objective Data Vital Signs Vital Signs: Vital Signs - 24 hr 09/28/24 20:00 09/28/24 21:06 09/29/24 05:05 Temperature 36.3 C L 36.4 C Pulse Rate 78 76 Respiratory Rate 16 16 Blood Pressure 120/61 123/64 Pulse Oximetry 99 98 Oxygen Delivery Room Air 09/29/24 14:00 Temperature 35.9 C L Pulse Rate 79 Respiratory Rate 16 Blood Pressure 136/72 Pulse Oximetry 97 Oxygen Delivery Intake/Output Intake/Output: Intake & Output 09/26/24 09/27/24 09/28/24 09/29/24 23:59 23:59 23:59 23:59 Intake Total 1670 1630 1720 1988 Output Total 400 Balance 1270 1630 1720 1987 Meds/Results Medications: Active Medications Generic Name Dose Route Start Last Admin Trade Name Freq PRN Reason Stop Dose Admin Acetaminophen 1,000 mg 09/25/24 22:03 09/27/24 01:10 Acetaminophen 500 Mg Tablet PO 1,000 mg Q6H PRN Administration Mild Pain (1-3) or Fever Hydrocodone Bitart/Acetaminophen 1 tab 09/26/24 15:15 Hydrocodone/Acetaminophen (*Crx) 5-325 Mg Tablet PO Q4H PRN Pain Rated 4-6 Hydrocodone Bitart/Acetaminophen 1 tab 09/26/24 15:15 Hydrocodone/Acetaminophen (*Crx) 7.5-325 Mg Tablet PO Q4H PRN Pain Rated 7-10 Alprazolam 0.25 mg 09/26/24 09:08 09/27/24 21:28 Alprazolam (*Crx) 0.25 Mg Tablet PO 0.25 mg QHS PRN Administration sleep Celecoxib 200 mg 09/28/24 08:00 09/29/24 09:19 Celecoxib 200 Mg Capsule PO 200 mg DAILY@0800 [facility] Administration Diphenhydramine HCl 25 mg 09/26/24 15:15 Diphenhydramine Hcl Inj 50 Mg/Ml Vial IV PUSH Q6H PRN Itching Hydromorphone HCl 1 mg 09/26/24 15:23 Hydromorphone Hcl Inj (*Crx) 2 Mg/Ml Vial IV PUSH Q2H PRN Breakthrough Pain Rated 7-10 or NPO Hydromorphone HCl 0.5 mg 09/26/24 15:23 Hydromorphone Hcl Inj (*Crx) 2 Mg/Ml Vial IV PUSH Q2H PRN Breakthrough Pain Rated 4-6 or NPO Ceftriaxone Sodium 2 gm/ 100 mls @ 200 mls/hr 09/28/24 09:00 09/29/24 17:50 Sodium Chloride IVPB Infused Q24H [facility] Infusion Naloxone HCl 0.1 mg 09/26/24 15:15 Naloxone Hcl 0.4 Mg/Ml Vial IV PUSH Q2M PRN Opiate Reversal Ondansetron HCl 4 mg 09/26/24 12:33 Ondansetron Inj 4 Mg/2 Ml Vial IV PUSH ONCE PRN Nausea Polyethylene Glycol 17 gm 09/27/24 09:00 09/29/24 09:20 Polyethylene Glycol 3350 17 Gm Powd.Pack PO Not Given QAM [facility] Rivaroxaban 10 mg 09/26/24 21:00 09/29/24 17:50 Rivaroxaban 10 Mg Tablet PO 10/07/24 17:01 10 mg DAILY@17 [facility] Administration Rosuvastatin Calcium 10 mg 09/26/24 18:00 09/29/24 17:50 Rosuvastatin 10 Mg Tablet PO 10 mg QPM [facility] Administration Saccharomyces Boulardii 250 mg 09/26/24 13:00 09/29/24 17:49 Saccharomyces Boulardii 250 Mg Capsule PO 250 mg TID [facility] Administration Senna/Docusate Sodium 2 tab 09/26/24 17:00 09/29/24 17:50 Senna/Docusate Sodium Tablet PO Not Given BID [facility] Tramadol HCl 50 mg 09/26/24 15:15 Tramadol Hcl (*Crx) 50 Mg Tablet PO Q4H PRN Pain Rated 1-3 Radiology Results: ITS Impressions Chest X-Ray 09/25/24 22:43 IMPRESSION: No acute cardiopulmonary process. Labs Labs: Laboratory Results - last 24 hr 09/28/24 09/29/24 21:09 05:05 WBC 2.7 L RBC 3.18 L Hgb 10.1 L Hct 31.8 L MCV 100.0 MCH 31.8 MCHC 31.8 L RDW 13.3 Plt Count 237 MPV 10.0 Immature Gran % (Auto) 0.7 H Neut % (Auto) 51.3 Lymph % (Auto) 30.0 [place] % (Auto) 16.5 H Eos % (Auto) 1.1 Baso % (Auto) 0.4 Lymph # (Auto) 0.80 L [place] # (Auto) 0.4 Eos # (Auto) 0.0 Baso # (Auto) 0.0 Abs Immat Gran (auto) 0.02 Absolute Neuts (auto) 1.4 Absolute Nucleated RBC 0.000 Nucleated RBC % 0.0 Sodium 139 Potassium 3.6 Chloride 106 Carbon Dioxide 29 Anion Gap 4 BUN 6 L Creatinine 0.55 L Estim Creat Clear Calc 81 Estimated GFR > 60 Glucose 111 H Calcium 8.5 Magnesium 2.3 Iron 57 TIBC 280 % Saturation 20 Ferritin 135.00 Total Bilirubin 0.3 AST 30 ALT 14 Alkaline Phosphatase 54 Total Protein 6.0 L Albumin 3.1 L Vitamin B12 212.0 L Folate 10.2 IgG 703 IgA 115 IgM 66
[2024-09-29 21:31] VITALS: BP 117/63; PULSE 80; RESP 14; TEMP 36.4; O2SAT 98
[2024-09-29 21:38] VITALS: PULSE 75; RESP 20; O2SAT 91
[2024-09-30 05:08] VITALS: BP 124/68; PULSE 75; RESP 16; TEMP 36.3; O2SAT 98
[2024-09-30 06:03] LABS: Hematocrit 31.9 % (37.0-47.0); Hemoglobin 10.0 g/dL (12.0-15.0); Immature Granulocyte Percent A 0.8 % (0-0.5); Lymphocytes Absolute Auto 0.78 K/mm3 (0.9-3.2); Mean Corpuscular HGB Conc 31.3 g/dl (32-36); Mean Corpuscular Hemoglobin 31.5 pg (26-34); Mean Corpuscular Volume 100.6 fl (80-100); Nucleated Red Blood Cells Absolute Auto 0.000 K/mm3 (0.0-0.012); Nucleated Red Blood Cells Perc 0.0 % (0.0-0.2); Platelet Count Result 260 k/mm3 (150-375); Red Blood Count 3.17 M/mm3 (4.2-5.4); White Blood Count 2.6 K/mm3 (4.5-10.0)
[2024-09-30 06:26] LABS: Alanine Aminotransferase 15 U/L (6-35); Albumin Level 3.0 g/dL (3.5-5.1); Alkaline Phosphatase 58 U/L (38-126); Anion Gap 4 mmol/L (4-12); Aspartate Amino Transferase 29 U/L (14-36); Bilirubin,Total 0.4 mg/dL (0.2-1.3); Blood Urea Nitrogen 6 mg/dL (7-17); Calcium 8.6 mg/dL (8.4-10.2); Carbon Dioxide 29 mmol/L (22-30); Chloride 103 mmol/L (98-107); Estimated CRCL calculation 81 ml/min; Estimated Glomerular Filt Rate > 60; Glucose 106 mg/dL (65-110); Magnesium 2.5 mg/dL (1.6-2.3); Potassium 3.9 mmol/L (3.4-5.0); Sodium 136 mmol/L (137-145); Total Protein 5.9 g/dL (6.3-8.2)
[2024-09-30] MEDS: SACCHAROMYCES BOULARDII 250 MG CAPSULE PO ×2 (08:28→12:47)
[2024-09-30] MEDS: cefTRIAXone 2 GM in SODIUM CHLORIDE 0.9% IV 100 ML 200 ML IVPB (08:29)
--- NOTE | 2024-09-30 08:31 | PM.IMPN ---
Progress Note: A&P Assessment and Plan (1) Infection of prosthetic right knee joint: Qualifiers: Encounter type: subsequent encounter Qualified Code(s): T84.53XD - Infection and inflammatory reaction due to internal right knee prosthesis, subsequent encounter Code(s): T84.53XA - Infection and inflammatory reaction due to internal right knee prosthesis, initial encounter Status: Acute Assessment and Plan: Patient with concern for possible septic prosthetic knee joint was taken for washout 09/26/2024. - wound cultures 09/26 Viridans streptococcus - blood cultures NGTD - Antibiotics IV vancomycin and Rocephin. D/C vanc. Likely need 4-6 week treatment. ID following. - Analgesics p.r.n. - DVT ppx: Xarelto - PT/OT per Orthopedic full weight-bearing status (2) Leukopenia: Qualifiers: Leukopenia type: unspecified Qualified Code(s): D72.819 - Decreased white blood cell count, unspecified Code(s): D72.819 - Decreased white blood cell count, unspecified Status: Acute Assessment and Plan: Patient has history of colon cancer Given leukopenia ortho consulted heme/onc Cytometric analysis for leukemia, TOM, iron and B12 level. check quantitative immunoglobulin levels. No need for bone marrow biopsy. Follow-up with us as previously scheduled in the office. (3) B12 deficiency: Code(s): E53.8 - Deficiency of other specified B group vitamins Status: Acute Assessment and Plan: B12 212 Given 1000 mcg IM x1 Started on 1000 mcg PO daily Patient to follow up with heme/onc as scheduled Time Spent With Patient Time with patient: 25 - 35 minutes Subjective Date/time seen: 09/30/24 08:31 Interval history: Patient is pleasant sitting up comfortably in her bed. She states the pain is well controlled on the current regimen. She denies any tingling/numbness or shooting pain to the lower extremity. She has no other complaints denying chest pain, shortness a breath, palpitations, nausea/vomiting, and abdominal pain. Review of Systems Review of Systems: All systems reviewed & are unremarkable except as noted in HPI and below (Subjective) Exam Narrative: AF HR 75 RR 16 SpO2 98 BP 124/68 General: female in no acute respiratory distress who is nontoxic appearing, lying semi recumbent in bed. HEENT: Normocephalic. Atraumatic. Extraocular movement intact. Sclera clear and anicteric. No facial asymmetry. Chest: Lungs are clear to auscultation bilaterally. No wheezes or crackles. CV: Heart was regular rate and rhythm. S1-S2. No murmurs, gallops, or rubs. Abd: Abdomen was soft. Nontender. Nondistended. Positive bowel sounds. Ext: No clubbing, cyanosis, or edema. DP pulses bilaterally. Sensation intact. Wiggling toes. Dressing clean/dry/intact to the right knee. Neuro: Patient is alert and oriented x3. Speech is clear. Objective Data Vital Signs Vital Signs: Vital Signs - 24 hr 09/29/24 14:00 09/29/24 21:31 09/29/24 21:38 Temperature 96.7 F L 97.6 F Pulse Rate 79 80 75 Respiratory Rate 16 14 20 Blood Pressure 136/72 117/63 Pulse Oximetry 97 98 91 Oxygen Delivery Room Air Fraction of Inspired Oxygen 21 09/30/24 05:08 09/30/24 07:57 Temperature 97.3 F L Pulse Rate 75 Respiratory Rate 16 Blood Pressure 124/68 Pulse Oximetry 98 Oxygen Delivery Room Air Fraction of Inspired Oxygen Intake/Output Intake/Output: Intake & Output 09/27/24 09/28/24 09/29/24 09/30/24 23:59 23:59 23:59 23:59 Intake Total 1630 1720 1987 200 Balance 1630 1720 1987 200 Meds/Results Medications: Active Medications Generic Name Dose Route Start Last Admin Trade Name Freq PRN Reason Stop Dose Admin Acetaminophen 1,000 mg 09/25/24 22:03 09/27/24 01:10 Acetaminophen 500 Mg Tablet PO 1,000 mg Q6H PRN Administration Mild Pain (1-3) or Fever Hydrocodone Bitart/Acetaminophen 1 tab 09/26/24 15:15 Hydrocodone/Acetaminophen (*Crx) 5-325 Mg Tablet PO Q4H PRN Pain Rated 4-6 Hydrocodone Bitart/Acetaminophen 1 tab 09/26/24 15:15 Hydrocodone/Acetaminophen (*Crx) 7.5-325 Mg Tablet PO Q4H PRN Pain Rated 7-10 Alprazolam 0.25 mg 09/26/24 09:08 09/27/24 21:28 Alprazolam (*Crx) 0.25 Mg Tablet PO 0.25 mg QHS PRN Administration sleep Diphenhydramine HCl 25 mg 09/26/24 15:15 Diphenhydramine Hcl Inj 50 Mg/Ml Vial IV PUSH Q6H PRN Itching Hydromorphone HCl 1 mg 09/26/24 15:23 Hydromorphone Hcl Inj (*Crx) 2 Mg/Ml Vial IV PUSH Q2H PRN Breakthrough Pain Rated 7-10 or NPO Hydromorphone HCl 0.5 mg 09/26/24 15:23 Hydromorphone Hcl Inj (*Crx) 2 Mg/Ml Vial IV PUSH Q2H PRN Breakthrough Pain Rated 4-6 or NPO Ceftriaxone Sodium 2 gm/ 100 mls @ 200 mls/hr 09/28/24 09:00 09/30/24 08:29 Sodium Chloride IVPB 200 mls/hr Q24H [facility] Administration Naloxone HCl 0.1 mg 09/26/24 15:15 Naloxone Hcl 0.4 Mg/Ml Vial IV PUSH Q2M PRN Opiate Reversal Ondansetron HCl 4 mg 09/26/24 12:33 Ondansetron Inj 4 Mg/2 Ml Vial IV PUSH ONCE PRN Nausea Polyethylene Glycol 17 gm 09/27/24 09:00 09/30/24 08:29 Polyethylene Glycol 3350 17 Gm Powd.Pack PO 17 gm QAM [facility] Administration Rivaroxaban 10 mg 09/26/24 21:00 09/29/24 17:50 Rivaroxaban 10 Mg Tablet PO 10/07/24 17:01 10 mg DAILY@17 [facility] Administration Rosuvastatin Calcium 10 mg 09/26/24 18:00 09/29/24 17:50 Rosuvastatin 10 Mg Tablet PO 10 mg QPM [facility] Administration Saccharomyces Boulardii 250 mg 09/26/24 13:00 09/30/24 08:28 Saccharomyces Boulardii 250 Mg Capsule PO 250 mg TID [facility] Administration Senna/Docusate Sodium 2 tab 09/26/24 17:00 09/30/24 08:29 Senna/Docusate Sodium Tablet PO Not Given BID [facility] Tramadol HCl 50 mg 09/26/24 15:15 Tramadol Hcl (*Crx) 50 Mg Tablet PO Q4H PRN Pain Rated 1-3 Radiology Results: ITS Impressions Chest X-Ray 07/18/25 22:43 IMPRESSION: No acute cardiopulmonary process. Labs Labs: Laboratory Results - last 24 hr 09/30/24 05:16 WBC 2.6 L RBC 3.17 L Hgb 10.0 L Hct 31.9 L MCV 100.6 H MCH 31.5 MCHC 31.3 L RDW 13.3 Plt Count 260 MPV 9.8 Immature Gran % (Auto) 0.8 H Neut % (Auto) 52.3 Lymph % (Auto) 29.5 [place] % (Auto) 15.9 H Eos % (Auto) 1.1 Baso % (Auto) 0.4 Lymph # (Auto) 0.78 L [place] # (Auto) 0.4 Eos # (Auto) 0.0 Baso # (Auto) 0.0 Abs Immat Gran (auto) 0.02 Absolute Neuts (auto) 1.4 Absolute Nucleated RBC 0.000 Nucleated RBC % 0.0 Sodium 136 L Potassium 3.9 Chloride 103 Carbon Dioxide 29 Anion Gap 4 BUN 6 L Creatinine 0.55 L Estim Creat Clear Calc 81 Estimated GFR > 60 Glucose 106 Calcium 8.6 Magnesium 2.5 H Total Bilirubin 0.4 AST 29 ALT 15 Alkaline Phosphatase 58 Total Protein 5.9 L Albumin 3.0 L Quality VTE Prophylaxis VTE prophylaxis: mechanical ordered
--- NOTE | 2024-09-30 12:41 | P.PNINF_ITS ---
Pharmacy ID Consult Stewardship Interventions Pharmacy ID Note: 09/30 Previous note copied below the lines for convenience Cultures 09/22 R. Knee Aspirate Culture - Viridans Group streptococcus light growth - gram stain says few WBC and no organisms seen - finalized - no growth yet on sagar erobic - still following 09/26 R. Knee Procedure Culture - VGS also in this culture 09/26 Blood Culture - NGTD x [address] Steele regarding this patient for discharge. Provider okay with oral antibiotics with discharge. Common options include Augmentin or Levofloxacin for PO. Given prolonged duration - Augmentin high (bloodstream) dose was chosen. Patient to receive total 6w course from washout - Augmentin 875 mg TID to start tomorrow AM until 11/06/2024 2359 (111 doses from tomorrow AM) Thank you for the interesting consult. Will sign off at this time. Melo Michele, PharmD Infectious Disease/Antimicrobial Stewardship Pharmacist 09/30/24; 1241 WBC 2.6 K/mm3 (4.5-10.0) L 09/30/24 05:16 Creatinine 0.55 mg/dL (0.7-1.0) L 09/30/24 05:16 Estim Creat Clear Calc 81 ml/min 09/30/24 05:16 Stewardship Interventions Pharmacy ID Note: Subjective Pharmacy was consulted by Dr. Kole Carlos regarding infectious diseases for Mira Magana. Mira Magana is a 73 year old patient with concerns regarding prosthetic joint infection of the right knee. Background The patient is currently receiving Ceftriaxone and Vancomycin (D3). The patient's PMH includes presenting from after an office visit on 09/22 in which the right knee was bothering patient and the fluid was aspirated. Additionally, patient presented on 09/26 and underwent debridement in which further cultures were sent as purulence was noted at this time. Patient has been afebrile since admission. Cultures 09/22 R. Knee Aspirate Culture - Viridans Group streptococcus light growth - gram stain says few WBC and no organisms seen - finalized - no growth yet on anaerobic - still following 09/26 R. Knee Procedure Culture - pending - [facility] it technician that I spoke to states that these were received 09/27 AM and believes we should have preliminary results tomorrow potentially 09/26 Blood Culture - pending - [facility] it technician that I spoke to states that we are likely to have preliminary for this tomorrow Assessment/Recommendation/Discussion Spoke with consulting provider this AM. Discussed likelihood of which etiologies for which we are treating at this time between the likely Staphylococcal source vs. a potential Enterobacterales source as patient has had history of E. coli UTI in last year. Currently receiving Ceftriaxone (increased to 2g daily) to cover for MSSA, MS-CONS, and E coli while vancomycin is there to cover MRSA and MR-CONS. Continue current therapy as we await culture results. -- update 09/28/2024923 -- heard back from Denia in lab - updated 09/22 culture results as above - growing VGS. Updated Dr. Steele who is seeing patient today - will dc vancomycin at this time. 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 Likely looking at 4-6 weeks of treatment from date of last source control (current 09/26 debridement) either with highly bioA orals or IV Abx. Will continue to follow. Thank you for the interesting consult. Melo Michele, PharmD Infectious Disease/Antimicrobial Stewardship Pharmacist 09/28/24; 0854 WBC 3.3 K/mm3 (4.5-10.0) L 09/28/24 05:44 Creatinine 0.58 mg/dL (0.7-1.0) L 09/28/24 05:44 Estim Creat Clear Calc 77 ml/min 09/28/24 05:44
[2024-09-30] MEDS: CYANOCOBALAMIN INJ 1,000 MCG/ML VIAL 1000 MCG IM (12:46)
--- NOTE | 2024-09-30 12:54 | PM.DS ---
DS: Admitting Diagnosis Discharge Date 09/30/2024 Admitting Diagnosis Periprosthetic infection right knee replacement DS: Discharge Diagnosis Discharge Diagnosis (1) Leukopenia: Qualifiers: Leukopenia type: unspecified Qualified Code(s): D72.819 - Decreased white blood cell count, unspecified Code(s): D72.819 - Decreased white blood cell count, unspecified Status: Acute Assessment and Plan: Patient was admitted on 05/27 for irrigation debridement of right knee replacement with polyethylene exchange by Dr. Carlos. The knee was aspirated in the office on 05/23/2024 which grew light growth of strep viridans. During her hospitalization she was treated with IV vancomycin and ceftriaxone and per discussions between Dr. Carlos and Dr. Michele the infectious disease pharmacist, it was felt that she would be a suitable candidate for conversion to oral antibiotics at discharge and Augmentin 875 mg/125 was initiated today and this will be given 3 times a day which is the dose usually used with septicemia so it is the full strength maximum dose for her. Her hospitalizations been unremarkable. She has been very comfortable and is working with physical therapy and range of motion. We noted that her white count is abnormally low and continues to be and I consult did Dr. Amanda for her neutropenia. He is going to follow up with her on an outpatient basis but he suspects it is due to her past medical history with colon cancer and hypersplenism. She will see Dr. Carlos in the office on October 08 have staple removal. Her hemoglobin has remained stable at 10.0. No significant abnormalities on BMP. Urinalysis showed only 0-5 white cells per high-power field. Physical therapy on an outpatient basis will be arranged by our office. (2) Infection of prosthetic right knee joint: Qualifiers: Encounter type: subsequent encounter Qualified Code(s): T84.53XD - Infection and inflammatory reaction due to internal right knee prosthesis, subsequent encounter Code(s): T84.53XA - Infection and inflammatory reaction due to internal right knee prosthesis, initial encounter Status: Acute DS: Summary Hospital Course Hospital Course: See above. Time Spent with Patient Time attestation: Total time spent providing and/or coordinating discharge services: DS: Data Data Completed and Pending Pending studies at discharge: Pending at discharge 09/28/24 18:52 Surgical [PTH] Routine Labs on day of discharge: Labs from last 24 hours 09/30/24 05:16 WBC 2.6 L RBC 3.17 L Hgb 10.0 L Hct 31.9 L MCV 100.6 H MCH 31.5 MCHC 31.3 L RDW 13.3 Plt Count 260 MPV 9.8 Immature Gran % (Auto) 0.8 H Neut % (Auto) 52.3 Lymph % (Auto) 29.5 [place] % (Auto) 15.9 H Eos % (Auto) 1.1 Baso % (Auto) 0.4 Lymph # (Auto) 0.78 L [place] # (Auto) 0.4 Eos # (Auto) 0.0 Baso # (Auto) 0.0 Abs Immat Gran (auto) 0.02 Absolute Neuts (auto) 1.4 Absolute Nucleated RBC 0.000 Nucleated RBC % 0.0 Sodium 136 L Potassium 3.9 Chloride 103 Carbon Dioxide 29 Anion Gap 4 BUN 6 L Creatinine 0.55 L Estim Creat Clear Calc 81 Estimated GFR > 60 Glucose 106 Calcium 8.6 Magnesium 2.5 H Total Bilirubin 0.4 AST 29 ALT 15 Alkaline Phosphatase 58 Total Protein 5.9 L Albumin 3.0 L Preliminary micro results at discharge 09/26/24 10:18 Blood Culture - Preliminary Blood 09/26/24 10:13 Blood Culture - Preliminary Blood Discharge Plan Discharge Consulting providers: Jeri Guzmán; Ping Gordon; Zachary Werner; Mary Ellen Arana Discharging Clinician: Kole Carlos Patient Disposition: Home Activity: no shower Diet: as tolerated Discharge Instructions: KIA DAVIS M.D [facility] [address] [place] [address] [address] [place] [address] POST-OPERATIVE DISCHARGE INSTRUCTIONS TOTAL KNEE ARTHROPLASTY 1. When resting, do not rest in the chair.When resting, lie on your back, with back flat on the couch or bed, with leg elevated above heart to minimize swelling. You may put a pillow under your head. . Significant swelling could indicate a blood clot and if this occurs call the office (or go to the ER) to have a venous ultrasound. Therefore, do not rest in a chair. 2. At least five times a day spend several minutes stretching your knee into flexion while sitting in the chair and also stretching your knee out straight The abilities to bend your knee fully and straighten your knee fully are two most important knee functions to focus on during your recovery. 3. It is ok to sit in chair to eat, use the toilet and receive a guest and to do your stretching exercises, but, sitting in a chair will cause your leg to swell. Therefore, avoid additional time sitting in the chair. and don't rest in the chair. 4. Wound Care: Nursing will give you an additional Mepilex/Aquacell dressing at the time of discharge. Patient to remove the dressing and apply a new Mepilex/Aquacell dressing at home 7 days after surgery and leave the dressing on until seen in office. It is normal to see a small amount of blood on the silver pad of the Mepilex/Aquacell dressing. Its designed to hold small spots of blood. However, if the blood reaches the edge of the pad up to the boarder of the clear membrane that surrounds the pad, the pad is saturated and the Mepilex/Aqucell dressing should be removed and a new Mepilex/Aquacell dressing should be applied. 5. May shower with a Mepilex/Aquacell dressing in place.The water will run off the dressing. 6. Unless you are told otherwise, you may put full weight on your operated leg. Use a walker for balance and practice walking as normally as you can, ideally for a few minutes every hour while you are awake. 7. I would advise against putting ice packs on your knee incision. Ice constricts blood flow which can impar healing of the knee incision. 8. Use incentive spirometer every hour while awake during the first week to fully expand your lungs. IMPORTANT: Remember not to sit in the chair for more than 30 minutes at a time. As a rule, during the first 14 days after surgery, only sit in the chair to work on the chair knee bending stretch exercise, for meals or for use of the restroom. Sitting in the chair promotes significant swelling in the knee and leg which will make your knee stiff and more painful and which simulates having a blood clot in the veins of the leg. If this type of significant diffuse swelling occurs, an ultrasound at the hospital will be necessary to rule out a blood clot. Be up walking around with the walker for a few minutes every hour while awake and then rest laying on your back on the couch or in bed with your leg elevated on cushions or pillows. Do not rest in the chair. Do not take alprazolam on the same day as you take the hydrocodone Do not exceed a total of 4000 mg of acetaminophen in a 24 hour.. There is 325 mg of acetaminophen in each Himrod tablet which has to be taken into consideration. If you developed progressively worsening pain or fevers or chills or wound drainage please call us immediately. Take all the medications as directed and follow up with Dr. Carlos next the 08 of October. The time will be 10:00 a.m. for your appointment. Our office will be contacting you regarding outpatient physical therapy. If you do not hear the next 2 days please call us at [phone]. Please have a CBC and BMP drawn every Saturday for the next 5 weeks. Patient Instructions: Antibiotic Form, Rivaroxaban (By mouth) Patient Language: Turkish Stand Alone Forms: General Discharge Information Follow-up/Referrals: Kole Carlos MD [Physician] - 10/08/24 (Call [phone] to get a time.) Discharge Medications: New hydrocodone-acetaminophen 5-325 mg tablet 1 tablet PO Q4H PRN (Reason: pain) Qty: 40 0RF sennosides-docusate sodium [Senokot-S] 8.6-50 mg Tablet 2 tab-cap PO BID Qty: 120 0RF polyethylene glycol 3350 [Miralax] 17 gram Powder In Packet 17 g PO QAM Qty: 30 0RF Xarelto 10 mg Tablet 10 mg PO DAILY@17 Qty: 10 0RF cyanocobalamin (vitamin B-12) [Vitamin B-12] 1,000 mcg Tablet 1,000 mcg PO QAM Qty: 30 0RF Saccharomyces boulardii [Florastor] 250 mg Capsule 250 mg PO TID Qty: 100 0RF acetaminophen 325 mg tablet 650 mg PO Q6H PRN (Reason: pain) Qty: 120 0RF amoxicillin-pot clavulanate 875-125 mg tablet 1 tablet PO Q8H Qty: 112 0RF Continued aspirin 81 mg Tablet,Chewable 81 mg PO QPM pressure vision areds 2 1 tablet BYMOUTH QPM omeprazole 40 mg capsule,delayed release(DR/EC) 40 mg PO QPM rosuvastatin 10 mg tablet 10 mg PO QPM Rx Instructions: TAKE 1 TABLET DAILY Held alprazolam 0.25 mg tablet 0.25 mg PO QHS PRN (Reason: sleep) Qty: 30 0RF Hold Instructions: Do not take with narcotic (hydrocodone/Himrod) Date of admission: 09/25/24 20:10 Primary Care Provider: Víctor Steinberg Admitting Provider: Kole Carlos Attending physician on admission: Kole Carlos Condition: Stable
[2024-09-30 13:52] VITALS: BP 133/71; PULSE 63; RESP 16; TEMP 36.1; O2SAT 94
[2024-10-01 10:09] LABS: ANA by IFA Rfx Titer/Pattern Negative (.)
== END 2024-09-30 14:07 | disposition home or self-care (01) | DRG 465 ==
PROVIDERS: Internal Medicine Hematology & Oncology; Nurse Practitioner Family; Admitting Provider Orthopaedic Surgery; PCP Family Medicine; Visit Provider Orthopaedic Surgery
PROC: 0SPC09Z Removal of Liner from Right Knee Joint, Open Approach (ICD-10-PCS; principal; 2024-09-26 09:30)
DX: T84.53XA Infection and inflammatory reaction due to internal right knee prosthesis, initial encounter (principal); B95.4 Other streptococcus as the cause of diseases classified elsewhere; Z96.651 Presence of right artificial knee joint; D72.818 Other decreased white blood cell count; E78.5 Hyperlipidemia, unspecified; K21.9 Gastro-esophageal reflux disease without esophagitis; M19.90 Unspecified osteoarthritis, unspecified site; Z85.038 Personal history of other malignant neoplasm of large intestine; Z90.49 Acquired absence of other specified parts of digestive tract; Z85.828 Personal history of other malignant neoplasm of skin; Z98.41 Cataract extraction status, right eye; Z98.42 Cataract extraction status, left eye; Z79.82 Long term (current) use of aspirin
CPT/HCPCS: 20611; 36415; 71046; 80048; 80053; 80143; 80202; 81001; 82607; 82728; 82746; 82784; 83540; 83550; 83735; 85025; 85027; 85610; 85652; 85730; 86038; 86140; 87040; 87070; 87075; 87205; 88184; 93005; 97110; 97116; 97161; 97165; 97530; 97535; A9270; C1776; J0690; J0696; J1100; J1885; J2003; J2405; J2704; J3010; J3373; J3420; J7050; J7120

== ENCOUNTER 2024-10-05 08:44 | Outpatient (CLI) | payer MEDICARE, SELFPAY ==
--- OUTSIDE RECORDS SUMMARY | 2024-10-05 08:53 | XMS_ITS | Clinical Summary ---
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 [place] [address] [facility] ACCESS Advance Directives For more information, please contact: [phone] * Full Code (Latest Code Status on File) Date Activated Date Inactivated Comments 09/24/2017 11:59 AM 09/24/2017 4:41 PM Care Teams Rubbish Collection Supervisor Relationship Specialty Start Date End Date Rodolfo Zuleta MD [address] [place] [address] PCP - General 09/24/17 Leanne Pike MD [address] [place] [address] Medical Oncologist/Radial Drill Operator Medical Oncology 11/18/19
--- OUTSIDE RECORDS SUMMARY | 2024-10-05 08:53 | XMS_ITS | Referral Summary ---
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 Gender Identity Not on file Sexual Orientation [...] of Treatment Not on file [facility] ACCESS Advance Directives For more information, please contact: [phone] * Full Code (Latest Code Status on File) Date Activated Date Inactivated Comments 09/24/2017 11:59 AM 09/24/2017 4:41 PM Care Teams Erp Business Analyst Relationship Specialty Start Date End Date Rodolfo Zuleta MD [address] [place] [address] PCP - General 09/24/17 Leanne Pike MD [address] [place] [address] Medical Oncologist/Parts Counter Sales Person Medical Oncology 11/18/19
--- OUTSIDE RECORDS SUMMARY | 2024-10-05 08:53 | XMS_ITS | Clinical Summary ---
Author Organization [facility] Address [address] [place] [address] Care Team Providers Care Zanjero Name Role Phone Víctor Steinberg MD Primary Care Provider [phone] Allergies No known active allergies Medications ALPRAZolam [...] Abstract 08/06/2024 11:30 AM CDT Office Visit [facility] Oncology and Hematology - [address] [place] [address] Zachary Werner MD Malignant neoplasm of colon, unspecified part of colon (CMS/HCC) (Primary Dx) 07/29/2024 Orders Only [facility] Oncology and Hematology - [address] [place] [address] Zachary Werner MD 07/28/2024 External Device Data STL ABSTRACTION Provider, Abstract 07/27/2024 Orders Only [facility] Oncology and Hematology - [address] [place] [address] Zachary Werner MD from Last [...] on file 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 Female 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 [address] PCP - General Family Practice 03/08/21
--- OUTSIDE RECORDS SUMMARY | 2024-10-05 08:53 | XMS_ITS | Encounter Summary ---
Author Organization [facility] Address [address] [place] [address] Care Team Providers Care Casing Sewer Name Role Phone Víctor Steinberg MD Primary Care Provider [phone] Reason for Visit * Reason Onset Date Comments lab orders 12/28/2021 Encounter Details Date Type Department Care Team ([facility] Contact Info) Description 12/28/2021 Telephone [facility] Oncology and Hematology [facility] [address] [place] [address] Mushtaq Chau MD [address] [place] [phone] lab orders Social History Tobacco Use Types Packs/Day Years Used Date Smoking Tobacco: Never Smokeless Tobacco: Never Alcohol Use Standard Drinks/Week Comments Yes 0 (1 standard drink = 0.6 oz pur e alcohol) Comments No Sex and Gender Information Value Date Recorded Sex Assigned at Not on file Legal Sex Female 4:31 AM 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 [address] PCP - General Family Practice 03/08/21 documented as of this encounter
[2024-10-05 09:07] LABS: Hematocrit 36.1 % (37.0-47.0); Hemoglobin 11.5 g/dL (12.0-15.0); Immature Granulocyte Percent A 0.9 % (0-0.5); Lymphocytes Absolute Auto 0.96 K/mm3 (0.9-3.2); Mean Corpuscular HGB Conc 31.9 g/dl (32-36); Mean Corpuscular Hemoglobin 31.6 pg (26-34); Mean Corpuscular Volume 99.2 fl (80-100); Nucleated Red Blood Cells Absolute Auto 0.000 K/mm3 (0.0-0.012); Nucleated Red Blood Cells Perc 0.0 % (0.0-0.2); Platelet Count Result 345 k/mm3 (150-375); Red Blood Count 3.64 M/mm3 (4.2-5.4); White Blood Count 5.8 K/mm3 (4.5-10.0)
[2024-10-05 09:31] LABS: Alanine Aminotransferase 15 U/L (6-35); Albumin Level 3.9 g/dL (3.5-5.1); Alkaline Phosphatase 70 U/L (38-126); Anion Gap 6 mmol/L (4-12); Aspartate Amino Transferase 29 U/L (14-36); Bilirubin,Total 0.9 mg/dL (0.2-1.3); Blood Urea Nitrogen 7 mg/dL (7-17); Calcium 9.0 mg/dL (8.4-10.2); Carbon Dioxide 29 mmol/L (22-30); Chloride 103 mmol/L (98-107); Estimated Glomerular Filt Rate > 60; Glucose 130 mg/dL (65-110); Potassium 4.1 mmol/L (3.4-5.0); Sodium 138 mmol/L (137-145); Total Protein 7.5 g/dL (6.3-8.2)
== END 2024-10-05 08:45 | disposition home or self-care (01) ==
LOC: ANHLAB 08:46
PROVIDERS: PCP Family Medicine; Visit Provider Orthopaedic Surgery
DX: T84.53XD Infection and inflammatory reaction due to internal right knee prosthesis, subsequent encounter (principal)
CPT/HCPCS: 36415; 80053; 85025

== ENCOUNTER 2024-10-12 08:29 | Outpatient (CLI) | payer MEDICARE, SELFPAY ==
--- OUTSIDE RECORDS SUMMARY | 2024-10-12 08:33 | XMS_ITS | Encounter Summary ---
Author Organization [facility] [employer] Address [address] [place] [address] Care Team Providers Care Fruit And Vegetable Classer Name Role Phone Víctor Steinberg MD Primary Care Provider [phone] Reason for Visit * Reason Onset Date Comments lab orders 12/28/2021 Encounter Details Date Type Department Care Team ([facility] Contact Info) Description 12/28/2021 Telephone [facility] Oncology and Hematology [facility] [address] [place] [address] Mushtaq Chau MD [address] [place] [phone] lab orders Social History Tobacco Use Types Packs/Day Years Used Date Smoking Tobacco: Never Smokeless Tobacco: Never Alcohol Use Standard Drinks/Week Comments Yes 0 (1 standard drink = 0.6 oz pur e alcohol) Comments No Sex and Gender Information Value Date Recorded Sex Assigned at Not on file 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 [address] PCP - General Family Practice 03/08/21 documented as of this encounter
--- OUTSIDE RECORDS SUMMARY | 2024-10-12 08:33 | XMS_ITS | Clinical Summary ---
Author Organization [facility] Address [address] [facility] [place] [address] Care Team Providers Care Medical Specialist Name Role Phone Víctor Steinberg MD Primary Care Provider [phone] Allergies No known active allergies Medications ALPRAZolam [...] Encounters Date Type Department Care Team Description 10/05/2024 Orders Only [facility] Oncology and Hematology - [address] [facility] [address] [place] [address] Zachary Werner MD 09/23/2024 External Device Data STL ABSTRACTION Provider, Abstract 09/23/2024 External Device Data STL ABSTRACTION Provider, Abstract 09/23/2024 External Device Data STL ABSTRACTION Provider, Abstract 09/22/2024 External Device Data STL ABSTRACTION Provider, Abstract 09/01/2024 External Device Data STL ABSTRACTION Provider, Abstract 08/26/2024 External Device Data STL ABSTRACTION Provider, Abstract 08/25/2024 External Device Data STL ABSTRACTION Provider, Abstract 08/06/2024 11:30 AM CDT Office Visit [facility] Oncology and Hematology - [address] [place] [address] Zachary Werner MD Malignant neoplasm of colon, unspecified part of colon (CMS/HCC) (Primary Dx) 07/29/2024 Orders Only [facility] Oncology and Hematology - [address] [place] [address] Zachary Werner MD 07/28/2024 External Device Data STL ABSTRACTION Provider, Abstract 07/27/2024 Orders Only [facility] Oncology and Hematology [facility] [address] [place] [address] Zachary Werner MD from Last 3 Months [...] on file 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 Sex Female 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 Gender Identity Not on file Sexual [...] Description 12/18/2024 9:15 AM CDT Office Visit [facility] Oncology and Hematology - [place] [facility] [address] [place] [address] Zachary Werner MD [address] [facility] [address] [place] [address] Health Maintenance Due Date Last [...] Procedure Name Priority Date/Time Associated Diagnosis Comments FLOW CYTOMETRY REPORT Routine 09/29/2024 1:[address] CHEST ABDOMEN PELVIS W CONT Routine 07/28/2024 1:59 PM CDT from Last 3 Months Results * FLOW CYTOMETRY REPORT (09/29/2024 1:41 PM CDT) Zachary Werner MD PATHOLOGY/CYTOLOGY ORDERABLES F inal Result * CT CHEST ABDOMEN PELVIS W CONT (07/28/2024 1:59 PM CDT) Anatomical Region Laterality Modality Chest Computed Tomogra phy Zachary Werner MD CT ORDERABLES Final Result from Last 3 Months Insurance [facility] [id number] [facility] [id number] Care Teams Medical Specialist Relationship Specialty Start Date End Date Víctor Steinberg MD [address] [place] [address] PCP - General Family Practice 03/08/21
--- OUTSIDE RECORDS SUMMARY | 2024-10-12 08:33 | XMS_ITS | Referral Summary ---
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 RADIOLOGY Gender Identity Not on file Sexual Orientation [...] of Treatment Not on file [facility] ACCESS Advance Directives For more information, please contact: [phone] * Full Code (Latest Code Status on File) Date Activated Date Inactivated Comments 09/24/2017 11:59 AM 09/24/2017 4:41 PM Care Teams School Library Media Program Director Relationship Specialty Start Date End Date Rodolfo Zuleta MD [address] [place] [address] PCP - General 09/24/17 Leanne Pike MD [address] [place] [address] Medical Oncologist/Eeg Tech Medical Oncology 11/18/19
--- OUTSIDE RECORDS SUMMARY | 2024-10-12 08:33 | XMS_ITS | Clinical Summary ---
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 Address: [facility] [address] [place] [address] Advance Directives For more information, please contact: [phone] * Full Code (Latest Code Status on File) Date Activated Date Inactivated Comments 09/24/2017 11:59 AM 09/24/2017 4:41 PM Care Teams Architecture Technician Relationship Specialty Start Date End Date Rodolfo Zuleta MD [address] [place] [address] PCP - General 09/24/17 Leanne Pike MD [address] [place] [address] Medical Oncologist/Extractor Operator Solvent Process Medical Oncology 11/18/19
[2024-10-12 08:48] LABS: Hematocrit 36.1 % (37.0-47.0); Hemoglobin 11.7 g/dL (12.0-15.0); Immature Granulocyte Percent A 0.4 % (0-0.5); Lymphocytes Absolute Auto 0.90 K/mm3 (0.9-3.2); Mean Corpuscular HGB Conc 32.4 g/dl (32-36); Mean Corpuscular Hemoglobin 31.9 pg (26-34); Mean Corpuscular Volume 98.4 fl (80-100); Nucleated Red Blood Cells Absolute Auto 0.000 K/mm3 (0.0-0.012); Nucleated Red Blood Cells Perc 0.0 % (0.0-0.2); Platelet Count Result 188 k/mm3 (150-375); Red Blood Count 3.67 M/mm3 (4.2-5.4); White Blood Count 2.7 K/mm3 (4.5-10.0)
[2024-10-12 09:16] LABS: Alanine Aminotransferase 16 U/L (6-35); Albumin Level 3.9 g/dL (3.5-5.1); Alkaline Phosphatase 72 U/L (38-126); Anion Gap 6 mmol/L (4-12); Aspartate Amino Transferase 27 U/L (14-36); Bilirubin,Total 0.9 mg/dL (0.2-1.3); Blood Urea Nitrogen 6 mg/dL (7-17); Calcium 9.3 mg/dL (8.4-10.2); Carbon Dioxide 27 mmol/L (22-30); Chloride 102 mmol/L (98-107); Estimated Glomerular Filt Rate > 60; Glucose 118 mg/dL (65-110); Potassium 4.1 mmol/L (3.4-5.0); Sodium 135 mmol/L (137-145); Total Protein 7.1 g/dL (6.3-8.2)
== END 2024-10-12 08:30 | disposition home or self-care (01) ==
LOC: ANHLAB 08:30
PROVIDERS: PCP Family Medicine; Visit Provider Orthopaedic Surgery
DX: T84.53XD Infection and inflammatory reaction due to internal right knee prosthesis, subsequent encounter (principal); Y83.1 Surgical operation with implant of artificial internal device as the cause of abnormal reaction of the patient, or of later complication, without mention of misadventure at the time of the procedure
CPT/HCPCS: 36415; 80053; 85025

== ENCOUNTER 2024-10-19 09:19 | Outpatient (CLI) | payer MEDICARE, SELFPAY ==
--- OUTSIDE RECORDS SUMMARY | 2024-10-19 09:26 | XMS_ITS | Encounter Summary ---
Author Organization [facility] Address [address] [place] [address] Care Team Providers Care Regional Medical Director Name Role Phone Víctor Steinberg MD Primary Care Provider [phone] Reason for Visit * Reason Onset Date Comments lab orders 12/28/2021 Encounter Details Date Type Department Care Team ([facility] Contact Info) Description 12/28/2021 Telephone [facility] Oncology and Hematology [facility] [address] [place] [address] Mushtaq Chau MD [address] [place] [phone] lab orders Social History Tobacco Use Types Packs/Day Years Used Date Smoking Tobacco: Never Smokeless Tobacco: Never Alcohol Use Standard Drinks/Week Comments Yes 0 (1 standard drink = 0.6 oz pur e alcohol) Comments No Sex and Gender Information Value Date Recorded Sex Assigned at Not on file Legal Sex Female 4:31 AM CASING PULLER Gender Identity Not on file Sexual Orientation [...] Description 12/18/2024 9:15 AM CDT Office Visit [facility] Oncology and Hematology [facility] [address] [place] [address] Zachary Werner MD [address] [facility] [address] [place] [address] documented as of this encounter Visit Diagnoses Diagnosis Malignant neoplasm of colon, unspecified part of colon (CMS/HCC)- Primary documented in this encounter Care Teams Regional Medical Director Relationship Specialty Start Date End Date Víctor Steinberg MD [address] [place] [address] PCP - General Family Practice 03/08/21 documented as of this encounter
--- OUTSIDE RECORDS SUMMARY | 2024-10-19 09:26 | XMS_ITS | Clinical Summary ---
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 Gender Identity Not on file Sexual [...] 11/30/2020 10:50 AM CDT Plan of Treatment Health Maintenance Due Date Last Done Comments Depression Screening 1950 Fall Risk Assessment 1950 Hepatitis C Screening 1950 Osteoporosis Screening-Bone Density Scan 1950 DTaP/Tdap/Td Vaccine (1 - Tdap) 12/21/1959 Hepatitis B Screening 1966 Well Visit 65+ 2013 Zoster Vaccine (2 of 3) 02/16/2015 12/22/2014 Pneumococcal vaccine 65+ (2 of 2 - PCV20 or PCV21) 12/23/2015 12/22/2014 Influenza Vaccine (#1) 2024 9, 12/25/2017, 02/11/2017, Additional history exists Colon Cancer Screening-Colonoscopy 09/25/2027 09/24/2017 Colon Cancer Screening-CT Colonography Discontinued 09/24/2017 Colon Cancer Screening-DNA Stool Discontinued 09/25/19 18 Colon Cancer Screening-FIT Discontinued 09/24/2017 Colon Cancer Screening-Sigmoidoscopy Discontinued 09/24/2017 Procedures Procedure Name Priority Date/Time Associated Diagnosis Comments COLONOSCOPY 09/24/2017 1:46 PM CDT from Last 3 Months or Most Recently Relevant to Health Maintenance Results * COLONOSCOPY (09/24/2017 1:46 PM CDT) Anatomical Region Laterality Modality Other Narrative Procedure Note Juan Luis Villagomez MD PhD - 09/24/2017 1:46 PM CDT GI ENDOSCOPY [facility] Patient Name: Mira Oviedo Procedure Date: 09/24/2017 1:46 PM Date of : 1950 Admit Type: Outpatient Age: 66 Gender: Female Attending MD: Juan Luis Villagomez MD,PHD Room: [facility] ENDOSCOPY ROOM 3 Note Status: Finalized [...] scope was passed under direct vision.The CF [id number] endoscope was introduced throughthe anus and advanced to the the ileocolonicanastomosis. The colonoscopy was performed without difficulty.The patient tolerated the procedure well. The quality of the bowel preparation was excellent. The quality ofthe bowel preparation was evaluated using the BBPS([place] Bowel Preparation Scale) with scores of: Right [...] On: 09/24/2017 1:46 PM Recognized by the [place] [employer] Gastrointestinal Endoscopy for promoting quality in endoscopy Juan Luis Villagomez MD PhD ENDOSCOPY PROCEDURES Cari l Result from Last 3 Months or Most Recently Relevant to Health Maintenance Insurance UHC MEDICARE ADVANTAGE MEDICARE [facility] Advance Directives For more information, please contact: [phone] * Full Code (Latest Code Status on File) Date Activated Date Inactivated Comments 09/24/2017 11:59 AM 09/24/2017 4:41 PM Care Teams Mirror Polisher Relationship Specialty Start Date End Date Rodolfo Zuleta MD [address] [place] [address] PCP - General 09/24/17 Leanne Pike MD [address] [place] [address] Medical Oncologist/Mixing And Molding Machine Operator Medical Oncology 11/18/19
--- OUTSIDE RECORDS SUMMARY | 2024-10-19 09:27 | XMS_ITS | Clinical Summary ---
Author Organization [facility] Graeme wang [facility] Address [address] [facility] [place] [address] Care Team Providers Care Scientist Propagator Name Role Phone Víctor Steinberg MD Primary Care Provider [phone] Allergies No known active allergies Medications ALPRAZolam [...] Department Care Team Description 10/05/2024 Orders Only [facility] Oncology and Hematology - [place] [address] [facility] [place] [address] Zachary Werner MD 09/23/2024 External [...] 08/06/2024 11:30 AM CDT Office Visit [facility] Oncology and Hematology - [place] [address] [place] [address] Zachary Werner MD Malignant neoplasm of colon, unspecified part of colon (CMS/HCC) (Primary Dx) 07/29/2024 Orders Only [facility] Oncology and Hematology - [place] [address] [place] [address] Zachary Werner MD 07/28/2024 External Device Data STL ABSTRACTION Provider, Abstract 07/27/2024 Orders Only [facility] Oncology and Hematology [facility] [address] [place] [address] Zachary Werner MD from Last 3 Months [...] on file 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 [address] [place] [address] Health Maintenance Due Date Last [...] from Last 3 Months Insurance [facility] [place] [id number] [facility] [place] [id number] Care Teams Scientist Propagator Relationship Specialty Start Date End Date Víctor Steinberg MD [address] [place] [address] PCP - General Family Practice 03/08/21
[2024-10-19 10:02] LABS: Hematocrit 37.8 % (37.0-47.0); Hemoglobin 11.8 g/dL (12.0-15.0); Immature Granulocyte Percent A 0.9 % (0-0.5); Immature Platelet Fraction Pct 4.0 % (0.9-11.2); Lymphocytes Absolute Auto 0.70 K/mm3 (0.9-3.2); Mean Corpuscular HGB Conc 31.2 g/dl (32-36); Mean Corpuscular Hemoglobin 31.1 pg (26-34); Mean Corpuscular Volume 99.7 fl (80-100); Nucleated Red Blood Cells Absolute Auto 0.000 K/mm3 (0.0-0.012); Nucleated Red Blood Cells Perc 0.0 % (0.0-0.2); Platelet Count Result 137 k/mm3 (150-375); Red Blood Count 3.79 M/mm3 (4.2-5.4); White Blood Count 2.2 K/mm3 (4.5-10.0)
[2024-10-19 10:16] LABS: Alanine Aminotransferase 17 U/L (6-35); Albumin Level 3.9 g/dL (3.5-5.1); Alkaline Phosphatase 60 U/L (38-126); Anion Gap 8 mmol/L (4-12); Aspartate Amino Transferase 28 U/L (14-36); Bilirubin,Total 0.7 mg/dL (0.2-1.3); Blood Urea Nitrogen 6 mg/dL (7-17); Calcium 9.2 mg/dL (8.4-10.2); Carbon Dioxide 26 mmol/L (22-30); Chloride 104 mmol/L (98-107); Estimated Glomerular Filt Rate > 60; Glucose 159 mg/dL (65-110); Potassium 4.1 mmol/L (3.4-5.0); Sodium 138 mmol/L (137-145); Total Protein 7.2 g/dL (6.3-8.2)
== END 2024-10-19 09:20 | disposition home or self-care (01) ==
LOC: ANHLAB 09:21
PROVIDERS: PCP Family Medicine; Visit Provider Orthopaedic Surgery
DX: T84.53XD Infection and inflammatory reaction due to internal right knee prosthesis, subsequent encounter (principal)
CPT/HCPCS: 36415; 80053; 85025; 85055

== ENCOUNTER 2024-10-26 09:05 | Outpatient (CLI) | payer MEDICARE, SELFPAY ==
--- OUTSIDE RECORDS SUMMARY | 2024-10-26 09:25 | XMS_ITS | Clinical Summary ---
Author Organization [facility] Address [address] [place] [address] Care Team Providers Care Director Validation Name Role Phone Rodolfo Zuleta MD Primary Care Provider [phone] Leanne Pike MD Unavailable Allergies No known [...] on file Legal Sex Female 6:59 AM FLOW NURSE Gender Identity Not on file Sexual Orientation [...] Juan Luis Villagomez MD,PHD Room: [facility] ENDOSCOPY ROOM 3 Note Status: [...] scope was passed under direct vision.The CF [id number] endoscope was introduced throughthe anus and advanced to the the ileocolonicanastomosis. The colonoscopy was performed without difficulty.The patient tolerated the procedure well. The quality of the bowel preparation was excellent. The quality ofthe bowel preparation was evaluated using the BBPS([place] Bowel Preparation Scale) with scores of: Right [...] On: 09/24/2017 1:46 PM Recognized by the Citizen Of [employer] [place] [employer] for Gastrointestinal Endoscopy for promoting quality in endoscopy Juan Luis Villagomez MD PhD ENDOSCOPY PROCEDURES Cari l Result from Last 3 Months or Most Recently Relevant to Health Maintenance Insurance UHC MEDICARE ADVANTAGE MEDICARE [facility] Advance Directives For more information, please contact: [phone] * Full Code (Latest Code Status on File) Date Activated Date Inactivated Comments 09/24/2017 11:59 AM 09/24/2017 4:41 PM Care Teams Director Validation Relationship Specialty Start Date End Date Rodolfo Zuleta MD [address] [place] [address] PCP - General 09/24/17 Leanne Pike MD [address] [place] [address] Medical Oncologist/Geoscientist Medical Oncology 11/18/19
--- OUTSIDE RECORDS SUMMARY | 2024-10-26 09:25 | XMS_ITS | Encounter Summary ---
Author Organization [facility] [employer] Address [address] [place] [address] Care Team Providers Care Loom Stop Checker Name Role Phone Víctor Steinberg MD Primary Care Provider [phone] Reason for Visit * Reason Onset Date Comments lab orders 12/28/2021 Encounter Details Date Type Department Care Team ([facility] Contact Info) Description 12/28/2021 Telephone [facility] Oncology and Hematology [facility] [address] [place] [address] Mushtaq Chau MD [address] [place] [phone] lab orders Social History Tobacco Use Types Packs/Day Years Used Date Smoking Tobacco: Never Smokeless Tobacco: Never Alcohol Use Standard Drinks/Week Comments Yes 0 (1 standard drink = 0.6 oz pur e alcohol) Comments No Sex and Gender Information Value Date Recorded Sex Assigned at Not on file 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 Female 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 Gender Identity Not on file Sexual Orientation [...] Description 12/18/2024 9:15 AM CDT Office Visit [facility] Oncology and Hematology [facility] [address] [place] [address] Zachary Werner MD [address] [facility] [address] [place] [address] documented as of this encounter Visit Diagnoses Diagnosis Malignant neoplasm of colon, unspecified part of colon (CMS/HCC)- Primary documented in this encounter Care Teams Loom Stop Checker Relationship Specialty Start Date End Date Víctor Steinberg MD [address] [place] [address] PCP - General Family Practice 03/08/21 documented as of this encounter
--- OUTSIDE RECORDS SUMMARY | 2024-10-26 09:25 | XMS_ITS | Clinical Summary ---
Author Organization [facility] Graeme wang [facility] Address [address] [facility] [address] Care Team Providers Care Toilet Products Molder Name Role Phone Víctor Steinberg MD Primary Care Provider [phone] Allergies No known active allergies Medications ALPRAZolam [...] Department Care Team Description 10/05/2024 Orders Only [facility] Oncology and Hematology - [place] [address] [facility] [address] [place] [address] Zachary Werner MD 09/23/2024 External [...] Abstract 08/06/2024 11:30 AM CDT Office Visit [facility] Oncology and Hematology - [place] [address] [place] [address] Zachary Werner MD Malignant neoplasm of colon, unspecified part of colon (CMS/HCC) (Primary Dx) 07/29/2024 Orders Only [facility] Oncology and Hematology - [place] [address] [place] [address] Zachary Werner MD 07/28/2024 External Device Data STL ABSTRACTION Provider, Abstract 07/27/2024 Orders Only [facility] Oncology and Hematology [facility] [address] [place] [address] Zachary Werner MD from Last 3 Months [...] on file 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 Gender Identity Not on file Sexual Orientation [...] Description 12/18/2024 9:15 AM CDT Office Visit [facility] Oncology and Hematology - [place] [address] [facility] [address] [place] [address] Zachary Werner MD [address] [facility] [address] [place] [address] Health Maintenance Due Date Last [...] Final Result from Last 3 Months Insurance [facility] [id number] [facility] [id number] Care Teams Toilet Products Molder Relationship Specialty Start Date End Date Víctor Steinberg MD [address] [place] [address] PCP - General Family Practice 03/08/21
[2024-10-26 09:32] LABS: Hematocrit 38.0 % (37.0-47.0); Hemoglobin 12.0 g/dL (12.0-15.0); Immature Granulocyte Percent A 0.4 % (0-0.5); Lymphocytes Absolute Auto 0.87 K/mm3 (0.9-3.2); Mean Corpuscular HGB Conc 31.6 g/dl (32-36); Mean Corpuscular Hemoglobin 31.0 pg (26-34); Mean Corpuscular Volume 98.2 fl (80-100); Nucleated Red Blood Cells Absolute Auto 0.000 K/mm3 (0.0-0.012); Nucleated Red Blood Cells Perc 0.0 % (0.0-0.2); Platelet Count Result 187 k/mm3 (150-375); Red Blood Count 3.87 M/mm3 (4.2-5.4); White Blood Count 2.4 K/mm3 (4.5-10.0)
[2024-10-26 09:58] LABS: Alanine Aminotransferase 13 U/L (6-35); Albumin Level 3.9 g/dL (3.5-5.1); Alkaline Phosphatase 68 U/L (38-126); Anion Gap 5 mmol/L (4-12); Aspartate Amino Transferase 24 U/L (14-36); Bilirubin,Total 0.7 mg/dL (0.2-1.3); Blood Urea Nitrogen 6 mg/dL (7-17); Calcium 9.1 mg/dL (8.4-10.2); Carbon Dioxide 28 mmol/L (22-30); Chloride 106 mmol/L (98-107); Estimated Glomerular Filt Rate > 60; Glucose 113 mg/dL (65-110); Potassium 4.1 mmol/L (3.4-5.0); Sodium 139 mmol/L (137-145); Total Protein 7.0 g/dL (6.3-8.2)
== END 2024-10-26 09:06 | disposition home or self-care (01) ==
LOC: ANHLAB 09:06
PROVIDERS: PCP Family Medicine; Visit Provider Orthopaedic Surgery
DX: T84.53XD Infection and inflammatory reaction due to internal right knee prosthesis, subsequent encounter (principal)
CPT/HCPCS: 36415; 80053; 85025

== ENCOUNTER 2024-11-04 09:14 | Outpatient (CLI) | payer MEDICARE, SELFPAY ==
--- OUTSIDE RECORDS SUMMARY | 2024-11-04 09:26 | XMS_ITS | Encounter Summary ---
Author Organization [facility] [employer] Address [address] [place] [address] Care Team Providers Care Driver/Refuse Collector Name Role Phone Víctor Steinberg MD Primary Care Provider [phone] Reason for Visit * Reason Onset Date Comments lab orders 12/28/2021 Encounter Details Date Type Department Care Team ([facility] Contact Info) Description 12/28/2021 Telephone [facility] Oncology and Hematology [facility] [address] [place] [address] Mushtaq Chau MD [address] [place] [phone] lab orders Social History Tobacco Use Types Packs/Day Years Used Date Smoking Tobacco: Never Smokeless Tobacco: Never Alcohol Use Standard Drinks/Week Comments Yes 0 (1 standard drink = 0.6 oz pur e alcohol) Comments No Sex and Gender Information Value Date Recorded Sex Assigned at Not on file Legal Sex Female 4:31 AM OBIEE OBIA SOLUTION ARCHITECT Gender Identity Not on file Sexual Orientation [...] Description 12/18/2024 9:15 AM CDT Office Visit [facility] Oncology and Hematology [facility] [address] [place] [address] Zachary Werner MD [address] [facility] [address] [place] [address] documented as of this encounter Visit Diagnoses Diagnosis Malignant neoplasm of colon, unspecified part of colon (CMS/HCC)- Primary documented in this encounter Care Teams Driver/Refuse Collector Relationship Specialty Start Date End Date Víctor Steinberg MD [address] [place] [address] PCP - General Family Practice 03/08/21 documented as of this encounter
--- OUTSIDE RECORDS SUMMARY | 2024-11-04 09:26 | XMS_ITS | Clinical Summary ---
Author Organization [facility]eme [facility]ang [facility] Address [address] [place] [address] Care Team Providers Care Accounting Machine Servicer Name Role Phone Víctor Steinberg MD Primary Care Provider [phone] Allergies No known active allergies Medications ALPRAZolam [...] Care Team Description 10/05/2024 Orders Only [facility] Oncology and Hematology - [place] [address] [facility] [address] [place] [address] Zachary Werner MD 09/23/2024 External [...] 08/06/2024 11:30 AM CDT Office Visit [facility] Oncology and Hematology [place] [address] [place] [address] Zachary Werner MD Malignant neoplasm of colon, unspecified part of colon (CMS/HCC) (Primary Dx) from Last 3 Months Family History Medical [...] on file 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 Gender Identity Not on file Sexual Orientation [...] 12/18/2024 9:15 AM CDT Office Visit [facility] Oncology and Hematology - [place] [address] [place] [address] Zachary Werner MD [address] [facility] [address] [place] [address] Health Maintenance Due Date Last [...] CYTOMETRY REPORT Routine 09/29/2024 1:41 PM CDT from Last 3 Months Results * FLOW CYTOMETRY REPORT (09/29/2024 1:41 PM CDT) Zachary Werner MD PATHOLOGY/CYTOLOGY ORDERABLES F inal Result from Last 3 Months Insurance [facility] [id number] [facility] [id number] Care Teams Accounting Machine Servicer Relationship Specialty Start Date End Date Víctor Steinberg MD [address] [place] [address] PCP - General Family Practice 03/08/21
--- OUTSIDE RECORDS SUMMARY | 2024-11-04 09:26 | XMS_ITS | Clinical Summary ---
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 The colonoscopy was performed without difficulty.The patient tolerated the procedure well. The quality of the bowel preparation was excellent. The quality ofthe bowel preparation was evaluated using the BBPS([place] Bowel Preparation Scale) with scores of: Right [...] 1:46 PM Recognized by the Citizen Of [place] Society for Gastrointestinal Endoscopy for promoting quality in endoscopy Juan Luis Villagomez MD PhD ENDOSCOPY PROCEDURES Cari l Result from Last 3 Months or Most Recently Relevant to Health Maintenance Insurance UHC MEDICARE ADVANTAGE MEDICARE [facility] Advance Directives For more information, please contact: [phone] * Full Code (Latest Code Status on File) Date Activated Date Inactivated Comments 09/24/2017 11:59 AM 09/24/2017 4:41 PM Care Teams Litigation Examiner Relationship Specialty Start Date End Date Rodolfo Zuleta MD [address] [place] [address] PCP - General 09/24/17 Leanne Pike MD [address] [place] [address] Medical Oncologist/Oyster Shucker Medical Oncology 11/18/19
[2024-11-04 09:52] LABS: Hematocrit 38.8 % (37.0-47.0); Hemoglobin 12.2 g/dL (12.0-15.0); Immature Granulocyte Percent A 0.4 % (0-0.5); Lymphocytes Absolute Auto 0.90 K/mm3 (0.9-3.2); Mean Corpuscular HGB Conc 31.4 g/dl (32-36); Mean Corpuscular Hemoglobin 31.0 pg (26-34); Mean Corpuscular Volume 98.5 fl (80-100); Nucleated Red Blood Cells Absolute Auto 0.000 K/mm3 (0.0-0.012); Nucleated Red Blood Cells Perc 0.0 % (0.0-0.2); Platelet Count Result 177 k/mm3 (150-375); Red Blood Count 3.94 M/mm3 (4.2-5.4); White Blood Count 2.7 K/mm3 (4.5-10.0)
[2024-11-04 10:16] LABS: Alanine Aminotransferase 18 U/L (6-35); Albumin Level 4.0 g/dL (3.5-5.1); Alkaline Phosphatase 63 U/L (38-126); Anion Gap 6 mmol/L (4-12); Aspartate Amino Transferase 34 U/L (14-36); Bilirubin,Total 0.5 mg/dL (0.2-1.3); Blood Urea Nitrogen 9 mg/dL (7-17); Calcium 8.9 mg/dL (8.4-10.2); Carbon Dioxide 28 mmol/L (22-30); Chloride 105 mmol/L (98-107); Estimated Glomerular Filt Rate > 60; Glucose 116 mg/dL (65-110); Potassium 4.2 mmol/L (3.4-5.0); Sodium 139 mmol/L (137-145); Total Protein 6.9 g/dL (6.3-8.2)
== END 2024-11-04 09:15 | disposition home or self-care (01) ==
PROVIDERS: PCP Family Medicine; Visit Provider Orthopaedic Surgery
DX: T84.53XD Infection and inflammatory reaction due to internal right knee prosthesis, subsequent encounter (principal)
CPT/HCPCS: 36415; 80053; 85025

== ENCOUNTER 2024-12-16 08:27 | Outpatient (CLI) | payer MEDICARE, SELFPAY ==
[2024-12-16 08:42] LABS: Hematocrit 40.3 % (37.0-47.0); Hemoglobin 12.9 g/dL (12.0-15.0); Immature Granulocyte Percent A 0.4 % (0-0.5); Immature Platelet Fraction Pct 6.2 % (0.9-11.2); Lymphocytes Absolute Auto 1.06 K/mm3 (0.9-3.2); Mean Corpuscular HGB Conc 32.0 g/dl (32-36); Mean Corpuscular Hemoglobin 31.0 pg (26-34); Mean Corpuscular Volume 96.9 fl (80-100); Nucleated Red Blood Cells Absolute Auto 0.000 K/mm3 (0.0-0.012); Nucleated Red Blood Cells Perc 0.0 % (0.0-0.2); Platelet Count Result 106 k/mm3 (150-375); Red Blood Count 4.16 M/mm3 (4.2-5.4); White Blood Count 2.5 K/mm3 (4.5-10.0)
[2024-12-16 10:05] LABS: Alanine Aminotransferase 23 U/L (6-35); Albumin Level 4.1 g/dL (3.5-5.1); Alkaline Phosphatase 65 U/L (38-126); Anion Gap 3 mmol/L (4-12); Aspartate Amino Transferase 31 U/L (14-36); Bilirubin,Total 0.7 mg/dL (0.2-1.3); Blood Urea Nitrogen 9 mg/dL (7-17); Calcium 8.7 mg/dL (8.4-10.2); Carbon Dioxide 28 mmol/L (22-30); Chloride 105 mmol/L (98-107); Estimated Glomerular Filt Rate > 60; Glucose 122 mg/dL (65-110); Potassium 4.2 mmol/L (3.4-5.0); Sodium 136 mmol/L (137-145); Total Protein 7.1 g/dL (6.3-8.2)
[2024-12-16 10:40] LABS: Carcinoembryonic Antigen 10.1 ng/mL (0.0-3.0)
== END 2024-12-16 08:28 | disposition home or self-care (01) ==
LOC: ANHLAB 08:28
PROVIDERS: PCP Family Medicine; Visit Provider Internal Medicine Hematology & Oncology
DX: C18.9 Malignant neoplasm of colon, unspecified (principal)
CPT/HCPCS: 36415; 80053; 82378; 85025; 85055